=== PATIENT | female | born 1980 | race Caucasian/White ===

== ENCOUNTER 2019-11-13 05:27 | Emergency (ER) | payer MEDICAID, SELFPAY | END 2019-11-13 07:55 | disposition admitted as inpatient to this hospital (09) | LOC: ER 11-17 20:32 | PROVIDERS: Emergency Provider Emergency Medicine; PCP Family Medicine | DX: R45.851 Suicidal ideations (principal); F17.210 Nicotine dependence, cigarettes, uncomplicated | CPT/HCPCS: 12345; 80053; 80307; 84703; 85025; 99284; 99285 ==

== ENCOUNTER 2019-11-13 05:27 | Inpatient (IN) | payer MEDICAID, SELFPAY ==
[2019-11-13 05:28] VITALS: BP 158/103; PULSE 109; RESP 18; TEMP 36.6; O2SAT 99; BMI 22.8
--- NOTE | 2019-11-13 05:49 | PC.NURSE ---
patient states that she started feeling like she wanted to go in the shower and cut herself all the way down her arm to kill herself. patient states that she has been hearing voices talking bad about her and saying that she has been doing bad things. patient states she feels very anxious.
[2019-11-13 06:22] LABS: Basophils % 0.2 %; Hemoglobin 13.2 g/dL (11.5-15.3); Lymphocytes # 1.8 10^3/uL (0.8-4.8); Lymphocytes % 15.3 %; Mean Corpuscular HGB Conc 32.2 g/dL (30.0-36.0); Mean Corpuscular Hemoglobin 29.1 pg (28.0-34.0); Mean Corpuscular Volume 90.5 fL (81-99); Mean Platelet Volume 9.1 fL (7.4-10.4); Monocytes # 0.9 10^3/uL (0.2-0.9); Monocytes % 7.4 %; Neutrophils # 9.1 10^3/uL (1.8-7.7); Neutrophils % 76.7 %; Nucleated Red Blood Cells % 0 %; Platelet Count 484 10^3/cmm (130-400); Red Blood Count 4.53 10^6/uL (4.1-5.3); Red Cell Distribution Width 14.2 % (12.1-15.1); White Blood Count 11.8 10^3/uL (4.0-10.0)
--- NOTE | 2019-11-13 06:33 | W.ED.PSYCH ---
HPI - Psych General: Chief Complaint: Psychiatric Symptoms Stated Complaint: SI History of Present Illness: HPI Narrative: Gold is a nice 39-year-old female who comes in complaining of feeling suicidal. She states that she has a plan to cut her wrists. She has a previous history of admission for suicidal ideation. She denies any ingestions up to this point. She wants to come in to get help. Review of Systems Const: Denies: fever(s), chills, body aches, fatigue, malaise, night sweats or diaphoresis Eyes: Denies: change in vision, blurry vision or blind spots ENMT: Denies: throat pain, odynophagia, hoarseness, ear or mastoid pain, ear discharge, change in hearing or nasal discharge Card: Denies: chest pain, palpitations, irregular heart rhythm, lightheadedness, syncope, pre-syncope, dyspnea on exertion or orthopnea Resp: Denies: dyspnea, productive cough, non-productive cough, wheezing, hemoptysis or chest congestion GI: Denies: abdominal pain, nausea, vomiting, hematemesis, coffee ground emesis, heartburn, diarrhea, constipation, GI cramping, hematochezia or melena : Denies: flank pain, dysuria, urinary frequency, urinary urgency, oliguria, urinary incontinence or hematuria Musc: Denies: neck pain, back pain, extremity pain, extremity swelling, joint pain, joint swelling, joint redness, joint warmth or joint stiffness Skin/Breast: Denies: rash, pruritus, erythema, skin tenderness or jaundice Neuro: Denies: headache(s), numbness in extremities, weakness in extremities, sensory changes, lack of coordination, difficulty walking, dizziness, vertigo, confusion or Slurred speech present Endo: Denies: polyuria, polydipsia, tired all the time, cold intolerance, excessive sweating, flushing, hot flashes or heat intolerance Bossman/Lymph: Denies: easy bruising, easy bleeding, petechiae, purpura or enlarged lymph nodes All/Imm: Denies: urticaria, throat swelling, tongue swelling, facial swelling or acute wheezing PFSH ED PFSH: Family History Other Cancer Diabetes Heart disease Hyperlipidemia Hypertension Social History (Reviewed 11/13/19 @ 06:44 by Janet Alonzo Smoking and tobacco status: current every day smoker cigarettes Packs smoked per day: 1.5 Alcohol intake: never Adopted: No Caregiver/support person: No Lives independently: Yes Household members: significant other Current occupational status: disabled Sexually active: Yes Current gender identity: Female Physical Exam Const: COMMON NORMALS: no acute distress, patient oriented x3, no limitations, healthy appearing and well nourished EXAM LIMITATIONS: no altered mental status GENERAL APPEARANCE: cooperative, well kempt and well developed HENMT: COMMON NORMALS: normocephalic, atraumatic, hearing grossly normal bilaterally, external ears normal, EAC's normal, Normal external nose present and moist oral mucous membranes HEAD & SCALP: normal to inspection, normocephalic and atraumatic FACE & SINUS: normal facial exam and face symmetric NOSE: Normal external nose present and Normal nares present EXTERNAL EAR: Yes external ears normal EXTERNAL AUDITORY CANAL: EAC's normal MOUTH: Normal oral and palatal mucosa present, lip normal and tongue normal Eye: COMMON NORMALS: Equal, round and reactive pupils present, EOMs intact bilaterally, conjunctivae normal and no scleral icterus GENERAL EYE: appearance normal, both eyes and all related structures ALIGNMENT: Yes alignment normal PERIORBITAL: periorbital findings normal EYELID: eyelids normal CONJUNCTIVA: Yes conjunctivae normal SCLERA: sclerae normal PUPIL: Yes Equal, round and reactive pupils present Neck/C-Spine: COMMON NORMALS: full ROM, no lymphadenopathy, supple, no meningeal signs and no JVD GENERAL: Yes normal visual inspection and Yes trachea midline CERVICAL SPINE: Yes cervical ROM normal Chest: COMMONS NORMALS: normal inspection of the chest and normal palpation of entire chest wall Resp: COMMON NORMALS: normal respiratory effort, No retractions, No use of accessory muscles and clear to auscultation bilaterally EFFORT & INSPECTION: Yes able to speak in complete sentences AUSCULTATION: clear to auscultation bilaterally, no crackles, no rales, no rhonchi and no wheezes Cardio: COMMON NORMALS: no JVD, regular rate, regular rhythm, S1 normal heart sound present, S2 normal heart sound present, No gallops present (Cardio), No clicks present (Cardio), No murmurs present (Cardio) and No rub (Cardio) RATE: regular rate RHYTHM: regular rhythm HEART SOUNDS: S1 normal heart sound present, S2 normal heart sound present, no click, no gallops, no murmurs and no rubs GI: COMMON NORMALS: Soft to palpation, non-tender, No hepatosplenomegaly present and no masses PALPATION: Yes Soft to palpation, No Tenderness to palpation present (GI), No Guarding due to palpation present (GI), No Rigid due to palpation, Yes No hepatosplenomegaly present, No Hernia present, No Palpable mass present and No Pulsatile mass present : COMMON NORMALS: Yes no CVA tenderness BLADDER/KIDNEY EXAM: Yes no CVA tenderness EXTERNAL FEMALE EXAM: No Hernia present Back/Pelvis: COMMON NORMALS: no CVA tenderness, thoracic and lumbar spine normal to inspection, no thoracic nor lumbar tenderness and thoraco-lumbar ROM normal Extremity: COMMON NORMALS: normal to inspection, full ROM, capillary refill normal, no joint enlargement, no clubbing, cyanosis or edema and no calf tenderness Neuro: COMMON NORMALS: patient oriented x3, CN's II-XII intact bilaterally, moves all extremities, no focal motor deficits and no sensory deficits noted MENINGEAL SIGNS: Yes no meningeal signs SPEECH: speech normal Psych: COMMON NORMALS: mental status grossly normal, Normal thought process present, cooperative, normal affect, speech normal and activity/motor behavior normal APPEARANCE: Yes well kempt SPEECH: Yes normal speech THOUGHT PROCESS: Normal thought process present Skin: COMMON NORMALS: no rashes or lesions noted, turgor normal, no jaundice, no petechiae and no mottling GENERAL SKIN EXAM: no rashes or lesions noted and turgor normal MDM - Psych MDM Narrative: Medical decision making narrative: Case reviewed with Dr. Walter, he agrees to admission. Lab Data: Labs: Lab Results 11/13/19 11/13/19 11/13/19 Range/Units 06:15 06:15 06:15 WBC 11.8 H (4.0-10.0) 10^3/ uL RBC 4.53 (4.1-5.3) 10^6/u L Hgb 13.2 (11.5-15.3) g/dL Hct 41.0 (37.0-47.0) % MCV 90.5 (81-99) fL MCH 29.1 (28.0-34.0) pg MCHC 32.2 (30.0-36.0) g/dL RDW 14.2 (12.1-15.1) % Plt Count 484 H (130-400) 10^3/c mm MPV 9.1 (7.4-10.4) fL Neut % (Auto) 76.7 % Lymph % (Auto) 15.3 % Pettis % (Auto) 7.4 % Eos % (Auto) 0.0 % Baso % (Auto) 0.2 % Neut # (Auto) 9.1 H (1.8-7.7) 10^3/u L Lymph # (Auto) 1.8 (0.8-4.8) 10^3/u L Pettis # (Auto) 0.9 (0.2-0.9) 10^3/u L Eos # (Auto) 0.0 (0.0-0.8) 10^3/u L Baso # (Auto) 0.0 (0.0-0.1) 10^3/u L Nucleated RBC % (a uto) 0 % Nucleated RBCs # 0.0 /100WBC Sodium 138 (136-145) mmol/L Potassium 3.7 (3.5-5.1) mmol/L Chloride 102 (98-107) mmol/L Carbon Dioxide 24 (22-29) mmol/L Anion Gap 15.7 (5-19) BUN 6 (6-20) mg/dL Creatinine 0.6 (0.5-0.9) mg/dL GFR Calculation 111.3 (90-130) mL/min Glucose 120 H (65-115) mg/dL Calculated Osmolal ity 283 L (285-295) mOsm/k g Calcium 9.1 (8.5-10.5) mg/dL Total Bilirubin 0.3 (0.15-1.2) mg/dL AST 13 (0-32) U/L ALT 33 (0-33) U/L Alkaline Phosphata se 104 (35-105) IU/L Total Protein 6.9 (6.6-8.7) g/dL Albumin 4.5 (3.5-5.2) g/dL Globulin 2.4 (1.3-4.6) g/dL HCG, Qual Negative (Negative) Salicylates < 0.3 L (3-10) mg/dL Acetaminophen < 5.0 L (10-30) ug/mL Ethyl Alcohol < 10 (0-10) mg/dL Discharge Plan Discharge Patient Disposition: Admitted As Inpatient Admit Provider: Hong Walter Clinical Impression: Suicidal ideation Condition: Stable Referrals: Tripp Cardoso [Primary Care Provider] - Discharge Date/Time: 11/13/19 07:55 Coding Level of Care Code ED Roll Cutting Operator for Chg Fwd Exam Comprehensive
[2019-11-13 06:38] LABS: Alanine Aminotransferase 33 U/L (0-33); Albumin Level 4.5 g/dL (3.5-5.2); Alkaline Phosphatase 104 IU/L (35-105); Anion Gap 15.7 (5-19); Aspartate Amino Transferase 13 U/L (0-32); Blood Urea Nitrogen 6 mg/dL (6-20); Calcium 9.1 mg/dL (8.5-10.5); Carbon Dioxide 24 mmol/L (22-29); Chloride 102 mmol/L (98-107); Globulin 2.4 g/dL (1.3-4.6); Glomerular Filtration Rate 111.3 mL/min (90-130); Glucose 120 mg/dL (65-115); Osmolality Calculated 283 mOsm/kg (285-295); Potassium 3.7 mmol/L (3.5-5.1); Sodium 138 mmol/L (136-145); Total Bilirubin 0.3 mg/dL (0.15-1.2); Total Protein 6.9 g/dL (6.6-8.7)
[2019-11-13 06:48] LABS: Acetaminophen < 5.0 ug/mL (10-30); Alcohol Level < 10 mg/dL (0-10); Salicylate < 0.3 mg/dL (3-10)
[2019-11-13 07:18] LABS: HCG, Serum Qual Negative (Negative)
[2019-11-13 07:27] LABS: Add Urine Microscopic? NO
[2019-11-13 07:38] LABS: Amphetamines Screen Urine Positive (Negative); Barbiturates Screen Urine Negative (Negative); Benzodiazepines Screen Urine Negative (Negative); Cocaine Screen Urine Negative (Negative); Opiate Screen Urine Negative (Negative); PCP Screen Urine Negative (Negative); THC Screen Urine Positive (Negative)
[2019-11-13 07:48] LABS: Bilirubin Urine Neg (NEGATIVE); Blood Urine Neg (Negative); Glucose Urine UA Norm (Normal); Ketones Urine Negative (Negative); Leukocyte Esterase Urine Negative (Negative); Nitrate Urine Negative (Negative); Protein Urine Neg (Negative); Specific Gravity, Urine 1.005 (1.005-1.030); Urine Appearance Clear (CLEAR); Urine Color Yellow (Yellow); Urobilinogen Urine Norm (Negative); pH Urine 7 (5-7)
[2019-11-13 07:51] VITALS: BP 144/90; PULSE 94; RESP 18; O2SAT 98
[2019-11-13 08:02] VITALS: BP 137/87; PULSE 103; RESP 20; TEMP 36.6; O2SAT 98
[2019-11-13 08:04] VITALS: BP 137/87; PULSE 103; RESP 20; TEMP 36.6; O2SAT 98
[2019-11-13] MEDS: OLANZapine 5 mg ODT PO (09:28)
[2019-11-13] MEDS: acetaminophen 325 mg Tablet 650 MG PO (12:44)
[2019-11-13 14:00] VITALS: BP 128/82; PULSE 79; RESP 18; TEMP 36.8
[2019-11-13] MEDS: hyDROXYzine 25 mg Capsule 50 MG PO ×2 (16:06→21:05)
[2019-11-13] MEDS: trazodone 50 mg Tablet PO (21:05)
[2019-11-13 21:13] VITALS: BP 135/89; PULSE 91; RESP 20; TEMP 37.8; O2SAT 100
[2019-11-14 06:00] VITALS: BP 110/67; PULSE 119; RESP 18; TEMP 37.1; O2SAT 96
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
[2019-11-14 13:30] VITALS: BP 123/90; PULSE 96; RESP 20; TEMP 37.4; O2SAT 97
[2019-11-14] MEDS: acetaminophen 325 mg Tablet 650 MG PO (13:48)
[2019-11-14] MEDS: sertraline 50 mg Tablet PO (17:38)
[2019-11-14 20:48] VITALS: BP 119/78; PULSE 78; RESP 16; TEMP 37.1; O2SAT 96
[2019-11-14] MEDS: trazodone 50 mg Tablet PO ×2 (20:53→23:29)
--- NOTE | 2019-11-14 20:53 | PC.NURSE ---
TRAZODONE PT REQUESTING SLEEP AID. ADMINISTERED TRAZODONE 50 MG PO FOR SLEEP. WILL MONITOR FOR MEDICATION EFFECTIVENESS.
[2019-11-15 06:00] VITALS: BP 125/75; PULSE 109; RESP 17; TEMP 37.1; O2SAT 99
[2019-11-15] MEDS: sertraline 50 mg Tablet PO (09:00)
--- NOTE | 2019-11-15 11:55 | PM.NPN ---
Subjective NPU Subjective: Interval history: Brianna presented today still seeming in a bit of a fog and guarded but taking the medication and denying major issue. She denies any side effects or problems. There were concerns after she had an episode where she was being self-injurious in a fairly nonthreatening but possibly attention seeking manner. She could not really explain why she was behaving in the way she was and ultimately was put on one-to-one to avoid further SIB or self harm which was removed after she was able to contract for safety. Mental Status Exam MSE Comments: This is a well-nourished well-developed white female with adequate dress limited grooming and eye contact. No abnormal movements except for psychomotor retardation. Marginally cooperative with exam in no acute distress. Speech was decreased rate and volume mood described as depressed affect congruent and. Thought process linear. Thought content: Patient denied homicidal ideation but reported that she was having some thoughts to hurt herself. She denied any delusions and none were noted, she denied any auditory or visual hallucinations. Attention and concentration were still limited and memory was unreliable but none were formally tested. She is alert and oriented times person and place. Insight and judgment appear impaired. Vitals/I&O/Wt Last Vital Signs Temp 97.6 F 11/15/19 22:00 Pulse 86 11/15/19 22:00 Resp 17 11/15/19 22:00 BP 125/86 11/15/19 22:00 Pulse Ox 98 11/15/19 22:00 Data NPU : 11/13/19 06:15 11/13/19 06:15 A&P Assessment and plan (1) Suicidal ideation: Status: Acute (2) Methamphetamine use: Status: Acute (3) Major depress dis, severe: Status: Acute (4) Cluster B personality disorder: Status: Acute Additional A&P Information This is a 39-year-old white female with a long history of addiction and mental health issues who presents restarting her medication and struggling with suicidal thoughts. 1. Continue current medication. 2. encourage individual, group and milieu therapy. 3. continue every 15 minute checks for safety. 4. Encourage follow-up with sober living services at the highest level of care to which she is willing to commit. Involuntary Hold Information 96 Hour Hold: 96 Hour Involuntary Admission: No Attestations NPU Medical Necessity Statement*: Inpatient hospitalization is medically necessary and the clinically appropriate intervention at this time. We will monitor medications and adjust as indicated. Likely length of stay 2 to 4 days. 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
[2019-11-15 14:00] VITALS: BP 102/69; PULSE 113; RESP 18; TEMP 37.2; O2SAT 98
[2019-11-15] MEDS: trazodone 50 mg Tablet PO ×2 (21:08→22:53)
[2019-11-15] MEDS: hyDROXYzine 25 mg Capsule 50 MG PO (21:08)
[2019-11-15 22:00] VITALS: BP 125/86; PULSE 86; RESP 17; TEMP 36.4; O2SAT 98
--- NOTE | 2019-11-15 22:40 | PC.NURSE ---
Staff went into patients room to get vitals. Staff asked patient if everything is alright due to the fact patient has been trying to self harm. Patient stated I have something embarrassing to say and you might laugh at me. staff informed the patient that no one was going to laugh. Patient then stated, I'm having these sexual urges towards animals. Charged nurse was notified.
[2019-11-16 06:00] VITALS: BP 106/70; PULSE 95; RESP 17; TEMP 36.8; O2SAT 97
[2019-11-16] MEDS: sertraline 50 mg Tablet PO (08:05)
[2019-11-16] MEDS: acetaminophen 325 mg Tablet 650 MG PO ×3 (08:05→22:40)
--- NOTE | 2019-11-16 10:40 | P.PN_ITS ---
Subjective NPU Subjective: Interval history: Brianna presents today reporting that she is feeling a little better she feels like the medication is helpful. She is been working with the social work team and apparently there is a band that will be available for her at [facility] that is not able to tell us right now exactly when that will be. We discussed making sure she is ready to go and make appropriate use of that resource. She endorses being very clear that going to rehab is the best and necessary next move for in her wellness. She was tearful during the interview. Mental Status Exam MSE Comments: This is a well-nourished well-developed white female with adequate dress, grooming and eye contact. No abnormal movements except for psychomotor retardation. Cooperative with exam in no acute distress. Speech was decreased rate and volume mood described as depressed affect congruent and tearful. Thought process more organized. Thought content: Patient denied homicidal or suicidal ideation She denied any delusions and none were noted, she denied any auditory or visual hallucinations. Attention and concentration were still limited but improving and memory was unreliable but none were formally tested. She is alert and oriented times person and place. Insight and judgment appear impaired but improving. Vitals/I&O/Wt Last Vital Signs Temp 98.8 F 11/16/19 21:36 Pulse 92 11/16/19 21:36 Resp 21 H 11/16/19 21:36 BP 101/70 11/16/19 21:36 Pulse Ox 97 11/16/19 21:36 Data NPU : 11/13/19 06:15 11/13/19 06:15 A&P Additional A&P Information (1) Suicidal ideation: (2) Methamphetamine use: (3) Major depress dis, severe: (4) Cluster B personality disorder: This is a 39-year-old white female with a long history of addiction and mental health issues who presents restarting her medication and struggling with talia cidal thoughts which are improving and addiction. 1. Continue current medication. 2. encourage individual, group and milieu therapy. 3. continue every 15 minute checks for safety. 4. Encourage follow-up with sober living services at the highest level of care to which she is willing to commit. Involuntary Hold Information 96 Hour Hold: 96 Hour Involuntary Admission: No Attestations NPU Medical Necessity Statement*: Inpatient hospitalization is medically necessary and the clinically appropriate intervention at this time. We will monitor medications and adjust as indicated. Likely length of stay 2 to 4 days. Coding Level of Care Code Acute Intervention Nurse for [facility]
[2019-11-16 13:49] VITALS: BP 107/69; PULSE 997; RESP 18; TEMP 37.1; O2SAT 98
[2019-11-16] MEDS: nicotine 2 mg Gum BUCCAL (20:31)
[2019-11-16] MEDS: trazodone 50 mg Tablet PO ×2 (20:31→22:41)
[2019-11-16] MEDS: hyDROXYzine 25 mg Capsule 50 MG PO (20:31)
[2019-11-16 21:36] VITALS: BP 101/70; PULSE 92; RESP 21; TEMP 37.1; O2SAT 97
[2019-11-16] MEDS: calcium carbonate 500 mg Chew Tablet PO (22:41)
[2019-11-17 06:00] VITALS: BP 100/62; PULSE 97; RESP 21; TEMP 36.8; O2SAT 99
[2019-11-17] MEDS: dicyclomine 20 mg Tablet PO ×4 (08:17→20:40)
[2019-11-17] MEDS: sertraline 50 mg Tablet PO (08:17)
[2019-11-17] MEDS: acetaminophen 325 mg Tablet 650 MG PO ×3 (08:46→21:33)
--- NOTE | 2019-11-17 12:34 | PM.NPN ---
Subjective NPU Subjective: Interval history: Brianna presents today reporting that she is feeling a little better day by day. She is aware that [facility] has a band that they will have available on Thursday. We discussed the risk benefits and alternatives of her staying versus going in for maintaining her sobriety if she leaves. Additionally we discussed some of her medications which had not been identified in getting those restarted. She endorsed a commitment to go to the rehab and get her life turned around. She reported that she has a history of a possible TBI showing me is a spot of the injury on the back of her head. Mental Status Exam MSE Comments: This is a well-nourished well-developed white female with adequate dress, grooming and eye contact. No abnormal movements except for psychomotor retardation. Cooperative with exam in no acute distress. Speech was decreased rate and volume mood described as a little better, affect subdued. Thought process more organized. Thought content: Patient denied homicidal or suicidal ideation She denied any delusions and none were noted, she denied any auditory or visual hallucinations. Attention and concentration were still limited but improving and memory was more reliable but none were formally tested. She is alert and oriented times person and place. Insight and judgment appear limited but improving. Vitals/I&O/Wt Last Vital Signs Temp 98.1 F 11/17/19 21:30 Pulse 98 11/17/19 21:30 Resp 17 11/17/19 21:30 BP 108/77 11/17/19 21:30 Pulse Ox 98 11/17/19 21:30 Data NPU : 11/13/19 06:15 11/13/19 06:15 A&P Additional A&P Information (1) Suicidal ideation: (2) Methamphetamine use: (3) Major depress dis, severe: (4) Cluster B personality disorder: This is a 39-year-old white female with a long history of addiction and mental health issues who presents restarting her medication and struggling with suicidal thoughts which are improving and addiction. 1. Continue current medication. 2. encourage individual, group and milieu therapy. 3. continue every 15 minute checks for safety. 4. Encourage follow-up with sober living services at the highest level of care to which she is willing to commit. Involuntary Hold Information 96 Hour Hold: 96 Hour Involuntary Admission: No Attestations NPU Medical Necessity Statement*: Inpatient hospitalization is medically necessary and the clinically appropriate intervention at this time. We will monitor medications and adjust as indicated. Likely length of stay 2 to 4 days. Coding Level of Care Code Acute Marketing Project Manager for [facility]
[2019-11-17] MEDS: nicotine 2 mg Gum BUCCAL (12:36)
[2019-11-17] MEDS: tizanidine 4 mg Tablet PO (12:38)
--- NOTE | 2019-11-17 12:38 | PC.NURSE ---
PRN ZANAFLEX 4 MG GIVEN PO PER PT C/O SPASMS IN NECK. WILL CONT TO MONITOR.
[2019-11-17 13:24] VITALS: BP 113/81; PULSE 91; RESP 18; TEMP 36.9; O2SAT 100
[2019-11-17] MEDS: gabapentin 300 mg Capsule PO ×2 (15:27→20:40)
[2019-11-17 19:40] VITALS: BP 108/77; PULSE 98; RESP 17; TEMP 36.7; O2SAT 98
[2019-11-17] MEDS: trazodone 50 mg Tablet PO (20:40)
[2019-11-17 21:30] VITALS: BP 108/77; PULSE 98; RESP 17; TEMP 36.7; O2SAT 98
[2019-11-17] MEDS: calcium carbonate 500 mg Chew Tablet PO (21:34)
[2019-11-18 06:00] VITALS: BP 106/68; PULSE 86; RESP 20; TEMP 37; O2SAT 99
[2019-11-18] MEDS: acetaminophen 325 mg Tablet 650 MG PO ×3 (08:28→18:42)
[2019-11-18] MEDS: sertraline 50 mg Tablet PO (08:28)
[2019-11-18] MEDS: dicyclomine 20 mg Tablet PO ×4 (08:28→20:11)
[2019-11-18] MEDS: tizanidine 4 mg Tablet PO (08:28)
[2019-11-18] MEDS: gabapentin 300 mg Capsule PO ×3 (08:28→20:12)
[2019-11-18] MEDS: loratadine 10 mg Tablet PO (08:28)
[2019-11-18] MEDS: duloxetine 60 mg Capsule PO (08:28)
--- NOTE | 2019-11-18 08:30 | PC.NURSE ---
PRN ZANAFLEX 4 MG GIVEN PO PER PT C/O MUSCLE SPASMS. WILL CONT TO MONITOR
[2019-11-18] MEDS: nicotine 2 mg Gum BUCCAL ×2 (08:57→20:12)
[2019-11-18] MEDS: calcium carbonate 500 mg Chew Tablet PO (08:57)
--- NOTE | 2019-11-18 08:57 | PC.NURSE ---
prn tums 500 mg given po per pt c/o indigestion
[2019-11-18] MEDS: neomycin-poly-bacitracin oint 28 gm 1 APPLIC TOPICAL (10:29)
[2019-11-18 13:58] VITALS: BP 122/80; PULSE 105; RESP 18; TEMP 36.9; O2SAT 94
--- NOTE | 2019-11-18 14:37 | P.PN_ITS ---
Subjective NPU Subjective: Interval history: Brianna presents today reporting that she is feeling better and looking forward to rehab on Thursday. She had hoped she could go sooner, but she understands the circumstance. She reports that the medication seems fine. She is happy because she is not really having cravings right now, and she feels like help is on the way. She has had an opportunity to continue conversations with her mom and her boyfriend/fianc? and she is optimistic about her future. Mental Status Exam MSE Comments: This is a well-nourished, well-developed, white female, with adequate dress, grooming, and eye contact. No abnormal movements except for mild psychomotor retardation which is improving. Cooperative with exam in no acute distress. Speech was decreased rate and volume but improving. Mood described as better; affect congruent. Thought process, organized. Thought content: patient denied any suicidal or homicidal ideation, there were no delusions reported or noted, patient denied any auditory or visual hallucinations. Attention, concentration, and memory appeared intact but were not formally tested. Alert and oriented times three. Insight and judgment are fair. Impulse control improving. Vitals/I&O/Wt Last Vital Signs Temp 98.6 F 11/18/99 06:00 Pulse 86 11/18/99 06:00 Resp 20 H 11/18/99 06:00 BP 106/68 11/18/99 06:00 Pulse Ox 99 11/18/99 06:00 Data NPU : 11/13/19 06:15 11/13/19 06:15 A&P Additional A&P Information (1) Suicidal ideation: (2) Methamphetamine use: (3) Major depress dis, severe: (4) Cluster B personality disorder: This is a 39-year-old white female with a long history of addiction and mental health issues who presents restarting her medication and struggling with suicidal thoughts which are improving and addiction. 1. Continue current medication. 2. encourage individual, group and milieu therapy. 3. continue every 15 minute checks for safety. 4. [facility]. Involuntary Hold Information 96 Hour Hold: 96 Hour Involuntary Admission: No Attestations NPU Medical Necessity Statement*: Inpatient hospitalization is medically necessary and the clinically appropriate intervention at this time. We will monitor medications and adjust as indicated. Likely length of stay 3 days. Coding Level of Care Code Acute Switchboard Manager for Ioana Alcaraz
[2019-11-18] MEDS: TRAMadol 50 mg Tablet PO (20:09)
[2019-11-18 21:18] VITALS: BP 114/83; PULSE 65; RESP 20; TEMP 37.4; O2SAT 99
[2019-11-18] MEDS: hyDROXYzine 25 mg Capsule 50 MG PO (21:58)
[2019-11-18] MEDS: trazodone 50 mg Tablet PO (22:01)
[2019-11-19 06:00] VITALS: BP 98/60; PULSE 86; RESP 18; TEMP 37; O2SAT 100
[2019-11-19] MEDS: sertraline 50 mg Tablet PO (08:20)
[2019-11-19] MEDS: gabapentin 300 mg Capsule PO ×3 (08:20→22:06)
[2019-11-19] MEDS: loratadine 10 mg Tablet PO (08:20)
[2019-11-19] MEDS: dicyclomine 20 mg Tablet PO ×4 (08:20→22:06)
[2019-11-19] MEDS: duloxetine 60 mg Capsule PO (08:20)
[2019-11-19] MEDS: TRAMadol 50 mg Tablet PO ×2 (09:16→17:24)
[2019-11-19] MEDS: hyDROXYzine 25 mg Capsule 50 MG PO ×2 (09:36→17:25)
[2019-11-19] MEDS: nicotine 2 mg Gum BUCCAL ×3 (09:36→22:23)
[2019-11-19 14:00] VITALS: BP 121/82; PULSE 133; RESP 18; TEMP 37.4
[2019-11-19] MEDS: BuSPIRONE 10 mg Tablet PO ×2 (14:24→22:05)
--- NOTE | 2019-11-19 15:37 | PM.NPN ---
Subjective NPU Subjective: Interval history: The patient presents today reporting that she is happy that she is about forty eight hours away from discharge. She reports that she is feeling more and more like herself, and less out of her head like she was feeling when she first came in. She feels that things are going to go really well now, and she denies any significant problems. Mental Status Exam MSE Comments: This is a well-nourished, well-developed, white female, with adequate dress, grooming, and eye contact. No abnormal movements, except for improving psychomotor retardation. Cooperative with exam in no acute distress. Speech was more normal rate and volume. Mood described as much better; affect congruent and less subdued. Thought process, organized. Thought content: patient denied any suicidal or homicidal ideation, there were no delusions reported or noted, patient denied any auditory or visual hallucinations. Attention, concentration, and memory appeared intact but none were formally tested. She is alert and oriented times three. Insight and judgment are fair. Impulse control is improving. Vitals/I&O/Wt Last Vital Signs Temp 98.4 F 11/19/19 22:00 Pulse 98 11/19/19 22:00 Resp 19 H 11/19/19 22:00 BP 127/72 11/19/19 22:00 Pulse Ox 97 11/19/19 22:00 Weight last 48 hrs Weight 67.642 kg Data NPU : 11/13/19 06:15 11/13/19 06:15 A&P Additional A&P Information (1) Suicidal ideation: (2) Methamphetamine use: (3) Major depress dis, severe: (4) Cluster B personality disorder: This is a 39-year-old white female with a long history of addiction and mental health issues who presents restarting her medication and struggling with suicidal thoughts which are improving and addiction. 1. Continue current medication. 2. encourage individual, group and milieu therapy. 3. continue every 15 minute checks for safety. 4. discharged to [facility] on Thursday. Involuntary Hold Information 96 Hour Hold: 96 Hour Involuntary Admission: No Attestations NPU Medical Necessity Statement*: Inpatient hospitalization is medically necessary and the clinically appropriate intervention at this time. We will monitor medications and adjust as indicated. Likely length of stay 2 days. Coding Level of Care Code Acute Livestock Haulier for Ioana Alcaraz
[2019-11-19] MEDS: calcium carbonate 500 mg Chew Tablet PO (19:07)
[2019-11-19 22:00] VITALS: BP 127/72; PULSE 98; RESP 19; TEMP 36.9; O2SAT 97
[2019-11-19] MEDS: trazodone 100 mg Tablet PO (22:05)
[2019-11-20 06:00] VITALS: BP 90/56; PULSE 89; RESP 18; TEMP 36.6; O2SAT 99
[2019-11-20] MEDS: calcium carbonate 500 mg Chew Tablet PO ×3 (09:01→21:18)
[2019-11-20] MEDS: sertraline 50 mg Tablet PO (09:01)
[2019-11-20] MEDS: loratadine 10 mg Tablet PO (09:02)
[2019-11-20] MEDS: BuSPIRONE 10 mg Tablet PO ×3 (09:02→20:25)
[2019-11-20] MEDS: duloxetine 60 mg Capsule PO (09:02)
[2019-11-20] MEDS: dicyclomine 20 mg Tablet PO ×4 (09:03→20:25)
[2019-11-20] MEDS: gabapentin 300 mg Capsule PO ×3 (09:03→20:25)
[2019-11-20] MEDS: tizanidine 4 mg Tablet PO (09:03)
[2019-11-20] MEDS: nicotine 2 mg Gum BUCCAL ×5 (09:04→21:39)
--- NOTE | 2019-11-20 09:04 | PC.NURSE ---
PRN TUMS & ZANAFLEX TUMS 500 MG CHEWABLE GIVEN PO PER PT C/O INDIGESTION ZANAFLEX 4 MG GIVEN PO PER PT C/O SPASMS. WILL CONT TO MONITOR
[2019-11-20] MEDS: TRAMadol 50 mg Tablet PO ×2 (09:22→17:37)
[2019-11-20] MEDS: acetaminophen 325 mg Tablet 650 MG PO (12:25)
[2019-11-20 14:00] VITALS: BP 132/82; PULSE 78; RESP 19; TEMP 36.9
--- NOTE | 2019-11-20 14:55 | PC.NURSE ---
PRN TUMS 500 MG CHEWABLE TAB GIVEN PO PER PT C/O INDIGESTION. WILL CONT TO MONITOR
--- NOTE | 2019-11-20 17:07 | P.PN_ITS ---
Subjective NPU Subjective: Interval history: Brianna presents today reporting that her father supposedly is going to have to have hip surgery, and that her mother is fairly incapacitated, and her sister is not helpful, and that she is the only person that is going to be able to take care of him, that will take care of him. She reports that her mother and fianc? will vouch for the fact that she is doing so much better. She denies having active cravings, at this point, and is now desiring to discharge tomorrow as planned, but not go to the rehab. We discussed the risks, benefits, and alternatives of this decision and this investment underwriter?s desire to have the treatment team connect with her significant others to make sure this is an accurate representation of this situation, and that this is truly what it in her best interest. Mental Status Exam MSE Comments: This is a well-nourished, well-developed, white female, with adequate dress, grooming, and eye contact. No abnormal movements. Cooperative w ith exam in no acute distress. Speech was normal rate and volume. Mood described as pretty good; affect less subdued. Thought process, organized. Thought content: patient denied any suicidal or homicidal ideation, there were no delusions reported or noted, patient denied any auditory or visual hallu cinations. Attention, concentration, and memory appeared intact but none were formally tested. She is alert and oriented times three. Insight and judgment appear fair. Impulse control is improving. Vitals/I&O/Wt Last Vital Signs Temp 98.2 F 11/20/19 20:01 Pulse 96 11/20/19 20:01 Resp 16 11/20/19 20:01 BP 124/73 11/20/19 20:01 Pulse Ox 98 11/20/19 20:01 11/20/19 11/20/19 11/21/19 14:59 22:59 06:59 Intake Total 360 / 360 Balance 360 / 360 Weight last 48 hrs Weight 67.642 kg Data NPU : 11/13/19 06:15 11/13/19 06:15 A&P Additional A&P Information (1) Suicidal ideation: (2) Methamphetamine use: (3) Major depress dis, severe: (4) Cluster B personality disorder: This is a 39-year-old white female with a long history of addiction and mental health issues who presents restarting her medication and struggling with suicidal thoughts which are improving and addiction. 1. Continue current medication. 2. encourage individual, group and milieu therapy. 3. continue every 15 minute checks for safety. 4. discharged to [facility] on Thursday. Involuntary Hold Information 96 Hour Hold: 96 Hour Involuntary Admission: No Attestations NPU Medical Necessity Statement*: Inpatient hospitalization is medically necessary and the clinically appropriate intervention at this time. We will monitor medications and adjust as indicated. Likely discharge tomorrow. Coding Level of Care Code Acute Rail Equipment Operator for Ioana Alcaraz
[2019-11-20] MEDS: hyDROXYzine 25 mg Capsule 50 MG PO (17:37)
--- NOTE | 2019-11-20 17:38 | PC.NURSE ---
PRN VISTARIL 50 MG GIVEN PO PER PT C/O STATED ANXIETY. PT DOES NOT APPEAR ANXIOUS, LAUGHING AT THE NURSES STATION. REQUESTING ANY AND ALL PRN MEDICATIONS SHE CAN HAVE OFTEN.
[2019-11-20 20:01] VITALS: BP 124/73; PULSE 96; RESP 16; TEMP 36.8; O2SAT 98
[2019-11-20] MEDS: trazodone 100 mg Tablet PO (20:25)
[2019-11-21 06:00] VITALS: BP 106/72; PULSE 88; RESP 17; TEMP 36.8; O2SAT 100
[2019-11-21] MEDS: gabapentin 300 mg Capsule PO ×2 (08:28→14:06)
[2019-11-21] MEDS: nicotine 2 mg Gum BUCCAL ×3 (08:28→15:06)
[2019-11-21] MEDS: BuSPIRONE 10 mg Tablet PO ×2 (08:28→14:06)
[2019-11-21] MEDS: duloxetine 60 mg Capsule PO (08:28)
[2019-11-21] MEDS: dicyclomine 20 mg Tablet PO ×2 (08:30→11:57)
[2019-11-21] MEDS: loratadine 10 mg Tablet PO (08:30)
[2019-11-21] MEDS: TRAMadol 50 mg Tablet PO (08:30)
[2019-11-21] MEDS: sertraline 50 mg Tablet PO (08:30)
[2019-11-21] MEDS: tizanidine 4 mg Tablet PO (08:30)
--- NOTE | 2019-11-21 08:31 | PC.NURSE ---
PRN ZANAFLEX 4 MG GIVEN PO PER PT C/O MUSCLE SPASMS. WILL CONT TO MONITOR
[2019-11-21] MEDS: calcium carbonate 500 mg Chew Tablet PO (09:15)
--- NOTE | 2019-11-21 09:16 | PC.NURSE ---
PRN TUMS 500 MG CHEWABLE TAB GIVEN PO PER PT C/O INDIGESTION.
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
[2019-11-21 11:40] VITALS: BP 106/72; PULSE 88; RESP 17; TEMP 36.8; O2SAT 100
[2019-11-21] MEDS: acetaminophen 325 mg Tablet 650 MG PO (11:57)
== END 2019-11-21 15:15 | disposition home or self-care (01) | DRG 885 ==
LOC: ER 07:29 → NP 07:52
PROVIDERS: Emergency Medicine; Admitting Provider Psychiatry & Neurology Psychiatry; PCP Family Medicine; Visit Provider Psychiatry & Neurology Psychiatry
DX: F32.2 Major depressive disorder, single episode, severe without psychotic features (principal); R45.851 Suicidal ideations; F15.90 Other stimulant use, unspecified, uncomplicated; F17.210 Nicotine dependence, cigarettes, uncomplicated; F12.90 Cannabis use, unspecified, uncomplicated; F60.89 Other specific personality disorders
CPT/HCPCS: 12345; 80053; 80306; 80307; 81003; 84703; 85025; 99284

== ENCOUNTER → 2019-12-01 09:54 | Outpatient (BNVA) | payer MEDICAID, SELFPAY | PROVIDERS: PCP Family Medicine; Referring Provider Family Medicine; Visit Provider Specialist | DX: R56.9 Unspecified convulsions (principal); F17.210 Nicotine dependence, cigarettes, uncomplicated | CPT/HCPCS: 95816 ==

== ENCOUNTER → 2020-03-09 09:44 | Outpatient (BNVA) | payer MEDICAID, SELFPAY | PROVIDERS: PCP Family Medicine; Visit Provider Psychiatry & Neurology Psychiatry | DX: F31.30 Bipolar disorder, current episode depressed, mild or moderate severity, unspecified (principal); F41.9 Anxiety disorder, unspecified; F15.10 Other stimulant abuse, uncomplicated ==

== ENCOUNTER 2020-03-16 01:16 | Inpatient (IN) | payer MEDICAID, SELFPAY ==
[2020-03-16 01:45] VITALS: BP 124/89; PULSE 113; RESP 16; TEMP 36.4; O2SAT 96; BMI 24.7
[2020-03-16 02:15] LABS: Basophils # 0.1 10^3/uL (0.0-0.1); Basophils % 0.5 %; Eosinophils % 0.3 %; Hemoglobin 14.7 g/dL (11.5-15.3); Lymphocytes # 3.3 10^3/uL (0.8-4.8); Lymphocytes % 25.4 %; Mean Corpuscular Hemoglobin 29.5 pg (28.0-34.0); Mean Corpuscular Volume 92.2 fL (81-99); Mean Platelet Volume 9.4 fL (7.4-10.4); Monocytes # 1.2 10^3/uL (0.2-0.9); Monocytes % 9.1 %; Neutrophils # 8.31 10^3/uL (1.8-7.7); Neutrophils % 64.4 %; Nucleated Red Blood Cells % 0 %; Platelet Count 451 10^3/cmm (130-400); Red Blood Count 4.99 10^6/uL (4.1-5.3); Red Cell Distribution Width 14.5 % (12.1-15.1); White Blood Count 12.9 10^3/uL (4.0-10.0)
[2020-03-16 02:37] LABS: Alanine Aminotransferase 26 U/L (0-33); Alkaline Phosphatase 108 IU/L (35-105); Anion Gap 14.5 (5-19); Aspartate Amino Transferase 16 U/L (0-32); Blood Urea Nitrogen 9 mg/dL (6-20); Calcium 9.7 mg/dL (8.5-10.5); Carbon Dioxide 24 mmol/L (22-29); Chloride 102 mmol/L (98-107); Globulin 3.3 g/dL (1.3-4.6); Glomerular Filtration Rate 79.9 mL/min (90-130); Glucose 105 mg/dL (65-115); Lithium 0.4 mmol/L (0.6-1.2); Osmolality Calculated 283 mOsm/kg (285-295); Potassium 3.5 mmol/L (3.5-5.1); Sodium 137 mmol/L (136-145); Total Bilirubin 0.4 mg/dL (0.15-1.2); Total Protein 8.3 g/dL (6.6-8.7)
--- NOTE | 2020-03-16 02:41 | XR_ITS ---
WS: [id number] Portable AP upright chest, 03/16/2020 Clinical Data: cough Comparison: Portable chest, 06/03/2017. Findings: No nodules, masses or effusions are seen. The heart is normal. The pulmonary vascularity is not increased. No pneumonia or pneumothorax is seen. XR/XR chest 1V [id number] Impression: Negative chest.
--- NOTE | 2020-03-16 02:47 | W.ED.PSYCH ---
HPI - Psych General: Chief Complaint: Psychiatric Symptoms Stated Complaint: SI Time Seen by Provider: 03/16/20 01:56 History of Present Illness: HPI Narrative: 39-year-old female with a history of psychiatric illness. She presents with depression, hearing voices, and suicidal ideation. She states the voices have been worse the past couple of days. She believes she took some methamphetamine, which may have worsened her symptoms. She was in the shower, and planned on slitting her wrists. She has some abrasions to her left wrist. She has been hospitalized before for suicidal ideation, and hearing voices. She does state that she has been coughing, and had a fever a few days ago. She feels like she is improving from this. MD complaint: suicidal ideation and feels depressed Onset (ago): day(s) Duration: constant History of same: Yes Relieving factors: none Exacerbating factors: drug use Context: recent drug abuse Associated psychiatric symptoms: depression, suicidal ideation and auditory hallucinations Associated symptoms: Deny homicidal ideation Treatments prior to arrival: none Review of Systems Const: Denies: fever(s) or chills Eyes: Denies: change in vision or blurry vision ENMT: Denies: odynophagia, swelling of lips/tongue, bleeding gums, dental pain, change in hearing, epistaxis, post nasal drip or sinus pain Card: Denies: chest pain, palpitations, irregular heart rhythm, edema, swelling of feet/ankles, dyspnea on exertion or orthopnea Resp: Reports: dyspnea and productive cough; Denies: non-productive cough or wheezing GI: Denies: abdominal pain, nausea, vomiting or rectal pain : Denies: dysuria, urinary frequency or hematuria Musc: Denies: neck pain Skin/Breast: Denies: rash or erythema Neuro: Denies: headache(s) or dizziness Psych: Denies: homicidal ideation PFS ED PFSH: Medical History (Updated 03/16/20 @ 04:08 by Jamil Romero DO) Anxiety Bipolar affective, depress, unspec Family History (Updated 02/22/20 @ 10:06 by La Pitts LPN) Grandfather No problems noted. Grandmother Stroke Maternal great Heart disease paternal Hypertension maternal Father Heart disease Hypertension Family/Other Breast cancer maternal aunt Denies family history of Colon cancer Ovarian cancer Uterine cancer Thyroid disease Social History (Updated 02/22/20 @ 09:41 by Luz Marina Parmar) Smoking and tobacco status: current every day smoker cigarettes Packs smoked per day: 1.5 Alcohol intake: never Physical Exam Const: GENERAL APPEARANCE: well developed ORIENTATION/CONSCIOUSNESS: Yes oriented to person, Yes oriented to place and Yes oriented to time HENMT: COMMON NORMALS: normocephalic, external ears normal and Normal external nose present HEAD & SCALP: normocephalic FACE & SINUS: normal facial exam NOSE: Normal external nose present and No nasal discharge present EXTERNAL EAR: Yes external ears normal Eye: COMMON NORMALS: Equal, round and reactive pupils present, EOMs intact bilaterally and conjunctivae normal EYELID: eyelids normal CONJUNCTIVA: Yes conjunctivae normal PUPIL: Yes Equal, round and reactive pupils present Neck/C-Spine: COMMON NORMALS: full ROM GENERAL: No tracheal deviation Chest: COMMONS NORMALS: normal inspection of the chest CHEST: No tenderness Resp: COMMON NORMALS: clear to auscultation bilaterally EFFORT & INSPECTION: No tachypneic, No respiratory distress, No retractions, No uses accessory muscles and No tracheal deviation AUSCULTATION: clear to auscultation bilaterally, no rhonchi, no wheezes and lung sounds not diminished Cardio: COMMON NORMALS: regular rate and regular rhythm RATE: regular rate RHYTHM: regular rhythm HEART SOUNDS: no murmurs PERIPHERAL PULSES: radial pulses present GI: INSPECTION: No abdominal distension AUSCULTATION: No Hyperactive bowel sounds present and No Hypoactive bowel sounds present PALPATION: No Guarding due to palpation present (GI) and No Rigid due to palpation PERCUSSION: no dullness to percussion and no tympanic to percussion : COMMON NORMALS: Yes no CVA tenderness BLADDER/KIDNEY EXAM: Yes no CVA tenderness Back/Pelvis: COMMON NORMALS: no CVA tenderness Neuro: SENSORIUM/ORIENTATION: Yes oriented to person, Yes oriented to place and Yes oriented to time Psych: COMMON NORMALS: mental status grossly normal Skin: COMMON NORMALS: no rashes or lesions noted GENERAL SKIN EXAM: no rashes or lesions noted MDM - Psych MDM Narrative: Medical decision making narrative: 39-year-old patient admits to suicidal ideation, and some psychotic symptoms, mainly auditory hallucinations. She has a mild elevation in her white blood cell count and platelet count, other labs are normal. She was screened for COVID, she states that she had run a fever a few days ago and had been coughing. Her COVID test is negative. Her chest x-ray is negative. She is medically stable. Spoke with psychiatry, they are willing to admit. She is voluntary. Lab Data: Labs: Lab Results 03/16/20 03/16/20 03/16/20 Range/Units 02:10 02:10 02:10 WBC 12.9 H (4.0-10.0) 10^3/ uL RBC 4.99 (4.1-5.3) 10^6/u L Hgb 14.7 (11.5-15.3) g/dL Hct 46.0 (37.0-47.0) % MCV 92.2 (81-99) fL MCH 29.5 (28.0-34.0) pg MCHC 32.0 (30.0-36.0) g/dL RDW 14.5 (12.1-15.1) % Plt Count 451 H (130-400) 10^3/c mm MPV 9.4 (7.4-10.4) fL Neut % (Auto) 64.4 % Lymph % (Auto) 25.4 % [place] % (Auto) 9.1 % Eos % (Auto) 0.3 % Baso % (Auto) 0.5 % Neut # (Auto) 8.31 H (1.8-7.7) 10^3/u L Lymph # (Auto) 3.3 (0.8-4.8) 10^3/u L [place] # (Auto) 1.2 H (0.2-0.9) 10^3/u L Eos # (Auto) 0.0 (0.0-0.8) 10^3/u L Baso # (Auto) 0.1 (0.0-0.1) 10^3/u L Nucleated RBC % (a uto) 0 % Nucleated RBCs # 0.0 /100WBC Sodium 137 (136-145) mmol/L Potassium 3.5 (3.5-5.1) mmol/L Chloride 102 (98-107) mmol/L Carbon Dioxide 24 (22-29) mmol/L Anion Gap 14.5 (5-19) BUN 9 (6-20) mg/dL Creatinine 0.8 (0.5-0.9) mg/dL GFR Calculation 79.9 L (90-130) mL/min Glucose 105 (65-115) mg/dL Calculated Osmolal ity 283 L (285-295) mOsm/k g Calcium 9.7 (8.5-10.5) mg/dL Total Bilirubin 0.4 (0.15-1.2) mg/dL AST 16 (0-32) U/L ALT 26 (0-33) U/L Alkaline Phosphata se 108 H (35-105) IU/L Total Protein 8.3 (6.6-8.7) g/dL Albumin 5.0 (3.5-5.2) g/dL Globulin 3.3 (1.3-4.6) g/dL HCG, Qual (Negative) Urine Color (Yellow) Urine Appearance (CLEAR) Urine pH (5-7) Ur Specific Gravit y (1.005-1.030) Urine Protein (Negative) Urine Glucose (UA) (Normal) Urine Ketones (Negative) Urine Blood (Negative) Urine Nitrate (Negative) Urine Bilirubin (Negative) Urine Urobilinogen (Negative) mg/dL Ur Leukocyte Rosaura ase (Negative) Salicylates < 0.3 L (3-10) mg/dL Urine Opiates Scre en (Negative) ng/mL Acetaminophen < 5.0 L (10-30) ug/mL Ur Barbiturates Sc reen (Negative) ng/mL Ur Phencyclidine S crn (Negative) ng/mL Ur Amphetamines Sc reen (Negative) ng/mL U Benzodiazepines Scrn (Negative) ng/mL [place] 0.4 L (0.6-1.2) mmol/L Urine Cocaine Scre en (Negative) ng/mL U Marijuana (THC) Screen (Negative) ng/mL Ethyl Alcohol < 10 (0-10) mg/dL SARS-CoV-2 Ag (Rap id) (Negative) 03/16/20 03/16/20 03/16/20 Range/Units 02:48 03:41 03:41 WBC (4.0-10.0) 10^3/ uL RBC (4.1-5.3) 10^6/u L Hgb (11.5-15.3) g/dL Hct (37.0-47.0) % MCV (81-99) fL MCH (28.0-34.0) pg MCHC (30.0-36.0) g/dL RDW (12.1-15.1) % Plt Count (130-400) 10^3/c mm MPV (7.4-10.4) fL Neut % (Auto) % Lymph % (Auto) % [place] % (Auto) % Eos % (Auto) % Baso % (Auto) % Neut # (Auto) (1.8-7.7) 10^3/u L Lymph # (Auto) (0.8-4.8) 10^3/u L [place] # (Auto) (0.2-0.9) 10^3/u L Eos # (Auto) (0.0-0.8) 10^3/u L Baso # (Auto) (0.0-0.1) 10^3/u L Nucleated RBC % (a uto) % Nucleated RBCs # /100WBC Sodium (136-145) mmol/L Potassium (3.5-5.1) mmol/L Chloride (98-107) mmol/L Carbon Dioxide (22-29) mmol/L Anion Gap (5-19) BUN (6-20) mg/dL Creatinine (0.5-0.9) mg/dL GFR Calculation (90-130) mL/min Glucose (65-115) mg/dL Calculated Osmolal ity (285-295) mOsm/k g Calcium (8.5-10.5) mg/dL Total Bilirubin (0.15-1.2) mg/dL AST (0-32) U/L ALT (0-33) U/L Alkaline Phosphata se (35-105) IU/L Total Protein (6.6-8.7) g/dL Albumin (3.5-5.2) g/dL Globulin (1.3-4.6) g/dL HCG, Qual Negative (Negative) Urine Color Yellow (Yellow) Urine Appearance Clear (CLEAR) Urine pH 5 (5-7) Ur Specific Gravit y 1.025 (1.005-1.030) Urine Protein Neg (Negative) Urine Glucose (UA) Norm (Normal) Urine Ketones Negative (Negative) Urine Blood Neg (Negative) Urine Nitrate Negative (Negative) Urine Bilirubin Neg (Negative) Urine Urobilinogen Norm (Negative) mg/dL Ur Leukocyte Rosaura ase Negative (Negative) Salicylates (3-10) mg/dL Urine Opiates Scre en (Negative) ng/mL Acetaminophen (10-30) ug/mL Ur Barbiturates Sc reen (Negative) ng/mL Ur Phencyclidine S crn (Negative) ng/mL Ur Amphetamines Sc reen (Negative) ng/mL U Benzodiazepines Scrn (Negative) ng/mL [place] (0.6-1.2) mmol/L Urine Cocaine Scre en (Negative) ng/mL U Marijuana (THC) Screen (Negative) ng/mL Ethyl Alcohol (0-10) mg/dL SARS-CoV-2 Ag (Rap id) Negative (Negative) 03/16/20 Range/Units 03:41 WBC (4.0-10.0) 10^3/ uL RBC (4.1-5.3) 10^6/u L Hgb (11.5-15.3) g/dL Hct (37.0-47.0) % MCV (81-99) fL MCH (28.0-34.0) pg MCHC (30.0-36.0) g/dL RDW (12.1-15.1) % Plt Count (130-400) 10^3/c mm MPV (7.4-10.4) fL Neut % (Auto) % Lymph % (Auto) % [place] % (Auto) % Eos % (Auto) % Baso % (Auto) % Neut # (Auto) (1.8-7.7) 10^3/u L Lymph # (Auto) (0.8-4.8) 10^3/u L [place] # (Auto) (0.2-0.9) 10^3/u L Eos # (Auto) (0.0-0.8) 10^3/u L Baso # (Auto) (0.0-0.1) 10^3/u L Nucleated RBC % (a uto) % Nucleated RBCs # /100WBC Sodium (136-145) mmol/L Potassium (3.5-5.1) mmol/L Chloride (98-107) mmol/L Carbon Dioxide (22-29) mmol/L Anion Gap (5-19) BUN (6-20) mg/dL Creatinine (0.5-0.9) mg/dL GFR Calculation (90-130) mL/min Glucose (65-115) mg/dL Calculated Osmolal ity (285-295) mOsm/k g Calcium (8.5-10.5) mg/dL Total Bilirubin (0.15-1.2) mg/dL AST (0-32) U/L ALT (0-33) U/L Alkaline Phosphata se (35-105) IU/L Total Protein (6.6-8.7) g/dL Albumin (3.5-5.2) g/dL Globulin (1.3-4.6) g/dL HCG, Qual (Negative) Urine Color (Yellow) Urine Appearance (CLEAR) Urine pH (5-7) Ur Specific Gravit y (1.005-1.030) Urine Protein (Negative) Urine Glucose (UA) (Normal) Urine Ketones (Negative) Urine Blood (Negative) Urine Nitrate (Negative) Urine Bilirubin (Negative) Urine Urobilinogen (Negative) mg/dL Ur Leukocyte Rosaura ase (Negative) Salicylates (3-10) mg/dL Urine Opiates Scre en Negative (Negative) ng/mL Acetaminophen (10-30) ug/mL Ur Barbiturates Sc reen Negative (Negative) ng/mL Ur Phencyclidine S crn Negative (Negative) ng/mL Ur Amphetamines Sc reen Positive H (Negative) ng/mL U Benzodiazepines Scrn Negative (Negative) ng/mL [place] (0.6-1.2) mmol/L Urine Cocaine Scre en Negative (Negative) ng/mL U Marijuana (THC) Screen Negative (Negative) ng/mL Ethyl Alcohol (0-10) mg/dL SARS-CoV-2 Ag (Rap id) (Negative) Discharge Plan Discharge Patient Disposition: Admitted As Inpatient Admit Provider: Hong Walter Clinical Impression: Suicidal ideation Depression Qualifiers: Depression Type: major depressive disorder Major depression recurrence: recurrent Active/Remission status: currently active Major depression episode severity: severe Psychotic features: with psychotic features Qualified Code(s): F33.3 - Major depressive disorder, recurrent, severe with psychotic symptoms Condition: Stable Referrals: Uma Mott DO [Primary Care Provider] - Discharge Date/Time: 03/16/20 04:52 Coding Level of Care Code ED Skin Drier for g Fwd Exam Comprehensive
[2020-03-16 02:49] LABS: Acetaminophen < 5.0 ug/mL (10-30); Alcohol Level < 10 mg/dL (0-10); Salicylate < 0.3 mg/dL (3-10)
[2020-03-16 03:33] LABS: SARS Covid-2 Antigen Negative (Negative)
[2020-03-16 04:50] VITALS: BP 121/78; PULSE 76; RESP 16; O2SAT 99
[2020-03-16 04:55] LABS: Add Urine Microscopic? NO
[2020-03-16 04:57] LABS: Bilirubin Urine Neg (Negative); Blood Urine Neg (Negative); Glucose Urine UA Norm (Normal); Ketones Urine Negative (Negative); Leukocyte Esterase Urine Negative (Negative); Nitrate Urine Negative (Negative); Protein Urine Neg (Negative); Specific Gravity, Urine 1.025 (1.005-1.030); Urine Appearance Clear (CLEAR); Urine Color Yellow (Yellow); Urobilinogen Urine Norm (Negative); pH Urine 5 (5-7)
[2020-03-16 04:58] LABS: HCG Qualitative Urine. Negative (Negative)
[2020-03-16 05:05] VITALS: BP 115/80; PULSE 100; RESP 15; TEMP 35.8; O2SAT 100
[2020-03-16 05:33] LABS: Amphetamines Screen Urine Positive (Negative); Barbiturates Screen Urine Negative (Negative); Benzodiazepines Screen Urine Negative (Negative); Cocaine Screen Urine Negative (Negative); Opiate Screen Urine Negative (Negative); PCP Screen Urine Negative (Negative); THC Screen Urine Negative (Negative)
[2020-03-16 06:00] VITALS: BP 155/80; PULSE 100; RESP 15; TEMP 35.8; O2SAT 100
[2020-03-16] MEDS: hyDROXYzine 25 mg Capsule 50 MG PO ×2 (06:05→21:43)
[2020-03-16] MEDS: loratadine 10 mg Tablet PO (08:07)
[2020-03-16] MEDS: lithium carbonate ER 300 mg Tablet PO (08:07)
[2020-03-16] MEDS: sertraline 50 mg Tablet PO (08:07)
[2020-03-16] MEDS: BuSPIRONE 10 mg Tablet PO ×3 (08:07→21:43)
[2020-03-16] MEDS: duloxetine 60 mg Capsule 120 MG PO (08:07)
[2020-03-16] MEDS: gabapentin 300 mg Capsule PO ×3 (08:07→21:43)
--- NOTE | 2020-03-16 08:08 | PC.NURSE ---
refused scheduled Flonase nasal spray this morning
--- NOTE | 2020-03-16 09:06 | PC.RESP ---
Smoking Cessation information sent to patient.
[2020-03-16] MEDS: acetaminophen 325 mg Tablet 650 MG PO (12:14)
[2020-03-16 14:00] VITALS: BP 120/85; PULSE 86; RESP 20; TEMP 37.3; O2SAT 94
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
--- NOTE | 2020-03-16 16:55 | PC.NURSE ---
refused scheduled Nasal spray
[2020-03-16] MEDS: ondansetron 4 MG Tablet PO (21:43)
[2020-03-16] MEDS: trazodone 100 mg Tablet PO (21:43)
--- NOTE | 2020-03-16 21:43 | PC.NURSE ---
Addendum entered by Alyssa Hernandez LPN 03/16/20 23:19: LATE ENTRY PRN FOLLOW-UP @ 7607 PRN MEDICATION EFFECTIVE. PT RESTING IN BED WITH EYES CLOSED AND RR EVEN. WILL CONTINUE TO MONITOR. Original Note: PRN VISTARIL & ZOFRAN ADMINISTERED VISTARIL 50 MG FOR INCREASING ANXIETY AND ZOFRAN 4 MG FOR PT C/O OF NAUSEA. WILL MONITOR FOR MEDICATION EFFECTIVENESS.
[2020-03-16 22:00] VITALS: BP 110/78; PULSE 98; RESP 18; TEMP 36.6; O2SAT 99
[2020-03-16] MEDS: OLANZapine 5 mg ODT PO (23:46)
[2020-03-17 06:00] VITALS: BP 96/66; PULSE 88; RESP 17; TEMP 36.8; O2SAT 99
[2020-03-17] MEDS: lithium carbonate ER 300 mg Tablet PO (08:30)
[2020-03-17] MEDS: gabapentin 300 mg Capsule PO ×3 (08:31→21:20)
[2020-03-17] MEDS: sertraline 100 mg Tablet PO (08:31)
[2020-03-17] MEDS: duloxetine 60 mg Capsule 120 MG PO (08:31)
[2020-03-17] MEDS: BuSPIRONE 10 mg Tablet PO ×3 (08:31→21:20)
[2020-03-17] MEDS: loratadine 10 mg Tablet PO (08:31)
--- NOTE | 2020-03-17 11:10 | P.PN_ITS ---
Subjective NPU Subjective: Interval history: Christy presents today reporting that she feels better with her medications back on track. She reports that the increase in the Zoloft has been tolerated well. We discussed the risk medicine options of increasing her lithium and understood and agreed to proceed as is documented in this note. She endorses a split above that she has been somewhat sleep deprived recently with her active addiction. Mental Status Exam MSE Comments: This is a well-nourished, well-developed white female with adequate dress, grooming and eye contact. No abnormal movements except for mild psychomotor agitation. Cooperative with exam in mild distress. Speech was normal rate and volume. Mood described as depressed, affect congruent , but less tearful. Thought process organized. Thought content: Patient denied any suicidal or homicidal ideation, there are no delusions reported or noted, she denied any auditory visual hallucinations. Attention concentration were intact and memory appeared reliable but none were formally tested. She is alert and oriented x3. Insight and judgment were fair. Impulse control was limited. Vitals/I&O/Wt Last Vital Signs Temp 97.8 F 03/16/20 22:00 Pulse 98 03/16/20 22:00 Resp 18 03/16/20 22:00 BP 110/78 03/16/20 22:00 Pulse Ox 99 03/16/20 22:00 03/16/20 03/16/20 03/17/20 14:59 22:59 06:59 Intake Total 240 / 240 Balance 240 / 240 Weight last 48 hrs Weight 67.585 kg Data NPU : 03/16/20 02:10 03/16/20 02:10 A&P Additional A&P Information (1) Suicidal ideation: (2) Depression: (3) Anxiety: (4) Bipolar affective, depress, unspec: (5) Seizure: (6) Cluster B personality disorder: (7) Methamphetamine use: This is a 39-year-old white female with a long history of mood dysregulation, addiction, anxiety and depression who presents with recent relapse and recent initiation of lithium with significant depression and anxiety endorsed. 1. Continue current medication. Except: We will consider increasing the lithium to 450 mg daily tomorrow. 2. Continue every 15 minute checks for safety. 3. Encourage individual, group and milieu therapy. 4. Encourage sober living treatment after discharge at the highest level to which she is willing to commit. Involuntary Hold Information 96 Hour Hold: 96 Hour Involuntary Admission: No Attestations NPU Medical Necessity Statement*: Inpatient hospitalization is medically necessary and the clinically appropriate intervention at this time. We will monitor ideations and make changes as indicated. Likely length of stay 3-5 days. Coding Level of Care Code Acute Junior Business Analyst for Ioana Alcaraz
[2020-03-17] MEDS: acetaminophen 325 mg Tablet 650 MG PO ×2 (12:23→21:28)
[2020-03-17 14:00] VITALS: BP 106/76; PULSE 98; RESP 18; TEMP 36.9
[2020-03-17] MEDS: ondansetron 4 MG Tablet PO ×2 (14:48→21:21)
[2020-03-17 20:52] VITALS: BP 115/83; PULSE 103; RESP 16; TEMP 37.1; O2SAT 98
[2020-03-17] MEDS: trazodone 100 mg Tablet PO (21:20)
[2020-03-17] MEDS: hyDROXYzine 25 mg Capsule 50 MG PO (21:20)
--- NOTE | 2020-03-17 21:20 | PC.NURSE ---
Addendum entered by Alyssa Hernandez LPN 03/17/20 23:55: LATE ENTRY PRN FOLLOW-UP @ 2220 PRN MEDICATION EFFECTIVE. PT RESTING IN BED W/EYES CLOSED RR EVEN AND UNLABORED. WILL CONTINUE TO MONITOR. Original Note: PRN VISTARIL & ZOFRAN ADMINISTERED VISTARIL 50 MG PO FOR PT C/O OF INCREASING ANXIETY AND ZOFRAN 4MG FOR PT C/O OF NAUSEA. WILL MONITOR FOR MEDICATION EFFECTIVENESS.
[2020-03-18 06:00] VITALS: BP 100/68; PULSE 90; RESP 17; TEMP 37.1; O2SAT 99
[2020-03-18] MEDS: sertraline 100 mg Tablet PO (09:13)
[2020-03-18] MEDS: BuSPIRONE 10 mg Tablet PO ×2 (09:13→14:23)
[2020-03-18] MEDS: duloxetine 60 mg Capsule 120 MG PO (09:13)
[2020-03-18] MEDS: gabapentin 300 mg Capsule PO ×2 (09:13→14:23)
[2020-03-18] MEDS: loratadine 10 mg Tablet PO (09:13)
[2020-03-18] MEDS: lithium carbonate ER 300 mg Tablet PO (09:13)
[2020-03-18 13:12] VITALS: BP 104/68; PULSE 107; RESP 18; TEMP 36.8; O2SAT 99
[2020-03-18] MEDS: acetaminophen 325 mg Tablet 650 MG PO (14:23)
[2020-03-18] MEDS: ondansetron 4 MG Tablet PO (15:08)
--- NOTE | 2020-03-18 15:09 | PC.NURSE ---
PRN ZOFRAN 4 MG GIVEN PO PER PT REQUEST. PT ASKING FOR BENTYL FOR IBS. PT TOLD SHE DIDN'T HAVE BENTYL ORDERED, PT SAID WELL THEY HAVE BEEN GIVING ME ZOFRAN
[2020-03-18 18:41] VITALS: BP 104/68; PULSE 107; RESP 18; TEMP 36.8; O2SAT 99
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
--- NOTE | 2020-03-18 19:46 | PC.NURSE ---
Pt signed discharge paperwork, escorted to waiting private vehicle at 1944. Pt is ambulatory, no complaints voiced at this time.
== END 2020-03-18 19:47 | disposition left against medical advice (07) | DRG 885 ==
LOC: ER 04:08 → NP 04:22
PROVIDERS: Emergency Medicine; Admitting Provider Psychiatry & Neurology Psychiatry; PCP Family Medicine; Visit Provider Psychiatry & Neurology Psychiatry
DX: F33.3 Major depressive disorder, recurrent, severe with psychotic symptoms (principal); R45.851 Suicidal ideations; G40.909 Epilepsy, unspecified, not intractable, without status epilepticus; F15.90 Other stimulant use, unspecified, uncomplicated; F60.89 Other specific personality disorders; F41.9 Anxiety disorder, unspecified; F17.210 Nicotine dependence, cigarettes, uncomplicated; Z81.8 Family history of other mental and behavioral disorders
CPT/HCPCS: 12345; 71045; 80053; 80178; 80306; 80307; 81003; 81025; 85025; 87426; 99284; Q0162

== ENCOUNTER → 2020-05-01 14:52 | Outpatient (BNVA) | payer MEDICAID, SELFPAY | PROVIDERS: PCP Family Medicine; Visit Provider Psychiatry & Neurology Psychiatry | DX: F31.30 Bipolar disorder, current episode depressed, mild or moderate severity, unspecified (principal); F41.9 Anxiety disorder, unspecified; F15.10 Other stimulant abuse, uncomplicated | CPT/HCPCS: 99214 ==

== ENCOUNTER 2020-05-17 14:11 | Inpatient (IN) | payer MEDICAID, SELFPAY ==
[2020-05-17 14:13] VITALS: BP 134/94; PULSE 102; RESP 16; TEMP 36.9; O2SAT 100; BMI 22.3
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
[2020-05-17 14:51] LABS: Basophils % 0.4 %; Eosinophils # 0.1 10^3/uL (0.0-0.8); Eosinophils % 0.6 %; Hematocrit 46.3 % (37.0-47.0); Hemoglobin 15.2 g/dL (11.5-15.3); Lymphocytes # 2.8 10^3/uL (0.8-4.8); Lymphocytes % 27.5 %; Mean Corpuscular HGB Conc 32.8 g/dL (30.0-36.0); Mean Corpuscular Hemoglobin 29.2 pg (28.0-34.0); Mean Platelet Volume 9.8 fL (7.4-10.4); Monocytes # 1.3 10^3/uL (0.2-0.9); Monocytes % 12.3 %; Neutrophils % 58.9 %; Nucleated Red Blood Cells % 0 %; Platelet Count 640 10^3/cmm (130-400); Red Cell Distribution Width 13.7 % (12.1-15.1); White Blood Count 10.2 10^3/uL (4.0-10.0)
[2020-05-17 15:01] LABS: Alanine Aminotransferase 25 U/L (0-33); Albumin Level 4.7 g/dL (3.5-5.2); Alcohol Level 15 mg/dL (0-10); Alkaline Phosphatase 112 IU/L (35-105); Anion Gap 14.3 (5-19); Aspartate Amino Transferase 17 U/L (0-32); Blood Urea Nitrogen 4 mg/dL (6-20); Calcium 9.5 mg/dL (8.5-10.5); Carbon Dioxide 23 mmol/L (22-29); Chloride 103 mmol/L (98-107); Globulin 2.9 g/dL (1.3-4.6); Glomerular Filtration Rate 93.2 mL/min (90-130); Glucose 110 mg/dL (65-115); Osmolality Calculated 282 mOsm/kg (285-295); Potassium 3.3 mmol/L (3.5-5.1); Salicylate 0.6 mg/dL (3-10); Sodium 137 mmol/L (136-145); Total Bilirubin 0.2 mg/dL (0.15-1.2); Total Protein 7.6 g/dL (6.6-8.7)
[2020-05-17 15:05] LABS: Acetaminophen < 5.0 ug/mL (10-30)
[2020-05-17] MEDS: LORazepam 2 mg Tablet PO (15:05)
[2020-05-17 15:13] LABS: Add Urine Microscopic? NO
[2020-05-17 15:20] LABS: Bilirubin Urine Neg (Negative); Blood Urine Neg (Negative); Glucose Urine UA Norm (Normal); Ketones Urine Negative (Negative); Leukocyte Esterase Urine Negative (Negative); Nitrate Urine Negative (Negative); Protein Urine Neg (Negative); Specific Gravity, Urine 1.005 (1.005-1.030); Urine Appearance Clear (CLEAR); Urine Color Yellow (Yellow); Urobilinogen Urine Norm (Negative); pH Urine 7 (5-7)
[2020-05-17 15:21] LABS: HCG Qualitative Urine. Negative (Negative)
[2020-05-17 15:29] LABS: Amphetamines Screen Urine Positive (Negative); Barbiturates Screen Urine Negative (Negative); Benzodiazepines Screen Urine Negative (Negative); Cocaine Screen Urine Negative (Negative); Opiate Screen Urine Negative (Negative); PCP Screen Urine Negative (Negative); THC Screen Urine Positive (Negative)
[2020-05-17 16:20] VITALS: BP 120/86; PULSE 99; TEMP 36.9; O2SAT 98
[2020-05-17 17:31] VITALS: BP 130/80; PULSE 110; RESP 20; TEMP 36.7; O2SAT 96
[2020-05-17 22:00] VITALS: BP 114/81; PULSE 117; RESP 16; TEMP 36.7; O2SAT 94
[2020-05-18 06:00] VITALS: BP 117/74; PULSE 112; RESP 16; TEMP 36.4; O2SAT 95
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
[2020-05-18] MEDS: sertraline 100 mg Tablet PO (12:43)
[2020-05-18] MEDS: loratadine 10 mg Tablet PO (12:43)
[2020-05-18] MEDS: dicyclomine 20 mg Tablet PO ×3 (12:43→20:59)
[2020-05-18 13:18] VITALS: BP 120/77; PULSE 112; RESP 16; TEMP 36.9; O2SAT 96
[2020-05-18] MEDS: gabapentin 300 mg Capsule PO ×2 (14:03→20:59)
--- NOTE | 2020-05-18 20:32 | PC.NURSE ---
PM Assessment Pt is withdrawn, reports auditory and visual hallucinations that are active at this time. She sees shadows and is hearing chatter when she closes her eyes. Pt opened up about her cutting habits when anxious. She reports being anxious and needing medication to help. Med nurse notified. Pt is upset by the loss of her boyfriend and reports she is going to be homeless. She admits to being on drugs and needs help. She stated that wearing a band on her wrist helps to keep her from cutting. She was given a hair band. She requested a shower. When she came out she was ready to talk again. She stated I feel worthless, and I want to be loved. I made mistakes and I know I need help. She was tearful and just seems sad.
[2020-05-18] MEDS: famotidine 20 mg Tablet PO (20:59)
[2020-05-18] MEDS: trazodone 100 mg Tablet PO (20:59)
[2020-05-18 22:00] VITALS: BP 107/75; PULSE 112; RESP 18; TEMP 37.1; O2SAT 97
[2020-05-19 06:00] VITALS: BP 98/66; PULSE 87; RESP 16; TEMP 36.9; O2SAT 95
[2020-05-19] MEDS: gabapentin 300 mg Capsule PO ×3 (09:32→20:14)
[2020-05-19] MEDS: sertraline 100 mg Tablet PO (09:32)
[2020-05-19] MEDS: loratadine 10 mg Tablet PO (09:32)
[2020-05-19] MEDS: dicyclomine 20 mg Tablet PO ×4 (09:32→20:16)
[2020-05-19] MEDS: hyDROXYzine 25 mg Capsule 50 MG PO ×2 (10:20→20:15)
--- NOTE | 2020-05-19 10:20 | PM.NPN ---
Subjective NPU Subjective: Interval history: Patient states that she needs pills for anxiety and tramadol for pain. She wants to go to drug rehab program. Mental Status Exam MSE Comments: Mental Status Exam: The patient is interpersonally engaged female. Eye contact is good. She appears unmotivated with with regard to this interview and really provides almost no meaningful information. In answers are of an approximate type. This was first interpreted as apathy but may be more consistent with limited intellectual ability and concrete thinking. Appearance: hygiene is fair; no gross neurological deficits., gait is unremarkable; AIMS=0 Speech: Speech is of normal rate and rhythm and easily understood. She speaks in full sentences. Her vocabulary is poor. Thought processes: Thought processes are concrete. Judgment is adequate for safety. Psychotic processes: There is no indication of guarding or paranoia. There is no attention to the internal stimuli. Auditory and visual hallucinations are denied. Judgment: Insight is fair. Problem solving skills are adequate for safety. Orientation: The patient is oriented to person, place time and situation. Memory: no deficits noted in immediate, intermediate, or remote spheres. Attention: The patient is alert and interpersonally engaged. Language: Verbalizations are coherent. Fund of knowledge: Fund of knowledge is adequate. Affect/Mood: Affect is consistent with a depressed mood. pt denies suicidal ideation Affective range is appropriate. Psychosis: perception unimpaired except through cognitive distortion; reality testing intact. Cognition: Patient Appearance: Appropriate Level of Consciousness: Awake, Alert, Appropriate and Follows Commands Patient Cognition Impaired: No Ability to Follow Directions: Good Patient Orientation (long list): Person, Place and Time Comprehension Ability: No Impairment Hallucination Type: None Delusion Description: Not Present Thought Process: Circumstantial Affect: Affect Description: Calm Depressive Symptoms: Unhappiness Behavior: Patient Behavior: Appropriate Speech Pattern: Appropriate Vitals/I&O/Wt Last Vital Signs Temp 98.5 F 05/19/20 06:00 Pulse 87 05/19/20 06:00 Resp 16 05/19/20 06:00 BP 98/66 05/19/20 06:00 Pulse Ox 95 05/19/20 06:00 05/18/20 05/19/20 05/19/20 22:59 06:59 14:59 Intake Total 120 / 120 Balance 120 / 120 Weight last 48 hrs Weight 60.781 kg Data NPU : 05/17/20 14:33 05/17/20 14:33 A&P Assessment and plan (1) Cluster B personality disorder: Status: Acute (2) Methamphetamine use: Status: Acute (3) Marijuana use: Status: Acute (4) Alcohol intoxication: Status: Acute Qualifiers: Complication of substance-induced condition: uncomplicated Qualified Code(s): F10.920 - Alcohol use, unspecified with intoxication, uncomplicated Additional A&P Information Brianna Real is a 39-year-old woman who is increasingly demonstrating a pattern of behavior consistent with cluster B personality traits amplified by polysubstance use. At this time, she does not appear to be an imminent risk to self or others. She appears as someone who would just like to go back to sleep until she recovers from her substance abuse binge. We will restart her medications that she was taking as reported. She will participate in all individual and group therapies as part of the adult psychiatric unit protocol. Due to the psychiatric conditions and treatment listed in the Assessment and Plan - the patient requires continued hospitalization. Will provide a safe and therapeutic environment for patient.. Will continue inpatient treatment to allow for medication adjustment and monitoring. Will continue q15 min safety checks. Hospital day #3: Zoloft will be replaced with mirtazapine 15 mg at bedtime. Tramadol 50 mg every 8 hours is initiated as needed pain. Monitor patient's mood, sleep, appetite, and behavior closely. Encourage patient to participate in individual and group therapeutic sessions on the welch. Estimated length of stay 5 days The expected benefits and potential side effects of patient's psychiatric medications were discussed with the patient. The patient understands and consents to treatment. CRITERIA FOR DISCHARGE: stable on medications and no longer an imminent threat to self or others Involuntary Hold Information 96 Hour Hold: 96 Hour Involuntary Admission: No Attestations NPU Medical Necessity Statement*: Patient will remain in the hospital another 2-3 nights until her placement can be acquired. Coding Level of Care Code Acute Telephone Worker for Ioana Alcaraz Diagnoses Cluster B personality disorder F60.89 Methamphetamine use F15.10 Marijuana use F12.90 Alcohol intoxication F10.920 Complication of substance-induced condition: uncomplicated
--- NOTE | 2020-05-19 10:21 | PC.NURSE ---
PRN VISTARIL Patient stated she was anxious and requested medication, given 50 mg vistaril po.
[2020-05-19] MEDS: TRAMadol 50 mg Tablet PO (10:27)
[2020-05-19 14:00] VITALS: BP 111/74; PULSE 101; RESP 21; TEMP 36.9; O2SAT 97
[2020-05-19] MEDS: nicotine 2 mg Gum BUCCAL ×2 (14:42→20:47)
--- NOTE | 2020-05-19 15:43 | PC.NURSE ---
PRN BUSPAR ADMINISTERED BUSPAR 30 MG PO FOR PT C/O INCREASING ANXIETY. WILL MONITOR FOR MEDICATION EFFECTIVENESS.
--- NOTE | 2020-05-19 19:57 | PC.NURSE ---
The patient reported anxiety at 9 on a 10 high scale. She requested prn Vistaril for her symptoms. I asked if she could identify the source of the anxiety and she was unable.
[2020-05-19] MEDS: tizanidine 4 mg Tablet PO (20:14)
[2020-05-19] MEDS: trazodone 100 mg Tablet PO (20:14)
[2020-05-19] MEDS: mirtazapine 15 mg Tablet PO (20:16)
[2020-05-19] MEDS: famotidine 20 mg Tablet PO (20:16)
[2020-05-19 22:00] VITALS: BP 110/73; PULSE 95; RESP 20; TEMP 37.1; O2SAT 95
[2020-05-20 06:00] VITALS: BP 103/64; PULSE 77; RESP 18; TEMP 36.8; O2SAT 98
[2020-05-20] MEDS: loratadine 10 mg Tablet PO (08:24)
[2020-05-20] MEDS: gabapentin 300 mg Capsule PO ×3 (08:24→19:56)
[2020-05-20] MEDS: dicyclomine 20 mg Tablet PO ×4 (08:24→19:56)
[2020-05-20] MEDS: TRAMadol 50 mg Tablet PO ×2 (08:43→17:57)
[2020-05-20] MEDS: tizanidine 4 mg Tablet PO ×2 (08:46→17:57)
[2020-05-20] MEDS: hyDROXYzine 25 mg Capsule 50 MG PO ×2 (08:46→16:27)
--- NOTE | 2020-05-20 08:48 | PC.NURSE ---
PATIENT C/O ANXIETY. VISTARIL 50MG ADMINISTERED. WILL MONITOR FOR DRUG EFFECTIVENESS
[2020-05-20 13:29] VITALS: BP 118/79; PULSE 96; RESP 18; TEMP 37.1
--- NOTE | 2020-05-20 14:35 | PC.NURSE ---
PATIENT IS MED-SEEKING. UP AT THE DESK FREQUENTLY ASKING FOR MEDICATION FOR ANXIETY OR PAIN. PATIENT APPEARS CALM, NO DISTRESS NOTED. MEDICATED EARLIER WITH VISTARIL PO. PATIENT REPORTS THAT IT HELPED A LITTLE. DUE FOR ANOTHER DOSE AT 3 IF NEEDED. WILL CONT TO MONITOR, SUPPORT AND REDIRECT NEEDED
--- NOTE | 2020-05-20 16:29 | PC.NURSE ---
PATIENT C/O ANXIETY. REQUESTING A PRN. VISTARIL 50MG PO ADMINISTERED. WILL MONITOR FOR DRUG EFFECTIVENESS
--- NOTE | 2020-05-20 17:34 | PC.NURSE ---
PATIENT REPORTS SHE FEELS LESS ANXIOUS. PLAYING CHECKERS IN DAYROOM WITH PEER. WILL CONT TO MONITOR, SUPPORT AND REDIRECT NEEDED
--- NOTE | 2020-05-20 18:01 | P.PN_ITS ---
Subjective NPU Subjective: Interval history: Brianna presents today reporting that things not rough again. She endorses that she relapsed and that she was having some auditory hallucinations which were very troubling. She reports that her family is very upset with her and that he is burning bridges. We discussed the risk benefits and alternatives of considering Abilify and she understood and agreed consider a dose in the morning. She got identify the circumstances that she was started on Rexulti but denied it and was working. She reports that she is eating okay and sleep has been difficult. We discussed the possibility of a sober living treatment facility. Mental Status Exam MSE Comments: This is a well-nourished, well-developed white female with adequate dress, grooming and eye contact. No abnormal movements except for mild psychomotor agitation. Cooperative with exam in mild to moderate distress. Speech was normal rate and volume. Mood described as depressed, affect congruent and tearful. Thought process organized. Thought content: Patient denied any suicidal or homicidal ideation, there are no delusions reported or noted, she denied any visual hallucinations, but reports she was hearing voices. Attention concentration were intact and memory appeared reliable but none were formally tested. She is alert and oriented x3. Insight and judgment were limited. Impulse control was limited. Vitals/I&O/Wt Last Vital Signs Temp 98.5 F 05/20/20 19:51 Pulse 78 05/20/20 19:51 Resp 17 05/20/20 19:51 BP 107/67 05/20/20 19:51 Pulse Ox 99 05/20/20 19:51 Weight last 48 hrs Weight 66.678 kg Data NPU : 05/17/20 14:33 05/17/20 14:33 A&P Assessment and plan (1) Alcohol intoxication: Status: Acute Qualifiers: Complication of substance-induced condition: uncomplicated Qualified Code(s): F10.920 - Alcohol use, unspecified with intoxication, uncomplicated (2) Marijuana use: Status: Acute (3) Suicidal ideation: Status: Acute (4) Anxiety: Status: Acute (5) Bipolar affective, depress, unspec: Status: Acute (6) Cluster B personality disorder: Status: Acute (7) Major depress dis, severe: Status: Acute Additional A&P Information Brianna presented reporting recent relapse, active addiction and auditory hallucinations and we discussed the possibility of an antipsychotic and getting her connected with treatment. 1. Continue current medication. We will consider Abilify or similar antipsych otic morning. 2. Continue every 15 minute checks for safety. 3. Encourage individual, group and milieu therapy. 4. Encourage sober living treatment at the highest level of care to which she is willing to commit. Involuntary Hold Information 96 Hour Hold: 96 Hour Involuntary Admission: No Attestations NPU Medical Necessity Statement*: Inpatient hospitalization is medically necessary and the clinically appropriate intervention at this time. We will monitor medications and make changes as indicated. Length of stay 3 to 5 days. Coding Level of Care Code Acute Lamination Assembler for g Fwd Diagnoses Alcohol intoxication F10.920 Complication of substance-induced condition: uncomplicated Marijuana use F12.90 Suicidal ideation R45.851 Anxiety F41.9 Bipolar affective, depress, unspec F31.30 Cluster B personality disorder F60.89 Major depress dis, severe F32.2
[2020-05-20 19:51] VITALS: BP 107/67; PULSE 78; RESP 17; TEMP 36.9; O2SAT 99
[2020-05-20] MEDS: trazodone 100 mg Tablet PO (19:56)
[2020-05-20] MEDS: mirtazapine 15 mg Tablet PO (19:56)
[2020-05-20] MEDS: famotidine 20 mg Tablet PO (19:57)
[2020-05-21 06:00] VITALS: BP 95/69; PULSE 75; RESP 14; TEMP 36.8; O2SAT 98
[2020-05-21] MEDS: loratadine 10 mg Tablet PO (07:52)
[2020-05-21] MEDS: gabapentin 300 mg Capsule PO ×2 (07:52→15:01)
[2020-05-21] MEDS: dicyclomine 20 mg Tablet PO ×2 (07:52→12:06)
--- NOTE | 2020-05-21 09:08 | PC.NURSE ---
Addendum entered by Rebeca Cuadra LPN 05/21/20 10:50: prn med effective no further c/o anxiety Original Note: PRN BUSPAR 30 MG GIVEN PO PER PT C/O ANXIETY
[2020-05-21 12:40] VITALS: BP 119/74; PULSE 98; RESP 18; TEMP 36.8; O2SAT 100
[2020-05-21] MEDS: tizanidine 4 mg Tablet PO (13:36)
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
[2020-05-21 15:08] VITALS: BP 119/74; PULSE 98; RESP 18; TEMP 36.8; O2SAT 100
--- NOTE | 2020-05-21 17:02 | PC.RESP ---
Smoking Cessation information sent to patient.
== END 2020-05-21 15:15 | disposition home or self-care (01) | DRG 897 ==
LOC: ER 14:38 → NP 16:04
PROVIDERS: Admitting Provider Psychiatry & Neurology Psychiatry; Emergency Provider Family Medicine; PCP Family Medicine; Visit Provider Psychiatry & Neurology Psychiatry
DX: F10.920 Alcohol use, unspecified with intoxication, uncomplicated (principal); F33.2 Major depressive disorder, recurrent severe without psychotic features; R45.851 Suicidal ideations; F60.89 Other specific personality disorders; F41.9 Anxiety disorder, unspecified; F17.210 Nicotine dependence, cigarettes, uncomplicated; F15.90 Other stimulant use, unspecified, uncomplicated; F12.90 Cannabis use, unspecified, uncomplicated
CPT/HCPCS: 12345; 36415; 80053; 80306; 80307; 81003; 81025; 85025; 99284

== ENCOUNTER → 2020-05-30 08:05 | Outpatient (BNVA) | payer MEDICAID, SELFPAY | PROVIDERS: PCP Family Medicine; Visit Provider Psychiatry & Neurology Psychiatry | DX: F31.30 Bipolar disorder, current episode depressed, mild or moderate severity, unspecified (principal); F15.10 Other stimulant abuse, uncomplicated; F41.9 Anxiety disorder, unspecified; F10.10 Alcohol abuse, uncomplicated | CPT/HCPCS: 99214 ==

== ENCOUNTER 2020-06-06 11:56 | Inpatient (IN) | payer MEDICAID, SELFPAY ==
[2020-06-06 12:02] VITALS: BP 130/87; PULSE 104; RESP 18; TEMP 36.4; O2SAT 96; BMI 26.6
--- NOTE | 2020-06-06 12:12 | W.ED.PSYCH ---
HPI - Psych General: Chief Complaint: Psychiatric Symptoms Stated Complaint: mhe Time Seen by Provider: 06/06/20 12:09 Source: patient Mode of arrival: ambulatory Limitations: no limitations History of Present Illness: HPI Narrative: 39-year-old female who states she long history of psychiatric issues anxiety depression. She states that she feels like her neighbors have been talking about her slanting her and she has been having hallucinations. She has been having thoughts of killing herself including cutting her wrists. She states that she wants to get help and voluntarily wants to be admitted to the psych unit. He denies any worsening improving factors. Associated symptoms: Reports depression and suicidal ideation Review of Systems Const: Denies: fever(s), chills, body aches or change in appetite Eyes: Denies: blurry vision or eye discomfort ENMT: Denies: throat pain or dental pain Card: Denies: chest pain Resp: Denies: dyspnea GI: Denies: abdominal pain, nausea, vomiting or diarrhea : Denies: dysuria Musc: Denies: neck pain or back pain Skin/Breast: Denies: rash Neuro: Denies: headache(s) Psych: Reports: anxiety, depression and suicidal ideation Bossman/Lymph: Denies: easy bruising All/Imm: Denies: urticaria PFSH ED PFSH: Medical History Alcohol abuse Anxiety Bipolar affective, depress, unspec Family History Grandfather No problems noted. Grandmother Stroke Maternal great Heart disease paternal Hypertension maternal Father Heart disease Hypertension Family/Other Breast cancer maternal aunt Denies family history of Colon cancer Ovarian cancer Uterine cancer Thyroid disease Social History Smoking and tobacco status: current every day smoker cigarettes Packs smoked per day: 1.5 Alcohol intake: never Physical Exam Const: COMMON NORMALS: no acute distress, patient oriented x3 and healthy appearing HENMT: COMMON NORMALS: normocephalic and atraumatic HEAD & SCALP: normocephalic and atraumatic Eye: COMMON NORMALS: Equal, round and reactive pupils present and EOMs intact bilaterally PUPIL: Yes Equal, round and reactive pupils present Neck/C-Spine: COMMON NORMALS: full ROM and supple Chest: COMMONS NORMALS: normal inspection of the chest and normal palpation of entire chest wall Resp: COMMON NORMALS: normal respiratory effort, No retractions, No use of accessory muscles and clear to auscultation bilaterally AUSCULTATION: clear to auscultation bilaterally Cardio: COMMON NORMALS: regular rate, regular rhythm and No murmurs present (Cardio) RATE: regular rate RHYTHM: regular rhythm GI: COMMON NORMALS: Normal to inspection, nondistended, normoactive bowel sounds present, Soft to palpation, non-tender and no masses PALPATION: Yes Soft to palpation Extremity: COMMON NORMALS: normal to inspection and full ROM Neuro: COMMON NORMALS: patient oriented x3, moves all extremities and no focal motor deficits Psych: COMMON NORMALS: mental status grossly normal, Normal thought process present and cooperative MOOD & AFFECT: Yes depressed mood and Yes tearful THOUGHT PROCESS: Normal thought process present THOUGHT CONTENT: Yes Suicidality present and Yes Hallucination(s) present Skin: COMMON NORMALS: no rashes or lesions noted and no wounds GENERAL SKIN EXAM: no rashes or lesions noted MDM - Psych MDM Narrative: Medical decision making narrative: Christy presents here with suicidal ideation along with hallucinations. I spoke to psychiatrist Dr. Walter patient's medically cleared and will admit to psychiatric unit. Lab Data: Labs: Lab Results 06/06/20 06/06/20 06/06/20 Range/Units 12:21 12:21 12:30 WBC 8.1 (4.0-10.0) 10^3/ uL RBC 4.62 (4.1-5.3) 10^6/u L Hgb 13.6 (11.5-15.3) g/dL Hct 43.5 (37.0-47.0) % MCV 94.2 (81-99) fL MCH 29.4 (28.0-34.0) pg MCHC 31.3 (30.0-36.0) g/dL RDW 14.2 (12.1-15.1) % Plt Count 469 H (130-400) 10^3/c mm MPV 9.2 (7.4-10.4) fL Neut % (Auto) 72.6 % Lymph % (Auto) 19.5 % [place] % (Auto) 6.8 % Eos % (Auto) 0.2 % Baso % (Auto) 0.5 % Neut # (Auto) 5.85 (1.8-7.7) 10^3/u L Lymph # (Auto) 1.6 (0.8-4.8) 10^3/u L [place] # (Auto) 0.6 (0.2-0.9) 10^3/u L Eos # (Auto) 0.0 (0.0-0.8) 10^3/u L Baso # (Auto) 0.0 (0.0-0.1) 10^3/u L Nucleated RBC % (a uto) 0 % Nucleated RBCs # 0.0 /100WBC Sodium 137 (136-145) mmol/L Potassium 3.9 (3.5-5.1) mmol/L Chloride 104 (98-107) mmol/L Carbon Dioxide 27 (22-29) mmol/L Anion Gap 9.9 (5-19) BUN 5 L (6-20) mg/dL Creatinine 0.7 (0.5-0.9) mg/dL GFR Calculation 93.2 (90-130) mL/min Glucose 111 (65-115) mg/dL Calculated Osmolal ity 282 L (285-295) mOsm/k g Calcium 9.0 (8.5-10.5) mg/dL Total Bilirubin 0.2 (0.15-1.2) mg/dL AST 13 (0-32) U/L ALT 17 (0-33) U/L Alkaline Phosphata se 105 (35-105) IU/L Total Protein 6.8 (6.6-8.7) g/dL Albumin 4.1 (3.5-5.2) g/dL Globulin 2.7 (1.3-4.6) g/dL HCG, Qual Negative (Negative) Salicylates < 0.3 L (3-10) mg/dL Acetaminophen < 5.0 L (10-30) ug/mL Ethyl Alcohol < 10 (0-10) mg/dL Discharge Plan Discharge Patient Disposition: Admitted As Inpatient Clinical Impression: Suicidal ideation Condition: Stable Prescriptions: No Action trazodone 100 mg tablet 100 mg PO BEDTIME 30 Days Qty: 30 RF: 3 tramadol 50 mg tablet 50 mg PO TID PRNRF: 0 mirtazapine 15 mg Tablet 15 mg PO BEDTIME 30 Days Qty: 30 RF: 1 buspirone 30 mg tablet 30 mg PO BID PRN (Reason: anxiety) 30 Days Qty: 60 RF: 1 gabapentin 300 mg capsule 300 mg PO TID 30 Days Qty: 90 RF: 1 fluticasone propionate 50 mcg/actuation spray,suspension See Rx Instructions .ROUTE .COMPLEX 30 Days Qty: 16 RF: 1 tizanidine 4 mg capsule 4 mg PO TID PRN (Reason: Spasms) 30 Days Qty: 90 RF: 1 loratadine 10 mg capsule 10 mg PO DAILY 30 Days Qty: 30 RF: 1 Rexulti 1 mg Tablet 1 mg PO DAILY 30 Days Qty: 30 RF: 1 dicyclomine 20 mg Tablet 20 mg PO QID 30 Days Qty: 120 RF: 1 Referrals: Uma Mott DO [Primary Care Provider] - Coding Level of Care Code ED Plastic Panel Installer for Chg Fwd Exam Comprehensive
[2020-06-06 12:32] LABS: Basophils % 0.5 %; Eosinophils % 0.2 %; Hematocrit 43.5 % (37.0-47.0); Hemoglobin 13.6 g/dL (11.5-15.3); Lymphocytes # 1.6 10^3/uL (0.8-4.8); Lymphocytes % 19.5 %; Mean Corpuscular HGB Conc 31.3 g/dL (30.0-36.0); Mean Corpuscular Hemoglobin 29.4 pg (28.0-34.0); Mean Corpuscular Volume 94.2 fL (81-99); Mean Platelet Volume 9.2 fL (7.4-10.4); Monocytes # 0.6 10^3/uL (0.2-0.9); Monocytes % 6.8 %; Neutrophils # 5.85 10^3/uL (1.8-7.7); Neutrophils % 72.6 %; Nucleated Red Blood Cells % 0 %; Platelet Count 469 10^3/cmm (130-400); Red Blood Count 4.62 10^6/uL (4.1-5.3); Red Cell Distribution Width 14.2 % (12.1-15.1); White Blood Count 8.1 10^3/uL (4.0-10.0)
[2020-06-06 12:49] LABS: Alanine Aminotransferase 17 U/L (0-33); Albumin Level 4.1 g/dL (3.5-5.2); Alkaline Phosphatase 105 IU/L (35-105); Anion Gap 9.9 (5-19); Aspartate Amino Transferase 13 U/L (0-32); Blood Urea Nitrogen 5 mg/dL (6-20); Carbon Dioxide 27 mmol/L (22-29); Chloride 104 mmol/L (98-107); Globulin 2.7 g/dL (1.3-4.6); Glomerular Filtration Rate 93.2 mL/min (90-130); Glucose 111 mg/dL (65-115); Osmolality Calculated 282 mOsm/kg (285-295); Potassium 3.9 mmol/L (3.5-5.1); Sodium 137 mmol/L (136-145); Total Bilirubin 0.2 mg/dL (0.15-1.2); Total Protein 6.8 g/dL (6.6-8.7)
[2020-06-06 12:53] LABS: Acetaminophen < 5.0 ug/mL (10-30); Alcohol Level < 10 mg/dL (0-10); Salicylate < 0.3 mg/dL (3-10)
[2020-06-06 12:58] LABS: HCG Qualitative Urine. Negative (Negative)
[2020-06-06] MEDS: LORazepam 2 mg Tablet PO (13:00)
[2020-06-06] MEDS: haloperidol 5 mg Tablet PO (13:00)
[2020-06-06 13:10] LABS: Opiate Screen Urine Positive (Negative)
[2020-06-06 13:27] LABS: Amphetamines Screen Urine Negative (Negative); Barbiturates Screen Urine Negative (Negative); Benzodiazepines Screen Urine Negative (Negative); Cocaine Screen Urine Negative (Negative); PCP Screen Urine Negative (Negative); THC Screen Urine Negative (Negative)
[2020-06-06 13:38] VITALS: BP 123/81; PULSE 84; RESP 18; O2SAT 100
[2020-06-06 13:59] VITALS: BP 118/85; PULSE 87; RESP 20; TEMP 36.9; O2SAT 98
[2020-06-06 14:00] VITALS: BP 118/85; PULSE 87; RESP 20; TEMP 36.9; O2SAT 98
[2020-06-06] MEDS: hyDROXYzine 25 mg Capsule 50 MG PO (20:10)
[2020-06-06] MEDS: trazodone 50 mg Tablet PO (20:10)
[2020-06-06 20:42] VITALS: BP 99/64; PULSE 64; RESP 17; TEMP 36.3; O2SAT 97
[2020-06-06 22:00] VITALS: BP 98/63; PULSE 113; RESP 15; TEMP 37.3; O2SAT 96
[2020-06-07 06:00] VITALS: BP 96/59; PULSE 93; RESP 17; TEMP 37.3; O2SAT 97
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
[2020-06-07] MEDS: gabapentin 300 mg Capsule PO (13:48)
[2020-06-07 14:00] VITALS: BP 119/73; PULSE 104; RESP 18; TEMP 36.2; O2SAT 96
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
[2020-06-07 17:04] VITALS: BP 119/73; PULSE 104; RESP 18; TEMP 36.2; O2SAT 96
--- NOTE | 2020-06-08 14:53 | PC.RESP ---
Smoking Cessation information sent to patient.
== END 2020-06-07 17:23 | disposition home or self-care (01) | DRG 885 ==
LOC: ER 13:01 → NP 13:33
PROVIDERS: Admitting Provider Psychiatry & Neurology Psychiatry; Emergency Provider Emergency Medicine; PCP Family Medicine; Visit Provider Psychiatry & Neurology Psychiatry
DX: F33.2 Major depressive disorder, recurrent severe without psychotic features (principal); R45.851 Suicidal ideations; F15.90 Other stimulant use, unspecified, uncomplicated; Z91.14 Patient's other noncompliance with medication regimen; F41.0 Panic disorder [episodic paroxysmal anxiety]; Z81.8 Family history of other mental and behavioral disorders; F10.129 Alcohol abuse with intoxication, unspecified; F17.210 Nicotine dependence, cigarettes, uncomplicated; F12.90 Cannabis use, unspecified, uncomplicated; F60.89 Other specific personality disorders; F60.3 Borderline personality disorder
CPT/HCPCS: 12345; 80053; 80306; 80307; 81025; 85025; 99284

== ENCOUNTER 2020-08-23 12:17 | Inpatient (IN) | payer MEDICAID, SELFPAY ==
--- NOTE | 2020-08-23 12:22 | ECG_ITS ---
[facility] Test Date: 2020-08-23 Pat Name: Brianna Real Department: Room: Gender: Female Department Supervisor: : 1980 Requested By: Ko Taylor Order Number: [id number] Dilma MD: Maria E Weeks M.D. Measurements Intervals [place] Rate: 129 P: 38 MT: 125 QRS: 93 QRSD: 81 T: 0 QT: 334 QTc: 489 Interpretive Statements SINUS TACHYCARDIA BORDERLINE RIGHT AXIS DEVIATION [QRS AXIS > 90] NONSPECIFIC ST & T-WAVE ABNORMALITY No previous ECG available for comparison Electronically Signed On 08-23-2020 21:51:03 EDUCATIONAL AUDIOLOGIST by Maria E Weeks M.D. [email or web address] pike medical centerBTC [email or web address]/[id number]
[2020-08-23 12:25] VITALS: BP 150/102; PULSE 136; RESP 18; TEMP 37.3; O2SAT 100; BMI 28.3
[2020-08-23] MEDS: LORazepam 2 mg/mL INJ 1 mL IM (12:36)
[2020-08-23] MEDS: haloperidol inj 5 mg/mL INJ 1 mL IM (12:36)
[2020-08-23 13:22] LABS: Basophils % 0.2 %; Hematocrit 44.6 % (37.0-47.0); Hemoglobin 14.6 g/dL (11.5-15.3); Lymphocytes # 1.2 10^3/uL (0.8-4.8); Lymphocytes % 9.1 %; Mean Corpuscular HGB Conc 32.7 g/dL (30.0-36.0); Mean Corpuscular Hemoglobin 28.7 pg (28.0-34.0); Mean Corpuscular Volume 87.8 fL (81-99); Mean Platelet Volume 9.7 fL (7.4-10.4); Monocytes # 0.8 10^3/uL (0.2-0.9); Neutrophils # 10.75 10^3/uL (1.8-7.7); Neutrophils % 84.4 %; Nucleated Red Blood Cells % 0 %; Platelet Count 454 10^3/cmm (130-400); Red Blood Count 5.08 10^6/uL (4.1-5.3); Red Cell Distribution Width 13.9 % (12.1-15.1); White Blood Count 12.7 10^3/uL (4.0-10.0)
--- NOTE | 2020-08-23 13:43 | PC.NURSE ---
Continue to monitor while in restraint bed. Continues to cry out in anger Sitter at doorway
[2020-08-23 13:49] LABS: Add Urine Microscopic? NO
[2020-08-23 13:55] LABS: Alanine Aminotransferase 35 U/L (0-33); Albumin Level 4.7 g/dL (3.5-5.2); Alkaline Phosphatase 131 IU/L (35-105); Anion Gap 17.6 (5-19); Aspartate Amino Transferase 19 U/L (0-32); Blood Urea Nitrogen 6 mg/dL (6-20); Calcium 10.4 mg/dL (8.5-10.5); Carbon Dioxide 21 mmol/L (22-29); Chloride 97 mmol/L (98-107); Globulin 3.3 g/dL (1.3-4.6); Glomerular Filtration Rate 79.9 mL/min (90-130); Glucose 116 mg/dL (65-115); Osmolality Calculated 273 mOsm/kg (285-295); Potassium 3.6 mmol/L (3.5-5.1); Sodium 132 mmol/L (136-145); Thyroid Stimulating Hormone 0.65 uIU/mL (0.27-4.20); Total Bilirubin 0.5 mg/dL (0.15-1.2)
[2020-08-23 13:58] LABS: Acetaminophen < 5.0 ug/mL (10-30); Alcohol Level < 10 mg/dL (0-10)
[2020-08-23 14:00] LABS: Bilirubin Urine Neg (Negative); Blood Urine Neg (Negative); Glucose Urine UA Norm (Normal); Ketones Urine 2+ (Negative); Leukocyte Esterase Urine Negative (Negative); Nitrate Urine Negative (Negative); Protein Urine Neg (Negative); Specific Gravity, Urine 1.015 (1.005-1.030); Sulfosalicylic Acid Urine Negative (Negative); Urine Appearance Clear (CLEAR); Urine Color Yellow (Yellow); Urobilinogen Urine Norm (Negative); pH Urine 9 (5-7)
[2020-08-23 14:02] LABS: Amphetamines Screen Urine Positive (Negative); Barbiturates Screen Urine Negative (Negative); Benzodiazepines Screen Urine Negative (Negative); Cocaine Screen Urine Negative (Negative); Opiate Screen Urine Negative (Negative); PCP Screen Urine Negative (Negative); THC Screen Urine Negative (Negative)
[2020-08-23 14:44] LABS: Lithium 0.2 mmol/L (0.6-1.2)
[2020-08-23 15:58] LABS: HCG Qualitative Urine. Negative (Negative)
[2020-08-23 16:25] VITALS: BP 125/87; PULSE 138; RESP 18; TEMP 36.7; O2SAT 100
[2020-08-23 16:37] VITALS: BP 132/95; PULSE 139; RESP 20; TEMP 36.4; O2SAT 96
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
[2020-08-23 20:10] VITALS: PULSE 150; RESP 22; TEMP 36.6; O2SAT 92
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
[2020-08-23 21:00] VITALS: BP 112/79; PULSE 92; RESP 18; TEMP 36.6; O2SAT 98
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
[2020-08-24 06:00] VITALS: RESP 17
[2020-08-24] MEDS: duloxetine 60 mg Capsule PO (10:33)
[2020-08-24] MEDS: gabapentin 300 mg Capsule PO ×3 (10:33→21:31)
[2020-08-24] MEDS: sertraline 50 mg Tablet PO (10:33)
[2020-08-24] MEDS: BuSPIRONE 10 mg Tablet PO ×3 (10:33→21:31)
[2020-08-24] MEDS: lithium carbonate 300 mg Capsule PO (10:33)
--- NOTE | 2020-08-24 11:18 | P.PN_ITS ---
[facility] Therapy Progress Note Therapy Progress Note Date: 08/23/20 Time In: 19:45 Time Out: 19:50 Symptoms Reported: none but CRYSTAL LAPPER observed her to be speaking to stimuli not present in the room Mood: irritable Progress Note: CRYSTAL LAPPER approached Brianna while resting in bed. She is having a conversation with no one present about things to do with the bathroom door. CRYSTAL LAPPER asked who she was speaking with and she quickly responds nobody! . CRYSTAL LAPPER introduced herself and asked if Brianna had any issues she wanted to discuss. Brianna responds that she doesn't but when CRYSTAL LAPPER offered to speak with her tomorrow, she states ok see you tomorrow, thank you . Intervention: CRYSTAL LAPPER attempted to engage Brianna in conversation; however, she is responding to internal stimuli and is unwilling to speak today. Reported Goals Before Discharge: None reported
--- NOTE | 2020-08-24 11:18 | PM.NPTHER ---
[facility] Therapy Progress Note Therapy Progress Note Date: 08/23/20 Time In: 19:45 Time Out: 19:50 Symptoms Reported: none but SKOOG MACHINE OPERATOR observed her to be speaking to stimuli not present in the room Mood: irritable Progress Note: SKOOG MACHINE OPERATOR approached Brianna while resting in bed. She is having a conversation with no one present about things to do with the bathroom door. SKOOG MACHINE OPERATOR asked who she was speaking with and she quickly responds nobody! . SKOOG MACHINE OPERATOR introduced herself and asked if Brianna had any issues she wanted to discuss. Brianna responds that she doesn't but when SKOOG MACHINE OPERATOR offered to speak with her tomorrow, she states ok see you tomorrow, thank you . Intervention: SKOOG MACHINE OPERATOR attempted to engage Brianna in conversation; however, she is responding to internal stimuli and is unwilling to speak today. Reported Goals Before Discharge: None reported
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
[2020-08-24 13:38] VITALS: BP 126/91; PULSE 121; RESP 16; TEMP 36.2; O2SAT 90
[2020-08-24 20:20] VITALS: BP 151/99; PULSE 120; RESP 21; TEMP 36.6; O2SAT 95
[2020-08-24] MEDS: trazodone 100 mg Tablet PO (21:31)
[2020-08-25] MEDS: trazodone 50 mg Tablet PO (02:24)
[2020-08-25] MEDS: TRAMadol 50 mg Tablet PO (02:24)
--- NOTE | 2020-08-25 02:32 | PC.NURSE ---
Patient C/O generalized pain rating pain at a 9 on a 1-10 scale. PRN 50mg PO Tramidol given
[2020-08-25] MEDS: LORazepam 1 mg Tablet PO (03:16)
[2020-08-25] MEDS: OLANZapine 5 mg ODT PO ×2 (03:16→21:15)
--- NOTE | 2020-08-25 03:16 | PC.NURSE ---
Patient pacing [address] Intruding on other patients, displaying increased agitation, talking out loud to self in a conversation that makes no sense. 1mg PO Atavan and 5mg Zyprexa PO given.
[2020-08-25 06:00] VITALS: BP 115/83; PULSE 130; RESP 19; TEMP 36.8; O2SAT 97
[2020-08-25] MEDS: lithium carbonate 300 mg Capsule PO (08:04)
[2020-08-25] MEDS: sertraline 50 mg Tablet PO (08:04)
[2020-08-25] MEDS: BuSPIRONE 10 mg Tablet PO ×3 (08:04→21:15)
[2020-08-25] MEDS: gabapentin 300 mg Capsule PO ×3 (08:05→21:14)
[2020-08-25] MEDS: duloxetine 60 mg Capsule PO (08:05)
--- NOTE | 2020-08-25 09:23 | P.PN_ITS ---
Subjective NPU Subjective: Interval history: Gold presents today continuing to struggle with confusion. She is wandering from room to room and needing redirection. She is unable to give any clear indication for why she is doing this. She continues to grieve the take her medication when is given to her. She can give me no real information as to why she is not on Abilify or Invega as we have tried in the past. Mental Status Exam MSE Comments: This is an overweight versus obese white female in hospital scrubs unkempt with adequate eye contact. No abnormal movements except for moments of psychomotor retardation intermixed with psychomotor agitation. Mostly cooperative with exam in mild to moderate distress at times speech was decreased rate and volume. Mood described as okay, affect confused. Thought process disorganized at times, organized and others. Thought content: Patient denied suicidal or homicidal ideation, there were no delusions reported but clear hyper anglican and persecutory and paranoid delusions noted, she denied auditory visual hallucinations but appeared to be attending to internal stimuli at times. Attention and concentration are mostly intact and memory was unreliable but none were formally tested. She is alert and oriented x3. Insight and judgment are impaired, impulse control is impaired. Vitals/I&O/Wt Last Vital Signs Temp 98.2 F 08/25/20 06:00 Pulse 130 H 08/25/20 06:00 Resp 19 H 08/25/20 06:00 BP 115/83 08/25/20 06:00 Pulse Ox 97 08/25/20 06:00 Weight last 48 hrs Weight 77.111 kg Data NPU : 08/23/20 13:12 08/23/20 13:12 A&P Additional A&P Information (1) Acute psychosis: (2) Alcohol abuse: (3) Marijuana use: (4) Anxiety: (5) Methamphetamine use: (6) Bipolar affective, depress, unspec: (7) Cluster B personality disorder: Additional A&P Information This is a 39-year-old white female with a long history of addiction and psychosis as well as personality disorder who presents with active addiction and psychosis and reportedly not taking medication. 1. Continue current medication. 2. Continue every 15 minute checks for safety. 3. Encourage individual, group and milieu therapies. 4. Encourage sober living treatment after discharge at the highest level of care to which he is willing to commit. Involuntary Hold Information 96 Hour Hold: 96 Hour Involuntary Admission: Yes 96 Hour Hold Ending Date: 08/23/20 96 Hour Hold Ending Time: 16:00 Attestations NPU Medical Necessity Statement*: Inpatient hospitalization is medically necessary and the clinically appropriate intervention at this time. We will monitor medications and make changes as indicated. Likely length of stay 3 to 5 days. Coding Level of Care Code Acute Date Night Caregiver for [facility]
[2020-08-25 14:00] VITALS: BP 117/79; PULSE 138; RESP 20; TEMP 36; O2SAT 95
[2020-08-25] MEDS: trazodone 100 mg Tablet PO (21:14)
--- NOTE | 2020-08-25 21:15 | PC.NURSE ---
ZYPREXA 5MG PO GIVEN FOR AGITATION /PSYCHOSIS.
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
[2020-08-25 22:00] VITALS: RESP 18
--- NOTE | 2020-08-25 22:02 | PC.NURSE ---
Patient refused vitals. Respirations were taken.
[2020-08-26 06:00] VITALS: RESP 15
--- NOTE | 2020-08-26 11:20 | PC.NURSE ---
MEDICATIONS AFTER SEVERAL ATTEMPTS TO GET PATIENT TO TAKE MEDS SHE REFUSED. PT STATES SHE DOES NOT NEED MEDICATIONS AND WILL NOT TAKE THEM. WILL CONTINUE TO ENCOURAGE PATIENT TO BE TREATMENT COMPLIANT.
[2020-08-26 13:53] VITALS: BP 119/84; PULSE 101; RESP 17; TEMP 36.4
[2020-08-26] MEDS: BuSPIRONE 10 mg Tablet PO ×2 (16:04→23:42)
[2020-08-26] MEDS: gabapentin 300 mg Capsule PO ×2 (16:04→23:42)
--- NOTE | 2020-08-26 16:20 | PM.NPN ---
Subjective NPU Subjective: Interval history: Brianna presents today reporting that she is feeling okay. Involved her expressing concerns about not knowing if she was actually herself. With a very disjointed and confusing conversation. She then talked about how in the previous time she was here someone got her car keys. She went on to say that she keeps coming back almost like her coming back is somehow being orchestrated by the hospital. Mental Status Exam MSE Comments: This is an overweight versus obese white female in hospital scrubs unkempt with adequate eye contact. No abnormal movements except for psychomotor retardation. Cooperative with exam in mild distress. Speech was decreased rate and volume. Mood described as okay, affect confused. Thought process disorganized. Thought content: Patient denied suicidal or homicidal ideation, there were no delusions reported but clear hyper spiritism and persecutory and paranoid delusions noted, she denied auditory visual hallucinations but appeared to be attending to internal stimuli at times. Attention and concentration are mostly intact and memory was unreliable but none were formally tested. She is alert and oriented x3. Insight and judgment are impaired, impulse control is impaired. Vitals/I&O/Wt Last Vital Signs Temp 97.6 F 08/26/20 13:53 Pulse 101 H 08/26/20 13:53 Resp 17 08/26/20 13:53 BP 119/84 08/26/20 13:53 Pulse Ox 95 08/25/20 14:00 Weight last 48 hrs Weight 77.111 kg Data NPU : 08/23/20 13:12 08/23/20 13:12 A&P Additional A&P Information (1) Acute psychosis: (2) Alcohol abuse: (3) Marijuana use: (4) Anxiety: (5) Methamphetamine use: (6) Bipolar affective, depress, unspec: (7) Cluster B personality disorder: Additional A&P Information This is a 39-year-old white female with a long history of addiction and psychosis as well as personality disorder who presents with active addiction and psychosis and reportedly not taking medication. 1. Continue current medication. We will try to review records to see why we were away from antipsychotic given her level of disorganization. Otherwise we will talk to [facility] tomorrow to get some additional information. 2. Continue every 15 minute checks for safety. 3. Encourage individual, group and milieu therapies. 4. Encourage sober living treatment after discharge at the highest level of care to which he is willing to commit. Involuntary Hold Information 96 Hour Hold: 96 Hour Involuntary Admission: Yes 96 Hour Hold Ending Date: 08/23/20 96 Hour Hold Ending Time: 16:00 Attestations NPU Medical Necessity Statement*: Inpatient hospitalization is medically necessary and the clinically appropriate intervention at this time. We will monitor medications and make changes as indicated. Likely length of stay 3 to 5 days. Coding Level of Care Code Acute Rail Signal Mechanic for Ioana Alcaraz
[2020-08-26 20:43] VITALS: RESP 18
[2020-08-26] MEDS: trazodone 100 mg Tablet PO (23:45)
[2020-08-27 06:00] VITALS: BP 118/74; PULSE 70; RESP 17; TEMP 36.8; O2SAT 95
[2020-08-27] MEDS: BuSPIRONE 10 mg Tablet PO ×3 (08:20→21:22)
[2020-08-27] MEDS: gabapentin 300 mg Capsule PO ×3 (08:20→21:22)
[2020-08-27] MEDS: sertraline 50 mg Tablet PO (08:20)
[2020-08-27] MEDS: lithium carbonate 300 mg Capsule PO (08:20)
[2020-08-27] MEDS: duloxetine 60 mg Capsule PO (08:20)
[2020-08-27 14:00] VITALS: BP 109/72; PULSE 99; RESP 16; TEMP 37.4; O2SAT 97
--- NOTE | 2020-08-27 14:19 | P.PN_ITS ---
Subjective NPU Subjective: Interval history: Is unclear whether Brianna is confused or being deceitful though it seems that it is the former. She continues to report that she was taking her medication and that she had not used drugs and her lithium level was low and her drug training was positive for amphetamines. We discussed the fact that the methamphetamine use alone could explain her presentation and likely was not taking her medication, but she continues to endorse being unsure about why things were going well. Mental Status Exam MSE Comments: This is an overweight versus obese white female in hospital scrubs unkempt with adequate eye contact. No abnormal movements except for psychomotor retardation. Cooperative with exam in mild distress. Speech was decreased rate and volume. Mood described as okay, affect confused. Thought process disorganized. Thought content: Patient denied suicidal or homicidal ideation, there were no delusions reported but clear hyper restoration and perse cutory and paranoid delusions noted, but improving, she denied auditory visual hallucinations but appeared to be attending to internal stimuli at times, but less so than admission. Attention and concentration are mostly intact and memory was unreliable but none were formally tested. She is alert and oriented x3. Insight and judgment are impaired, impulse control is impaired. Vitals/I&O/Wt Last Vital Signs Temp 98.8 F 08/27/20 22:00 Pulse 95 08/27/20 22:00 Resp 18 08/27/20 22:00 BP 115/73 08/27/20 22:00 Pulse Ox 97 08/27/20 22:00 Weight last 48 hrs Weight 77.111 kg Data NPU : 08/23/20 13:12 08/23/20 13:12 A&P Additional A&P Information (1) Acute psychosis: (2) Alcohol abuse: (3) Marijuana use: (4) Anxiety: (5) Methamphetamine use: (6) Bipolar affective, depress, unspec: (7) Cluster B personality disorder: Additional A&P Information This is a 39-year-old white female with a long history of addiction and psychosis as well as personality disorder who presents with active addiction and psychosis and reportedly not taking medication. 1. Continue current medication. We will try to review records to see why we were away from antipsychotic given her level of disorganization. Otherwise we will talk to [facility] tomorrow to get some additional information. 2. Continue every 15 minute checks for safety. 3. Encourage individual, group and milieu therapies. 4. Encourage sober living treatment after discharge at the highest level of car e to which he is willing to commit. Involuntary Hold Information 96 Hour Hold: 96 Hour Involuntary Admission: Yes 96 Hour Hold Ending Date: 08/23/20 96 Hour Hold Ending Time: 16:00 Attestations NPU 2 Medical Necessity Statement*: Inpatient hospitalization is medically necessary and the clinically appropriate intervention at this time. We will monitor medic ations and make changes as indicated. Likely length of stay 2-4 days. Coding Level of Care Code Acute Roofing Technician for Ioana Alcaraz
[2020-08-27] MEDS: trazodone 100 mg Tablet PO (21:22)
[2020-08-27] MEDS: hyDROXYzine 25 mg Capsule 50 MG PO (21:22)
[2020-08-27 22:00] VITALS: BP 115/73; PULSE 95; RESP 18; TEMP 37.1; O2SAT 97
[2020-08-28 06:37] VITALS: BP 99/68; PULSE 85; RESP 18; TEMP 37; O2SAT 98
[2020-08-28] MEDS: sertraline 50 mg Tablet PO (08:29)
[2020-08-28] MEDS: duloxetine 60 mg Capsule PO (08:29)
[2020-08-28] MEDS: lithium carbonate 300 mg Capsule PO (08:30)
[2020-08-28] MEDS: gabapentin 300 mg Capsule PO ×3 (08:30→20:14)
[2020-08-28] MEDS: BuSPIRONE 10 mg Tablet PO ×3 (08:30→20:14)
[2020-08-28 14:00] VITALS: BP 122/87; PULSE 99; RESP 16; TEMP 36.4; O2SAT 99
--- NOTE | 2020-08-28 16:58 | PM.NPN ---
Subjective NPU Subjective: Interval history: There presents today starting to move her thinking towards discharge. He is showing some improved clarity and starting to get some of her personality back. She reports that she is worried about her after who does not have anyone to feed it and beginning to acknowledge that she has had addictive behavior that is led to this admission. She reports starting to have recollection of her behaviors prior to admission. She said she is now more open to the idea of rehab but at this point reports she needs to have a be in outpatient rehab. She reports she is eating and sleeping a little better. Mental Status Exam MSE Comments: This is an overweight versus obese white female in hospital scrubs with improved grooming and adequate eye contact. No abnormal movements except for improving psychomotor retardation. Cooperative with exam in no acute distress. Speech was decreased rate and volume. Mood described as feeling a little better, affect congruent. Thought process more organized. Thought content: Patient denied suicidal or homicidal ideation, there were no delusions reported but clear resolving hyper hindu and persecutory and paranoid delusions noted, she denied auditory visual hallucinations. Attention and concentration are mostly intact and memory was more reliable but none were formally tested. She is alert and oriented x3. Insight and judgment are improving, impulse control is improving. Vitals/I&O/Wt Last Vital Signs Temp 98.1 F 08/28/20 19:54 Pulse 87 08/28/20 19:54 Resp 18 08/28/20 19:54 BP 133/82 08/28/20 19:54 Pulse Ox 98 08/28/20 19:54 Data NPU : 08/23/20 13:12 08/23/20 13:12 A&P Additional A&P Information (1) Acute psychosis: (2) Alcohol abuse: (3) Marijuana use: (4) Anxiety: (5) Methamphetamine use: (6) Bipolar affective, depress, unspec: (7) Cluster B personality disorder: Additional A&P Information This is a 39-year-old white female with a long history of addiction and psychosis as well as personality disorder who presents with active addiction and psychosis and reportedly not taking medication. 1. Continue current medication. 2. Continue every 15 minute checks for safety. 3. Encourage individual, group and milieu therapies. 4. Encourage sober living treatment after discharge at the highest level of care to which he is willing to commit. Involuntary Hold Information 96 Hour Hold: 96 Hour Involuntary Admission: Yes 96 Hour Hold Ending Date: 08/23/20 96 Hour Hold Ending Time: 16:00 Attestations NPU Medical Necessity Statement*: Inpatient hospitalization is medically necessary and the clinically appropriate intervention at this time. We will monitor medications and make changes as indicated. Likely length of stay 1-3 days. Coding Level of Care Code Acute Prosthetic Aides Teacher for Ioana Alcaraz
[2020-08-28 19:54] VITALS: BP 133/82; PULSE 87; RESP 18; TEMP 36.7; O2SAT 98
[2020-08-28] MEDS: trazodone 100 mg Tablet PO (20:14)
[2020-08-28] MEDS: hyDROXYzine 25 mg Capsule 50 MG PO (20:14)
--- NOTE | 2020-08-28 20:15 | PC.NURSE ---
visteril 50mg given at request for anxiety
[2020-08-29 06:00] VITALS: BP 101/66; PULSE 72; RESP 15; TEMP 36.8; O2SAT 97
[2020-08-29] MEDS: duloxetine 60 mg Capsule PO (08:08)
[2020-08-29] MEDS: sertraline 50 mg Tablet PO (08:09)
[2020-08-29] MEDS: BuSPIRONE 10 mg Tablet PO (08:09)
[2020-08-29] MEDS: lithium carbonate 300 mg Capsule PO (08:09)
[2020-08-29] MEDS: gabapentin 300 mg Capsule PO (08:09)
[2020-08-29] MEDS: acetaminophen 325 mg Tablet 650 MG PO (09:57)
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
[2020-08-29 11:51] VITALS: BP 101/66; PULSE 72; RESP 15; TEMP 36.8; O2SAT 97
== END 2020-08-29 12:15 | disposition home or self-care (01) | DRG 885 ==
LOC: ER 12:36 → NP 16:06
PROVIDERS: Admitting Provider Psychiatry & Neurology Psychiatry; Emergency Provider Family Medicine; PCP Family Medicine; Visit Provider Psychiatry & Neurology Psychiatry
DX: F23 Brief psychotic disorder (principal); R45.851 Suicidal ideations; R45.850 Homicidal ideations; F15.10 Other stimulant abuse, uncomplicated; F12.90 Cannabis use, unspecified, uncomplicated; F60.3 Borderline personality disorder; F10.10 Alcohol abuse, uncomplicated; F41.9 Anxiety disorder, unspecified; F17.210 Nicotine dependence, cigarettes, uncomplicated; F31.30 Bipolar disorder, current episode depressed, mild or moderate severity, unspecified; F60.89 Other specific personality disorders
CPT/HCPCS: 80053; 80178; 80306; 80307; 81003; 81025; 84443; 85025; 93005; 96372; 99285; J1630; J2060

== ENCOUNTER 2020-09-30 19:25 | Inpatient (IN) | payer MEDICAID, SELFPAY ==
[2020-09-30 19:43] VITALS: BP 138/114; PULSE 90; RESP 15; TEMP 37; O2SAT 98; BMI 28.3
--- NOTE | 2020-09-30 20:52 | PC.NURSE ---
superficial to left forearm and right lower leg noted, no active bleeding noted. no acute distress noted.
[2020-09-30 20:55] LABS: HCG Qualitative Urine. Negative (Negative)
[2020-09-30 20:56] LABS: Basophils # 0.1 10^3/uL (0.0-0.1); Basophils % 0.5 %; Eosinophils # 0.1 10^3/uL (0.0-0.8); Eosinophils % 0.7 %; Hematocrit 42.8 % (37.0-47.0); Hemoglobin 13.8 g/dL (11.5-15.3); Lymphocytes # 2.6 10^3/uL (0.8-4.8); Lymphocytes % 20.3 %; Mean Corpuscular HGB Conc 32.2 g/dL (30.0-36.0); Mean Corpuscular Hemoglobin 28.9 pg (28.0-34.0); Mean Corpuscular Volume 89.5 fL (81-99); Mean Platelet Volume 9.7 fL (7.4-10.4); Monocytes # 1.1 10^3/uL (0.2-0.9); Monocytes % 8.7 %; Neutrophils # 9.04 10^3/uL (1.8-7.7); Neutrophils % 69.6 %; Nucleated Red Blood Cells % 0 %; Platelet Count 471 10^3/cmm (130-400); Red Blood Count 4.78 10^6/uL (4.1-5.3); Red Cell Distribution Width 14.2 % (12.1-15.1)
[2020-09-30 21:02] LABS: Add Urine Microscopic? NO; Charge for UA Resulting for Rev
[2020-09-30 21:08] LABS: Alanine Aminotransferase 19 U/L (0-33); Albumin Level 4.6 g/dL (3.5-5.2); Alkaline Phosphatase 138 IU/L (35-105); Anion Gap 15.6 (5-19); Aspartate Amino Transferase 11 U/L (0-32); Blood Urea Nitrogen 4 mg/dL (6-20); Calcium 8.9 mg/dL (8.5-10.5); Carbon Dioxide 22 mmol/L (22-29); Chloride 103 mmol/L (98-107); Globulin 2.4 g/dL (1.3-4.6); Glomerular Filtration Rate 111.3 mL/min (90-130); Glucose 85 mg/dL (65-115); Osmolality Calculated 280 mOsm/kg (285-295); Potassium 3.6 mmol/L (3.5-5.1); Sodium 137 mmol/L (136-145); Total Bilirubin 0.2 mg/dL (0.15-1.2)
[2020-09-30 21:09] LABS: Bilirubin Urine Neg (Negative); Blood Urine Neg (Negative); Glucose Urine UA Norm (Normal); Ketones Urine Negative (Negative); Leukocyte Esterase Urine Negative (Negative); Nitrate Urine Negative (Negative); Protein Urine Neg (Negative); Specific Gravity, Urine 1.005 (1.005-1.030); Urine Appearance Clear (CLEAR); Urine Color Yellow (Yellow); Urobilinogen Urine Norm (Negative); pH Urine 6.5 (5-7)
[2020-09-30 21:09] LABS: Acetaminophen < 5.0 ug/mL (10-30); Alcohol Level < 10 mg/dL (0-10); Salicylate < 0.3 mg/dL (3-10)
[2020-09-30 21:13] LABS: Amphetamines Screen Urine Negative (Negative); Barbiturates Screen Urine Negative (Negative); Benzodiazepines Screen Urine Negative (Negative); Cocaine Screen Urine Negative (Negative); Opiate Screen Urine Positive (Negative); PCP Screen Urine Negative (Negative); THC Screen Urine Negative (Negative)
[2020-09-30] MEDS: LORazepam 2 mg Tablet PO (21:53)
[2020-09-30 22:18] VITALS: BP 129/90; PULSE 87; RESP 17; TEMP 36.7; O2SAT 100
--- NOTE | 2020-09-30 22:35 | ED_ITS ---
HPI - Psych General: Chief Complaint: Psychiatric Symptoms Stated Complaint: MHE, brought in by law Time Seen by Provider: 09/30/20 19:58 Source: patient and police Mode of arrival: other (law enforcement) Limitations: no limitations History of Present Illness: HPI Narrative: 39-year-old female patient who has an extensive psychiatric history and prior methamphetamine abuse who presents to the emergency department with suicidal ideation. She also admits to auditory hallucinations, hallucinations are telling her that her is cheating on her and she needs to kill him. She also caught her wrist in a suicide attempt. She had a plan to use a gun to shoot herself also. She says she is under a lot of stress as a child does not want to have anything to do with her anymore and this is precipitating some of her symptoms. She would like some help and so she is here to be evaluated. complaint: suicidal ideation and feels depressed Duration: constant History of same: Yes Relieving factors: none Exacerbating factors: none Associated psychiatric symptoms: depression, suicidal ideation, homicidal ideation and auditory hallucinations Associated symptoms: Reports auditory hallucinations, depression, homicidal ideation, suicidal ideation and racing thoughts Treatments prior to arrival: placed on mental health hold If self harm: admits thoughts of self harm and has plan Review of Systems General: Reports: 10 or more systems reviewed and unremarkable except in HPI and below Psych: Reports: depression, auditory hallucinations, suicidal ideation and homicidal ideation [facility] ED PFSH: Medical History (Reviewed 09/30/20 @ 23:13 by Kassandra Wilson MD, [facility] [place]) Alcohol abuse Anxiety Bipolar affective, depress, unspec Family History (Reviewed 09/30/20 @ 23:13 by Kassandra Wilson MD, [facility] [place]) Grandfather No problems noted. Grandmother Stroke Maternal great Heart disease paternal Hypertension maternal Father Heart disease Hypertension Family/Other Breast cancer maternal aunt Denies family history of Colon cancer Ovarian cancer Uterine cancer Thyroid disease Social History (Reviewed 09/30/20 @ 23:13 by Kassandra Wilson MD, [facility] [place]) Smoking and tobacco status: current every day smoker cigarettes Packs smoked per day: 1.5 Alcohol intake: never Physical Exam Const: COMMON NORMALS: no acute distress, average body habitus, patient oriented x3, no limitations, healthy appearing, alert and well nourished HENMT: COMMON NORMALS: normocephalic, atraumatic and moist oral mucous membranes HEAD & SCALP: normocephalic and atraumatic Neck/C-Spine: COMMON NORMALS: no meningeal signs and no JVD Resp: COMMON NORMALS: normal respiratory effort, No retractions, No use of accessory muscles, clear to auscultation bilaterally and percussion normal AUSCULTATION: clear to auscultation bilaterally PERCUSSION: percussion normal Cardio: COMMON NORMALS: no JVD, regular rate, regular rhythm, S1 normal heart sound present, S2 normal heart sound present, No gallops present (Cardio), No clicks present (Cardio), No murmurs present (Cardio), No rub (Cardio) and Peripheral pulses 2+ throughout RATE: regular rate RHYTHM: regular rhythm HEART SOUNDS: S1 normal heart sound present and S2 normal heart sound present PERIPHERAL PULSES: Peripheral pulses 2+ throughout GI: COMMON NORMALS: Normal to inspection, nondistended, normoactive bowel sounds present, Soft to palpation, non-tender, No hepatosplenomegaly present, no masses and no bruits PALPATION: Yes Soft to palpation and Yes No h epatosplenomegaly present Extremity: COMMON NORMALS: normal to inspection, full ROM, capillary refill normal, no calf tenderness and no pedal edema Neuro: COMMON NORMALS: patient oriented x3 SENSORIUM/ORIENTATION: Yes alert MENINGEAL SIGNS: Yes no meningeal signs Skin: COMMON NORMALS: no rashes or lesions noted, no wounds, turgor normal, no jaundice, no petechiae and no mottling GENERAL SKIN EXAM: no rashes or lesions noted and turgor normal MDM - Psych MDM Narrative: Medical decision making narrative: 39-year-old female patient who presented to the emergency department with suicidal ideation. She also has auditory hallucinations and she has a plan to kill herself either by cutting herself or shooting herself. She has access to a gun. She is medically cleared and admitted to the neuropsychiatric unit for further evaluation and management. Lab Data: Labs: Lab Results 09/30/20 09/30/20 09/30/20 Range/Units 20:13 20:13 20:13 WBC (4.0-10.0) 10^3/ uL RBC (4.1-5.3) 10^6/u L Hgb (11.5-15.3) g/dL Hct (37.0-47.0) % MCV (81-99) fL MCH (28.0-34.0) pg MCHC (30.0-36.0) g/dL RDW (12.1-15.1) % Plt Count (130-400) 10^3/c mm MPV (7.4-10.4) fL Neut % (Auto) % Lymph % (Auto) % [place] % (Auto) % Eos % (Auto) % Baso % (Auto) % Neut # (Auto) (1.8-7.7) 10^3/u L Lymph # (Auto) (0.8-4.8) 10^3/u L [place] # (Auto) (0.2-0.9) 10^3/u L Eos # (Auto) (0.0-0.8) 10^3/u L Baso # (Auto) (0.0-0.1) 10^3/u L Nucleated RBC % (a uto) % Nucleated RBCs # /100WBC Sodium (136-145) mmol/L Potassium (3.5-5.1) mmol/L Chloride (98-107) mmol/L Carbon Dioxide (22-29) mmol/L Anion Gap (5-19) BUN (6-20) mg/dL Creatinine (0.5-0.9) mg/dL GFR Calculation (90-130) mL/min Glucose (65-115) mg/dL Calculated Osmolal ity (285-295) mOsm/k g Calcium (8.5-10.5) mg/dL Total Bilirubin (0.15-1.2) mg/dL AST (0-32) U/L ALT (0-33) U/L Alkaline Phosphata se (35-105) IU/L Total Protein (6.6-8.7) g/dL Albumin (3.5-5.2) g/dL Globulin (1.3-4.6) g/dL HCG, Qual Negative (Negative) Urine Color Yellow (Yellow) Urine Appearance Clear (CLEAR) Urine pH 6.5 (5-7) Ur Specific Gravit y 1.005 (1.005-1.030) Urine Protein Neg (Negative) Urine Glucose (UA) Norm (Normal) Urine Ketones Negative (Negative) Urine Blood Neg (Negative) Urine Nitrate Negative (Negative) Urine Bilirubin Neg (Negative) Urine Urobilinogen Norm (Negative) mg/dL Ur Leukocyte Rosaura ase Negative (Negative) Salicylates (3-10) mg/dL Urine Opiates Scre en Positive H (Negative) ng/mL Acetaminophen (10-30) ug/mL Ur Barbiturates Sc reen Negative (Negative) ng/mL Ur Phencyclidine S crn Negative (Negative) ng/mL Ur Amphetamines Sc reen Negative (Negative) ng/mL U Benzodiazepines Scrn Negative (Negative) ng/mL Urine Cocaine Scre en Negative (Negative) ng/mL U Marijuana (THC) Screen Negative (Negative) ng/mL Ethyl Alcohol (0-10) mg/dL 09/30/20 09/30/20 Range/Units 20:43 20:43 WBC 13.0 H (4.0-10.0) 10^3/ uL RBC 4.78 (4.1-5.3) 10^6/u L Hgb 13.8 (11.5-15.3) g/dL Hct 42.8 (37.0-47.0) % MCV 89.5 (81-99) fL MCH 28.9 (28.0-34.0) pg MCHC 32.2 (30.0-36.0) g/dL RDW 14.2 (12.1-15.1) % Plt Count 471 H (130-400) 10^3/c mm MPV 9.7 (7.4-10.4) fL Neut % (Auto) 69.6 % Lymph % (Auto) 20.3 % [place] % (Auto) 8.7 % Eos % (Auto) 0.7 % Baso % (Auto) 0.5 % Neut # (Auto) 9.04 H (1.8-7.7) 10^3/u L Lymph # (Auto) 2.6 (0.8-4.8) 10^3/u L [place] # (Auto) 1.1 H (0.2-0.9) 10^3/u L Eos # (Auto) 0.1 (0.0-0.8) 10^3/u L Baso # (Auto) 0.1 (0.0-0.1) 10^3/u L Nucleated RBC % (a uto) 0 % Nucleated RBCs # 0.0 /100WBC Sodium 137 (136-145) mmol/L Potassium 3.6 (3.5-5.1) mmol/L Chloride 103 (98-107) mmol/L Carbon Dioxide 22 (22-29) mmol/L Anion Gap 15.6 (5-19) BUN 4 L (6-20) mg/dL Creatinine 0.6 (0.5-0.9) mg/dL GFR Calculation 111.3 (90-130) mL/min Glucose 85 (65-115) mg/dL Calculated Osmolal ity 280 L (285-295) mOsm/k g Calcium 8.9 (8.5-10.5) mg/dL Total Bilirubin 0.2 (0.15-1.2) mg/dL AST 11 (0-32) U/L ALT 19 (0-33) U/L Alkaline Phosphata se 138 H (35-105) IU/L Total Protein 7.0 (6.6-8.7) g/dL Albumin 4.6 (3.5-5.2) g/dL Globulin 2.4 (1.3-4.6) g/dL HCG, Qual (Negative) Urine Color (Yellow) Urine Appearance (CLEAR) Urine pH (5-7) Ur Specific Gravit y (1.005-1.030) Urine Protein (Negative) Urine Glucose (UA) (Normal) Urine Ketones (Negative) Urine Blood (Negative) Urine Nitrate (Negative) Urine Bilirubin (Negative) Urine Urobilinogen (Negative) mg/dL Ur Leukocyte Rosaura ase (Negative) Salicylates < 0.3 L (3-10) mg/dL Urine Opiates Scre en (Negative) ng/mL Acetaminophen < 5.0 L (10-30) ug/mL Ur Barbiturates Sc reen (Negative) ng/mL Ur Phencyclidine S crn (Negative) ng/mL Ur Amphetamines Sc reen (Negative) ng/mL U Benzodiazepines Scrn (Negative) ng/mL Urine Cocaine Scre en (Negative) ng/mL U Marijuana (THC) Screen (Negative) ng/mL Ethyl Alcohol < 10 (0-10) mg/dL Discharge Plan Discharge Patient Disposition: Admitted As Inpatient Admit Provider: Shelby Mora Clinical Impression: Suicidal ideation Condition: Stable Coding Level of Care Code ED Classics Professor for Chg Fwd Exam Comprehensive
[2020-09-30] MEDS: trazodone 100 mg Tablet PO (23:46)
[2020-09-30] MEDS: BuSPIRONE 10 mg Tablet PO (23:46)
[2020-09-30] MEDS: gabapentin 300 mg Capsule PO (23:46)
--- NOTE | 2020-10-01 03:53 | PC.NURSE ---
Skin assessment revealed no wounds or injuries.
[2020-10-01 06:00] VITALS: BP 93/54; PULSE 93; RESP 16; TEMP 37.2; O2SAT 95
[2020-10-01] MEDS: lithium carbonate 300 mg Capsule PO (08:16)
[2020-10-01] MEDS: gabapentin 300 mg Capsule PO ×3 (08:16→20:14)
[2020-10-01] MEDS: BuSPIRONE 10 mg Tablet PO ×3 (08:17→20:14)
[2020-10-01] MEDS: sertraline 50 mg Tablet PO (08:17)
[2020-10-01] MEDS: duloxetine 60 mg Capsule PO (08:17)
[2020-10-01 08:31] LABS: Lithium 0.2 mmol/L (0.6-1.2)
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
[2020-10-01] MEDS: acetaminophen 325 mg Tablet 650 MG PO ×2 (12:22→17:20)
[2020-10-01 13:54] VITALS: BP 110/73; PULSE 118; RESP 18; TEMP 36.3; O2SAT 97
[2020-10-01] MEDS: lurasidone 20 mg Tablet PO (16:10)
[2020-10-01 19:57] VITALS: BP 100/66; PULSE 96; RESP 18; TEMP 38; O2SAT 98
[2020-10-01] MEDS: trazodone 100 mg Tablet PO (20:14)
[2020-10-01] MEDS: hyDROXYzine 25 mg Capsule 50 MG PO (20:14)
--- NOTE | 2020-10-01 22:10 | PC.NURSE ---
pt quietly resting in room with both eyes closed
[2020-10-02 06:00] VITALS: BP 99/61; PULSE 71; RESP 18; TEMP 37.6; O2SAT 97
[2020-10-02] MEDS: gabapentin 300 mg Capsule PO (08:17)
[2020-10-02] MEDS: BuSPIRONE 10 mg Tablet PO (08:17)
[2020-10-02] MEDS: sertraline 50 mg Tablet PO (09:10)
[2020-10-02] MEDS: duloxetine 60 mg Capsule PO (09:10)
[2020-10-02] MEDS: lithium carbonate 300 mg Capsule PO (09:10)
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
[2020-10-02 10:08] VITALS: BP 99/61; PULSE 71; RESP 18; TEMP 36.9; O2SAT 97
[2020-10-02] MEDS: acetaminophen 325 mg Tablet 650 MG PO (12:10)
== END 2020-10-02 12:26 | disposition home or self-care (01) | DRG 882 ==
LOC: ER 19:58 → NP 21:39
PROVIDERS: Admitting Provider Psychiatry & Neurology Psychiatry; Emergency Provider Family Medicine; PCP Family Medicine; Visit Provider Psychiatry & Neurology Psychiatry
DX: F43.25 Adjustment disorder with mixed disturbance of emotions and conduct (principal); F19.10 Other psychoactive substance abuse, uncomplicated; F60.3 Borderline personality disorder
CPT/HCPCS: 36415; 80053; 80178; 80306; 80307; 81003; 81025; 85025; 99285

== ENCOUNTER → 2020-10-09 10:56 | Outpatient (BNVA) | payer MEDICAID, SELFPAY | PROVIDERS: PCP Family Medicine; Visit Provider Nurse Practitioner | DX: F31.30 Bipolar disorder, current episode depressed, mild or moderate severity, unspecified (principal); F41.1 Generalized anxiety disorder; F15.21 Other stimulant dependence, in remission; F10.21 Alcohol dependence, in remission | CPT/HCPCS: 99214 ==

== ENCOUNTER 2020-10-24 23:59 | Inpatient (IN) | payer MEDICAID, SELFPAY ==
[2020-10-25 00:03] VITALS: BMI 26.1
--- NOTE | 2020-10-25 00:13 | ED_ITS ---
HPI - Psych General: Chief Complaint: Psychiatric Symptoms Stated Complaint: 96 HOUR Time Seen by Provider: 10/25/20 00:02 Source: patient and police Mode of arrival: other (Police) Limitations: no limitations History of Present Illness: HPI Narrative: Patient presents here with homicidal thoughts. States she been also having depression. She is here with police and was wanting to get psychiatric help. Patient has been admitted here a few times in the past. She denies any worsening improving factors. Denies any medical complaints. Associated symptoms: Reports depression and homicidal ideation Review of Systems Const: Denies: fever(s), chills, body aches or change in appetite Eyes: Denies: blurry vision or eye discomfort ENMT: Denies: throat pain or dental pain Card: Denies: chest pain Resp: Denies: dyspnea GI: Denies: abdominal pain, nausea, vomiting or diarrhea : Denies: dysuria Musc: Denies: neck pain or back pain Skin/Breast: Denies: rash Neuro: Denies: headache(s) Psych: Reports: depression and homicidal ideation Bossman/Lymph: Denies: easy bruising All/Imm: Denies: urticaria PFS ED PFSH: Medical History (Updated 10/09/20 @ 11:25 by Luz Queen [facility]) Alcohol abuse Alcohol dependence, in remission Anxiety Bipolar affective, depress, unspec Generalized anxiety disorder Other stimulant dependence, in remission Family History Grandfather No problems noted. Grandmother Stroke Maternal great Heart disease paternal Hypertension maternal Father Heart disease Hypertension Family/Other Breast cancer maternal aunt Denies family history of Colon cancer Ovarian cancer Uterine cancer Thyroid disease Social History Smoking and tobacco status: current every day smoker cigarettes Packs smoked per day: 1.5 Alcohol intake: never Physical Exam Const: COMMON NORMALS: no acute distress, patient oriented x3 and healthy appearing HENMT: COMMON NORMALS: normocephalic and atraumatic HEAD & SCALP: normocephalic and atraumatic Eye: COMMON NORMALS: Equal, round and reactive pupils present and EOMs intact bilaterally PUPIL: Yes Equal, round and reactive pupils present Neck/C-Spine: COMMON NORMALS: full ROM and supple Chest: COMMONS NORMALS: normal inspection of the chest and normal palpation of entire chest wall Resp: COMMON NORMALS: normal respiratory effort, No retractions, No use of accessory muscles and clear to auscultation bilaterally AUSCULTATION: clear to auscultation bilaterally Cardio: COMMON NORMALS: regular rate, regular rhythm and No murmurs present (Cardio) RATE: regular rate RHYTHM: regular rhythm GI: COMMON NORMALS: Normal to inspection, nondistended, normoactive bowel sounds present, Soft to palpation, non-tender and no masses PALPATION: Yes Soft to palpation Extremity: COMMON NORMALS: normal to inspection and full ROM Neuro: COMMON NORMALS: patient oriented x3, moves all extremities and no focal motor deficits Psych: COMMON NORMALS: mental status grossly normal and cooperative THOUGHT CONTENT: Yes Homicidality present Skin: COMMON NORMALS: no rashes or lesions noted and no wounds GENERAL SKIN EXAM: no rashes or lesions noted Course Vital Signs: Vital signs: Vital Signs Temperature 98.4 F 10/25/20 00:28 Pulse Rate 80 10/25/20 00:28 Respiratory Rate 18 10/25/20 00:28 Blood Pressure 151/91 10/25/20 00:28 Pulse Oximetry 98 10/25/20 00:28 MDM - Psych MDM Narrative: Medical decision making narrative: Patient presents here with homicidal ideation is requesting a psychiatric unit. She is medically cleared I spoke to Dr. Walter and will admit. Lab Data: Labs: Lab Results 10/25/20 10/25/20 10/25/20 Range/Units 00:17 00:22 00:22 WBC (4.0-10.0) 10^3/ uL RBC (4.1-5.3) 10^6/u L Hgb (11.5-15.3) g/dL Hct (37.0-47.0) % MCV (81-99) fL MCH (28.0-34.0) pg MCHC (30.0-36.0) g/dL RDW (12.1-15.1) % Plt Count (130-400) 10^3/c mm MPV (7.4-10.4) fL Neut % (Auto) % Lymph % (Auto) % Chambers % (Auto) % Eos % (Auto) % Baso % (Auto) % Neut # (Auto) (1.8-7.7) 10^3/u L Lymph # (Auto) (0.8-4.8) 10^3/u L Chambers # (Auto) (0.2-0.9) 10^3/u L Eos # (Auto) (0.0-0.8) 10^3/u L Baso # (Auto) (0.0-0.1) 10^3/u L Nucleated RBC % (a uto) % Nucleated RBCs # /100WBC Sodium 138 (136-145) mmol/L Potassium 3.8 (3.5-5.1) mmol/L Chloride 104 (98-107) mmol/L Carbon Dioxide 25 (22-29) mmol/L Anion Gap 12.8 (5-19) BUN 6 (6-20) mg/dL Creatinine 0.7 (0.5-0.9) mg/dL GFR Calculation 92.7 (90-130) mL/min Glucose 91 (65-115) mg/dL Calculated Osmolal ity 283 L (285-295) mOsm/k g Calcium 9.2 (8.5-10.5) mg/dL Total Bilirubin 0.2 (0.15-1.2) mg/dL AST 10 (0-32) U/L ALT 13 (0-33) U/L Alkaline Phosphata se 114 H (35-105) IU/L Total Protein 7.2 (6.6-8.7) g/dL Albumin 4.5 (3.5-5.2) g/dL Globulin 2.7 (1.3-4.6) g/dL HCG, Qual Negative (Negative) Salicylates < 0.3 L (3-10) mg/dL Urine Opiates Scre en Negative (Negative) ng/mL Acetaminophen < 5.0 L (10-30) ug/mL Ur Barbiturates Sc reen Negative (Negative) ng/mL Ur Phencyclidine S crn Negative (Negative) ng/mL Ur Amphetamines Sc reen Negative (Negative) ng/mL U Benzodiazepines Scrn Negative (Negative) ng/mL Urine Cocaine Scre en Negative (Negative) ng/mL U Marijuana (THC) Screen Negative (Negative) ng/mL Ethyl Alcohol < 10 (0-10) mg/dL 05/06/21 Range/Units 00:22 WBC 11.6 H (4.0-10.0) 10^3/ uL RBC 4.96 (4.1-5.3) 10^6/u L Hgb 14.2 (11.5-15.3) g/dL Hct 43.8 (37.0-47.0) % MCV 88.3 (81-99) fL MCH 28.6 (28.0-34.0) pg MCHC 32.4 (30.0-36.0) g/dL RDW 13.9 (12.1-15.1) % Plt Count 458 H (130-400) 10^3/c mm MPV 10.0 (7.4-10.4) fL Neut % (Auto) 58.8 % Lymph % (Auto) 31.8 % Chambers % (Auto) 8.1 % Eos % (Auto) 0.7 % Baso % (Auto) 0.4 % Neut # (Auto) 6.84 (1.8-7.7) 10^3/u L Lymph # (Auto) 3.7 (0.8-4.8) 10^3/u L Chambers # (Auto) 0.9 (0.2-0.9) 10^3/u L Eos # (Auto) 0.1 (0.0-0.8) 10^3/u L Baso # (Auto) 0.1 (0.0-0.1) 10^3/u L Nucleated RBC % (a uto) 0 % Nucleated RBCs # 0.0 /100WBC Sodium (136-145) mmol/L Potassium (3.5-5.1) mmol/L Chloride (98-107) mmol/L Carbon Dioxide (22-29) mmol/L Anion Gap (5-19) BUN (6-20) mg/dL Creatinine (0.5-0.9) mg/dL GFR Calculation (90-130) mL/min Glucose (65-115) mg/dL Calculated Osmolal ity (285-295) mOsm/k g Calcium (8.5-10.5) mg/dL Total Bilirubin (0.15-1.2) mg/dL AST (0-32) U/L ALT (0-33) U/L Alkaline Phosphata se (35-105) IU/L Total Protein (6.6-8.7) g/dL Albumin (3.5-5.2) g/dL Globulin (1.3-4.6) g/dL HCG, Qual (Negative) Salicylates (3-10) mg/dL Urine Opiates Scre en (Negative) ng/mL Acetaminophen (10-30) ug/mL Ur Barbiturates Sc reen (Negative) ng/mL Ur Phencyclidine S crn (Negative) ng/mL Ur Amphetamines Sc reen (Negative) ng/mL U Benzodiazepines Scrn (Negative) ng/mL Urine Cocaine Scre en (Negative) ng/mL U Marijuana (THC) Screen (Negative) ng/mL Ethyl Alcohol (0-10) mg/dL Discharge Plan Discharge Prescriptions: No Action Rexulti 1 mg tablet 1 mg PO DAILY@10 30 Days Qty: 30 RF: 1 buspirone 10 mg tablet 10 mg PO TID 30 Days Qty: 90 RF: 1 duloxetine 60 mg capsule,delayed release(DR/EC) 60 mg PO DAILY@10 30 Days Qty: 60 RF: 1 lithium carbonate 300 mg tablet 300 mg PO DAILY@10 30 Days Qty: 30 RF: 1 sertraline 50 mg tablet 50 mg PO DAILY@10 30 Days Qty: 30 RF: 0 trazodone 100 mg tablet 100 mg PO BEDTIME@20 30 Days Qty: 30 RF: 1 dicyclomine 20 mg tablet 20 mg PO QID PRN (Reason: IBS Symptoms) 30 Days Qty: 120 RF: 1 gabapentin 300 mg capsule 300 mg PO TID 30 Days Qty: 90 RF: 1 tizanidine 4 mg capsule 4 mg PO TID PRN (Reason: Spasms) 30 Days Qty: 90 RF: 1 Coding Level of Care Code ED Tripe Finisher for Chg Fwd Exam Comprehensive
[2020-10-25] MEDS: LORazepam 2 mg Tablet PO (00:26)
[2020-10-25 00:28] VITALS: BP 151/91; PULSE 80; RESP 18; TEMP 36.9; O2SAT 98
[2020-10-25 00:29] LABS: HCG Qualitative Urine. Negative (Negative)
[2020-10-25 00:43] LABS: Amphetamines Screen Urine Negative (Negative); Barbiturates Screen Urine Negative (Negative); Benzodiazepines Screen Urine Negative (Negative); Cocaine Screen Urine Negative (Negative); Opiate Screen Urine Negative (Negative); PCP Screen Urine Negative (Negative); THC Screen Urine Negative (Negative)
[2020-10-25 00:45] LABS: Basophils # 0.1 10^3/uL (0.0-0.1); Basophils % 0.4 %; Eosinophils # 0.1 10^3/uL (0.0-0.8); Eosinophils % 0.7 %; Hematocrit 43.8 % (37.0-47.0); Hemoglobin 14.2 g/dL (11.5-15.3); Lymphocytes # 3.7 10^3/uL (0.8-4.8); Lymphocytes % 31.8 %; Mean Corpuscular HGB Conc 32.4 g/dL (30.0-36.0); Mean Corpuscular Hemoglobin 28.6 pg (28.0-34.0); Mean Corpuscular Volume 88.3 fL (81-99); Monocytes # 0.9 10^3/uL (0.2-0.9); Monocytes % 8.1 %; Neutrophils # 6.84 10^3/uL (1.8-7.7); Neutrophils % 58.8 %; Nucleated Red Blood Cells % 0 %; Platelet Count 458 10^3/cmm (130-400); Red Blood Count 4.96 10^6/uL (4.1-5.3); Red Cell Distribution Width 13.9 % (12.1-15.1); White Blood Count 11.6 10^3/uL (4.0-10.0)
[2020-10-25 00:51] LABS: Acetaminophen < 5.0 ug/mL (10-30); Alanine Aminotransferase 13 U/L (0-33); Albumin Level 4.5 g/dL (3.5-5.2); Alcohol Level < 10 mg/dL (0-10); Alkaline Phosphatase 114 IU/L (35-105); Anion Gap 12.8 (5-19); Aspartate Amino Transferase 10 U/L (0-32); Blood Urea Nitrogen 6 mg/dL (6-20); Calcium 9.2 mg/dL (8.5-10.5); Carbon Dioxide 25 mmol/L (22-29); Chloride 104 mmol/L (98-107); Globulin 2.7 g/dL (1.3-4.6); Glomerular Filtration Rate 92.7 mL/min (90-130); Glucose 91 mg/dL (65-115); Osmolality Calculated 283 mOsm/kg (285-295); Potassium 3.8 mmol/L (3.5-5.1); Salicylate < 0.3 mg/dL (3-10); Sodium 138 mmol/L (136-145); Total Bilirubin 0.2 mg/dL (0.15-1.2); Total Protein 7.2 g/dL (6.6-8.7)
[2020-10-25 02:22] VITALS: BP 134/97; PULSE 80; RESP 16; TEMP 36.7; O2SAT 95
[2020-10-25] MEDS: hyDROXYzine 25 mg Capsule 50 MG PO ×2 (03:33→20:12)
[2020-10-25] MEDS: OLANZapine 5 mg ODT PO (03:33)
[2020-10-25] MEDS: nicotine 2 mg Gum BUCCAL ×3 (03:33→20:14)
[2020-10-25 06:00] VITALS: BP 134/97; PULSE 80; RESP 16; TEMP 36.7; O2SAT 95
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
[2020-10-25] MEDS: lithium carbonate ER 300 mg Tablet PO (09:35)
[2020-10-25] MEDS: gabapentin 300 mg Capsule PO ×3 (09:35→20:12)
[2020-10-25] MEDS: BuSPIRONE 10 mg Tablet PO ×3 (09:35→20:12)
[2020-10-25] MEDS: sertraline 50 mg Tablet PO (09:35)
[2020-10-25] MEDS: duloxetine 60 mg Capsule PO (09:35)
[2020-10-25] MEDS: dicyclomine 20 mg Tablet PO ×2 (13:55→20:12)
--- NOTE | 2020-10-25 13:55 | PC.NURSE ---
PRN BENTYL 20 MG GIVEN PO PER PT C/O STOMACH UPSET
[2020-10-25 14:00] VITALS: BP 106/74; PULSE 90; RESP 18; TEMP 37.1; O2SAT 96
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
[2020-10-25] MEDS: trazodone 100 mg Tablet PO (20:12)
[2020-10-25 20:37] VITALS: BP 91/58; PULSE 81; RESP 17; TEMP 37.1; O2SAT 95
--- NOTE | 2020-10-25 22:51 | PC.NURSE ---
PM assessment Pt affect is guarded, flat, and labile, she is gazing past nursing staff,smiling as if she sees something nurse cannot, when asked if she is seeing someone, pt said, I'll never tell you, and follows that statement while walking away with Stop taking my knowledge, . Nurse interacted with patient in the dayroom, and she said to something unseen, sit down', I know , she does not have to , only that bitch. Smiling. Pt is cooperative with staff, delayed in verbal responses to questions, but has not shown any sign of violence this shift, other than her verbal display above. pt is currently resting in her room, will continue to observe
[2020-10-26 05:42] VITALS: BP 81/50; PULSE 91; RESP 17; TEMP 36.8; O2SAT 96
[2020-10-26] MEDS: sertraline 50 mg Tablet PO (08:19)
[2020-10-26] MEDS: duloxetine 60 mg Capsule PO (08:19)
[2020-10-26] MEDS: gabapentin 300 mg Capsule PO (08:19)
[2020-10-26] MEDS: BuSPIRONE 10 mg Tablet PO (08:19)
[2020-10-26] MEDS: dicyclomine 20 mg Tablet PO (08:19)
[2020-10-26] MEDS: lithium carbonate ER 300 mg Tablet PO (08:19)
--- NOTE | 2020-10-26 08:20 | PC.NURSE ---
Addendum entered by Rebeca Cuadra LPN 10/26/20 10:40: prn med effective no further c/o stomach upset Original Note: prn Bentyl 20 mg given po per pt c/o upset stomach
[2020-10-26] MEDS: nicotine 2 mg Gum BUCCAL (09:11)
[2020-10-26 09:22] VITALS: BP 81/50; PULSE 91; RESP 17; TEMP 36.8; O2SAT 96
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
--- NOTE | 2020-10-26 11:30 | PC.RESP ---
SMOKING CESSATION INFORMATION SENT TO PATIENT.
== END 2020-10-26 12:20 | disposition home or self-care (01) | DRG 882 ==
LOC: ER 10-25 00:20 → NP 10-25 01:01
PROVIDERS: Admitting Provider Psychiatry & Neurology Psychiatry; Emergency Provider Emergency Medicine; PCP Family Medicine; Visit Provider Psychiatry & Neurology Psychiatry
DX: F43.25 Adjustment disorder with mixed disturbance of emotions and conduct (principal); F60.3 Borderline personality disorder; F10.21 Alcohol dependence, in remission; F41.9 Anxiety disorder, unspecified; F32.9 Major depressive disorder, single episode, unspecified; F41.1 Generalized anxiety disorder; F17.210 Nicotine dependence, cigarettes, uncomplicated
CPT/HCPCS: 80053; 80306; 80307; 81025; 85025; 99285

== ENCOUNTER 2020-10-30 23:23 | Emergency (ER) | payer MEDICAID, SELFPAY ==
[2020-10-30 23:38] VITALS: BP 138/100; PULSE 87; RESP 18; TEMP 36.6; O2SAT 98; BMI 27.1
--- NOTE | 2020-10-30 23:54 | ECG_ITS ---
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 Measurements Intervals [place] Rate: 75 P: 19 CA: 120 QRS: 86 QRSD: 89 T: 51 QT: 379 QTc: 425 Interpretive Statements SINUS RHYTHM Compared to ECG 08/23/2020 13:19:18 Sinus tachycardia no longer present T-wave abnormality no longer present Electronically Signed On 10-31-2020 18:23:19 CDT by Maria E Weeks M.D. [email or web address]
--- NOTE | 2020-10-31 00:13 | ED_ITS ---
HPI - Psych General: Chief Complaint: Psychiatric Symptoms Stated Complaint: ran out of meds Time Seen by Provider: 10/30/20 23:32 Source: patient Mode of arrival: ambulatory Limitations: no limitations History of Present Illness: HPI Narrative: 40-year-old female who has a extensive psychiatric history states tonight she is very anxious. She had thoughts of harming people but denies any suicidal or homicidal thoughts. Patient was recently admitted here to the psych welch. She states that she mainly feels very anxious and needs something for anxiety. Denies any worsening improving factors. Associated symptoms: Reports depression Review of Systems Const: Denies: fever(s), chills, body aches or change in appetite Eyes: Denies: blurry vision or eye discomfort ENMT: Denies: throat pain or dental pain Card: Denies: chest pain Resp: Denies: dyspnea GI: Denies: abdominal pain, nausea, vomiting or diarrhea : Denies: dysuria Musc: Denies: neck pain or back pain Skin/Breast: Denies: rash Neuro: Denies: headache(s) Psych: Reports: anxiety and depression Bossman/Lymph: Denies: easy bruising All/Imm: Denies: urticaria PFSH ED PFSH: Medical History Alcohol abuse Alcohol dependence, in remission Anxiety Bipolar affective, depress, unspec Generalized anxiety disorder Other stimulant dependence, in remission Family History Grandfather No problems noted. Grandmother Stroke Maternal great Heart disease paternal Hypertension maternal Father Heart disease Hypertension Family/Other Breast cancer maternal aunt Denies family history of Colon cancer Ovarian cancer Uterine cancer Thyroid disease Social History Smoking and tobacco status: current every day smoker cigarettes Packs smoked per day: 1.5 Alcohol intake: never Physical Exam Const: COMMON NORMALS: no acute distress, patient oriented x3 and healthy appearing HENMT: COMMON NORMALS: normocephalic and atraumatic HEAD & SCALP: normocephalic and atraumatic Eye: COMMON NORMALS: Equal, round and reactive pupils present and EOMs intact bilaterally PUPIL: Yes Equal, round and reactive pupils present Neck/C-Spine: COMMON NORMALS: full ROM and supple Chest: COMMONS NORMALS: normal inspection of the chest and normal palpation of entire chest wall Resp: COMMON NORMALS: normal respiratory effort, No retractions, No use of accessory muscles and clear to auscultation bilaterally AUSCULTATION: clear to auscultation bilaterally Cardio: COMMON NORMALS: regular rate, regular rhythm and No murmurs present (Cardio) RATE: regular rate RHYTHM: regular rhythm GI: COMMON NORMALS: Normal to inspection, nondistended, normoactive bowel sounds present, Soft to palpation, non-tender and no masses PALPATION: Yes Soft to palpation Extremity: COMMON NORMALS: normal to inspection and full ROM Neuro: COMMON NORMALS: patient oriented x3, moves all extremities and no focal motor deficits Psych: COMMON NORMALS: mental status grossly normal, Normal thought process present and cooperative MOOD & AFFECT: Yes anxious THOUGHT PROCESS: Normal thought process present Skin: COMMON NORMALS: no rashes or lesions noted and no wounds GENERAL SKIN EXAM: no rashes or lesions noted Course Vital Signs: Vital signs: Vital Signs Temperature 97.9 F 10/30/20 23:38 Pulse Rate 87 10/30/20 23:38 Respiratory Rate 18 10/30/20 23:38 Blood Pressure 138/100 10/30/20 23:38 Pulse Oximetry 98 10/30/20 23:38 MDM - Psych MDM Narrative: Medical decision making narrative: Patient presents here with anxiety. I did have Dr. Walter of psychiatry evaluate patient he does not believe that she is homicidal or suicidal. She is stable for discharge at this time. Patient given Ativan here. She is to take her meds as prescribed at home. EKG Data^: EKG 1: Attestation: I personally reviewed and interpreted this EKG as follows: EKG interpretation date: 10/31/20 EKG interpretation time: 23:57 Interpretation: nsr hr 75 with no s tor t wave abnormalities qrs 89 qtc 408 Discharge Plan Discharge Patient Disposition: Home Clinical Impression: Anxiety Condition: Stable Prescriptions: No Action Rexulti 1 mg tablet 1 mg PO DAILY@10 30 Days Qty: 30 RF: 1 buspirone 10 mg tablet 10 mg PO TID 30 Days Qty: 90 RF: 1 duloxetine 60 mg capsule,delayed release(DR/EC) 60 mg PO DAILY@10 30 Days Qty: 60 RF: 1 lithium carbonate 300 mg tablet 300 mg PO DAILY@10 30 Days Qty: 30 RF: 1 sertraline 50 mg tablet 50 mg PO DAILY@10 30 Days Qty: 30 RF: 0 trazodone 100 mg tablet 100 mg PO BEDTIME@20 30 Days Qty: 30 RF: 1 dicyclomine 20 mg tablet 20 mg PO QID PRN (Reason: IBS Symptoms) 30 Days Qty: 120 RF: 1 gabapentin 300 mg capsule 300 mg PO TID 30 Days Qty: 90 RF: 1 tizanidine 4 mg capsule 4 mg PO TID PRN (Reason: Spasms) 30 Days Qty: 90 RF: 1 Discharge Orders: Discharge ED (Routine); Ordered 10/31/20 Ordered By: Osmin Cardoso Referrals: Uma Mott DO [Primary Care Provider] - 1-3 days Discharge Diet: Advance as tolerated Discharge Activity: Resume usual activity Patient Instructions: Anxiety (ED) Coding Level of Care Code ED Tanning Solution Maker for Chg Fwd Exam Comprehensive
[2020-10-31] MEDS: LORazepam 2 mg Tablet PO (00:58)
[2020-10-31 01:00] VITALS: BP 145/91; PULSE 78; RESP 17; O2SAT 98
== END 2020-10-31 01:17 | disposition home or self-care (01) ==
PROVIDERS: Emergency Provider Emergency Medicine; PCP Family Medicine
DX: F41.9 Anxiety disorder, unspecified (principal); F17.210 Nicotine dependence, cigarettes, uncomplicated
CPT/HCPCS: 93005; 99283

== ENCOUNTER 2020-11-03 20:37 | Inpatient (IN) | payer MEDICAID, SELFPAY ==
[2020-11-03 20:37] VITALS: BP 141/101; PULSE 86; RESP 16; TEMP 36.7; O2SAT 98; BMI 25.4
[2020-11-03 20:52] LABS: Add Urine Microscopic? NO; Charge for UA Resulting for Rev
[2020-11-03 20:56] LABS: Bilirubin Urine Neg (Negative); Blood Urine Neg (Negative); Glucose Urine UA Norm (Normal); Ketones Urine Negative (Negative); Leukocyte Esterase Urine Negative (Negative); Nitrate Urine Negative (Negative); Protein Urine Neg (Negative); Specific Gravity, Urine 1.015 (1.005-1.030); Urine Appearance Clear (CLEAR); Urine Color Yellow (Yellow); Urobilinogen Urine Norm (Negative); pH Urine 6.5 (5-7)
[2020-11-03 20:57] LABS: HCG Qualitative Urine. Negative (Negative)
[2020-11-03 21:11] LABS: Basophils # 0.1 10^3/uL (0.0-0.1); Basophils % 0.7 %; Eosinophils # 0.1 10^3/uL (0.0-0.8); Eosinophils % 1.2 %; Hematocrit 44.2 % (37.0-47.0); Hemoglobin 14.2 g/dL (11.5-15.3); Lymphocytes # 3.1 10^3/uL (0.8-4.8); Lymphocytes % 29.4 %; Mean Corpuscular HGB Conc 32.1 g/dL (30.0-36.0); Mean Corpuscular Hemoglobin 28.8 pg (28.0-34.0); Mean Corpuscular Volume 89.7 fL (81-99); Mean Platelet Volume 9.5 fL (7.4-10.4); Monocytes # 0.8 10^3/uL (0.2-0.9); Monocytes % 7.8 %; Neutrophils # 6.39 10^3/uL (1.8-7.7); Neutrophils % 60.7 %; Nucleated Red Blood Cells % 0 %; Platelet Count 502 10^3/cmm (130-400); Red Blood Count 4.93 10^6/uL (4.1-5.3); Red Cell Distribution Width 14.3 % (12.1-15.1); White Blood Count 10.5 10^3/uL (4.0-10.0)
[2020-11-03] MEDS: LORazepam 1 mg Tablet PO ×2 (21:25→22:09)
[2020-11-03 21:37] LABS: Alanine Aminotransferase 26 U/L (0-33); Albumin Level 4.5 g/dL (3.5-5.2); Alkaline Phosphatase 121 IU/L (35-105); Anion Gap 15.3 (5-19); Aspartate Amino Transferase 15 U/L (0-32); Blood Urea Nitrogen 6 mg/dL (6-20); Calcium 8.9 mg/dL (8.5-10.5); Carbon Dioxide 22 mmol/L (22-29); Chloride 103 mmol/L (98-107); Globulin 2.5 g/dL (1.3-4.6); Glomerular Filtration Rate 110.7 mL/min (90-130); Glucose 98 mg/dL (65-115); Osmolality Calculated 280 mOsm/kg (285-295); Potassium 4.3 mmol/L (3.5-5.1); Sodium 136 mmol/L (136-145); Total Bilirubin 0.2 mg/dL (0.15-1.2)
[2020-11-03 21:38] LABS: Acetaminophen < 5.0 ug/mL (10-30); Alcohol Level < 10 mg/dL (0-10); Salicylate < 0.3 mg/dL (3-10)
[2020-11-03 21:41] LABS: Amphetamines Screen Urine Negative (Negative); Barbiturates Screen Urine Negative (Negative); Benzodiazepines Screen Urine Negative (Negative); Cocaine Screen Urine Negative (Negative); Opiate Screen Urine Negative (Negative); PCP Screen Urine Negative (Negative); THC Screen Urine Negative (Negative)
[2020-11-03 22:14] VITALS: BP 143/96; PULSE 89; RESP 18; TEMP 36.6; O2SAT 99
[2020-11-03 23:11] VITALS: BP 120/62; PULSE 70; RESP 16; O2SAT 99
--- NOTE | 2020-11-04 00:24 | W.ED.PSYCH ---
HPI - Psych General: Chief Complaint: Psychiatric Symptoms Stated Complaint: HI Time Seen by Provider: 11/03/20 20:41 Source: patient Mode of arrival: EMS Limitations: no limitations History of Present Illness: HPI Narrative: This is a 40-year-old female patient with an extensive psychiatric history including bipolar, and disorder. She has a prior history of substance abuse. Patient states that she has been clean for some time . She states that she only takes her prescribed medications. She presents to the emergency department today with homicidal ideations. She states that there is a lady who is bothering her, called Maame Warren that the patient wants to kill. She is therefore here because she wants to help. She did not tell me what her plan was. Onset (ago): day(s) Duration: constant History of same: No Relieving factors: none Exacerbating factors: none Associated psychiatric symptoms: homicidal ideation and racing thoughts Associated symptoms: Reports homicidal ideation and racing thoughts; Deny auditory hallucinations, visual hallucinations, depression or suicidal ideation Treatments prior to arrival: none Review of Systems General: Reports: 10 or more systems reviewed and unremarkable except in HPI and below Psych: Reports: homicidal ideation; Denies: depression, visual hallucinations, auditory hallucinations or suicidal ideation [facility] ED PFSH: Medical History (Reviewed 11/04/20 @ 00:29 by Kassandra Wilson MD, [facility] [place]) Alcohol abuse Alcohol dependence, in remission Anxiety Bipolar affective, depress, unspec Generalized anxiety disorder Other stimulant dependence, in remission Family History (Reviewed 11/04/20 @ 00:29 by Kassandra Wilson MD, [facility] [place]) Grandfather No problems noted. Grandmother Stroke Maternal great Heart disease paternal Hypertension maternal Father Heart disease Hypertension Family/Other Breast cancer maternal aunt Denies family history of Colon cancer Ovarian cancer Uterine cancer Thyroid disease Social History (Reviewed 11/04/20 @ 00:29 by Kassandra Wilson MD, [facility] [place]) Smoking and tobacco status: current every day smoker cigarettes Packs smoked per day: 1.5 Alcohol intake: never Physical Exam Const: COMMON NORMALS: no acute distress, average body habitus, patient oriented x3, no limitations, healthy appearing, alert and well nourished HENMT: COMMON NORMALS: normocephalic, atraumatic and moist oral mucous membranes HEAD & SCALP: normocephalic and atraumatic Neck/C-Spine: COMMON NORMALS: no meningeal signs and no JVD Resp: COMMON NORMALS: normal respiratory effort, No retractions, No use of accessory muscles, clear to auscultation bilaterally and percussion normal AUSCULTATION: clear to auscultation bilaterally PERCUSSION: percussion normal Cardio: COMMON NORMALS: no JVD, regular rate, regular rhythm, S1 normal heart sound present, S2 normal heart sound present, No gallops present (Cardio), No clicks present (Cardio), No murmurs present (Cardio), No rub (Cardio) and Peripheral pulses 2+ throughout RATE: regular rate RHYTHM: regular rhythm HEART SOUNDS: S1 normal heart sound present and S2 normal heart sound present PERIPHERAL PULSES: Peripheral pulses 2+ throughout GI: COMMON NORMALS: Normal to inspection, nondistended, normoactive bowel sounds present, Soft to palpation, non-tender, No hepatosplenomegaly present, no masses and no bruits PALPATION: Yes Soft to palpation and Yes No hepatosplenomegaly present Extremity: COMMON NORMALS: normal to inspection, full ROM, capillary refill normal, no calf tenderness and no pedal edema Neuro: COMMON NORMALS: patient oriented x3 SENSORIUM/ORIENTATION: Yes alert MENINGEAL SIGNS: Yes no meningeal signs Psych: APPEARANCE: Yes grossly normal ATTITUDE: Yes engaged ACTIVITY/MOTOR BEHAVIOR: Yes appropriate eye contact Skin: COMMON NORMALS: no rashes or lesions noted, no wounds, turgor normal, no jaundice, no petechiae and no mottling GENERAL SKIN EXAM: no rashes or lesions noted and turgor normal Course Consultations: Consultation #1: Discussed the patient with Dr. Martinez, psychiatrist and he kindly accepted the patient to his service. Time: 21:51 Vital Signs: Vital signs: Vital Signs Temperature 98.0 F 11/03/20 20:37 Pulse Rate 70 11/03/20 23:11 Respiratory Rate 16 11/03/20 23:11 Blood Pressure 120/62 11/03/20 23:11 Pulse Oximetry 99 11/03/20 23:11 MDM - Psych MDM Narrative: Medical decision making narrative: 40-year-old female patient who presents with homicidal ideation. She has homicidal thoughts towards a particular person, [place] nurse. Since the patient lives in [place], the [place] [employer] was contacted and given the name of the potential victim. The promised to follow-up and investigate. She is medically cleared and is admitted to the neuropsychiatric unit for further evaluation and management. She was placed on a 96-hour hold. Medical Records: Attestation: I reviewed the patient's medical records. Lab Data: Attestation: I reviewed the patient's lab results. Labs: Lab Results 11/03/20 11/03/20 11/03/20 Range/Units 20:47 20:47 20:47 WBC (4.0-10.0) 10^3/ uL RBC (4.1-5.3) 10^6/u L Hgb (11.5-15.3) g/dL Hct (37.0-47.0) % MCV (81-99) fL MCH (28.0-34.0) pg MCHC (30.0-36.0) g/dL RDW (12.1-15.1) % Plt Count (130-400) 10^3/c mm MPV (7.4-10.4) fL Neut % (Auto) % Lymph % (Auto) % [place] % (Auto) % Eos % (Auto) % Baso % (Auto) % Neut # (Auto) (1.8-7.7) 10^3/u L Lymph # (Auto) (0.8-4.8) 10^3/u L [place] # (Auto) (0.2-0.9) 10^3/u L Eos # (Auto) (0.0-0.8) 10^3/u L Baso # (Auto) (0.0-0.1) 10^3/u L Nucleated RBC % (a uto) % Nucleated RBCs # /100WBC Sodium (136-145) mmol/L Potassium (3.5-5.1) mmol/L Chloride (98-107) mmol/L Carbon Dioxide (22-29) mmol/L Anion Gap (5-19) BUN (6-20) mg/dL Creatinine (0.5-0.9) mg/dL GFR Calculation (90-130) mL/min Glucose (65-115) mg/dL Calculated Osmolal ity (285-295) mOsm/k g Calcium (8.5-10.5) mg/dL Total Bilirubin (0.15-1.2) mg/dL AST (0-32) U/L ALT (0-33) U/L Alkaline Phosphata se (35-105) IU/L Total Protein (6.6-8.7) g/dL Albumin (3.5-5.2) g/dL Globulin (1.3-4.6) g/dL HCG, Qual Negative (Negative) Urine Color Yellow (Yellow) Urine Appearance Clear (CLEAR) Urine pH 6.5 (5-7) Ur Specific Gravit y 1.015 (1.005-1.030) Urine Protein Neg (Negative) Urine Glucose (UA) Norm (Normal) Urine Ketones Negative (Negative) Urine Blood Neg (Negative) Urine Nitrate Negative (Negative) Urine Bilirubin Neg (Negative) Urine Urobilinogen Norm (Negative) mg/dL Ur Leukocyte Rosaura ase Negative (Negative) Salicylates (3-10) mg/dL Urine Opiates Scre en Negative (Negative) ng/mL Acetaminophen (10-30) ug/mL Ur Barbiturates Sc reen Negative (Negative) ng/mL Ur Phencyclidine S crn Negative (Negative) ng/mL Ur Amphetamines Sc reen Negative (Negative) ng/mL U Benzodiazepines Scrn Negative (Negative) ng/mL Urine Cocaine Scre en Negative (Negative) ng/mL U Marijuana (THC) Screen Negative (Negative) ng/mL Ethyl Alcohol (0-10) mg/dL 11/03/20 11/03/20 Range/Units 21:05 21:05 WBC 10.5 H (4.0-10.0) 10^3/ uL RBC 4.93 (4.1-5.3) 10^6/u L Hgb 14.2 (11.5-15.3) g/dL Hct 44.2 (37.0-47.0) % MCV 89.7 (81-99) fL MCH 28.8 (28.0-34.0) pg MCHC 32.1 (30.0-36.0) g/dL RDW 14.3 (12.1-15.1) % Plt Count 502 H (130-400) 10^3/c mm MPV 9.5 (7.4-10.4) fL Neut % (Auto) 60.7 % Lymph % (Auto) 29.4 % [place] % (Auto) 7.8 % Eos % (Auto) 1.2 % Baso % (Auto) 0.7 % Neut # (Auto) 6.39 (1.8-7.7) 10^3/u L Lymph # (Auto) 3.1 (0.8-4.8) 10^3/u L [place] # (Auto) 0.8 (0.2-0.9) 10^3/u L Eos # (Auto) 0.1 (0.0-0.8) 10^3/u L Baso # (Auto) 0.1 (0.0-0.1) 10^3/u L Nucleated RBC % (a uto) 0 % Nucleated RBCs # 0.0 /100WBC Sodium 136 (136-145) mmol/L Potassium 4.3 (3.5-5.1) mmol/L Chloride 103 (98-107) mmol/L Carbon Dioxide 22 (22-29) mmol/L Anion Gap 15.3 (5-19) BUN 6 (6-20) mg/dL Creatinine 0.6 (0.5-0.9) mg/dL GFR Calculation 110.7 (90-130) mL/min Glucose 98 (65-115) mg/dL Calculated Osmolal ity 280 L (285-295) mOsm/k g Calcium 8.9 (8.5-10.5) mg/dL Total Bilirubin 0.2 (0.15-1.2) mg/dL AST 15 (0-32) U/L ALT 26 (0-33) U/L Alkaline Phosphata se 121 H (35-105) IU/L Total Protein 7.0 (6.6-8.7) g/dL Albumin 4.5 (3.5-5.2) g/dL Globulin 2.5 (1.3-4.6) g/dL HCG, Qual (Negative) Urine Color (Yellow) Urine Appearance (CLEAR) Urine pH (5-7) Ur Specific Gravit y (1.005-1.030) Urine Protein (Negative) Urine Glucose (UA) (Normal) Urine Ketones (Negative) Urine Blood (Negative) Urine Nitrate (Negative) Urine Bilirubin (Negative) Urine Urobilinogen (Negative) mg/dL Ur Leukocyte Rosaura ase (Negative) Salicylates < 0.3 L (3-10) mg/dL Urine Opiates Scre en (Negative) ng/mL Acetaminophen < 5.0 L (10-30) ug/mL Ur Barbiturates Sc reen (Negative) ng/mL Ur Phencyclidine S crn (Negative) ng/mL Ur Amphetamines Sc reen (Negative) ng/mL U Benzodiazepines Scrn (Negative) ng/mL Urine Cocaine Scre en (Negative) ng/mL U Marijuana (THC) Screen (Negative) ng/mL Ethyl Alcohol < 10 (0-10) mg/dL Discharge Plan Discharge Patient Disposition: Admitted As Inpatient Admit Provider: Shelby Mora Clinical Impression: Homicidal ideation Condition: Stable Coding Level of Care Code ED Melter Supervisor O[employer] Furnace for Ioana Alcaraz
[2020-11-04] MEDS: OLANZapine 10 mg TABLET PO ×2 (00:48→19:42)
[2020-11-04 06:00] VITALS: RESP 16
[2020-11-04 07:30] LABS: Lithium 0.2 mmol/L (0.6-1.2)
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
[2020-11-04] MEDS: fluoxetine 10 mg Capsule PO (10:34)
[2020-11-04 13:18] VITALS: BP 87/61; PULSE 88; RESP 17; TEMP 37.1; O2SAT 97
[2020-11-04 19:44] VITALS: BP 97/70; PULSE 126; RESP 20; TEMP 36.8; O2SAT 92
[2020-11-05 06:00] VITALS: RESP 16
[2020-11-05] MEDS: fluoxetine 10 mg Capsule PO (09:06)
--- NOTE | 2020-11-05 11:33 | PC.RESP ---
Smoking Cessation information sent to patient.
--- NOTE | 2020-11-05 12:29 | P.PN_ITS ---
Subjective NPU Subjective: Interval history: Reports feeling better today, transient mood symptoms, denies any interval suicidal ideation Denies any interval homicidal ideation although patient continues to have delusion that someone is trying to steal things from her Denies any auditory or visual hallucinations Reports being compliant with medication, denies any medication side effects Patient reports having some musculoskeletal aches Reports that her appetite has been improving Mental Status Exam MSE Comments: Sitting in the day room, much better groomed and appropriately dressed today, calm, cooperative, interactive, good eye contact Psychomotor activity is neither increased or decreased, no agitation Speech is childlike, normal rate, normal volume, spontaneous, not pressured I feel better, full range of affect, not labile Alert and oriented to person, place and time as well as situation Memory and concentration appear to be intact per interview Thought process, linear, no flight of ideas, no looseness of associations Thought content, no delusions, no hallucinations, no suicidal or homicidal ideation Insight and judgment appear to be fair Vitals/I&O/Wt Last Vital Signs Temp 98.2 F 11/04/20 19:44 Pulse 126 H 11/04/20 19:44 Resp 16 11/05/20 06:00 BP 97/70 11/04/20 19:44 Pulse Ox 92 11/04/20 19:44 Weight last 48 hrs Weight 71.668 kg Weight 71.668 kg Data NPU : 11/03/20 21:05 11/03/20 21:05 A&P Assessment and plan (1) Homicidal ideation: Status: Acute (2) Adjustment disorder with mixed disturbance of emotions and conduct: Status: Acute (3) Borderline personality disorder: Status: Acute Additional A&P Information She denies any recent methamphetamine use but has paranoid delusions about an individual taking things from her which is the same individual that the patient has been making homicidal statements about, denies any other mood symptoms, denies any suicidal ideation, denies any auditory or visual hallucinations. CONTINUE current medication, continue to monitor START gabapentin 100 mg 3 times daily for chronic pain Continuing measured approach to reintroduction of any medications given that the patient presented in a very soporific manner requiring prompting verbally and occasionally physically for responses and is likely experiencing some side effects from polypharmacy Involuntary Hold Information 96 Hour Hold: 96 Hour Involuntary Admission: Yes 96 Hour Hold Ending Date: 11/08/20 96 Hour Hold Ending Time: 22:05 Attestations NPU Medical Necessity Statement*: Continues to require psychiatric hospitalization for medication stabilization, coordination for safe discharge Coding Level of Care Code Acute Quality Assurance Calibrator for [facility] Fwd Diagnoses Homicidal ideation R45.850 Adjustment disorder with mixed disturbance of emotions and conduct F43.25 Borderline personality disorder F60.3
[2020-11-05] MEDS: gabapentin 100 mg Capsule PO ×3 (13:07→19:38)
[2020-11-05 14:00] VITALS: BP 96/16; PULSE 69; RESP 19; TEMP 37.3; O2SAT 97
[2020-11-05] MEDS: hyDROXYzine 25 mg Capsule 50 MG PO (14:58)
[2020-11-05] MEDS: OLANZapine 10 mg TABLET PO (19:37)
[2020-11-05 20:03] VITALS: BP 95/62; PULSE 109; RESP 17; TEMP 37.5; O2SAT 96
[2020-11-05] MEDS: ondansetron 4 MG Tablet PO (20:05)
--- NOTE | 2020-11-05 20:11 | PC.NURSE ---
pt came to nurses desk requesting med for nausea. zofran 4mg po given.
[2020-11-06 06:00] VITALS: BP 97/64; PULSE 96; RESP 15; TEMP 36.8; O2SAT 96
[2020-11-06] MEDS: fluoxetine 10 mg Capsule PO (08:26)
[2020-11-06] MEDS: gabapentin 100 mg Capsule PO ×3 (08:26→19:14)
--- NOTE | 2020-11-06 12:28 | PM.NPN ---
Subjective NPU Subjective: Interval history: Reports improved mood, denies any interval depressed symptoms Denies any interval suicidal ideation Denies any homicidal ideation Reports being compliant with her medication, denies any medication side effects Per nurse report, no interval tearful disturbances Mental Status Exam MSE Comments: Lying in bed, calm, cooperative, interactive, good eye contact Psychomotor activity is neither increased or decreased, no agitation Speech, normal rate, normal volume, spontaneous, not pressured Good, full range of affect, not labile Alert and oriented to person, place and time as well as situation Memory and concentration appear to be intact per interview Thought process, linear, no flight of ideas, no looseness of associations Thought content, no delusions, no hallucinations, no suicidal or homicidal ideation Insight and judgment appear to be fair Vitals/I&O/Wt Last Vital Signs Temp 98.3 F 11/06/20 06:00 Pulse 96 11/06/20 06:00 Resp 15 11/06/20 06:00 BP 97/64 11/06/20 06:00 Pulse Ox 96 11/06/20 06:00 Data NPU : 11/03/20 21:05 11/03/20 21:05 A&P Assessment and plan (1) Homicidal ideation: Status: Acute (2) Adjustment disorder with mixed disturbance of emotions and conduct: Status: Acute (3) Borderline personality disorder: Status: Acute Additional A&P Information Improving, denies any interval mood symptoms CONTINUE current medication, continue to monitor Involuntary Hold Information 96 Hour Hold: 96 Hour Involuntary Admission: Yes 96 Hour Hold Ending Date: 11/08/20 96 Hour Hold Ending Time: 22:05 Attestations NPU Medical Necessity Statement*: Continues to require psychiatric hospitalization for medication stabilization, coordination for safe discharge Coding Level of Care Code Acute Clerical Receptionist for g Fwd Diagnoses Homicidal ideation R45.850 Adjustment disorder with mixed disturbance of emotions and conduct F43.25 Borderline personality disorder F60.3
[2020-11-06] MEDS: hyDROXYzine 25 mg Capsule 50 MG PO ×2 (12:51→19:14)
[2020-11-06 13:27] VITALS: BP 103/66; PULSE 104; RESP 17; TEMP 37.4; O2SAT 95
[2020-11-06] MEDS: OLANZapine 10 mg TABLET PO (19:14)
[2020-11-06] MEDS: ondansetron 4 MG Tablet PO (19:14)
--- NOTE | 2020-11-06 19:15 | PC.NURSE ---
pt came to desk stating the off going nurse told her she could have her vistaril after 1900 and she would like it so she could go on to bed. vistaril 50mg po given.
[2020-11-06] MEDS: nicotine 2 mg Gum BUCCAL (19:16)
[2020-11-06 19:49] VITALS: BP 110/71; PULSE 106; RESP 16; TEMP 36.9; O2SAT 94
[2020-11-07 06:00] VITALS: BP 97/64; PULSE 93; RESP 16; TEMP 36.8; O2SAT 96
[2020-11-07] MEDS: gabapentin 100 mg Capsule PO (08:35)
[2020-11-07] MEDS: fluoxetine 10 mg Capsule PO (08:36)
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
[2020-11-07 09:22] VITALS: BP 97/64; PULSE 93; RESP 16; TEMP 36.8; O2SAT 96
[2020-11-07] MEDS: acetaminophen 325 mg Tablet 650 MG PO (10:41)
[2020-11-07] MEDS: nicotine 2 mg Gum BUCCAL (10:42)
== END 2020-11-07 13:54 | disposition home or self-care (01) | DRG 882 ==
LOC: ER 20:46 → NP 22:51
PROVIDERS: Admitting Provider Psychiatry & Neurology Psychiatry; Emergency Provider Family Medicine; PCP Family Medicine; Visit Provider Psychiatry & Neurology Psychiatry
DX: F43.25 Adjustment disorder with mixed disturbance of emotions and conduct (principal); R45.850 Homicidal ideations; F60.3 Borderline personality disorder; F17.210 Nicotine dependence, cigarettes, uncomplicated; F10.21 Alcohol dependence, in remission; F15.21 Other stimulant dependence, in remission; F41.1 Generalized anxiety disorder; F32.9 Major depressive disorder, single episode, unspecified; K30 Functional dyspepsia
CPT/HCPCS: 36415; 80053; 80178; 80306; 80307; 81003; 81025; 85025; 99285; Q0162

== ENCOUNTER 2020-11-13 13:42 | Inpatient (IN) | payer MEDICAID, SELFPAY ==
[2020-11-13 13:51] VITALS: BP 141/97; PULSE 106; RESP 18; TEMP 36.9; O2SAT 96; BMI 25.0
--- NOTE | 2020-11-13 14:00 | ECG_ITS ---
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 Measurements Intervals [place] Rate: 91 P: 8 MA: 135 QRS: 74 QRSD: 82 T: 18 QT: 360 QTc: 445 Interpretive Statements SINUS RHYTHM NONSPECIFIC T-WAVE ABNORMALITY Compared to ECG 10/30/2020 23:57:36 T-wave abnormality now present Electronically Signed On 11-13-2020 18:36:08 CDT by Maria E Weeks M.D. [id number]
--- NOTE | 2020-11-13 14:04 | ED_ITS ---
HPI - Psych General: Chief Complaint: Psychiatric Symptoms Stated Complaint: ANXIETY/ STRESS/ SI Time Seen by Provider: 11/13/20 13:57 History of Present Illness: HPI Narrative: 40-year-old female presents with stress and suicidal ideations. Patient was seen here last week for similar symptoms. Patient was post have an appointment with her psychiatrist today. Patient just came to [facility] and does not provide a lot of information. Patient states that her neighbor took her white eyes her [place]. We are unsure if white eyes is a cat. Patient also states that she has felt like she need to blow her head off but she is not a horse or a goat patient admits to drinking alcohol use and meth marijuana yesterday. Review of Systems Const: Denies: fever(s) or chills Card: Denies: chest pain or palpitations Resp: Denies: dyspnea or productive cough GI: Denies: abdominal pain, nausea or vomiting : Denies: difficulty voiding Skin/Breast: Denies: rash or pruritus Neuro: Denies: headache(s) Psych: Reports: other (Please see HPI) PFSH ED PFSH: Medical History Alcohol abuse Alcohol dependence, in remission Anxiety Bipolar affective, depress, unspec Generalized anxiety disorder Other stimulant dependence, in remission Family History Grandfather No problems noted. Grandmother Stroke Maternal great Heart disease paternal Hypertension maternal Father Heart disease Hypertension Family/Other Breast cancer maternal aunt Denies family history of Colon cancer Ovarian cancer Uterine cancer Thyroid disease Social History Smoking and tobacco status: current every day smoker cigarettes Packs smoked per day: 1.5 Alcohol intake: never Physical Exam Const: COMMON NORMALS: no acute distress Chest: COMMONS NORMALS: normal inspection of the chest Resp: COMMON NORMALS: normal respiratory effort and clear to auscultation bilaterally AUSCULTATION: clear to auscultation bilaterally Cardio: COMMON NORMALS: regular rate and regular rhythm RATE: regular rate RHYTHM: regular rhythm GI: COMMON NORMALS: Normal to inspection, nondistended, normoactive bowel sounds present, Soft to palpation and non-tender PALPATION: Yes Soft to palpation Extremity: COMMON NORMALS: full ROM and capillary refill normal Neuro: COMMON NORMALS: moves all extremities, no focal motor deficits and no sensory deficits noted Psych: ATTITUDE: Yes bizarre ACTIVITY/MOTOR BEHAVIOR: Yes hyperactivity and Yes disorganized behavior SPEECH: Yes rapid THOUGHT PROCESS: Confabulating thought process present THOUGHT CONTENT: Yes Suicidality present INSIGHT: Poor insight present (Psych) Course Vital Signs: Vital signs: Vital Signs Temperature 98.4 F 11/13/20 13:51 Pulse Rate 96 11/13/20 14:15 Respiratory Rate 18 11/13/20 14:15 Blood Pressure 141/97 11/13/20 14:15 Pulse Oximetry 97 11/13/20 14:15 MDM - Psych MDM Narrative: Medical decision making narrative: Patient with acute ps ychosis. Patient to be admitted to [facility] for further inpatient evaluation. Patient was stable upon transfer Lab Data: Attestation: I reviewed the patient's lab results. Labs: Lab Results 11/13/20 11/13/20 11/13/20 Range/Units 13:55 13:55 14:15 WBC 13.1 H (4.0-10.0) 10^3/ uL RBC 4.68 (4.1-5.3) 10^6/u L Hgb 13.7 (11.5-15.3) g/dL Hct 41.7 (37.0-47.0) % MCV 89.1 (81-99) fL MCH 29.3 (28.0-34.0) pg MCHC 32.9 (30.0-36.0) g/dL RDW 14.7 (12.1-15.1) % Plt Count 528 H (130-400) 10^3/c mm MPV 9.4 (7.4-10.4) fL Neut % (Auto) 74.9 % Lymph % (Auto) 16.3 % Greer % (Auto) 7.9 % Eos % (Auto) 0.1 % Baso % (Auto) 0.3 % Neut # (Auto) 9.84 H (1.8-7.7) 10^3/u L Lymph # (Auto) 2.1 (0.8-4.8) 10^3/u L Greer # (Auto) 1.0 H (0.2-0.9) 10^3/u L Eos # (Auto) 0.0 (0.0-0.8) 10^3/u L Baso # (Auto) 0.0 (0.0-0.1) 10^3/u L Nucleated RBC % (a uto) 0 % Nucleated RBCs # 0.0 /100WBC Sodium (136-145) mmol/L Potassium (3.5-5.1) mmol/L Chloride (98-107) mmol/L Carbon Dioxide (22-29) mmol/L Anion Gap (5-19) BUN (6-20) mg/dL Creatinine (0.5-0.9) mg/dL GFR Calculation (90-130) mL/min Glucose (65-115) mg/dL Calculated Osmolal ity (285-295) mOsm/k g Calcium (8.5-10.5) mg/dL Total Bilirubin (0.15-1.2) mg/dL AST (0-32) U/L ALT (0-33) U/L Alkaline Phosphata se (35-105) IU/L Total Protein (6.6-8.7) g/dL Albumin (3.5-5.2) g/dL Globulin (1.3-4.6) g/dL Urine Color Yellow (Yellow) Urine Appearance Hazy A (CLEAR) Urine pH 5 (5-7) Ur Specific Gravit y 1.015 (1.005-1.030) Urine Protein Neg (Negative) Urine Glucose (UA) Norm (Normal) Urine Ketones Negative (Negative) Urine Blood 2+ H (Negative) Urine Nitrate Negative (Negative) Urine Bilirubin Neg (Negative) Urine Urobilinogen Norm (Negative) mg/dL Ur Leukocyte Rosaura ase Negative (Negative) Urine RBC 0-4 H (0-2) /hpf Urine WBC None (0-5) /hpf Ur Squamous Epith Cells 0-4 H (0-5) /hpf Amorphous Sediment Not Reportable Urine Bacteria 1+ H (NONE) /hpf Urine Mucus 2+ /hpf Salicylates (3-10) mg/dL Urine Opiates Scre en Negative (Negative) ng/mL Acetaminophen (10-30) ug/mL Ur Barbiturates Sc reen Negative (Negative) ng/mL Ur Phencyclidine S crn Negative (Negative) ng/mL Ur Amphetamines Sc reen Negative (Negative) ng/mL U Benzodiazepines Scrn Negative (Negative) ng/mL Urine Cocaine Scre en Negative (Negative) ng/mL U Marijuana (THC) Screen Negative (Negative) ng/mL 11/13/20 Range/Units 14:15 WBC (4.0-10.0) 10^3/ uL RBC (4.1-5.3) 10^6/u L Hgb (11.5-15.3) g/dL Hct (37.0-47.0) % MCV (81-99) fL MCH (28.0-34.0) pg MCHC (30.0-36.0) g/dL RDW (12.1-15.1) % Plt Count (130-400) 10^3/c mm MPV (7.4-10.4) fL Neut % (Auto) % Lymph % (Auto) % Greer % (Auto) % Eos % (Auto) % Baso % (Auto) % Neut # (Auto) (1.8-7.7) 10^3/u L Lymph # (Auto) (0.8-4.8) 10^3/u L Greer # (Auto) (0.2-0.9) 10^3/u L Eos # (Auto) (0.0-0.8) 10^3/u L Baso # (Auto) (0.0-0.1) 10^3/u L Nucleated RBC % (a uto) % Nucleated RBCs # /100WBC Sodium 136 (136-145) mmol/L Potassium 3.8 (3.5-5.1) mmol/L Chloride 104 (98-107) mmol/L Carbon Dioxide 21 L (22-29) mmol/L Anion Gap 14.8 (5-19) BUN 6 (6-20) mg/dL Creatinine 0.5 (0.5-0.9) mg/dL GFR Calculation 136.6 H (90-130) mL/min Glucose 105 (65-115) mg/dL Calculated Osmolal ity 280 L (285-295) mOsm/k g Calcium 8.6 (8.5-10.5) mg/dL Total Bilirubin 0.3 (0.15-1.2) mg/dL AST 13 (0-32) U/L ALT 39 H (0-33) U/L Alkaline Phosphata se 133 H (35-105) IU/L Total Protein 7.5 (6.6-8.7) g/dL Albumin 4.4 (3.5-5.2) g/dL Globulin 3.1 (1.3-4.6) g/dL Urine Color (Yellow) Urine Appearance (CLEAR) Urine pH (5-7) Ur Specific Gravit y (1.005-1.030) Urine Protein (Negative) Urine Glucose (UA) (Normal) Urine Ketones (Negative) Urine Blood (Negative) Urine Nitrate (Negative) Urine Bilirubin (Negative) Urine Urobilinogen (Negative) mg/dL Ur Leukocyte Rosaura ase (Negative) Urine RBC (0-2) /hpf Urine WBC (0-5) /hpf Ur Squamous Epith Cells (0-5) /hpf Amorphous Sediment Urine Bacteria (NONE) /hpf Urine Mucus /hpf Salicylates < 0.3 L (3-10) mg/dL Urine Opiates Scre en (Negative) ng/mL Acetaminophen < 5.0 L (10-30) ug/mL Ur Barbiturates Sc reen (Negative) ng/mL Ur Phencyclidine S crn (Negative) ng/mL Ur Amphetamines Sc reen (Negative) ng/mL U Benzodiazepines Scrn (Negative) ng/mL Urine Cocaine Scre en (Negative) ng/mL U Marijuana (THC) Screen (Negative) ng/mL EKG Data^: EKG 1: Attestation: I personally reviewed and interpreted this EKG as follows: EKG interpretation date: 11/13/20 EKG interpretation time: 14:32 Interpretation: Heart rate 91, normal sinus, TN interval 135, nonspecific ST changes. No acute finding Discharge Plan Discharge Patient Disposition: Admitted As Inpatient Admit Provider: Hong Walter Clinical Impression: Acute psychosis Condition: Stable Coding Level of Care Code ED Ancient Art Curator for Chg Fwd Exam Comprehensive
[2020-11-13 14:15] VITALS: BP 141/97; PULSE 96; RESP 18; O2SAT 97
[2020-11-13 14:29] LABS: Basophils % 0.3 %; Eosinophils % 0.1 %; Hematocrit 41.7 % (37.0-47.0); Hemoglobin 13.7 g/dL (11.5-15.3); Lymphocytes # 2.1 10^3/uL (0.8-4.8); Lymphocytes % 16.3 %; Mean Corpuscular HGB Conc 32.9 g/dL (30.0-36.0); Mean Corpuscular Hemoglobin 29.3 pg (28.0-34.0); Mean Corpuscular Volume 89.1 fL (81-99); Mean Platelet Volume 9.4 fL (7.4-10.4); Monocytes % 7.9 %; Neutrophils # 9.84 10^3/uL (1.8-7.7); Neutrophils % 74.9 %; Nucleated Red Blood Cells % 0 %; Platelet Count 528 10^3/cmm (130-400); Red Blood Count 4.68 10^6/uL (4.1-5.3); Red Cell Distribution Width 14.7 % (12.1-15.1); White Blood Count 13.1 10^3/uL (4.0-10.0)
[2020-11-13 14:33] LABS: Bilirubin Urine Neg (Negative); Blood Urine 2+ (Negative); Glucose Urine UA Norm (Normal); Ketones Urine Negative (Negative); Nitrate Urine Negative (Negative); Protein Urine Neg (Negative); Specific Gravity, Urine 1.015 (1.005-1.030); Urine Appearance Hazy (CLEAR); Urine Color Yellow (Yellow); pH Urine 5 (5-7)
[2020-11-13 14:34] LABS: Add Urine Microscopic? YES; Leukocyte Esterase Urine Negative (Negative); Urobilinogen Urine Norm (Negative)
[2020-11-13 14:39] LABS: Amphetamines Screen Urine Negative (Negative); Barbiturates Screen Urine Negative (Negative); Benzodiazepines Screen Urine Negative (Negative); Cocaine Screen Urine Negative (Negative); Opiate Screen Urine Negative (Negative); PCP Screen Urine Negative (Negative); THC Screen Urine Negative (Negative)
[2020-11-13 14:43] LABS: Add Urine Culture? No; Bacteria Urine 1+ /hpf; Mucus Urine 2+ /hpf; RBC Urine 0-4 /hpf (0-2); Squamous Epithelial Cell Urine 0-4 /hpf (0-5)
[2020-11-13 15:11] LABS: Alanine Aminotransferase 39 U/L (0-33); Albumin Level 4.4 g/dL (3.5-5.2); Alkaline Phosphatase 133 IU/L (35-105); Anion Gap 14.8 (5-19); Aspartate Amino Transferase 13 U/L (0-32); Blood Urea Nitrogen 6 mg/dL (6-20); Calcium 8.6 mg/dL (8.5-10.5); Carbon Dioxide 21 mmol/L (22-29); Chloride 104 mmol/L (98-107); Creatinine Clr Calc Pharmacy 145.0091; Globulin 3.1 g/dL (1.3-4.6); Glomerular Filtration Rate 136.6 mL/min (90-130); Glucose 105 mg/dL (65-115); Osmolality Calculated 280 mOsm/kg (285-295); Potassium 3.8 mmol/L (3.5-5.1); Sodium 136 mmol/L (136-145); Total Bilirubin 0.3 mg/dL (0.15-1.2); Total Protein 7.5 g/dL (6.6-8.7)
[2020-11-13 15:12] LABS: Acetaminophen < 5.0 ug/mL (10-30); Salicylate < 0.3 mg/dL (3-10)
[2020-11-13 16:26] VITALS: BP 141/97; PULSE 96; RESP 18; TEMP 36.9; O2SAT 97
[2020-11-13] MEDS: hyDROXYzine 25 mg Capsule 50 MG PO (17:26)
[2020-11-13] MEDS: acetaminophen 325 mg Tablet 650 MG PO (17:46)
[2020-11-13 19:41] VITALS: BP 110/73; PULSE 98; RESP 17; TEMP 36.7; O2SAT 96
[2020-11-13] MEDS: gabapentin 100 mg Capsule PO (20:02)
[2020-11-13] MEDS: trazodone 100 mg Tablet PO (20:02)
[2020-11-13] MEDS: OLANZapine 10 mg TABLET PO (20:02)
[2020-11-14 06:00] VITALS: RESP 18
[2020-11-14] MEDS: gabapentin 100 mg Capsule PO ×3 (09:47→20:16)
[2020-11-14] MEDS: fluoxetine 10 mg Capsule PO (09:47)
[2020-11-14] MEDS: loratadine 10 mg Tablet PO (09:47)
[2020-11-14] MEDS: lithium carbonate ER 300 mg Tablet PO (09:47)
[2020-11-14] MEDS: duloxetine 60 mg Capsule PO (09:47)
[2020-11-14] MEDS: sertraline 50 mg Tablet PO (09:47)
[2020-11-14 14:00] VITALS: BP 100/64; PULSE 100; RESP 18; TEMP 36.2; O2SAT 98
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
[2020-11-14] MEDS: BuSPIRONE 10 mg Tablet PO ×2 (14:05→20:16)
--- NOTE | 2020-11-14 14:06 | PC.NURSE ---
Addendum entered by Rebeca Cuadra LPN 11/14/20 15:00: prn med effective no further c/o anxiety currently Original Note: PRN BUSPAR 10 MG GIVEN PO PER PT REQUEST OF ANXIETY MED
[2020-11-14] MEDS: OLANZapine 10 mg TABLET PO (20:16)
[2020-11-14] MEDS: trazodone 100 mg Tablet PO (20:16)
[2020-11-14 21:11] VITALS: BP 96/54; PULSE 98; RESP 18; TEMP 36.4; O2SAT 94
--- NOTE | 2020-11-14 21:54 | PC.NURSE ---
Addendum entered by Candie Messina LPN 11/14/20 22:54: 2055 pt is asleep and calm at this time Original Note: pRN 2016 administered Buspar 10mg for anxiety, will continue to monitor pt until end of my shift.
[2020-11-15 05:36] VITALS: BP 95/63; PULSE 88; RESP 18; TEMP 36.6; O2SAT 94
[2020-11-15] MEDS: gabapentin 100 mg Capsule PO ×3 (08:09→20:54)
[2020-11-15] MEDS: duloxetine 60 mg Capsule PO (08:09)
[2020-11-15] MEDS: fluoxetine 10 mg Capsule PO (08:09)
[2020-11-15] MEDS: loratadine 10 mg Tablet PO (08:09)
[2020-11-15] MEDS: lithium carbonate ER 300 mg Tablet PO (08:09)
[2020-11-15] MEDS: sertraline 50 mg Tablet PO (08:09)
--- NOTE | 2020-11-15 12:08 | PM.NPN ---
Subjective NPU Subjective: Interval history: Gold presents today reporting that she saw her family and that they are working on plans for the next several days to ensure she has support. Discussed however what she can do differently over the next months to ensure that this pattern of returning to the hospital and not having a clear outpatient/inpatient treatment plan for addiction continues. She expressed significant desire for this to be the case but has no real plan for how will be different. We discussed the possibility of discharge in the morning. Mental Status Exam MSE Comments: This is an overweight versus obese white female in hospital scrubs with adequate grooming and eye contact. No abnormal movements except for mild psychomotor retardation. Cooperative with exam in no acute distress. Speech was decreased rate and volume. Mood described as better, affect less subdued. Thought process organized. Thought content: Patient denied suicidal or homicidal ideation, there were no delusions reported or noted, she denied auditory or visual hallucinations. Attention and concentration are mostly intact and memory was more reliable but none were formally tested. She is alert and oriented x3. Insight and judgment are limited, impulse control is limited. Vitals/I&O/Wt Last Vital Signs Temp 100.0 F H 11/15/20 22:00 Pulse 92 11/15/20 22:00 Resp 17 11/15/20 22:00 BP 99/65 11/15/20 22:00 Pulse Ox 98 11/15/20 22:00 Data NPU : 11/13/20 14:15 11/13/20 14:15 A&P Additional A&P Information (1) Acute psychosis: (2) Alcohol abuse: (3) Marijuana use: (4) Anxiety: (5) Methamphetamine use: (6) Bipolar affective, depress, unspec: (7) Cluster B personality disorder: Additional A&P Information This is a 39-year-old white female with a long history of addiction and psychosis as well as personality disorder who presents with active addiction and psychosis and reportedly not taking medication. 1. Continue current medication. 2. Continue every 15 minute checks for safety. 3. Encourage individual, group and milieu therapies. 4. Encourage sober living treatment after discharge at the highest level of care to which she is willing to commit. Involuntary Hold Information 96 Hour Hold: 96 Hour Involuntary Admission: Yes 96 Hour Hold Ending Date: 11/08/20 96 Hour Hold Ending Time: 22:05 Attestations NPU Medical Necessity Statement*: Inpatient hospitalization is medically necessary and the clinically appropriate intervention at this time. We will monitor medications and make changes as indicated. Likely length of stay 1-3 days. Coding Level of Care Code Acute Water Control Supervisor for Ioana Alcaraz
[2020-11-15] MEDS: BuSPIRONE 10 mg Tablet PO (12:23)
--- NOTE | 2020-11-15 12:23 | PC.NURSE ---
Addendum entered by Rebeca Cuadra LPN 11/15/20 13:49: prn med effective no further c/o anxiety. pt up taking a shower currently, mood very pleasant Original Note: PRN BUSPAR 10 MG GIVEN PO PER PT C/O STATED ANXIETY. NO OUTWARD S/S OF ANXIETY NOTED, PT SMILING AN LAUGHING WHEN ASKING FOR ANXIETY MED WILL CONT TO MONITOR.
[2020-11-15] MEDS: nicotine 2 mg Gum BUCCAL (13:05)
[2020-11-15 14:00] VITALS: BP 105/65; PULSE 109; RESP 18; TEMP 37; O2SAT 96
[2020-11-15] MEDS: acetaminophen 325 mg Tablet 650 MG PO (18:50)
--- NOTE | 2020-11-15 19:38 | PC.NURSE ---
Addendum entered by Candie Messina LPN 11/15/20 19:44: 1920 pt stated that headache is a little bit better, will continue to monitor until the end of my shift. Original Note: PRN 1850 administered tylenol 650mg for a headache, will continue to monitor till end of shift. Suggested that she lye down and rest.
[2020-11-15] MEDS: trazodone 100 mg Tablet PO (20:54)
[2020-11-15] MEDS: OLANZapine 10 mg TABLET PO (20:54)
[2020-11-15 22:00] VITALS: BP 99/65; PULSE 92; RESP 17; TEMP 37.8; O2SAT 98
--- NOTE | 2020-11-16 02:10 | PC.NURSE ---
Addendum entered by Candie Messina LPN 11/16/20 02:12: 1921 pt is resting in bed and stated that the headache was feeling better, pt rated pain 2 out of 10 at this time. Original Note: prn 1850 administered tylenol 650 mg for a headache, will continue to monitor pt until end of shift.
--- NOTE | 2020-11-16 02:47 | PC.NURSE ---
PM Assessment Pt Calm/Cooperative.Smiles while interacting with staff. Pt denies SI/HI, Denies AH/VH at this time, no interaction with internal stimuli noted. Pt interacts with other patients appropriately. Will continue to observe throughout the shift.
[2020-11-16 06:00] VITALS: RESP 16
[2020-11-16] MEDS: gabapentin 100 mg Capsule PO ×2 (08:08→14:51)
[2020-11-16] MEDS: sertraline 50 mg Tablet PO (08:08)
[2020-11-16] MEDS: loratadine 10 mg Tablet PO (08:08)
[2020-11-16] MEDS: lithium carbonate ER 300 mg Tablet PO (08:08)
[2020-11-16] MEDS: duloxetine 60 mg Capsule PO (08:08)
[2020-11-16] MEDS: fluoxetine 10 mg Capsule PO (08:08)
[2020-11-16 09:02] VITALS: RESP 16
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
[2020-11-16] MEDS: acetaminophen 325 mg Tablet 650 MG PO (13:24)
--- NOTE | 2020-11-16 14:53 | PC.RESP ---
Smoking Cessation information sent to patient.
== END 2020-11-16 15:09 | disposition home or self-care (01) | DRG 885 ==
LOC: ER 15:22 → NP 11-14 06:37
PROVIDERS: Admitting Provider Psychiatry & Neurology Psychiatry; Emergency Provider Student in an Organized Health Care Education/Training Program; PCP Family Medicine; Visit Provider Psychiatry & Neurology Psychiatry
DX: F23 Brief psychotic disorder (principal); F10.10 Alcohol abuse, uncomplicated; F15.90 Other stimulant use, unspecified, uncomplicated; F12.90 Cannabis use, unspecified, uncomplicated; Z91.14 Patient's other noncompliance with medication regimen; F41.1 Generalized anxiety disorder; F31.9 Bipolar disorder, unspecified; F17.210 Nicotine dependence, cigarettes, uncomplicated; F60.89 Other specific personality disorders
CPT/HCPCS: 80053; 80306; 80307; 81001; 85025; 93005; 99285

== ENCOUNTER 2020-11-25 06:30 | Emergency (ER) | payer MEDICAID, SELFPAY ==
[2020-11-25 06:20] VITALS: BP 134/96; PULSE 97; RESP 17; TEMP 37.2; O2SAT 96; BMI 24.1
--- NOTE | 2020-11-25 06:50 | ED_ITS ---
HPI - Psych General: Chief Complaint: Psychiatric Symptoms Stated Complaint: STRESSED Time Seen by Provider: 11/25/20 06:30 History of Present Illness: HPI Narrative: This patient is a 40-year-old female is well-known to facility presents to the emergency department via EMS related to stress and anxiety. Patient denies suicidal homicidal ideation. Patient initially stated that she like to be admitted to the stress unit because her stress and anxiety level. Patient does not appear to be in acute distress or anxious. Patient is calm and speaking in normal sentences. And acting appropriate. Patient is clean and dressed appropriately. Patient requesting be given Ativan advised the patient that I would not be giving her Ativan today. Patient states that she is out of trazodone of her trazodone and does not have a refill I did discuss options with her and has evaluated and stated that if she needed her trazodone and it is prescribed that I would review the chart however give her a refill if needed however that I would offer a full medical screening exam if needed also. Patient does states that she requested full medical screening exam and would like psychiatry to see her to see if she could be admitted back into the stress unit . Patient again is not suicidal or homicidal. Will do medical screening exam and evaluate treat further as needed. Associated symptoms: Deny depression Review of Systems General: Reports: 10 or more systems reviewed and unremarkable except in HPI a nd below Const: Denies: fever(s), chills, body aches or fatigue Eyes: Denies: change in vision or blurry vision ENMT: Denies: throat pain, hoarseness or mouth pain Card: Denies: chest pain, palpitations, irregular heart rhythm, edema, swelling of feet/ankles or lightheadedness Resp: Denies: dyspnea, productive cough, non-productive cough, wheezing or pain on inspiration GI: Denies: abdominal pain, nausea or vomiting : Denies: flank pain, difficulty voiding, dysuria, urinary frequency, urinary urgency or urinary hesitancy Musc: Denies: neck pain, back pain, extremity pain, extremity swelling, joint pain, joint swelling, joint redness, joint warmth or limited range of motion Skin/Breast: Denies: rash, pruritus, erythema or skin tenderness Neuro: Denies: headache(s), numbness in extremities or weakness in extremities Psych: Reports: anxiety; Denies: depression PFS ED PFSH: Medical History Alcohol abuse Alcohol dependence, in remission Anxiety Bipolar affective, depress, unspec Generalized anxiety disorder Other stimulant dependence, in remission Psychiatric care Family History Grandfather No problems noted. Grandmother Stroke Maternal great Heart disease paternal Hypertension maternal Father Heart disease Hypertension Family/Other Breast cancer maternal aunt Denies family history of Colon cancer Ovarian cancer Uterine cancer Thyroid disease Social History Smoking and tobacco status: current every day smoker cigarettes Packs smoked per day: 1.5 Alcohol intake: never Physical Exam Const: COMMON NORMALS: no acute distress, average body habitus, patient oriented x3, no limitations, healthy appearing, alert and well nourished HENMT: COMMON NORMALS: normocephalic, atraumatic, hearing grossly normal bilaterally, external ears normal, EAC's normal, TM's normal bilaterally, Normal external nose present, Normal nasal mucous membranes and turbinates present, moist oral mucous membranes, oropharynx normal, dentition normal and gingiva normal HEAD & SCALP: normocephalic and atraumatic NOSE: Normal external nose present and Normal nasal mucous membranes and turbinates present EXTERNAL EAR: Yes external ears normal EXTERNAL AUDITORY CANAL: EAC's normal TYMPANIC MEMBRANE: TM's normal bilaterally Neck/C-Spine: COMMON NORMALS: full ROM, no lymphadenopathy, supple, no meningeal signs, no JVD, Thyroid normal and No carotid bruits THYROID: Thyroid normal Chest: COMMONS NORMALS: normal inspection of the chest, normal palpation of entire chest wall, normal inspection of the breasts and normal palpation of the breasts Breast/axilla inspection: Yes normal inspection of the breasts BREAST/AXILLA PALPATION: Yes normal palpation of the breasts Resp: COMMON NORMALS: normal respiratory effort, No retractions, No use of accessory muscles, clear to auscultation bilaterally and percussion normal AUSCULTATION: clear to auscultation bilaterally PERCUSSION: percussion normal Cardio: COMMON NORMALS: no JVD, regular rate, regular rhythm, S1 normal heart sound present, S2 normal heart sound present, No gallops present (Cardio), No clicks present (Cardio), No murmurs present (Cardio), No rub (Cardio) and Peripheral pulses 2+ throughout RATE: regular rate RHYTHM: regular rhythm HEART SOUNDS: S1 normal heart sound present and S2 normal heart sound present PERIPHERAL PULSES: Peripheral pulses 2+ throughout GI: COMMON NORMALS: Normal to inspection, nondistended, normoactive bowel sounds present, Soft to palpation, non-tender, No hepatosplenomegaly present, no masses and no bruits PALPATION: Yes Soft to palpation and Yes No hepatosplenomegaly present : COMMON NORMALS: Yes no CVA tenderness, Yes normal external appearance, Yes normal appearance of the vagina, Yes normal appearance of the cervix, Yes normal bimanual exam, Yes No adnexal tenderness and Yes no masses BLADDER/KIDNEY EXAM: Yes no CVA tenderness BIMANUAL EXAM - VAGINA & UTERUS: Yes normal bimanual exam Back/Pelvis: COMMON NORMALS: no CVA tenderness, thoracic and lumbar spine normal to inspection, no thoracic nor lumbar tenderness, thoraco-lumbar ROM normal and straight leg raise negative bilaterally Extremity: COMMON NORMALS: normal to inspection, full ROM, capillary refill normal, no joint enlargement, no clubbing, cyanosis or edema, no calf tenderness and no pedal edema Neuro: COMMON NORMALS: patient oriented x3 SENSORIUM/ORIENTATION: Yes alert MENINGEAL SIGNS: Yes no meningeal signs Course Reevaluation(s): Reevaluation #1: I did discuss at length with patient about evaluation. Also discussed at length with patient about her follow-up. And Dr. Morgan morse's recommendations. Patient admits that she is positive for opioids because she took one of her father's long-acting morphine tablets. States that she needed it. I did discuss at length with patient about her long history of polysubstance abuse and drug abuse. Patient will follow up as an outpatient for any needed prescriptions. Patient is discharged home Consultations: Consultation #1: I did discuss at length with Dr. Morgan morse. We reviewed the patient's chart. He recommends the patient be discharged home to follow-up with outpatient therapy and PCP to discuss other medications as needed. Patient be discharged per his recommendation Time: 07:43 Vital Signs: Vital signs: Vital Signs Temperature 98.9 F 11/25/20 06:20 Pulse Rate 97 06/06/21 06:20 Respiratory Rate 17 11/25/20 06:20 Blood Pressure 134/96 11/25/20 06:20 Pulse Oximetry 96 11/25/20 06:20 MDM - Psych MDM Narrative: Medical decision making narrative: I did discuss at length with patient about evaluation. Also discussed at length with patient about her follow-up. And Dr. Mora psychiatry's recommendations. Patient admits that she is positive for opioids because she took one of her father's long-acting morphine tablets. States that she needed it. I did discuss at length with patient about her long history of polysubstance abuse and drug abuse. Patient will follow up as an outpatient for any needed prescriptions. Patient is dis charged home Medical Records: Attestation: I reviewed the patient's medical records. Lab Data: Attestation: I reviewed the patient's lab results. Labs: Lab Results 11/25/20 11/25/20 11/25/20 Range/Units 06:29 06:29 06:29 WBC 13.1 H (4.0-10.0) 10^3/ uL RBC 4.79 (4.1-5.3) 10^6/u L Hgb 14.0 (11.5-15.3) g/dL Hct 41.4 (37.0-47.0) % MCV 86.4 (81-99) fL MCH 29.2 (28.0-34.0) pg MCHC 33.8 (30.0-36.0) g/dL RDW 14.6 (12.1-15.1) % Plt Count 446 H (130-400) 10^3/c mm MPV 10.0 (7.4-10.4) fL Neut % (Auto) 74.3 % Lymph % (Auto) 15.8 % [place] % (Auto) 8.4 % Eos % (Auto) 0.8 % Baso % (Auto) 0.4 % Neut # (Auto) 9.71 H (1.8-7.7) 10^3/u L Lymph # (Auto) 2.1 (0.8-4.8) 10^3/u L [place] # (Auto) 1.1 H (0.2-0.9) 10^3/u L Eos # (Auto) 0.1 (0.0-0.8) 10^3/u L Baso # (Auto) 0.1 (0.0-0.1) 10^3/u L Nucleated RBC % (a uto) 0 % Nucleated RBCs # 0.0 /100WBC Sodium 134 L (136-145) mmol/L Potassium 3.8 (3.5-5.1) mmol/L Chloride 102 (98-107) mmol/L Carbon Dioxide 20 L (22-29) mmol/L Anion Gap 15.8 (5-19) BUN 5 L (6-20) mg/dL Creatinine 0.5 (0.5-0.9) mg/dL GFR Calculation 136.6 H (90-130) mL/min Glucose 118 H (65-115) mg/dL Calculated Osmolal ity 276 L (285-295) mOsm/k g Calcium 8.5 (8.5-10.5) mg/dL Total Bilirubin 0.2 (0.15-1.2) mg/dL AST 15 (0-32) U/L ALT 64 H (0-33) U/L Alkaline Phosphata se 143 H (35-105) IU/L Total Protein 6.9 (6.6-8.7) g/dL Albumin 4.4 (3.5-5.2) g/dL Globulin 2.5 (1.3-4.6) g/dL HCG, Qual (Negative) Urine Color (Yellow) Urine Appearance (CLEAR) Urine pH (5-7) Ur Specific Gravit y (1.005-1.030) Urine Protein (Negative) Urine Glucose (UA) (Normal) Urine Ketones (Negative) Urine Blood (Negative) Urine Nitrate (Negative) Urine Bilirubin (Negative) Urine Urobilinogen (Negative) mg/dL Ur Leukocyte Rosaura ase (Negative) Salicylates < 0.3 L (3-10) mg/dL Urine Opiates Scre en (Negative) ng/mL Acetaminophen < 5.0 L (10-30) ug/mL Ur Barbiturates Sc reen (Negative) ng/mL Ur Phencyclidine S crn (Negative) ng/mL Ur Amphetamines Sc reen (Negative) ng/mL U Benzodiazepines Scrn (Negative) ng/mL Divide 0.2 L (0.6-1.2) mmol/L Urine Cocaine Scre en (Negative) ng/mL U Marijuana (THC) Screen (Negative) ng/mL Ethyl Alcohol < 10 (0-10) mg/dL 11/25/20 11/25/20 11/25/20 Range/Units 06:37 06:37 06:37 WBC (4.0-10.0) 10^3/ uL RBC (4.1-5.3) 10^6/u L Hgb (11.5-15.3) g/dL Hct (37.0-47.0) % MCV (81-99) fL MCH (28.0-34.0) pg MCHC (30.0-36.0) g/dL RDW (12.1-15.1) % Plt Count (130-400) 10^3/c mm MPV (7.4-10.4) fL Neut % (Auto) % Lymph % (Auto) % [place] % (Auto) % Eos % (Auto) % Baso % (Auto) % Neut # (Auto) (1.8-7.7) 10^3/u L Lymph # (Auto) (0.8-4.8) 10^3/u L [place] # (Auto) (0.2-0.9) 10^3/u L Eos # (Auto) (0.0-0.8) 10^3/u L Baso # (Auto) (0.0-0.1) 10^3/u L Nucleated RBC % (a uto) % Nucleated RBCs # /100WBC Sodium (136-145) mmol/L Potassium (3.5-5.1) mmol/L Chloride (98-107) mmol/L Carbon Dioxide (22-29) mmol/L Anion Gap (5-19) BUN (6-20) mg/dL Creatinine (0.5-0.9) mg/dL GFR Calculation (90-130) mL/min Glucose (65-115) mg/dL Calculated Osmolal ity (285-295) mOsm/k g Calcium (8.5-10.5) mg/dL Total Bilirubin (0.15-1.2) mg/dL AST (0-32) U/L ALT (0-33) U/L Alkaline Phosphata se (35-105) IU/L Total Protein (6.6-8.7) g/dL Albumin (3.5-5.2) g/dL Globulin (1.3-4.6) g/dL HCG, Qual Negative (Negative) Urine Color Straw (Yellow) Urine Appearance Clear (CLEAR) Urine pH 5 (5-7) Ur Specific Gravit y 1.010 (1.005-1.030) Urine Protein Neg (Negative) Urine Glucose (UA) Norm (Normal) Urine Ketones Negative (Negative) Urine Blood Neg (Negative) Urine Nitrate Negative (Negative) Urine Bilirubin Neg (Negative) Urine Urobilinogen Norm (Negative) mg/dL Ur Leukocyte Rosaura ase Negative (Negative) Salicylates (3-10) mg/dL Urine Opiates Scre en Positive H (Negative) ng/mL Acetaminophen (10-30) ug/mL Ur Barbiturates Sc reen Negative (Negative) ng/mL Ur Phencyclidine S crn Negative (Negative) ng/mL Ur Amphetamines Sc reen Negative (Negative) ng/mL U Benzodiazepines Scrn Negative (Negative) ng/mL Divide (0.6-1.2) mmol/L Urine Cocaine Scre en Negative (Negative) ng/mL U Marijuana (THC) Screen Negative (Negative) ng/mL Ethyl Alcohol (0-10) mg/dL Discharge Plan Discharge Patient Disposition: Home Clinical Impression: Anxiety, Polysubstance abuse Condition: Stable Prescriptions: No Action Narcan 4 mg/actuation spray,non-aerosol 4 mg INTRANASAL DIRECTED PRN (Reason: (Drug) Ingestion) RF: 0 olanzapine 10 mg Tablet 10 mg PO BEDTIME 30 Days Qty: 30 RF: 1 lithium carbonate 300 mg tablet extended release 300 mg PO DAILY 30 Days Qty: 30 RF: 1 trazodone 100 mg tablet 100 mg PO BEDTIME@20 30 Days Qty: 30 RF: 1 buspirone 10 mg tablet 10 mg PO TID PRN (Reason: Anxiety) 30 Days Qty: 90 RF: 1 fluoxetine 10 mg Capsule 10 mg PO DAILY 30 Days Qty: 30 RF: 1 gabapentin 100 mg Capsule 100 mg PO TID 30 Days Qty: 90 RF: 1 sertraline 50 mg tablet 50 mg PO DAILY 30 Days Qty: 30 RF: 1 loratadine 10 mg tablet 10 mg PO DAILY 30 Days Qty: 30 RF: 1 duloxetine 60 mg capsule,delayed release(DR/EC) 60 mg PO DAILY 30 Days Qty: 30 RF: 1 Rexulti 1 mg tablet 1 mg PO DAILY 30 Days Qty: 30 RF: 1 Discharge Orders: Discharge ED (Routine); Ordered 11/25/20 Ordered By: Calderon Medeiros Referrals: Uma Mott DO [Primary Care Provider] - Discharge Diet: Advance as tolerated Discharge Activity: Resume usual activity Patient Instructions: Opioid Safety Activity Restrictions/Additional Instructions: Stop taking other peoples medications. Continue with your home medications as prescribed and follow-up with your outpatient primary care physician or therapist. For any needed refills or adjustments of medications. Coding Level of Care Code ED Educational Administrator for Chg Fwd Exam Comprehensive
[2020-11-25 06:51] LABS: Add Urine Microscopic? NO; Charge for UA Resulting for Rev
[2020-11-25 06:58] LABS: Basophils # 0.1 10^3/uL (0.0-0.1); Basophils % 0.4 %; Eosinophils # 0.1 10^3/uL (0.0-0.8); Eosinophils % 0.8 %; Hematocrit 41.4 % (37.0-47.0); Lymphocytes # 2.1 10^3/uL (0.8-4.8); Lymphocytes % 15.8 %; Mean Corpuscular HGB Conc 33.8 g/dL (30.0-36.0); Mean Corpuscular Hemoglobin 29.2 pg (28.0-34.0); Mean Corpuscular Volume 86.4 fL (81-99); Monocytes # 1.1 10^3/uL (0.2-0.9); Monocytes % 8.4 %; Neutrophils # 9.71 10^3/uL (1.8-7.7); Neutrophils % 74.3 %; Nucleated Red Blood Cells % 0 %; Platelet Count 446 10^3/cmm (130-400); Red Blood Count 4.79 10^6/uL (4.1-5.3); Red Cell Distribution Width 14.6 % (12.1-15.1); White Blood Count 13.1 10^3/uL (4.0-10.0)
[2020-11-25 07:01] LABS: Bilirubin Urine Neg (Negative); Blood Urine Neg (Negative); Glucose Urine UA Norm (Normal); HCG Qualitative Urine. Negative (Negative); Ketones Urine Negative (Negative); Leukocyte Esterase Urine Negative (Negative); Nitrate Urine Negative (Negative); Protein Urine Neg (Negative); Urine Appearance Clear (CLEAR); Urine Color Straw (Yellow); Urobilinogen Urine Norm (Negative); pH Urine 5 (5-7)
[2020-11-25 07:02] LABS: Alanine Aminotransferase 64 U/L (0-33); Albumin Level 4.4 g/dL (3.5-5.2); Alkaline Phosphatase 143 IU/L (35-105); Anion Gap 15.8 (5-19); Aspartate Amino Transferase 15 U/L (0-32); Blood Urea Nitrogen 5 mg/dL (6-20); Calcium 8.5 mg/dL (8.5-10.5); Carbon Dioxide 20 mmol/L (22-29); Chloride 102 mmol/L (98-107); Globulin 2.5 g/dL (1.3-4.6); Glomerular Filtration Rate 136.6 mL/min (90-130); Glucose 118 mg/dL (65-115); Osmolality Calculated 276 mOsm/kg (285-295); Potassium 3.8 mmol/L (3.5-5.1); Sodium 134 mmol/L (136-145); Total Bilirubin 0.2 mg/dL (0.15-1.2); Total Protein 6.9 g/dL (6.6-8.7)
[2020-11-25 07:04] LABS: Amphetamines Screen Urine Negative (Negative); Barbiturates Screen Urine Negative (Negative); Benzodiazepines Screen Urine Negative (Negative); Cocaine Screen Urine Negative (Negative); Opiate Screen Urine Positive (Negative); PCP Screen Urine Negative (Negative); THC Screen Urine Negative (Negative)
[2020-11-25 07:07] LABS: Acetaminophen < 5.0 ug/mL (10-30); Alcohol Level < 10 mg/dL (0-10); Salicylate < 0.3 mg/dL (3-10)
[2020-11-25 07:11] LABS: Lithium 0.2 mmol/L (0.6-1.2)
== END 2020-11-25 07:59 | disposition home or self-care (01) ==
PROVIDERS: Emergency Medicine; Emergency Provider Emergency Medicine; PCP Family Medicine
DX: F41.9 Anxiety disorder, unspecified (principal); F19.10 Other psychoactive substance abuse, uncomplicated; F17.210 Nicotine dependence, cigarettes, uncomplicated
CPT/HCPCS: 80053; 80178; 80306; 80307; 81003; 81025; 85025; 99283

== ENCOUNTER 2020-11-26 01:21 | Emergency (ER) | payer MEDICAID, SELFPAY ==
[2020-11-26 01:26] VITALS: BP 140/93; PULSE 108; RESP 17; TEMP 36.6; O2SAT 99; BMI 27.4
[2020-11-26] MEDS: LORazepam 2 mg/mL INJ 1 mL 1 MG IVP (02:15)
[2020-11-26 02:18] LABS: Add Urine Microscopic? NO; Charge for UA Resulting for Rev
[2020-11-26 02:19] LABS: Basophils % 0.3 %; Eosinophils % 0.3 %; Hematocrit 40.8 % (37.0-47.0); Hemoglobin 13.3 g/dL (11.5-15.3); Lymphocytes # 3.5 10^3/uL (0.8-4.8); Mean Corpuscular HGB Conc 32.6 g/dL (30.0-36.0); Mean Corpuscular Hemoglobin 28.8 pg (28.0-34.0); Mean Corpuscular Volume 88.3 fL (81-99); Mean Platelet Volume 10.4 fL (7.4-10.4); Monocytes # 1.3 10^3/uL (0.2-0.9); Monocytes % 10.7 %; Neutrophils # 6.87 10^3/uL (1.8-7.7); Neutrophils % 58.4 %; Nucleated Red Blood Cells % 0 %; Platelet Count 452 10^3/cmm (130-400); Red Blood Count 4.62 10^6/uL (4.1-5.3); Red Cell Distribution Width 14.9 % (12.1-15.1); White Blood Count 11.8 10^3/uL (4.0-10.0)
[2020-11-26 02:20] LABS: Bilirubin Urine Neg (Negative); Blood Urine Neg (Negative); Glucose Urine UA Norm (Normal); Ketones Urine Negative (Negative); Leukocyte Esterase Urine Negative (Negative); Nitrate Urine Negative (Negative); Protein Urine Neg (Negative); Urine Appearance Clear (CLEAR); Urine Color Yellow (Yellow); Urobilinogen Urine Norm (Negative); pH Urine 6 (5-7)
[2020-11-26] MEDS: haloperidol inj 5 mg/mL INJ 1 mL 3 MG IVP (02:20)
[2020-11-26 02:22] LABS: HCG Qualitative Urine. Negative (Negative)
[2020-11-26 02:30] LABS: Amphetamines Screen Urine Negative (Negative); Barbiturates Screen Urine Negative (Negative); Benzodiazepines Screen Urine Negative (Negative); Cocaine Screen Urine Negative (Negative); Opiate Screen Urine Positive (Negative); PCP Screen Urine Negative (Negative); THC Screen Urine Negative (Negative)
[2020-11-26 02:42] LABS: Alanine Aminotransferase 44 U/L (0-33); Albumin Level 4.1 g/dL (3.5-5.2); Alkaline Phosphatase 127 IU/L (35-105); Anion Gap 16.4 (5-19); Aspartate Amino Transferase 15 U/L (0-32); Blood Urea Nitrogen 8 mg/dL (6-20); Calcium 8.7 mg/dL (8.5-10.5); Carbon Dioxide 22 mmol/L (22-29); Chloride 100 mmol/L (98-107); Globulin 2.8 g/dL (1.3-4.6); Glomerular Filtration Rate 92.7 mL/min (90-130); Glucose 105 mg/dL (65-115); Osmolality Calculated 279 mOsm/kg (285-295); Potassium 3.4 mmol/L (3.5-5.1); Salicylate 0.5 mg/dL (3-10); Sodium 135 mmol/L (136-145); Total Bilirubin 0.2 mg/dL (0.15-1.2); Total Protein 6.9 g/dL (6.6-8.7)
[2020-11-26 02:47] LABS: Acetaminophen < 5.0 ug/mL (10-30); Alcohol Level < 10 mg/dL (0-10)
--- NOTE | 2020-11-26 03:19 | ED_ITS ---
HPI - Psych General: Chief Complaint: Psychiatric Symptoms Stated Complaint: si/cp Time Seen by Provider: 11/26/20 01:33 History of Present Illness: HPI Narrative: 40-year-old female well-known to the ER. She was seen less than 48 hours prior with anxiety. She represents this morning complaining of more anxiety, with suicidal ideation. She states that she had a knife at her father's house and was going to cut her wrist. She called 911 instead. complaint: suicidal ideation and feels depressed Onset (ago): hour(s) Duration: constant History of same: Yes Relieving factors: none Exacerbating factors: none Context: significant life stressor Associated psychiatric symptoms: depression and suicidal ideation Associated symptoms: Reports depression and suicidal ideation; Deny visual hallucinations, delusions or homicidal ideation If self harm: admits thoughts of self harm Review of Systems Const: Denies: fever(s) ENMT: Denies: odynophagia or sinus pain Card: Reports: chest pain and palpitations; Denies: irregular heart rhythm Resp: Reports: non-productive cough; Denies: dyspnea, productive cough or wheezing GI: Denies: abdominal pain, nausea, vomiting, rectal pain, hematochezia or melena : Denies: dysuria or hematuria Musc: Denies: neck pain Skin/Breast: Denies: rash or erythema Neuro: Denies: headache(s), dizziness or vertigo Psych: Reports: depression and suicidal ideation; Denies: visual hallucinations or homicidal ideation PFS ED PFSH: Medical History Alcohol abuse Alcohol dependence, in remission Anxiety Bipolar affective, depress, unspec Generalized anxiety disorder Other stimulant dependence, in remission Psychiatric care Family History Grandfather No problems noted. Grandmother Stroke Maternal great Heart disease paternal Hypertension maternal Father Heart disease Hypertension Family/Other Breast cancer maternal aunt Denies family history of Colon cancer Ovarian cancer Uterine cancer Thyroid disease Social History Smoking and tobacco status: current every day smoker cigarettes Packs smoked per day: 1.5 Alcohol intake: never Physical Exam Const: GENERAL APPEARANCE: cooperative and anxious ORIENTATION/CONSCIOUSNESS: Yes oriented to person, Yes oriented to place and Yes oriented to time HENMT: FACE & SINUS: normal facial exam NOSE: No nasal discharge present MOUTH: tongue normal TEETH & GINGIVA: no abnormal tooth and associated gingiva THROAT: posterior oropharynx normal; no peritonsillar mass Eye: COMMON NORMALS: Equal, round and reactive pupils present, EOMs intact bilaterally and conjunctivae normal EYELID: eyelids normal CONJUNCTIVA: Yes conjunctivae normal PUPIL: Yes Equal, round and reactive pupils present Neck/C-Spine: COMMON NORMALS: full ROM GENERAL: No tracheal deviation Chest: COMMONS NORMALS: normal inspection of the chest CHEST: No tenderness Resp: COMMON NORMALS: clear to auscultation bilaterally EFFORT & INSPECTION: No tachypneic, No respiratory distress, No retractions, No uses accessory muscles and No tracheal deviation AUSCULTATION: clear to auscultation bilaterally, no rhonchi, no wheezes and lung sounds not diminished Cardio: COMMON NORMALS: regular rate and regular rhythm RATE: regular rate RHYTHM: regular rhythm HEART SOUNDS: no murmurs PERIPHERAL PULSES: radial pulses present GI: INSPECTION: No abdominal distension AUSCULTATION: No Hyperactive bowel sounds present and No Hypoactive bowel sounds present PALPATION: No Guarding due to palpation present (GI) and No Rigid due to palpation PERCUSSION: no dullness to percussion and no tympanic to percussion Neuro: SENSORIUM/ORIENTATION: Yes oriented to person, Yes oriented to place and Yes oriented to time Psych: COMMON NORMALS: cooperative and speech normal ATTITUDE: Yes engaged ACTIVITY/MOTOR BEHAVIOR: Yes psychomotor agitation and Yes fidgeting SPEECH: Yes normal speech THOUGHT PROCESS: disorganized THOUGHT CONTENT: Yes Suicidality present and No delusions Course Consultations: Consultation #1: Morgan Time: 03:19 Consultation #2: thee Time: 03:28 Vital Signs: Vital signs: Vital Signs Temperature 97.8 F 11/26/20 01:26 Pulse Rate 108 H 11/26/20 01:26 Respiratory Rate 17 11/26/20 01:26 Blood Pressure 140/93 11/26/20 01:26 Pulse Oximetry 99 11/26/20 01:26 MDM - Psych MDM Narrative: Medical decision making narrative: 40-year-old female well- known to the emergency department. She presents stating she was suicidal earlier. She is medically stable. I spoke with Dr. Mora from psychiatry who is on-call for the MPU. He notes that this patient does not participate in treatment while she is an inpatient, and never follows up as an outpatient. She is exceptionally noncompliant. He feels that she is not an immediate threat, and does not need to be in the NPU. Dr. Walter has seen the patient via video interview. He agrees with Dr. Mora's recommendations, for her to follow-up at [facility]. She will be discharged. Lab Data: Labs: Lab Results 11/26/20 11/26/20 11/26/20 Range/Units 01:50 01:50 01:50 WBC 11.8 H (4.0-10.0) 10^3/ uL RBC 4.62 (4.1-5.3) 10^6/u L Hgb 13.3 (11.5-15.3) g/dL Hct 40.8 (37.0-47.0) % MCV 88.3 (81-99) fL MCH 28.8 (28.0-34.0) pg MCHC 32.6 (30.0-36.0) g/dL RDW 14.9 (12.1-15.1) % Plt Count 452 H (130-400) 10^3/c mm MPV 10.4 (7.4-10.4) fL Neut % (Auto) 58.4 % Lymph % (Auto) 30.0 % [place] % (Auto) 10.7 % Eos % (Auto) 0.3 % Baso % (Auto) 0.3 % Neut # (Auto) 6.87 (1.8-7.7) 10^3/u L Lymph # (Auto) 3.5 (0.8-4.8) 10^3/u L [place] # (Auto) 1.3 H (0.2-0.9) 10^3/u L Eos # (Auto) 0.0 (0.0-0.8) 10^3/u L Baso # (Auto) 0.0 (0.0-0.1) 10^3/u L Nucleated RBC % (a uto) 0 % Nucleated RBCs # 0.0 /100WBC Sodium 135 L (136-145) mmol/L Potassium 3.4 L (3.5-5.1) mmol/L Chloride 100 (98-107) mmol/L Carbon Dioxide 22 (22-29) mmol/L Anion Gap 16.4 (5-19) BUN 8 (6-20) mg/dL Creatinine 0.7 (0.5-0.9) mg/dL GFR Calculation 92.7 (90-130) mL/min Glucose 105 (65-115) mg/dL Calculated Osmolal ity 279 L (285-295) mOsm/k g Calcium 8.7 (8.5-10.5) mg/dL Total Bilirubin 0.2 (0.15-1.2) mg/dL AST 15 (0-32) U/L ALT 44 H (0-33) U/L Alkaline Phosphata se 127 H (35-105) IU/L Total Protein 6.9 (6.6-8.7) g/dL Albumin 4.1 (3.5-5.2) g/dL Globulin 2.8 (1.3-4.6) g/dL HCG, Qual Negative (Negative) Urine Color (Yellow) Urine Appearance (CLEAR) Urine pH (5-7) Ur Specific Gravit y (1.005-1.030) Urine Protein (Negative) Urine Glucose (UA) (Normal) Urine Ketones (Negative) Urine Blood (Negative) Urine Nitrate (Negative) Urine Bilirubin (Negative) Urine Urobilinogen (Negative) mg/dL Ur Leukocyte Rosaura ase (Negative) Salicylates 0.5 L (3-10) mg/dL Urine Opiates Scre en (Negative) ng/mL Acetaminophen < 5.0 L (10-30) ug/mL Ur Barbiturates Sc reen (Negative) ng/mL Ur Phencyclidine S crn (Negative) ng/mL Ur Amphetamines Sc reen (Negative) ng/mL U Benzodiazepines Scrn (Negative) ng/mL Urine Cocaine Scre en (Negative) ng/mL U Marijuana (THC) Screen (Negative) ng/mL Ethyl Alcohol < 10 (0-10) mg/dL 11/26/20 11/26/20 Range/Units 01:50 01:50 WBC (4.0-10.0) 10^3/ uL RBC (4.1-5.3) 10^6/u L Hgb (11.5-15.3) g/dL Hct (37.0-47.0) % MCV (81-99) fL MCH (28.0-34.0) pg MCHC (30.0-36.0) g/dL RDW (12.1-15.1) % Plt Count (130-400) 10^3/c mm MPV (7.4-10.4) fL Neut % (Auto) % Lymph % (Auto) % [place] % (Auto) % Eos % (Auto) % Baso % (Auto) % Neut # (Auto) (1.8-7.7) 10^3/u L Lymph # (Auto) (0.8-4.8) 10^3/u L [place] # (Auto) (0.2-0.9) 10^3/u L Eos # (Auto) (0.0-0.8) 10^3/u L Baso # (Auto) (0.0-0.1) 10^3/u L Nucleated RBC % (a uto) % Nucleated RBCs # /100WBC Sodium (136-145) mmol/L Potassium (3.5-5.1) mmol/L Chloride (98-107) mmol/L Carbon Dioxide (22-29) mmol/L Anion Gap (5-19) BUN (6-20) mg/dL Creatinine (0.5-0.9) mg/dL GFR Calculation (90-130) mL/min Glucose (65-115) mg/dL Calculated Osmolal ity (285-295) mOsm/k g Calcium (8.5-10.5) mg/dL Total Bilirubin (0.15-1.2) mg/dL AST (0-32) U/L ALT (0-33) U/L Alkaline Phosphata se (35-105) IU/L Total Protein (6.6-8.7) g/dL Albumin (3.5-5.2) g/dL Globulin (1.3-4.6) g/dL HCG, Qual (Negative) Urine Color Yellow (Yellow) Urine Appearance Clear (CLEAR) Urine pH 6 (5-7) Ur Specific Gravit y 1.010 (1.005-1.030) Urine Protein Neg (Negative) Urine Glucose (UA) Norm (Normal) Urine Ketones Negative (Negative) Urine Blood Neg (Negative) Urine Nitrate Negative (Negative) Urine Bilirubin Neg (Negative) Urine Urobilinogen Norm (Negative) mg/dL Ur Leukocyte Rosaura ase Negative (Negative) Salicylates (3-10) mg/dL Urine Opiates Scre en Positive H (Negative) ng/mL Acetaminophen (10-30) ug/mL Ur Barbiturates Sc reen Negative (Negative) ng/mL Ur Phencyclidine S crn Negative (Negative) ng/mL Ur Amphetamines Sc reen Negative (Negative) ng/mL U Benzodiazepines Scrn Negative (Negative) ng/mL Urine Cocaine Scre en Negative (Negative) ng/mL U Marijuana (THC) Screen Negative (Negative) ng/mL Ethyl Alcohol (0-10) mg/dL Discharge Plan Discharge Patient Disposition: Home Clinical Impression: Suicidal ideation Depression Qualifiers: Depression Type: major depressive disorder Active/Remission status: currently active Major depression episode severity: unspecified Condition: Stable Prescriptions: No Action Narcan 4 mg/actuation spray,non-aerosol 4 mg INTRANASAL DIRECTED PRN (Reason: (Drug) Ingestion) RF: 0 olanzapine 10 mg Tablet 10 mg PO BEDTIME 30 Days Qty: 30 RF: 1 lithium carbonate 300 mg tablet extended release 300 mg PO DAILY 30 Days Qty: 30 RF: 1 trazodone 100 mg tablet 100 mg PO BEDTIME@20 30 Days Qty: 30 RF: 1 buspirone 10 mg tablet 10 mg PO TID PRN (Reason: Anxiety) 30 Days Qty: 90 RF: 1 fluoxetine 10 mg Capsule 10 mg PO DAILY 30 Days Qty: 30 RF: 1 gabapentin 100 mg Capsule 100 mg PO TID 30 Days Qty: 90 RF: 1 sertraline 50 mg tablet 50 mg PO DAILY 30 Days Qty: 30 RF: 1 loratadine 10 mg tablet 10 mg PO DAILY 30 Days Qty: 30 RF: 1 duloxetine 60 mg capsule,delayed release(DR/EC) 60 mg PO DAILY 30 Days Qty: 30 RF: 1 Rexulti 1 mg tablet 1 mg PO DAILY 30 Days Qty: 30 RF: 1 Discharge Orders: Discharge ED (Routine); Ordered 11/26/20 Ordered By: Jamil Romero Referrals: [facility], [Staff Physician] - 1-3 days Uma Mott DO [Primary Care Provider] - Patient Instructions: Depression (ED), Suicide Prevention for Adults (ED) Coding Level of Care Code ED Reinforced Concrete Inspector for Chg Fwd Exam Comprehensive
[2020-11-26 04:58] VITALS: BP 134/89; PULSE 90; RESP 20; TEMP 36.6; O2SAT 94
== END 2020-11-26 05:09 | disposition home or self-care (01) ==
PROVIDERS: Emergency Provider Emergency Medicine; PCP Family Medicine
DX: F32.9 Major depressive disorder, single episode, unspecified (principal); R45.851 Suicidal ideations; F17.210 Nicotine dependence, cigarettes, uncomplicated
CPT/HCPCS: 80053; 80306; 80307; 81003; 81025; 85025; 96374; 96375; 99283; J1630; J2060

== ENCOUNTER 2020-11-26 10:41 | Emergency (ER) | payer MEDICAID, SELFPAY ==
[2020-11-26 11:06] VITALS: BP 153/105; PULSE 97; RESP 16; TEMP 36.6; O2SAT 94; BMI 25.0
--- NOTE | 2020-11-26 11:21 | ECG_ITS ---
[facility] Test Date: 2020-11-26 Pat Name: Brianna Real Department: Room: Gender: Female Rn Document Improvement Specialist: : 1980 Requested By: Calderon Medeiros Order Number: [id number] Dilma MD: Sarabjit Chi M.D. Measurements Intervals [place] Rate: 92 P: 28 [place]: 114 QRS: 69 QRSD: 98 T: 29 QT: 358 QTc: 444 Interpretive Statements SINUS RHYTHM WITH SHORT [place] INTERVAL Compared to ECG 11/13/2020 14:32:52 Short [place] interval now present T-wave abnormality no longer present Electronically Signed On 11-26-2020 12:30:55 CDT by Sarabjit Chi M.D. [id number]
--- NOTE | 2020-11-26 11:23 | W.ED.GENADLT ---
HPI - General Adult General: Chief complaint: General Medical Stated complaint: General Unwellness/Seen Earlier Time Seen by Provider: 11/26/20 11:18 History of Present Illness: HPI narrative: This patient is a 40-year-old female with a long history of depression and anxiety presents to the emergency department again today for severe anxiety. Patient was recently evaluated on inpatient status for her severe anxiety issues. Around 13 November. Patient has been seen multiple times in the ER since this visit. All for anxiety. Patient admits to taking some of her father's oxycodone. Patient does have a long history of alcohol and polysubstance abuse. Patient states she has taken her home medications but did not help. Patient states that she has not followed up with her outpatient providers for her anxiety. Patient denies suicidal ideation at this time. Onset (ago): month(s) Relieving factors: none Exacerbating factors: none Associated symptoms: Deny chest pain, dyspnea, headache(s), nausea, rash, palpitations or vomiting Review of Systems General: Reports: 10 or more systems reviewed and unremarkable except in HPI and below Const: Denies: fever(s), chills, body aches or fatigue Eyes: Denies: change in vision or blurry vision ENMT: Denies: throat pain, hoarseness or mouth pain Card: Denies: chest pain, palpitations, irregular heart rhythm, edema, swelling of feet/ankles or lightheadedness Resp: Denies: dyspnea, productive cough, non-productive cough, wheezing or pain on inspiration GI: Denies: abdominal pain, nausea or vomiting : Denies: flank pain, difficulty voiding, dysuria, urinary frequency, urinary urgency or urinary hesitancy Musc: Denies: neck pain, back pain, extremity pain, extremity swelling, joint pain, joint swelling, joint redness, joint warmth or limited range of motion Skin/Breast: Denies: rash, pruritus, erythema or skin tenderness Neuro: Denies: headache(s), numbness in extremities or weakness in extremities Psych: Reports: anxiety and depression PFSH ED PFSH: Medical History Alcohol abuse Alcohol dependence, in remission Anxiety Bipolar affective, depress, unspec Generalized anxiety disorder Other stimulant dependence, in remission Psychiatric care Family History Grandfather No problems noted. Grandmother Stroke Maternal great Heart disease paternal Hypertension maternal Father Heart disease Hypertension Family/Other Breast cancer maternal aunt Denies family history of Colon cancer Ovarian cancer Uterine cancer Thyroid disease Social History Smoking and tobacco status: current every day smoker cigarettes Packs smoked per day: 1.5 Alcohol intake: never Physical Exam Const: COMMON NORMALS: no acute distress, average body habitus, patient oriented x3, no limitations, healthy appearing, alert and well nourished HENMT: COMMON NORMALS: normocephalic, atraumatic, hearing grossly normal bilaterally, external ears normal, EAC's normal, TM's normal bilaterally, Normal external nose present, Normal nasal mucous membranes and turbinates present, moist oral mucous membranes, oropharynx normal, dentition normal and gingiva normal HEAD & SCALP: normocephalic and atraumatic NOSE: Normal external nose present and Normal nasal mucous membranes and turbinates present EXTERNAL EAR: Yes external ears normal EXTERNAL AUDITORY CANAL: EAC's normal TYMPANIC MEMBRANE: TM's normal bilaterally Neck/C-Spine: COMMON NORMALS: full ROM, no lymphadenopathy, supple, no meningeal signs, no JVD, Thyroid normal and No carotid bruits THYROID: Thyroid normal Chest: COMMONS NORMALS: normal inspection of the chest, normal palpation of entire chest wall, normal inspection of the breasts and normal palpation of the breasts Breast/axilla inspection: Yes normal inspection of the breasts BREAST/AXILLA PALPATION: Yes normal palpation of the breasts Resp: COMMON NORMALS: normal respiratory effort, No retractions, No use of accessory muscles, clear to auscultation bilaterally and percussion normal AUSCULTATION: clear to auscultation bilaterally PERCUSSION: percussion normal Cardio: COMMON NORMALS: no JVD, regular rate, regular rhythm, S1 normal heart sound present, S2 normal heart sound present, No gallops present (Cardio), No clicks present (Cardio), No murmurs present (Cardio), No rub (Cardio) and Peripheral pulses 2+ throughout RATE: regular rate RHYTHM: regular rhythm HEART SOUNDS: S1 normal heart sound present and S2 normal heart sound present PERIPHERAL PULSES: Peripheral pulses 2+ throughout GI: COMMON NORMALS: Normal to inspection, nondistended, normoactive bowel sounds present, Soft to palpation, non-tender, No hepatosplenomegaly present, no masses and no bruits PALPATION: Yes Soft to palpation and Yes No hepatosplenomegaly present : COMMON NORMALS: Yes no CVA tenderness, Yes normal external appearance, Yes normal appearance of the vagina, Yes normal appearance of the cervix, Yes normal bimanual exam, Yes No adnexal tenderness and Yes no masses BLADDER/KIDNEY EXAM: Yes no CVA tenderness BIMANUAL EXAM - VAGINA & UTERUS: Yes normal bimanual exam Back/Pelvis: COMMON NORMALS: no CVA tenderness, thoracic and lumbar spine normal to inspection, no thoracic nor lumbar tenderness, thoraco-lumbar ROM normal and straight leg raise negative bilaterally Extremity: COMMON NORMALS: normal to inspection, full ROM, capillary refill normal, no joint enlargement, no clubbing, cyanosis or edema, no calf tenderness and no pedal edema Neuro: COMMON NORMALS: patient oriented x3 SENSORIUM/ORIENTATION: Yes alert MENINGEAL SIGNS: Yes no meningeal signs Course Reevaluation(s): Reevaluation #1: Patient is calm and requesting to be discharged home. I will discussed at length with patient about her medical screening exam and advised that I could have Dr. Mora psychiatry, see the patient if she would like. The patient declines states that she will try to follow-up with her therapist outpatient as scheduled. I did discuss at length with her about taking other peoples medications including her father's oxycodone. She states understanding. Patient does have a long history of substance abuse. Patient is awake and alert and not acutely disabled mentally or physically. Patient is requesting to be discharged states that she just got little upset and her anxiety just takes over at times. Patient will be discharged home per her request. Patient be continuing all of her home medications and follow-up with outpatient therapy and psychiatry as instructed. Time: 11:51 Vital Signs: Vital signs: Vital Signs Temperature 97.8 F 11/26/20 11:06 Pulse Rate 97 11/26/20 11:06 Respiratory Rate 16 11/26/20 11:06 Blood Pressure 153/105 11/26/20 11:06 Pulse Oximetry 94 11/26/20 11:06 MDM - General Adult MDM Narrative: Medical decision making narrative: Patient is calm and requesting to be discharged home. I will discussed at length with patient about her medical screening exam and advised that I could have Dr. Mora psychiatry, see the patient if she would like. The patient declines states that she will try to follow-up with her therapist outpatient as scheduled. I did discuss at length with her about taking other peoples medications including her father's oxycodone. She states understanding. Patient does have a long history of substance abuse. Patient is awake and alert and not acutely disabled mentally or physically. Patient is requesting to be discharged states that she just got little upset and her anxiety just takes over at times. Patient will be discharged home per her request. Patient be continuing all of her home medications and follow-up with outpatient therapy and psychiatry as instructed. Medical Records: Attestation: I reviewed the patient's medical records. Lab Data: Attestation: I reviewed the patient's lab results. EKG Data^: EKG 1: Attestation: I personally reviewed and interpreted this EKG as follows: EKG interpretation date: 11/26/20 EKG interpretation time: 11:29 Prior EKG tracings: available for review Interpretation: Normal sinus rhythm nonspecific EKG heart rate 92 Discharge Plan Discharge Patient Disposition: Home Clinical Impression: Anxiety, Depression Condition: Stable Prescriptions: No Action Narcan 4 mg/actuation spray,non-aerosol 4 mg INTRANASAL DIRECTED PRN (Reason: (Drug) Ingestion) RF: 0 olanzapine 10 mg Tablet 10 mg PO BEDTIME 30 Days Qty: 30 RF: 1 lithium carbonate 300 mg tablet extended release 300 mg PO DAILY 30 Days Qty: 30 RF: 1 trazodone 100 mg tablet 100 mg PO BEDTIME@20 30 Days Qty: 30 RF: 1 buspirone 10 mg tablet 10 mg PO TID PRN (Reason: Anxiety) 30 Days Qty: 90 RF: 1 fluoxetine 10 mg Capsule 10 mg PO DAILY 30 Days Qty: 30 RF: 1 gabapentin 100 mg Capsule 100 mg PO TID 30 Days Qty: 90 RF: 1 sertraline 50 mg tablet 50 mg PO DAILY 30 Days Qty: 30 RF: 1 loratadine 10 mg tablet 10 mg PO DAILY 30 Days Qty: 30 RF: 1 duloxetine 60 mg capsule,delayed release(DR/EC) 60 mg PO DAILY 30 Days Qty: 30 RF: 1 Rexulti 1 mg tablet 1 mg PO DAILY 30 Days Qty: 30 RF: 1 Discharge Orders: Discharge ED (Routine); Ordered 11/26/20 Ordered By: Calderon Medeiros Referrals: Uma Mott DO [Primary Care Provider] - Discharge Diet: Advance as tolerated Discharge Activity: Resume usual activity Patient Instructions: Opioid Safety Activity Restrictions/Additional Instructions: Patient is calm and requesting to be discharged home. Patient will be discharged home per her request. Patient be continuing all of her home medications and follow-up with outpatient therapy and psychiatry as instructed. Patient agrees to stop taking other peoples medications and occluding those of a narcotic nature. Return to the emergency department if symptoms fail to improve or worsen. Coding Level of Care Code ED Environmental Sampling Technician for Ioana Fwaime Exam Comprehensive
[2020-11-26 11:50] LABS: Basophils # 0.1 10^3/uL (0.0-0.1); Basophils % 0.5 %; Eosinophils % 0.1 %; Hematocrit 41.2 % (37.0-47.0); Hemoglobin 14.1 g/dL (11.5-15.3); Lymphocytes # 1.9 10^3/uL (0.8-4.8); Lymphocytes % 17.2 %; Mean Corpuscular HGB Conc 34.2 g/dL (30.0-36.0); Mean Corpuscular Hemoglobin 29.6 pg (28.0-34.0); Mean Corpuscular Volume 86.6 fL (81-99); Mean Platelet Volume 9.7 fL (7.4-10.4); Monocytes # 0.8 10^3/uL (0.2-0.9); Monocytes % 7.7 %; Neutrophils # 7.96 10^3/uL (1.8-7.7); Nucleated Red Blood Cells % 0 %; Platelet Count 470 10^3/cmm (130-400); Red Blood Count 4.76 10^6/uL (4.1-5.3); Red Cell Distribution Width 14.9 % (12.1-15.1); White Blood Count 10.8 10^3/uL (4.0-10.0)
[2020-11-26 12:00] LABS: Acetaminophen < 5.0 ug/mL (10-30); Alanine Aminotransferase 45 U/L (0-33); Albumin Level 4.5 g/dL (3.5-5.2); Alcohol Level < 10 mg/dL (0-10); Alkaline Phosphatase 133 IU/L (35-105); Anion Gap 15.9 (5-19); Aspartate Amino Transferase 12 U/L (0-32); Blood Urea Nitrogen 8 mg/dL (6-20); Calcium 8.6 mg/dL (8.5-10.5); Carbon Dioxide 22 mmol/L (22-29); Chloride 101 mmol/L (98-107); Globulin 2.7 g/dL (1.3-4.6); Glomerular Filtration Rate 110.7 mL/min (90-130); Glucose 112 mg/dL (65-115); Osmolality Calculated 279 mOsm/kg (285-295); Potassium 3.9 mmol/L (3.5-5.1); Salicylate < 0.3 mg/dL (3-10); Sodium 135 mmol/L (136-145); Total Bilirubin 0.2 mg/dL (0.15-1.2); Total Protein 7.2 g/dL (6.6-8.7)
[2020-11-26 12:01] LABS: Lithium 0.3 mmol/L (0.6-1.2)
--- NOTE | 2020-11-26 12:01 | PC.NURSE ---
Pt denies SI for physician, requesting to be discharged home.
--- NOTE | 2020-11-26 12:15 | PC.NURSE ---
Pt seen leaving her father's room in ED where his pain medication was at bedside. Pt denies taking her father's medications but after asking about how her father is doing, refuses to stay to speak to physician regarding what is wrong with pt. Physician notified.
== END 2020-11-26 12:05 | disposition home or self-care (01) ==
PROVIDERS: Emergency Provider Emergency Medicine; PCP Family Medicine
DX: F41.9 Anxiety disorder, unspecified (principal); F32.9 Major depressive disorder, single episode, unspecified; F17.210 Nicotine dependence, cigarettes, uncomplicated
CPT/HCPCS: 80053; 80178; 80307; 85025; 93005; 99283

== ENCOUNTER 2020-11-27 02:01 | Emergency (ER) | payer MEDICAID, SELFPAY ==
[2020-11-27 02:02] VITALS: BP 142/90; PULSE 103; RESP 17; TEMP 37.1; O2SAT 96; BMI 24.1
--- NOTE | 2020-11-27 02:05 | W.ED.PSYCH ---
HPI - Psych General: Chief Complaint: Psychiatric Symptoms Stated Complaint: si Time Seen by Provider: 11/27/20 02:03 Source: patient and EMS Mode of arrival: EMS Limitations: no limitations History of Present Illness: HPI Narrative: 40-year-old female who is very well-known to the ER states she has been having suicidal thoughts have been getting much worse. Patient has been admitted here recently but she states her father got admitted to the ICU today and is caused her severe depression has had suicidal thoughts with no specific plan. She denies any worsening improving factors. Associated symptoms: Reports depression and suicidal ideation Review of Systems Const: Denies: fever(s), chills, body aches or change in appetite Eyes: Denies: blurry vision or eye discomfort ENMT: Denies: throat pain or dental pain Card: Denies: chest pain Resp: Denies: dyspnea GI: Denies: abdominal pain, nausea, vomiting or diarrhea : Denies: dysuria Musc: Denies: neck pain or back pain Skin/Breast: Denies: rash Neuro: Denies: headache(s) Psych: Reports: depression and suicidal ideation Bossman/Lymph: Denies: easy bruising All/Imm: Denies: urticaria PFSH ED PFSH: Medical History Alcohol abuse Alcohol dependence, in remission Anxiety Bipolar affective, depress, unspec Generalized anxiety disorder Other stimulant dependence, in remission Psychiatric care Family History Grandfather No problems noted. Grandmother Stroke Maternal great Heart disease paternal Hypertension maternal Father Heart disease Hypertension Family/Other Breast cancer maternal aunt Denies family history of Colon cancer Ovarian cancer Uterine cancer Thyroid disease Social History Smoking and tobacco status: current every day smoker cigarettes Packs smoked per day: 1.5 Alcohol intake: never Physical Exam Const: COMMON NORMALS: no acute distress, patient oriented x3 and healthy appearing HENMT: COMMON NORMALS: normocephalic and atraumatic HEAD & SCALP: normocephalic and atraumatic Eye: COMMON NORMALS: Equal, round and reactive pupils present and EOMs intact bilaterally PUPIL: Yes Equal, round and reactive pupils present Neck/C-Spine: COMMON NORMALS: full ROM and supple Chest: COMMONS NORMALS: normal inspection of the chest and normal palpation of entire chest wall Resp: COMMON NORMALS: normal respiratory effort, No retractions, No use of accessory muscles and clear to auscultation bilaterally AUSCULTATION: clear to auscultation bilaterally Cardio: COMMON NORMALS: regular rate, regular rhythm and No murmurs present (Cardio) RATE: regular rate RHYTHM: regular rhythm GI: COMMON NORMALS: Normal to inspection, nondistended, normoactive bowel sounds present, Soft to palpation, non-tender and no masses PALPATION: Yes Soft to palpation Extremity: COMMON NORMALS: normal to inspection and full ROM Neuro: COMMON NORMALS: patient oriented x3, moves all extremities and no focal motor deficits Psych: COMMON NORMALS: mental status grossly normal, Normal thought process present and cooperative THOUGHT PROCESS: Normal thought process present THOUGHT CONTENT: Yes Suicidality present Skin: COMMON NORMALS: no rashes or lesions noted and no wounds GENERAL SKIN EXAM: no rashes or lesions noted Course Vital Signs: Vital signs: Vital Signs Temperature 98.8 F 11/27/20 02:02 Pulse Rate 103 H 11/27/20 02:02 Respiratory Rate 17 11/27/20 02:02 Blood Pressure 142/90 11/27/20 02:02 Pulse Oximetry 96 11/27/20 02:02 MDM - Psych MDM Narrative: Medical decision making narrative: Patient presents with depression. Patient was seen by Dr. Walter of psychiatry who felt patient does not require inpatient admission as she is not actively suicidal at this time and is just severely depressed. She has follow-up with [facility] and is to follow-up then. I feel patient is not a harm to herself or others and is stable for discharge. Lab Data: Labs: Lab Results 11/27/20 11/27/20 11/27/20 Range/Units 02:07 02:07 02:07 WBC 13.0 H (4.0-10.0) 10^3/ uL RBC 4.69 (4.1-5.3) 10^6/u L Hgb 13.5 (11.5-15.3) g/dL Hct 40.8 (37.0-47.0) % MCV 87.0 (81-99) fL MCH 28.8 (28.0-34.0) pg MCHC 33.1 (30.0-36.0) g/dL RDW 14.8 (12.1-15.1) % Plt Count 456 H (130-400) 10^3/c mm MPV 9.6 (7.4-10.4) fL Neut % (Auto) 72.4 % Lymph % (Auto) 18.1 % Carbon % (Auto) 8.6 % Eos % (Auto) 0.3 % Baso % (Auto) 0.4 % Neut # (Auto) 9.38 H (1.8-7.7) 10^3/u L Lymph # (Auto) 2.4 (0.8-4.8) 10^3/u L Carbon # (Auto) 1.1 H (0.2-0.9) 10^3/u L Eos # (Auto) 0.0 (0.0-0.8) 10^3/u L Baso # (Auto) 0.1 (0.0-0.1) 10^3/u L Nucleated RBC % (a uto) 0 % Nucleated RBCs # 0.0 /100WBC Sodium 136 (136-145) mmol/L Potassium 3.9 (3.5-5.1) mmol/L Chloride 103 (98-107) mmol/L Carbon Dioxide 23 (22-29) mmol/L Anion Gap 13.9 (5-19) BUN 5 L (6-20) mg/dL Creatinine 0.6 (0.5-0.9) mg/dL GFR Calculation 110.7 (90-130) mL/min Glucose 122 H (65-115) mg/dL Calculated Osmolal ity 281 L (285-295) mOsm/k g Calcium 8.7 (8.5-10.5) mg/dL Total Bilirubin 0.2 (0.15-1.2) mg/dL AST 10 (0-32) U/L ALT 34 H (0-33) U/L Alkaline Phosphata se 124 H (35-105) IU/L Total Protein 6.9 (6.6-8.7) g/dL Albumin 4.1 (3.5-5.2) g/dL Globulin 2.8 (1.3-4.6) g/dL Salicylates 0.4 L (3-10) mg/dL Acetaminophen < 5.0 L (10-30) ug/mL [place] 0.1 L (0.6-1.2) mmol/L Ethyl Alcohol < 10 (0-10) mg/dL Discharge Plan Discharge Patient Disposition: Home Clinical Impression: Depression Qualifiers: Depression Type: unspecified Qualified Code(s): F32.9 - Major depressive disorder, single episode, unspecified Condition: Stable Prescriptions: No Action Narcan 4 mg/actuation spray,non-aerosol 4 mg INTRANASAL DIRECTED PRN (Reason: (Drug) Ingestion) RF: 0 olanzapine 10 mg Tablet 10 mg PO BEDTIME 30 Days Qty: 30 RF: 1 lithium carbonate 300 mg tablet extended release 300 mg PO DAILY 30 Days Qty: 30 RF: 1 trazodone 100 mg tablet 100 mg PO BEDTIME@20 30 Days Qty: 30 RF: 1 buspirone 10 mg tablet 10 mg PO TID PRN (Reason: Anxiety) 30 Days Qty: 90 RF: 1 fluoxetine 10 mg Capsule 10 mg PO DAILY 30 Days Qty: 30 RF: 1 gabapentin 100 mg Capsule 100 mg PO TID 30 Days Qty: 90 RF: 1 sertraline 50 mg tablet 50 mg PO DAILY 30 Days Qty: 30 RF: 1 loratadine 10 mg tablet 10 mg PO DAILY 30 Days Qty: 30 RF: 1 duloxetine 60 mg capsule,delayed release(DR/EC) 60 mg PO DAILY 30 Days Qty: 30 RF: 1 Rexulti 1 mg tablet 1 mg PO DAILY 30 Days Qty: 30 RF: 1 Discharge Orders: Discharge ED (Routine); Ordered 11/27/20 Ordered By: Osimn Cardoso Referrals: Uma Mott DO [Primary Care Provider] - Discharge Diet: Advance as tolerated Discharge Activity: Resume usual activity Patient Instructions: Depression (ED) Coding Level of Care Code ED Embossing Toolsetter for Ioana Fwd Exam Comprehensive
[2020-11-27 02:12] LABS: Basophils # 0.1 10^3/uL (0.0-0.1); Basophils % 0.4 %; Eosinophils % 0.3 %; Hematocrit 40.8 % (37.0-47.0); Hemoglobin 13.5 g/dL (11.5-15.3); Lymphocytes # 2.4 10^3/uL (0.8-4.8); Lymphocytes % 18.1 %; Mean Corpuscular HGB Conc 33.1 g/dL (30.0-36.0); Mean Corpuscular Hemoglobin 28.8 pg (28.0-34.0); Mean Platelet Volume 9.6 fL (7.4-10.4); Monocytes # 1.1 10^3/uL (0.2-0.9); Monocytes % 8.6 %; Neutrophils # 9.38 10^3/uL (1.8-7.7); Neutrophils % 72.4 %; Nucleated Red Blood Cells % 0 %; Platelet Count 456 10^3/cmm (130-400); Red Blood Count 4.69 10^6/uL (4.1-5.3); Red Cell Distribution Width 14.8 % (12.1-15.1)
[2020-11-27 02:30] LABS: Alanine Aminotransferase 34 U/L (0-33); Albumin Level 4.1 g/dL (3.5-5.2); Alkaline Phosphatase 124 IU/L (35-105); Anion Gap 13.9 (5-19); Aspartate Amino Transferase 10 U/L (0-32); Blood Urea Nitrogen 5 mg/dL (6-20); Calcium 8.7 mg/dL (8.5-10.5); Carbon Dioxide 23 mmol/L (22-29); Chloride 103 mmol/L (98-107); Creatinine Clr Calc Pharmacy 119.0559; Globulin 2.8 g/dL (1.3-4.6); Glomerular Filtration Rate 110.7 mL/min (90-130); Glucose 122 mg/dL (65-115); Osmolality Calculated 281 mOsm/kg (285-295); Potassium 3.9 mmol/L (3.5-5.1); Salicylate 0.4 mg/dL (3-10); Sodium 136 mmol/L (136-145); Total Bilirubin 0.2 mg/dL (0.15-1.2); Total Protein 6.9 g/dL (6.6-8.7)
[2020-11-27 02:31] LABS: Acetaminophen < 5.0 ug/mL (10-30); Alcohol Level < 10 mg/dL (0-10)
[2020-11-27 02:42] LABS: Lithium 0.1 mmol/L (0.6-1.2)
== END 2020-11-27 03:14 | disposition home or self-care (01) ==
PROVIDERS: Emergency Provider Emergency Medicine; PCP Family Medicine
DX: F32.9 Major depressive disorder, single episode, unspecified (principal); F17.210 Nicotine dependence, cigarettes, uncomplicated
CPT/HCPCS: 80053; 80178; 80307; 85025; 99282

== ENCOUNTER 2020-11-27 04:01 | Emergency (ER) | payer MEDICAID, SELFPAY ==
[2020-11-27 04:09] VITALS: BP 144/96; PULSE 112; RESP 17; TEMP 37.3; O2SAT 95; BMI 24.1
--- NOTE | 2020-11-27 04:11 | ED_ITS ---
HPI - Psych General: Chief Complaint: General Medical Stated Complaint: WATER IN VEINS AFTER DRINKING WATER? Time Seen by Provider: 11/27/20 04:11 Source: patient Mode of arrival: ambulatory Limitations: no limitations History of Present Illness: HPI Narrative: 40-year-old female has been seen here multiple times over the last 3 days states she is feeling anxious and feels like there is something in her body she needs to get out. She denies any suicidality at this time. She denies any chest pain. She denies any shortness of breath. She denies any worsening improved factors. She just feels very anxious. Review of Systems Const: Denies: fever(s), chills, body aches or change in appetite Eyes: Denies: blurry vision or eye discomfort ENMT: Denies: throat pain or dental pain Card: Denies: chest pain Resp: Denies: dyspnea GI: Denies: abdominal pain, nausea, vomiting or diarrhea : Denies: dysuria Musc: Denies: neck pain or back pain Skin/Breast: Denies: rash Neuro: Denies: headache(s) Psych: Reports: anxiety Bossman/Lymph: Denies: easy bruising All/Imm: Denies: urticaria PFSH ED PFSH: Medical History Alcohol abuse Alcohol dependence, in remission Anxiety Bipolar affective, depress, unspec Generalized anxiety disorder Other stimulant dependence, in remission Psychiatric care Family History Grandfather No problems noted. Grandmother Stroke Maternal great Heart disease paternal Hypertension maternal Father Heart disease Hypertension Family/Other Breast cancer maternal aunt Denies family history of Colon cancer Ovarian cancer Uterine cancer Thyroid disease Social History Smoking and tobacco status: current every day smoker cigarettes Packs smoked per day: 1.5 Alcohol intake: never Physical Exam Const: COMMON NORMALS: no acute distress, patient oriented x3 and healthy appearing HENMT: COMMON NORMALS: normocephalic and atraumatic HEAD & SCALP: normocephalic and atraumatic Eye: COMMON NORMALS: Equal, round and reactive pupils present and EOMs intact bilaterally PUPIL: Yes Equal, round and reactive pupils present Neck/C-Spine: COMMON NORMALS: full ROM and supple Chest: COMMONS NORMALS: normal inspection of the chest and normal palpation of entire chest wall Resp: COMMON NORMALS: normal respiratory effort, No retractions, No use of accessory muscles and clear to auscultation bilaterally AUSCULTATION: clear to auscultation bilaterally Cardio: COMMON NORMALS: regular rate, regular rhythm and No murmurs present (Cardio) RATE: regular rate RHYTHM: regular rhythm GI: COMMON NORMALS: Normal to inspection, nondistended, normoactive bowel sounds present, Soft to palpation, non-tender and no masses PALPATION: Yes Soft to palpation Extremity: COMMON NORMALS: normal to inspection and full ROM Neuro: COMMON NORMALS: patient oriented x3, moves all extremities and no focal motor deficits Psych: COMMON NORMALS: mental status grossly normal, Normal thought process present and cooperative THOUGHT PROCESS: Normal thought process present Skin: COMMON NORMALS: no rashes or lesions noted and no wounds GENERAL SKIN EXAM: no rashes or lesions noted Course Vital Signs: Vital signs: Vital Signs Temperature 99.2 F 11/27/20 04:09 Pulse Rate 105 H 11/27/20 04:13 Respiratory Rate 16 11/27/20 04:13 Blood Pressure 144/96 11/27/20 04:09 Pulse Oximetry 97 11/27/20 04:13 MDM - Psych MDM Narrative: Medical decision making narrative: Patient presents with anxiety and is well-appearing here. She is stable for discharge and return if worsening. Discharge Plan Discharge Patient Disposition: Home Clinical Impression: Anxiety Condition: Stable Prescriptions: No Action Narcan 4 mg/actuation spray,non-aerosol 4 mg INTRANASAL DIRECTED PRN (Reason: (Drug) Ingestion) RF: 0 olanzapine 10 mg Tablet 10 mg PO BEDTIME 30 Days Qty: 30 RF: 1 lithium carbonate 300 mg tablet extended release 300 mg PO DAILY 30 Days Qty: 30 RF: 1 trazodone 100 mg tablet 100 mg PO BEDTIME@20 30 Days Qty: 30 RF: 1 buspirone 10 mg tablet 10 mg PO TID PRN (Reason: Anxiety) 30 Days Qty: 90 RF: 1 fluoxetine 10 mg Capsule 10 mg PO DAILY 30 Days Qty: 30 RF: 1 gabapentin 100 mg Capsule 100 mg PO TID 30 Days Qty: 90 RF: 1 sertraline 50 mg tablet 50 mg PO DAILY 30 Days Qty: 30 RF: 1 loratadine 10 mg tablet 10 mg PO DAILY 30 Days Qty: 30 RF: 1 duloxetine 60 mg capsule,delayed release(DR/EC) 60 mg PO DAILY 30 Days Qty: 30 RF: 1 Rexulti 1 mg tablet 1 mg PO DAILY 30 Days Qty: 30 RF: 1 Discharge Orders: Discharge ED (Routine); Ordered 11/27/20 Ordered By: Osmin Cardoso Referrals: Uma Mott, [Primary Care Provider] - Discharge Diet: Advance as tolerated Discharge Activity: Resume usual activity Patient Instructions: Anxiety (ED) Coding Level of Care Code ED Auto Club Travel Counselor for Suhailg Fwd Exam Comprehensive
[2020-11-27 04:13] VITALS: PULSE 105; RESP 16; O2SAT 97
== END 2020-11-27 04:19 | disposition home or self-care (01) ==
PROVIDERS: Emergency Provider Emergency Medicine; PCP Family Medicine
DX: F41.9 Anxiety disorder, unspecified (principal); F17.210 Nicotine dependence, cigarettes, uncomplicated
CPT/HCPCS: 99281

== ENCOUNTER 2020-12-22 18:58 | Inpatient (IN) | payer MEDICAID, SELFPAY ==
[2020-12-22 19:00] VITALS: BP 137/85; PULSE 94; RESP 18; O2SAT 98
[2020-12-22 19:07] VITALS: BMI 24.6
[2020-12-22 19:20] VITALS: BP 137/85; PULSE 90; RESP 16; TEMP 36.8; O2SAT 97
--- NOTE | 2020-12-22 19:23 | ED_ITS ---
Documented by User: MADALYN Agustin 12/22/20 22:31 HPI - Psych General: Chief Complaint: Psychiatric Symptoms Stated Complaint: SI Time Seen by Provider: 12/22/20 19:06 Source: patient and EMS Mode of arrival: EMS Limitations: no limitations History of Present Illness: HPI Narrative: Patient is a 40-year-old female who presents to ED today via EMS for complaints of suicidal ideations. Patient tells me she has a plan to blow her head off . She states she had a gun up to her chin earlier today. Upon arrival patient is very drowsy and often dozes off during examination. Full history is hard to obtain. She does feel like she has animals inside her that are trying to get out . She admits to methamphetamine use. complaint: suicidal ideation and feels depressed Onset (ago): day(s) Duration: constant History of same: Yes Relieving factors: none Exacerbating factors: drug use Context: recent drug abuse Associated psychiatric symptoms: depression and suicidal ideation Associated symptoms: Reports depression and suicidal ideation; Deny auditory hallucinations, visual hallucinations or homicidal ideation Treatments prior to arrival: none If self harm: admits thoughts of self harm, has plan and has acted on plan Review of Systems Const: Denies: fever(s), chills, body aches, fatigue or malaise Card: Denies: chest pain, palpitations, lightheadedness or syncope Resp: Denies: dyspnea GI: Denies: abdominal pain, nausea, vomiting or diarrhea Skin/Breast: Denies: rash Neuro: Denies: headache(s), numbness in extremities, weakness in extremities or sensory changes Psych: Reports: anxiety, depression and suicidal ideation; Denies: visual hallucinations, auditory hallucinations or homicidal ideation [facility] ED PFSH: Medical History Alcohol abuse Alcohol dependence, in remission Anxiety Bipolar affective, depress, unspec Generalized anxiety disorder Other stimulant dependence, in remission Psychiatric care Family History Grandfather No problems noted. Grandmother Stroke Maternal great Heart disease paternal Hypertension maternal Father Heart disease Hypertension Family/Other Breast cancer maternal aunt Denies family history of Colon cancer Ovarian cancer Uterine cancer Thyroid disease Social History Smoking and tobacco status: current every day smoker cigarettes Packs smoked per day: 1.5 Alcohol intake: never Female Reproductive History: Date of last menstrual period: 12/22/17 Physical Exam Const: COMMON NORMALS: patient oriented x3 EXAM LIMITATIONS: other limitations (drowsy-keeps dozing off during examination ) GENERAL APPEARANCE: cooperative ORIENTATION/CONSCIOUSNESS: Yes awake, Yes oriented to person and Yes oriented to place OTHER: patient seems lethargic; light sternal rub performed several times during exam and she kept dozing off; she did wake up easily and continued to answer questions appropriately; VSS HENMT: COMMON NORMALS: normocephalic and atraumatic HEAD & SCALP: norm ocephalic and atraumatic Resp: COMMON NORMALS: normal respiratory effort and clear to auscultation bilaterally AUSCULTATION: clear to auscultation bilaterally Cardio: COMMON NORMALS: regular rate and regular rhythm RATE: regular rate RHYTHM: regular rhythm Extremity: COMMON NORMALS: no pedal edema Neuro: MAGDA COMA SCALE: document GCS findings [place] coma scale eye opening: Spontaneous [place] coma scale verbal response: Orientated [place] coma scale motor response: Obey commands [place] coma scale total score: 15 COMMON NORMALS: patient oriented x3, CN's II-XII intact bilaterally, moves all extremities, no focal motor deficits and no sensory deficits noted SENSORIUM/ORIENTATION: Yes oriented to person and Yes oriented to place Skin: COMMON NORMALS: no rashes or lesions noted GENERAL SKIN EXAM: no rashes or lesions noted OTHER: she has old appearing superficial cuts to her L volar wrist; some scarring Course Consultations: Consultation #1: Dr. Mora-very familiar with patient; states she never participates in any form at NPU and never follows up as an outpatient so doesn't see any indication or any benefit from inpatient hospitalization at this time; recommend Dr. Walter perform telepsych visit Consultation #2: Dr. Walter-will telepsych patient after telepsych assessment Dr. Walter requested patient be admitted Vital Signs: Vital signs: Vital Signs Temperature 98.1 F 12/22/20 22:48 Pulse Rate 68 12/22/20 22:48 Respiratory Rate 17 12/22/20 22:48 Blood Pressure 157/94 12/22/20 22:48 Pulse Oximetry 98 12/22/20 22:48 MDM - Psych Lab Data: Labs: Lab Results 12/22/20 12/22/20 12/22/20 Range/Units 19:30 19:30 20:50 WBC 14.9 H (4.0-10.0) 10^3/ uL RBC 4.80 (4.1-5.3) 10^6/u L Hgb 13.7 (11.5-15.3) g/dL Hct 42.7 (37.0-47.0) % MCV 89.0 (81-99) fL MCH 28.5 (28.0-34.0) pg MCHC 32.1 (30.0-36.0) g/dL RDW 14.3 (12.1-15.1) % Plt Count 482 H (130-400) 10^3/c mm MPV 9.9 (7.4-10.4) fL Neut % (Auto) 76.5 % Lymph % (Auto) 14.8 % [place] % (Auto) 8.0 % Eos % (Auto) 0.1 % Baso % (Auto) 0.2 % Neut # (Auto) 11.36 H (1.8-7.7) 10^3/u L Lymph # (Auto) 2.2 (0.8-4.8) 10^3/u L [place] # (Auto) 1.2 H (0.2-0.9) 10^3/u L Eos # (Auto) 0.0 (0.0-0.8) 10^3/u L Baso # (Auto) 0.0 (0.0-0.1) 10^3/u L Nucleated RBC % (a uto) 0 % Nucleated RBCs # 0.0 /100WBC Sodium 138 (136-145) mmol/L Potassium 4.0 (3.5-5.1) mmol/L Chloride 106 (98-107) mmol/L Carbon Dioxide 21 L (22-29) mmol/L Anion Gap 15.0 (5-19) BUN 7 (6-20) mg/dL Creatinine 0.8 (0.5-0.9) mg/dL GFR Calculation 79.4 L (90-130) mL/min Glucose 94 (65-115) mg/dL Calculated Osmolal ity 284 L (285-295) mOsm/k g Calcium 9.0 (8.5-10.5) mg/dL Total Bilirubin 0.2 (0.15-1.2) mg/dL AST 13 (0-32) U/L ALT 19 (0-33) U/L Alkaline Phosphata se 115 H (35-105) IU/L Total Protein 6.9 (6.6-8.7) g/dL Albumin 4.1 (3.5-5.2) g/dL Globulin 2.8 (1.3-4.6) g/dL Salicylates 0.9 L (3-10) mg/dL Urine Opiates Scre en Negative (Negative) ng/mL Acetaminophen < 5.0 L (10-30) ug/mL Ur Barbiturates Sc reen Negative (Negative) ng/mL Ur Phencyclidine S crn Negative (Negative) ng/mL Ur Amphetamines Sc reen Positive H (Negative) ng/mL U Benzodiazepines Scrn Negative (Negative) ng/mL Urine Cocaine Scre en Negative (Negative) ng/mL U Marijuana (THC) Screen Negative (Negative) ng/mL Ethyl Alcohol < 10 (0-10) mg/dL Discharge Plan Discharge Patient Disposition: Admitted As Inpatient Admit Provider: Hong Walter Clinical Impression: Methamphetamine use, Suicidal ideation, Acute psychosis Condition: Stable Coding Level of Care Code ED Extractions Technician for Chg Fwd Exam Detailed Documented by User: Jamil Romero DO 12/23/20 04:55 HPI - Psych General: Chief Complaint: Psychiatric Symptoms Stated Complaint: SI Time Seen by Provider: 12/22/20 19:06 PFSH ED PFSH: Medical History Alcohol abuse Alcohol dependence, in remission Anxiety Bipolar affective, depress, unspec Generalized anxiety disorder Other stimulant dependence, in remission Psychiatric care Family History Grandfather No problems noted. Grandmother Stroke Maternal great Heart disease paternal Hypertension maternal Father Heart disease Hypertension Family/Other Breast cancer maternal aunt Denies family history of Colon cancer Ovarian cancer Uterine cancer Thyroid disease Social History Smoking and tobacco status: current every day smoker cigarettes Packs smoked per day: 1.5 Alcohol intake: never Course Vital Signs: Vital signs: Vital Signs Temperature 98.1 F 12/22/20 22:48 Pulse Rate 68 12/22/20 22:48 Respiratory Rate 17 12/22/20 22:48 Blood Pressure 157/94 12/22/20 22:48 Pulse Oximetry 98 12/22/20 22:48 MDM - Psych MDM Narrative: Medical decision making narrative: 40-year-old female seen by Mrs. Beltran?MAURY Bower. I agree with her history, evaluation, and treatment. She is medically stable for psychiatric admission. Orders have been written. Lab Data: Labs: Lab Results 12/22/20 12/22/20 12/22/20 Range/Units 19:30 19:30 20:50 WBC 14.9 H (4.0-10.0) 10^3/ uL RBC 4.80 (4.1-5.3) 10^6/u L Hgb 13.7 (11.5-15.3) g/dL Hct 42.7 (37.0-47.0) % MCV 89.0 (81-99) fL MCH 28.5 (28.0-34.0) pg MCHC 32.1 (30.0-36.0) g/dL RDW 14.3 (12.1-15.1) % Plt Count 482 H (130-400) 10^3/c mm MPV 9.9 (7.4-10.4) fL Neut % (Auto) 76.5 % Lymph % (Auto) 14.8 % [place] % (Auto) 8.0 % Eos % (Auto) 0.1 % Baso % (Auto) 0.2 % Neut # (Auto) 11.36 H (1.8-7.7) 10^3/u L Lymph # (Auto) 2.2 (0.8-4.8) 10^3/u L [place] # (Auto) 1.2 H (0.2-0.9) 10^3/u L Eos # (Auto) 0.0 (0.0-0.8) 10^3/u L Baso # (Auto) 0.0 (0.0-0.1) 10^3/u L Nucleated RBC % (a uto) 0 % Nucleated RBCs # 0.0 /100WBC Sodium 138 (136-145) mmol/L Potassium 4.0 (3.5-5.1) mmol/L Chloride 106 (98-107) mmol/L Carbon Dioxide 21 L (22-29) mmol/L Anion Gap 15.0 (5-19) BUN 7 (6-20) mg/dL Creatinine 0.8 (0.5-0.9) mg/dL GFR Calculation 79.4 L (90-130) mL/min Glucose 94 (65-115) mg/dL Calculated Osmolal ity 284 L (285-295) mOsm/k g Calcium 9.0 (8.5-10.5) mg/dL Total Bilirubin 0.2 (0.15-1.2) mg/dL AST 13 (0-32) U/L ALT 19 (0-33) U/L Alkaline Phosphata se 115 H (35-105) IU/L Total Protein 6.9 (6.6-8.7) g/dL Albumin 4.1 (3.5-5.2) g/dL Globulin 2.8 (1.3-4.6) g/dL Salicylates 0.9 L (3-10) mg/dL Urine Opiates Scre en Negative (Negative) ng/mL Acetaminophen < 5.0 L (10-30) ug/mL Ur Barbiturates Sc reen Negative (Negative) ng/mL Ur Phencyclidine S crn Negative (Negative) ng/mL Ur Amphetamines Sc reen Positive H (Negative) ng/mL U Benzodiazepines Scrn Negative (Negative) ng/mL Urine Cocaine Scre en Negative (Negative) ng/mL U Marijuana (THC) Screen Negative (Negative) ng/mL Ethyl Alcohol < 10 (0-10) mg/dL Discharge Plan Discharge Patient Disposition: Admitted As Inpatient Admit Provider: Hong Walter Clinical Impression: Methamphetamine use, Suicidal ideation, Acute psychosis Condition: Stable Coding Level of Care Code ED Extractions Technician for g Fwd Exam Detailed
[2020-12-22 19:35] VITALS: BP 140/100; PULSE 95; RESP 16; O2SAT 98
[2020-12-22 20:00] VITALS: BP 145/98; PULSE 90; RESP 100; O2SAT 100
[2020-12-22 20:12] LABS: Basophils % 0.2 %; Eosinophils % 0.1 %; Hematocrit 42.7 % (37.0-47.0); Hemoglobin 13.7 g/dL (11.5-15.3); Lymphocytes # 2.2 10^3/uL (0.8-4.8); Lymphocytes % 14.8 %; Mean Corpuscular HGB Conc 32.1 g/dL (30.0-36.0); Mean Corpuscular Hemoglobin 28.5 pg (28.0-34.0); Mean Platelet Volume 9.9 fL (7.4-10.4); Monocytes # 1.2 10^3/uL (0.2-0.9); Neutrophils # 11.36 10^3/uL (1.8-7.7); Neutrophils % 76.5 %; Nucleated Red Blood Cells % 0 %; Platelet Count 482 10^3/cmm (130-400); Red Cell Distribution Width 14.3 % (12.1-15.1); White Blood Count 14.9 10^3/uL (4.0-10.0)
[2020-12-22 20:26] LABS: Alanine Aminotransferase 19 U/L (0-33); Albumin Level 4.1 g/dL (3.5-5.2); Alkaline Phosphatase 115 IU/L (35-105); Aspartate Amino Transferase 13 U/L (0-32); Blood Urea Nitrogen 7 mg/dL (6-20); Carbon Dioxide 21 mmol/L (22-29); Chloride 106 mmol/L (98-107); Globulin 2.8 g/dL (1.3-4.6); Glomerular Filtration Rate 79.4 mL/min (90-130); Glucose 94 mg/dL (65-115); Osmolality Calculated 284 mOsm/kg (285-295); Salicylate 0.9 mg/dL (3-10); Sodium 138 mmol/L (136-145); Total Bilirubin 0.2 mg/dL (0.15-1.2); Total Protein 6.9 g/dL (6.6-8.7)
[2020-12-22 20:36] LABS: Acetaminophen < 5.0 ug/mL (10-30); Alcohol Level < 10 mg/dL (0-10)
[2020-12-22 21:05] LABS: Amphetamines Screen Urine Positive (Negative); Barbiturates Screen Urine Negative (Negative); Benzodiazepines Screen Urine Negative (Negative); Cocaine Screen Urine Negative (Negative); Opiate Screen Urine Negative (Negative); PCP Screen Urine Negative (Negative); THC Screen Urine Negative (Negative)
[2020-12-22 22:00] VITALS: BP 143/90; PULSE 73; RESP 18; O2SAT 99
[2020-12-22 22:48] VITALS: BP 157/94; PULSE 68; RESP 17; TEMP 36.7; O2SAT 98
--- NOTE | 2020-12-22 23:10 | PC.NURSE ---
SI/ Psychosis Meth Patient is a 40-year-old female who presents to ED today via EMS for complaints of suicidal ideations. Patient tells me she has a plan to blow her head off . She states she had a gun up to her chin earlier today. Pt has fresh cuts to the anterior side of the left wrists that are superficial, she admits to cutting herself with intent to kill herself with her kitchen culturist knife. She says she is hearing animals inside her that are trying to get out . She admits to methamphetamine use.
[2020-12-22] MEDS: trazodone 50 mg Tablet PO (23:50)
[2020-12-22] MEDS: hyDROXYzine 25 mg Capsule 50 MG PO (23:50)
--- NOTE | 2020-12-23 01:12 | PC.NURSE ---
At 2350 the patient was given Trazodone 50 mg po for sleep and Vistaril 50 mg po for anxiety. Currently appears to be asleep.
--- NOTE | 2020-12-23 04:31 | PC.NURSE ---
Self inflicted cuts to left anterior wrist, superficial, pt stated, I did this with a artificial fly tier knife because I was not sure if I wanted to kill myself or not. She said this with a smile on her face.
[2020-12-23 06:00] VITALS: BP 149/87; PULSE 62; RESP 18; TEMP 36.7; O2SAT 96; BMI 24.6
[2020-12-23] MEDS: fluoxetine 10 mg Capsule PO (07:59)
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
[2020-12-23 14:00] VITALS: BP 107/72; PULSE 102; RESP 16; TEMP 36.7; O2SAT 98
[2020-12-23] MEDS: hyDROXYzine 25 mg Capsule 50 MG PO (16:32)
--- NOTE | 2020-12-23 16:32 | PC.NURSE ---
PRN VISTARIL 50 MG GIVEN PO PER PT C/O STATED ANXIETY. NO OUTWARD ANXIETY PRESENT. PT YAWNED WHILE WAITING TO RECEIVE MEDICATION, STATED TO THIS MED NURSE I'M TIRED AND THEN SMILED. WILL CONT TO MONITOR
[2020-12-23 20:08] VITALS: BP 108/62; PULSE 108; RESP 24; TEMP 36.9; O2SAT 97
[2020-12-23] MEDS: trazodone 50 mg Tablet PO (20:43)
[2020-12-23] MEDS: OLANZapine 10 mg TABLET PO (20:43)
[2020-12-24 06:00] VITALS: BP 99/60; PULSE 60; RESP 15; TEMP 36.9; O2SAT 96
[2020-12-24] MEDS: fluoxetine 10 mg Capsule PO (08:01)
--- NOTE | 2020-12-24 10:01 | PM.NPN ---
Subjective NPU Subjective: Interval history: Patient sitting up on her bed, talking to the child protective services social worker Reports feeling better today but continues to have some hesitancy and worries about being able to manage life outside of the hospital Reports stress related anxiety Denies any depressive symptoms but when asked about suicidality patient states, I do not know. Denies any psychotic symptoms Reports being compliant with her medication, denies any medication side effects Per staff, no interval behavioral disturbances Mental Status Exam MSE Comments: Sitting up in her bed, appropriately groomed and dressed wearing hospital scrubs, calm, cooperative, interactive, good eye contact Psychomotor activity is neither increased or decreased, no agitation Speech is childlike, normal rate, normal volume, spontaneous, not pressured I am fine, full range of affect, not labile Alert and oriented to person, place and time as well as situation Memory and concentration appear to be intact per interview Thought process, organized, linear, no flight of ideas, no looseness of associations Thought content, no delusions, no hallucinations, does not report being suicidal, no homicidal ideation Insight and judgment appear to be poor Vitals/I&O/Wt Last Vital Signs Temp 98.4 F 12/24/20 06:00 Pulse 60 12/24/20 06:00 Resp 15 12/24/20 06:00 BP 99/60 12/24/20 06:00 Pulse Ox 96 12/24/20 06:00 Weight last 48 hrs Weight 67.132 kg Weight 67.132 kg Data NPU : 12/22/20 19:30 12/22/20 19:30 A&P Assessment and plan (1) Suicidal ideation: Status: Acute (2) Acute psychosis: Status: Acute (3) Polysubstance abuse: Status: Acute (4) Methamphetamine use: Status: Acute Additional A&P Information Reports some improvement, continues to have stress related anxieties, requesting post discharge substance rehabilitation CONTINUE current medication, continue to monitor Involuntary Hold Information 96 Hour Hold: 96 Hour Involuntary Admission: Yes 96 Hour Hold Ending Date: 12/28/20 96 Hour Hold Ending Time: 22:22 Attestations NPU Medical Necessity Statement*: Continues to require psychiatric hospitalization for medication stabilization Coding Level of Care Code Acute Campus Recruiting Coordinator for Ioana Fwaime Diagnoses Suicidal ideation R45.851 Acute psychosis F23 Polysubstance abuse F19.10 Methamphetamine use F15.10
--- NOTE | 2020-12-24 10:26 | PC.NUTR ---
Nutrition assessment: Pt triggered at risk due to possible wt loss per MST. Wt loss of 22 lbs noted since September 2019 per previous admission records, however this places pt at same weight from April of 2020 (gained and then later lost approximately same amount). Recommend to monitor weight during admission for further changes and encourage po intakes of meals/fluids. See RD assessment for further details.
[2020-12-24 14:00] VITALS: BP 132/67; PULSE 88; RESP 16; TEMP 36.7; O2SAT 97
[2020-12-24] MEDS: hyDROXYzine 25 mg Capsule 50 MG PO ×2 (15:27→20:50)
[2020-12-24] MEDS: OLANZapine 10 mg TABLET PO (20:51)
[2020-12-24 21:21] VITALS: BP 107/66; PULSE 100; RESP 16; TEMP 37; O2SAT 97
[2020-12-25 05:06] VITALS: RESP 18; TEMP 37.1
[2020-12-25] MEDS: fluoxetine 10 mg Capsule PO (08:44)
[2020-12-25] MEDS: hyDROXYzine 25 mg Capsule 50 MG PO ×2 (09:19→13:55)
--- NOTE | 2020-12-25 09:20 | PC.NURSE ---
PRN VISTARIL GIVEN AT PT REQUEST FOR C/O ANXIETY.
--- NOTE | 2020-12-25 10:15 | PM.NPN ---
Subjective NPU Subjective: Interval history: States that she continues to hear some voices but not very loud, denies any visual destinations, denies any delusions Denies any interval mood symptoms, denies any suicidal ideation Reports that her appetite has been improving States that she slept well Reports being compliant with her medication, denies any medication side effects Mental Status Exam MSE Comments: Appropriately groomed and dressed wearing hospital scrubs, calm, cooperative, interactive, good eye contact Psychomotor activity is neither increased or decreased, no agitation Speech is childlike, normal rate, normal volume, spontaneous, not pressured I feel okay, full range of affect, not labile Alert and oriented to person, place and time as well as situation Memory and concentration appear to be intact per interview Thought process, organized, linear, no flight of ideas, no looseness of associations Thought content, no delusions, no hallucinations, does not report being suicidal, no homicidal ideation Insight and judgment appear to be poor Vitals/I&O/Wt Last Vital Signs Temp 98.8 F 12/25/20 05:06 Pulse 100 12/24/20 21:21 Resp 18 12/25/20 05:06 BP 107/66 12/24/20 21:21 Pulse Ox 97 12/24/20 21:21 Data NPU : 12/22/20 19:30 12/22/20 19:30 A&P Assessment and plan (1) Suicidal ideation: Status: Acute (2) Acute psychosis: Status: Acute (3) Polysubstance abuse: Status: Acute (4) Methamphetamine use: Status: Acute Additional A&P Information Continues to report some psychotic symptoms, improving mood START gabapentin 100 mg 3 times daily CONTINUE other medication, continue to monitor Involuntary Hold Information 96 Hour Hold: 96 Hour Involuntary Admission: Yes 96 Hour Hold Ending Date: 12/28/20 96 Hour Hold Ending Time: 22:22 Attestations NPU Medical Necessity Statement*: Continues to require psychiatric hospitalization for medication stabilization Coding Level of Care Code Acute Gaming Cage Worker for Ioana Alcaraz Diagnoses Suicidal ideation R45.851 Acute psychosis F23 Polysubstance abuse F19.10 Methamphetamine use F15.10
[2020-12-25 13:02] VITALS: BP 106/68; PULSE 110; RESP 18; TEMP 37; O2SAT 96
[2020-12-25 15:10] VITALS: BP 106/68; PULSE 110; RESP 18; TEMP 37; O2SAT 96
--- NOTE | 2020-12-26 08:30 | PM.NDC ---
Diagnoses at Discharge Discharge Diagnosis (1) Suicidal ideation: Status: Acute (2) Acute psychosis: Status: Acute (3) Polysubstance abuse: Status: Acute (4) Methamphetamine use: Status: Acute Reason for Visit Reason for Visit: SI Hospital Course Hospital Course 40 year old female resents under similar circumstances as previous admissions although has relapsed over the last couple of admissions using methamphetamine and presenting with complaints of perceptual disturbances of hearing things and seeing things and believing that animals are inside of her. Patient also continues to state I am going to blow my brains out in addition to complaining of auditory hallucinations in order to gain admission. Patient is organized and linear in her communications this morning and does not appear to be attending to any internal stimuli although states that occasionally she does have some perceptual disturbances but appears to be completely reconstituted from previously reported behavior. Patient was denying any suicidal ideation at the time of initial evaluation but continued to report some depressive symptoms. Patient appears to go to the pharmacy and asked to have her old medication regimen refilled instead of continuing medication as prescribed at the time of previous discharges from this facility despite prior coordination with her treating physician outside the hospital. Patient was restarted on olanzapine 10 mg at bedtime and fluoxetine 10 mg daily with good effect and no reports of any medication side effects. Patient mostly states herself to participate in unit milieu with no reports of any behavioral disturbances. Patient reported improvement in her mood and affect and stated that she would attend substance counseling and treatment this time despite multiple episodes of noncompliance after previous discharges from this facility as well as noncompliance with outpatient follow-up. Patient at no time during this hospitalization endorse any suicidal ideation and was not endorsing any psychiatric symptoms at the time of discharge and did not appear to pose an imminent threat of harm to self or others. She continues to be a low to moderate risk of harm given no current suicidal ideation and no endorsement of any psychiatric symptoms although patient has a history of borderline personality with poor, maladaptive coping which could potentially elevate her risk leading to unexpected, impulsive behaviors. Risk mitigation included psychiatric hospitalization for observation for any ongoing suicidal or homicidal ideation or behaviors, restarting her home medications, recommendation to abstain from the use of any substances as well as recommendation to be compliant with her outpatient medication, medication management and and therapy follow-up targeting the development of more adaptive, appropriate coping strategies in the context of ongoing life stressors. Patient communicated her understanding of the need to abstain from use of any substances and alcohol as well as the need for compliance with her medication, medication management and the need to be compliant with follow-up on substance counseling/treatment in order to further mitigate her risk of harm to self and others. Involuntary Hold Information 96 Hour Hold: 96 Hour Involuntary Admission: Yes 96 Hour Hold Ending Date: 12/28/20 96 Hour Hold Ending Time: 22:22 Mental Status Exam MSE Comments: No change from previous mental status evaluation. Appropriately groomed and dressed wearing hospital scrubs, calm, cooperative, interactive, good eye contact Psychomotor activity is neither increased or decreased, no agitation Speech is childlike, normal rate, normal volume, spontaneous, not pressured I feel okay, full range of affect, not labile Alert and oriented to person, place and time as well as situation Memory and concentration appear to be intact per interview Thought process, organized, linear, no flight of ideas, no looseness of associations Thought content, no delusions, no hallucinations, does not report being suicidal, no homicidal ideation Insight and judgment appear to be poor Discharge Data Vitals: Last Vital Signs Temp 98.6 F 12/25/20 15:10 Pulse 110 H 12/25/20 15:10 Resp 18 12/25/20 15:10 BP 106/68 12/25/20 15:10 Pulse Ox 96 12/25/20 15:10 Discharge Plan Discharge Patient Disposition: Home Condition: Stable Prescriptions: No Action olanzapine 10 mg Tablet 10 mg PO BEDTIME 30 Days Qty: 30 RF: 1 fluoxetine 10 mg Capsule 10 mg PO DAILY 30 Days Qty: 30 RF: 1 Discharge Orders: Discharge Order (Routine); Ordered 12/25/20 Ordered By: Shelby Mora Referrals: [facility] [place] [Outside] - 01/03/21 11:45 am (Follow-up with Luz Queen ) Patient Instructions: Brief Psychotic Disorder (DC), Methamphetamine Abuse (DC), Opioid Safety Discharge Attestations NPU Time Spent in Discharge Care*: less than 30 min Status at Discharge: Cognitive status at discharge: cognitively intact, Behavioral status at discharge: cooperative, Functional status at discharge: independent ambulation Overall status at discharge: patient is back to baseline Coding Level of Care Code Acute Chg FW DC note Diagnoses Suicidal ideation R45.851 Acute psychosis F23 Polysubstance abuse F19.10 Methamphetamine use F15.10
--- NOTE | 2020-12-27 07:16 | PC.RESP ---
SMOKING CESSATION INFORMATION SENT TO PATIENT.
== END 2020-12-25 16:43 | disposition home or self-care (01) | DRG 885 ==
LOC: ER 19:06 → NP 22:30
PROVIDERS: Admitting Provider Psychiatry & Neurology Psychiatry; Emergency Provider Physician Assistant; PCP Family Medicine; Visit Provider Psychiatry & Neurology Psychiatry
DX: F23 Brief psychotic disorder (principal); R45.851 Suicidal ideations; F19.10 Other psychoactive substance abuse, uncomplicated; F15.90 Other stimulant use, unspecified, uncomplicated; F17.210 Nicotine dependence, cigarettes, uncomplicated; F41.1 Generalized anxiety disorder; F31.9 Bipolar disorder, unspecified
CPT/HCPCS: 80053; 80306; 80307; 85025; 99285

== ENCOUNTER 2021-01-07 17:19 | Inpatient (IN) | payer MEDICAID, SELFPAY ==
[2021-01-07 17:39] VITALS: BP 131/88; PULSE 105; RESP 20; TEMP 37.1; O2SAT 97; BMI 25.0
[2021-01-07 17:48] VITALS: RESP 20; TEMP 37.1; O2SAT 97
[2021-01-07 19:43] LABS: Basophils % 0.3 %; Eosinophils % 0.2 %; Hematocrit 44.1 % (37.0-47.0); Hemoglobin 14.4 g/dL (11.5-15.3); Lymphocytes # 2.2 10^3/uL (0.8-4.8); Lymphocytes % 16.8 %; Mean Corpuscular HGB Conc 32.7 g/dL (30.0-36.0); Mean Corpuscular Volume 88.7 fL (81-99); Mean Platelet Volume 9.4 fL (7.4-10.4); Monocytes # 1.1 10^3/uL (0.2-0.9); Monocytes % 8.1 %; Neutrophils # 9.67 10^3/uL (1.8-7.7); Neutrophils % 74.3 %; Nucleated Red Blood Cells % 0 %; Platelet Count 578 10^3/cmm (130-400); Red Blood Count 4.97 10^6/uL (4.1-5.3); Red Cell Distribution Width 14.4 % (12.1-15.1)
[2021-01-07 20:07] LABS: HCG Qualitative Urine. Negative (Negative)
[2021-01-07 20:07] LABS: Alanine Aminotransferase 28 U/L (0-33); Albumin Level 4.7 g/dL (3.5-5.2); Alkaline Phosphatase 141 IU/L (35-105); Anion Gap 17.7 (5-19); Aspartate Amino Transferase 14 U/L (0-32); Blood Urea Nitrogen 7 mg/dL (6-20); Calcium 9.5 mg/dL (8.5-10.5); Carbon Dioxide 20 mmol/L (22-29); Chloride 104 mmol/L (98-107); Glomerular Filtration Rate 110.7 mL/min (90-130); Glucose 104 mg/dL (65-115); Osmolality Calculated 284 mOsm/kg (285-295); Potassium 3.7 mmol/L (3.5-5.1); Salicylate 0.5 mg/dL (3-10); Sodium 138 mmol/L (136-145); Thyroid Stimulating Hormone 0.35 uIU/mL (0.27-4.20); Total Bilirubin 0.4 mg/dL (0.15-1.2); Total Protein 7.7 g/dL (6.6-8.7)
[2021-01-07 20:11] LABS: Acetaminophen < 5.0 ug/mL (10-30); Alcohol Level < 10 mg/dL (0-10)
[2021-01-07 20:14] LABS: Add Urine Culture? No; Add Urine Microscopic? YES; Amorphous Sediment Urine 1+ /hpf; Amphetamines Screen Urine Positive (Negative); Bacteria Urine TRACE /hpf; Barbiturates Screen Urine Negative (Negative); Benzodiazepines Screen Urine Negative (Negative); Bilirubin Urine 1+ (Negative); Blood Urine Neg (Negative); Cocaine Screen Urine Negative (Negative); Glucose Urine UA Norm (Normal); Ketones Urine 1+ (Negative); Leukocyte Esterase Urine Negative (Negative); Mucus Urine 3+ /hpf; Nitrate Urine Negative (Negative); Opiate Screen Urine Positive (Negative); PCP Screen Urine Negative (Negative); Protein Urine Neg (Negative); RBC Urine 0-4 /hpf (0-2); Squamous Epithelial Cell Urine 15-25 /hpf (0-5); THC Screen Urine Negative (Negative); Urine Appearance Hazy (CLEAR); Urine Color Yellow (Yellow); Urobilinogen Urine 1 mg/dL (Negative); WBC Urine 0-4 /hpf (0-5); pH Urine 5 (5-7)
[2021-01-07 20:27] LABS: SARS Covid-2 Antigen Negative (Negative)
--- NOTE | 2021-01-07 21:09 | ED_ITS ---
HPI - Psych General: Chief Complaint: Psychiatric Symptoms Stated Complaint: SI Time Seen by Provider: 01/07/21 19:01 History of Present Illness: HPI Narrative: The patient is a 40-year-old female who comes to the ER complaining of suicidal ideations and says she wants to shoot herself in the head with a gun. She also says that there is a romano machine inside of her making pains that are burning and going out of her body. She is a frequent meth abuser. History of getting psychotic with abuse. MD complaint: suicidal ideation History of same: Yes Context: recent drug abuse and significant life stressor Associated psychiatric symptoms: suicidal ideation and delusions Associated symptoms: Reports delusions and suicidal ideation If self harm: admits thoughts of self harm and has plan Review of Systems General: Reports: 10 or more systems reviewed and unremarkable except in HPI and below Const: Denies: fatigue Eyes: Denies: change in vision, blurry vision or eye redness ENMT: Denies: throat pain, swelling of lips/tongue, ear or mastoid pain or nasal congestion Card: Denies: chest pain, palpitations, irregular heart rhythm, edema, dyspnea on exertion or orthopnea Resp: Denies: dyspnea, productive cough or non-productive cough GI: Denies: abdominal pain, diarrhea or GI cramping : Denies: flank pain, difficulty voiding, urinary frequency or urinary urgency Musc: Denies: neck pain, back pain, extremity pain, joint pain, joint redness, limited range of motion or muscle weakness Skin/Breast: Denies: rash, pruritus, erythema, skin pain or skin tenderness Neuro: Denies: headache(s), numbness in extremities, weakness in extremities, sensory changes, difficulty walking, dizziness, confusion or Slurred speech present Psych: Reports: suicidal ideation Endo: Denies: polyuria All/Imm: Denies: urticaria, throat swelling or tongue swelling PFSH ED PFSH: Medical History Alcohol abuse Alcohol dependence, in remission Anxiety Bipolar affective, depress, unspec Generalized anxiety disorder Other stimulant dependence, in remission Psychiatric care Family History Grandfather No problems noted. Grandmother Stroke Maternal great Heart disease paternal Hypertension maternal Father Heart disease Hypertension Family/Other Breast cancer maternal aunt Denies family history of Colon cancer Ovarian cancer Uterine cancer Thyroid disease Social History Smoking and tobacco status: current every day smoker cigarettes Packs smoked per day: 1.5 Alcohol intake: never Female Reproductive History: Date of last menstrual period: 12/22/17 Physical Exam Const: COMMON NORMALS: no acute distress, average body habitus, patient oriented x3, no limitations, healthy appearing, alert and well nourished GENERAL APPEARANCE: cooperative, comfortable and well developed ORIENTATION/CONSCIOUSNESS: Yes awake, Yes oriented to person, Yes oriented to place and Yes oriented to time HENMT: COMMON NORMALS: normocephalic, external ears normal and Normal external nose present HEAD & SCALP: normal to inspection and normocephalic NOSE: Normal external nose present EXTERNAL EAR: Yes external ears normal MOUTH: Normal oral and palatal mucosa present THROAT: posterior oropharynx normal Eye: COMMON NORMALS: Equal, round and reactive pupils present and EOMs intact bilaterally GENERAL EYE: appearance normal, both eyes and all related structures PUPIL: Yes Equal, round and reactive pupils present Neck/C-Spine: COMMON NORMALS: full ROM, no lymphadenopathy, no meningeal signs and no JVD GENERAL: Yes normal visual inspection Lymph: LYMPHATIC: no lymphadenopathy noted Chest: COMMONS NORMALS: normal inspection of the chest and normal palpation of entire chest wall Resp: COMMON NORMALS: normal respiratory effort, No retractions, No use of accessory muscles, clear to auscultation bilaterally and percussion normal EFFORT & INSPECTION: Yes able to speak in complete sentences AUSCULTATION: clear to auscultation bilaterally PERCUSSION: percussion normal Cardio: COMMON NORMALS: no JVD, regular rhythm, S1 normal heart sound present, S2 normal heart sound present and Peripheral pulses 2+ throughout RATE: tachycardic RHYTHM: regular rhythm HEART SOUNDS: S1 normal heart sound present and S2 normal heart sound present PERIPHERAL PULSES: Peripheral pulses 2+ throughout GI: COMMON NORMALS: Normal to inspection, nondistended, normoactive bowel sounds present, Soft to palpation, non-tender and no masses INSPECTION: Yes normal to inspection PALPATION: Yes Soft to palpation : COMMON NORMALS: Yes no CVA tenderness BLADDER/KIDNEY EXAM: Yes no CVA tenderness Back/Pelvis: COMMON NORMALS: no CVA tenderness, thoracic and lumbar spine normal to inspection, no thoracic nor lumbar tenderness and thoraco-lumbar ROM normal Extremity: COMMON NORMALS: normal to inspection, full ROM, capillary refill normal, no joint enlargement and no pedal edema GENERAL: Yes normal exam except as noted Neuro: COMMON NORMALS: patient oriented x3, CN's II-XII intact bilaterally, moves all extremities, no focal motor deficits, no sensory deficits noted and gait normal SENSORIUM/ORIENTATION: Yes alert, Yes oriented to person, Yes oriented to place and Yes oriented to time MENINGEAL SIGNS: Yes no meningeal signs Psych: COMMON NORMALS: mental status grossly normal, cooperative, normal affect and speech normal APPEARANCE: Yes unkempt ATTITUDE: Yes bizarre SPEECH: Yes normal speech MOOD & AFFECT: Yes anxious THOUGHT PROCESS: disorganized and Flight of ideas present THOUGHT CONTENT: Yes Suicidality present, No Homicidality present, Yes delusions and Yes other (Has delusions that a machine is making pans inside of her) Skin: COMMON NORMALS: no rashes or lesions noted GENERAL SKIN EXAM: no rashes or lesions noted Course Vital Signs: Vital signs: Vital Signs Temperature 98.8 F 01/07/21 17:48 Pulse Rate 105 H 01/07/21 17:39 Respiratory Rate 20 H 01/07/21 17:48 Blood Pressure 131/88 01/07/21 17:39 Pulse Oximetry 97 01/07/21 17:48 MDM - Psych MDM Narrative: Medical decision making narrative: The patient believes she has a romano machine inside of her that is making hands which then go outside of her and are burning. She also admits suicidal ideation with plan to shoot herself in the head with a gun. Discussed with Dr. Walter who accepts for admission. She is positive for meth and opiates. Lab Data: Labs: Lab Results 01/07/21 01/07/21 01/07/21 Range/Units 19:35 19:35 19:35 WBC 13.0 H (4.0-10.0) 10^3/ uL RBC 4.97 (4.1-5.3) 10^6/u L Hgb 14.4 (11.5-15.3) g/dL Hct 44.1 (37.0-47.0) % MCV 88.7 (81-99) fL MCH 29.0 (28.0-34.0) pg MCHC 32.7 (30.0-36.0) g/dL RDW 14.4 (12.1-15.1) % Plt Count 578 H (130-400) 10^3/c mm MPV 9.4 (7.4-10.4) fL Neut % (Auto) 74.3 % Lymph % (Auto) 16.8 % Victoria % (Auto) 8.1 % Eos % (Auto) 0.2 % Baso % (Auto) 0.3 % Neut # (Auto) 9.67 H (1.8-7.7) 10^3/u L Lymph # (Auto) 2.2 (0.8-4.8) 10^3/u L Victoria # (Auto) 1.1 H (0.2-0.9) 10^3/u L Eos # (Auto) 0.0 (0.0-0.8) 10^3/u L Baso # (Auto) 0.0 (0.0-0.1) 10^3/u L Nucleated RBC % (a uto) 0 % Nucleated RBCs # 0.0 /100WBC Sodium 138 (136-145) mmol/L Potassium 3.7 (3.5-5.1) mmol/L Chloride 104 (98-107) mmol/L Carbon Dioxide 20 L (22-29) mmol/L Anion Gap 17.7 (5-19) BUN 7 (6-20) mg/dL Creatinine 0.6 (0.5-0.9) mg/dL GFR Calculation 110.7 (90-130) mL/min Glucose 104 (65-115) mg/dL Calculated Osmolal ity 284 L (285-295) mOsm/k g Calcium 9.5 (8.5-10.5) mg/dL Total Bilirubin 0.4 (0.15-1.2) mg/dL AST 14 (0-32) U/L ALT 28 (0-33) U/L Alkaline Phosphata se 141 H (35-105) IU/L Total Protein 7.7 (6.6-8.7) g/dL Albumin 4.7 (3.5-5.2) g/dL Globulin 3.0 (1.3-4.6) g/dL TSH 0.35 (0.27-4.20) uIU/ mL HCG, Qual (Negative) Urine Color (Yellow) Urine Appearance (CLEAR) Urine pH (5-7) Ur Specific Gravit y (1.005-1.030) Urine Protein (Negative) Urine Glucose (UA) (Normal) Urine Ketones (Negative) Urine Blood (Negative) Urine Nitrate (Negative) Urine Bilirubin (Negative) Urine Urobilinogen (Negative) mg/dL Ur Leukocyte Rosaura ase (Negative) Urine RBC (0-2) /hpf Urine WBC (0-5) /hpf Ur Squamous Epith Cells (0-5) /hpf Amorphous Sediment /hpf Urine Bacteria (NONE) /hpf Urine Mucus /hpf Salicylates 0.5 L (3-10) mg/dL Urine Opiates Scre en (Negative) ng/mL Acetaminophen < 5.0 L (10-30) ug/mL Ur Barbiturates Sc reen (Negative) ng/mL Ur Phencyclidine S crn (Negative) ng/mL Ur Amphetamines Sc reen (Negative) ng/mL U Benzodiazepines Scrn (Negative) ng/mL Urine Cocaine Scre en (Negative) ng/mL U Marijuana (THC) Screen (Negative) ng/mL Ethyl Alcohol < 10 (0-10) mg/dL SARS-CoV-2 Ag (Rap id) Negative (Negative) 01/07/21 01/07/21 01/07/21 Range/Units 19:45 19:45 19:45 WBC (4.0-10.0) 10^3/ uL RBC (4.1-5.3) 10^6/u L Hgb (11.5-15.3) g/dL Hct (37.0-47.0) % MCV (81-99) fL MCH (28.0-34.0) pg MCHC (30.0-36.0) g/dL RDW (12.1-15.1) % Plt Count (130-400) 10^3/c mm MPV (7.4-10.4) fL Neut % (Auto) % Lymph % (Auto) % Victoria % (Auto) % Eos % (Auto) % Baso % (Auto) % Neut # (Auto) (1.8-7.7) 10^3/u L Lymph # (Auto) (0.8-4.8) 10^3/u L Victoria # (Auto) (0.2-0.9) 10^3/u L Eos # (Auto) (0.0-0.8) 10^3/u L Baso # (Auto) (0.0-0.1) 10^3/u L Nucleated RBC % (a uto) % Nucleated RBCs # /100WBC Sodium (136-145) mmol/L Potassium (3.5-5.1) mmol/L Chloride (98-107) mmol/L Carbon Dioxide (22-29) mmol/L Anion Gap (5-19) BUN (6-20) mg/dL Creatinine (0.5-0.9) mg/dL GFR Calculation (90-130) mL/min Glucose (65-115) mg/dL Calculated Osmolal ity (285-295) mOsm/k g Calcium (8.5-10.5) mg/dL Total Bilirubin (0.15-1.2) mg/dL AST (0-32) U/L ALT (0-33) U/L Alkaline Phosphata se (35-105) IU/L Total Protein (6.6-8.7) g/dL Albumin (3.5-5.2) g/dL Globulin (1.3-4.6) g/dL TSH (0.27-4.20) uIU/ mL HCG, Qual Negative (Negative) Urine Color Yellow (Yellow) Urine Appearance Hazy A (CLEAR) Urine pH 5 (5-7) Ur Specific Gravit y 1.020 (1.005-1.030) Urine Protein Neg (Negative) Urine Glucose (UA) Norm (Normal) Urine Ketones 1+ H (Negative) Urine Blood Neg (Negative) Urine Nitrate Negative (Negative) Urine Bilirubin 1+ H (Negative) Urine Urobilinogen 1 H (Negative) mg/dL Ur Leukocyte Rosaura ase Negative (Negative) Urine RBC 0-4 H (0-2) /hpf Urine WBC 0-4 H (0-5) /hpf Ur Squamous Epith Cells 15-25 H (0-5) /hpf Amorphous Sediment 1+ /hpf Urine Bacteria Trace (NONE) /hpf Urine Mucus 3+ /hpf Salicylates (3-10) mg/dL Urine Opiates Scre en Positive H (Negative) ng/mL Acetaminophen (10-30) ug/mL Ur Barbiturates Sc reen Negative (Negative) ng/mL Ur Phencyclidine S crn Negative (Negative) ng/mL Ur Amphetamines Sc reen Positive H (Negative) ng/mL U Benzodiazepines Scrn Negative (Negative) ng/mL Urine Cocaine Scre en Negative (Negative) ng/mL U Marijuana (THC) Screen Negative (Negative) ng/mL Ethyl Alcohol (0-10) mg/dL SARS-CoV-2 Ag (Rap id) (Negative) Discharge Plan Discharge Patient Disposition: Admitted As Inpatient Clinical Impression: Polysubstance abuse, Acute psychosis, Suicidal ideation Condition: Stable Coding Level of Care Code ED [employer] Supervisor for Ioana Alcaraz
--- NOTE | 2021-01-07 22:30 | PC.NURSE ---
REPORT CALLED TO MARIA ESTHER IN NPU.
[2021-01-07 22:48] VITALS: BP 142/94; PULSE 101; RESP 26; TEMP 36.8; O2SAT 96
[2021-01-07] MEDS: trazodone 50 mg Tablet PO (23:41)
[2021-01-07] MEDS: OLANZapine 10 mg TABLET PO (23:41)
[2021-01-08 06:00] VITALS: BP 100/67; PULSE 77; RESP 16; TEMP 36.7; O2SAT 97
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
[2021-01-08] MEDS: fluoxetine 10 mg Capsule PO (09:21)
[2021-01-08 14:00] VITALS: BP 102/63; PULSE 122; RESP 20; TEMP 36.9; O2SAT 97
[2021-01-08] MEDS: OLANZapine 10 mg TABLET PO (20:15)
[2021-01-09 06:00] VITALS: BP 100/67; PULSE 90; RESP 18; TEMP 36.8; O2SAT 95
[2021-01-09] MEDS: fluoxetine 10 mg Capsule PO (08:20)
[2021-01-09 14:00] VITALS: BP 104/69; PULSE 92; RESP 18; TEMP 36.8; O2SAT 98
[2021-01-09] MEDS: hyDROXYzine 25 mg Capsule 50 MG PO ×2 (14:15→21:53)
--- NOTE | 2021-01-09 14:15 | PC.NURSE ---
Patient up at nurses station requesting something for anxiety. PRN Vistaril administered
--- NOTE | 2021-01-09 14:37 | P.PN_ITS ---
Subjective NPU Subjective: Interval history: Gold shultz today reporting that she is starting to feel little better. She is still isolating in staying in her bed mostly. We discussed the plan and her recovery was somewhat off of her radar but we had a lengthy discussion about the critical piece in place and her staying well. She endorsed a [facility] but would be open to some sober living treatment. Mental Status Exam MSE Comments: This is an overweight versus obese white female in hospital scrubs with adequate grooming and eye contact. No abnormal movements except for mild psychomotor retardation. Cooperative with exam in no acute distress. Speech was decreased rate and volume. Mood described as depressed, affect subdued. Thought process mostly organized. Thought content: Patient denied suicidal or homicidal ideation, there were no delusions reported or noted, she denied auditory or visual hallucinations. Attention and concentration are mostly intact and memory was unreliable but none were formally tested. She is alert and oriented x3. Insight and judgment are impaired, impulse control is impaired. Vitals/I&O/Wt Last Vital Signs Temp 98.2 F 01/09/21 06:00 Pulse 90 01/09/21 06:00 Resp 18 01/09/21 06:00 BP 100/67 01/09/21 06:00 Pulse Ox 95 01/09/21 06:00 Weight last 48 hrs Weight 68.039 kg Data NPU : 01/07/21 19:35 01/07/21 19:35 A&P Additional A&P Information (1) Suicidal ideation: (2) Acute psychosis: (3) Polysubstance abuse: (4) Methamphetamine use: (5) Adjustment disorder with mixed disturbance of emotions and conduct: (6) Borderline personality disorder: (7) Generalized anxiety disorder: (8) Alcohol dependence, in remission: (9) Other stimulant dependence, in remission: (10) Alcohol abuse: (11) Marijuana use: (12) Anxiety: (13) Bipolar affective, depress, unspec: (14) Cluster B personality disorder: Additional A&P Information This is a 40-year-old white female with a mental health and addiction issues as well as personality disorder who presents with active addiction and suicidality. 1. Continue current medication. 2. Continue every 15 minute checks for safety. 3. Encourage individual, group and milieu therapies. 4. Encourage sober living treatment after discharge at the highest level of care to which he is willing to commit. 5. Patient working with social work team for possible inpatient rehab services Involuntary Hold Information 96 Hour Hold: 96 Hour Involuntary Admission: Yes Attestations NPU Medical Necessity Statement*: Inpatient hospitalization is medically necessary and the clinically appropriate intervention at this time. We will monitor medications and make changes as indicated. Likely length of stay 2-4 days. Coding Level of Care Code Acute Infantry Operations Specialist for Ioana Alcaraz
[2021-01-09 21:08] VITALS: BP 98/66; PULSE 96; RESP 20; TEMP 36.6; O2SAT 99
[2021-01-09] MEDS: OLANZapine 10 mg TABLET PO (21:53)
--- NOTE | 2021-01-09 21:55 | PC.NURSE ---
Patient requesting Vistaril 50 mg PO for anxiousness.
[2021-01-10 06:00] VITALS: BP 102/66; PULSE 78; RESP 18; TEMP 36.7; O2SAT 98
[2021-01-10] MEDS: fluoxetine 10 mg Capsule PO (07:53)
[2021-01-10 14:00] VITALS: BP 114/74; PULSE 86; RESP 17; TEMP 36.7; O2SAT 97
[2021-01-10] MEDS: acetaminophen 325 mg Tablet 650 MG PO (14:15)
--- NOTE | 2021-01-10 18:09 | P.PN_ITS ---
Subjective NPU Subjective: Interval history: Brianna presents today reporting that she is doing a little better but was not getting at least one of her home meds she reported. We work with the nursing staff to make sure that was cleared up. He unfortunately found her self in a common conversation with her and that now that she is feeling better in the health or from the crisis she is looking ambivalent and noncommittal about an active sober living treatment to change her continued poor outcomes. Mental Status Exam MSE Comments: This is an overweight versus obese white female in hospital scrubs with adequate grooming and eye contact. No abnormal movements except for mild psychomotor retardation. Cooperative with exam in no acute distress. Speech was decreased rate and volume. Mood described as a little better, affect subdued. Thought process mostly organized. Thought content: Patient denied suicidal or homicidal ideation, there were no delusions reported or noted, she denied auditory or visual hallucinations. Attention and concentration are mostly intact and memory was unreliable but none were formally tested. She is alert and oriented x3. Insight and judgment are impaired, impulse control is limited. Vitals/I&O/Wt Last Vital Signs Temp 97.7 F 01/10/21 20:52 Pulse 84 01/10/21 20:52 Resp 17 01/10/21 20:52 BP 111/79 01/10/21 20:52 Pulse Ox 96 01/10/21 20:52 Data NPU : 01/07/21 19:35 01/07/21 19:35 A&P Additional A&P Information (1) Suicidal ideation: (2) Acute psychosis: (3) Polysubstance abuse: (4) Methamphetamine use: (5) Adjustment disorder with mixed disturbance of emotions and conduct: (6) Borderline personality disorder: (7) Generalized anxiety disorder: (8) Alcohol dependence, in remission: (9) Other stimulant dependence, in remission: (10) Alcohol abuse: (11) Marijuana use: (12) Anxiety: (13) Bipolar affective, depress, unspec: (14) Cluster B personality disorder: Additional A&P Information This is a 40-year-old white female with a mental health and addiction issues as well as personality disorder who presents with active addiction and suicidality. 1. Continue current medication. 2. Continue every 15 minute checks for safety. 3. Encourage individual, group and milieu therapies. 4. Encourage sober living treatment after discharge at the highest level of care to which he is willing to commit. 5. Patient working with social work team for possible inpatient rehab services, but starting to waver in her commitment to an active treatment. 6. Likely discharge in the next 48 hours. Involuntary Hold Information 96 Hour Hold: 96 Hour Involuntary Admission: Yes Attestations NPU Medical Necessity Statement*: Inpatient hospitalization is medically necessary and the clinically appropriate intervention at this time. We will monitor medications and make changes as indicated. Likely length of stay 1-3 days. Coding Level of Care Code Acute Executive Vice President [employer] Chief [employer] Officer for Ioana Alcaraz
[2021-01-10 20:52] VITALS: BP 111/79; PULSE 84; RESP 17; TEMP 36.5; O2SAT 96
[2021-01-10] MEDS: gabapentin 100 mg Capsule PO (20:52)
[2021-01-10] MEDS: trazodone 100 mg Tablet PO (20:52)
[2021-01-10] MEDS: OLANZapine 10 mg TABLET PO (20:52)
[2021-01-11 06:00] VITALS: BP 94/61; PULSE 66; RESP 16; TEMP 36.5; O2SAT 96
[2021-01-11] MEDS: gabapentin 100 mg Capsule PO ×2 (08:18→14:00)
[2021-01-11] MEDS: lithium carbonate ER 300 mg Tablet PO (08:18)
[2021-01-11] MEDS: fluoxetine 20 mg Capsule 60 MG PO (08:18)
[2021-01-11] MEDS: acetaminophen 325 mg Tablet 650 MG PO (13:58)
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
[2021-01-11 14:22] VITALS: BP 94/61; PULSE 66; RESP 16; TEMP 36.5; O2SAT 96
== END 2021-01-11 14:39 | disposition home or self-care (01) | DRG 885 ==
LOC: ER 21:26 → NP 21:53
PROVIDERS: Family Medicine; Admitting Provider Psychiatry & Neurology Psychiatry; Emergency Provider Family Medicine; PCP Family Medicine; Visit Provider Psychiatry & Neurology Psychiatry
DX: F23 Brief psychotic disorder (principal); R45.851 Suicidal ideations; F15.250 Other stimulant dependence with stimulant-induced psychotic disorder with delusions; F12.250 Cannabis dependence with psychotic disorder with delusions; F11.250 Opioid dependence with opioid-induced psychotic disorder with delusions; F15.24 Other stimulant dependence with stimulant-induced mood disorder; F31.5 Bipolar disorder, current episode depressed, severe, with psychotic features; F43.25 Adjustment disorder with mixed disturbance of emotions and conduct; F41.1 Generalized anxiety disorder; F60.89 Other specific personality disorders; F10.21 Alcohol dependence, in remission; F17.210 Nicotine dependence, cigarettes, uncomplicated; F15.21 Other stimulant dependence, in remission
CPT/HCPCS: 36415; 80053; 80306; 80307; 81001; 81025; 84443; 85025; 87426; 99285

== ENCOUNTER 2021-01-20 17:41 | Inpatient (IN) | payer MEDICAID, SELFPAY ==
[2021-01-20 17:50] VITALS: BP 135/97; PULSE 121; RESP 19; TEMP 37.3; O2SAT 95; BMI 25.0
--- NOTE | 2021-01-20 19:49 | W.ED.ANXIETY ---
HPI - Anxiety General: Chief Complaint: Anxiety Stated Complaint: anxiety Time Seen by Provider: 01/20/21 19:48 History of Present Illness: HPI narrative: 40-year-old female comes in today for concerns of hallucinations and suicidal and homicidal thought. Patient states that she wants to hurt her self due to taking large amounts of meth which has brought on these feelings. Patient also wants to kill the sugar who gave her the meth. Patient is very calm and cooperative. Patient responds appropriate to questioning. Patient is seeking admission to the neuropsychiatric unit. Patient admits to use of cigarette tobacco, marijuana, methamphetamines, and alcohol. Patient reports that she feels like there are spiders in her brain. Patient also admits that she is homeless. Review of Systems General: Reports: 10 or more systems reviewed and unremarkable except in HPI and below Psych: Reports: depression, visual hallucinations, tactile hallucinations, suicidal ideation and homicidal ideation FORMERLY [facility], [facility] ED PFSH: Medical History Alcohol abuse Alcohol dependence, in remission Anxiety Bipolar affective, depress, unspec Generalized anxiety disorder Other stimulant dependence, in remission Psychiatric care Family History Grandfather No problems noted. Grandmother Stroke Maternal great Heart disease paternal Hypertension maternal Father Heart disease Hypertension Family/Other Breast cancer maternal aunt Denies family history of Colon cancer Ovarian cancer Uterine cancer Thyroid disease Social History Smoking and tobacco status: current every day smoker cigarettes Packs smoked per day: 1.5 Alcohol intake: never Female Reproductive History: Date of last menstrual period: 12/22/17 Physical Exam Const: COMMON NORMALS: no acute distress and patient oriented x3 GENERAL APPEARANCE: cooperative HENMT: COMMON NORMALS: normocephalic, TM's normal bilaterally and Normal external nose present HEAD & SCALP: normal to inspection and normocephalic NOSE: Normal external nose present TYMPANIC MEMBRANE: TM's normal bilaterally MOUTH: Normal oral and palatal mucosa present THROAT: posterior oropharynx normal Eye: GENERAL EYE: appearance normal, both eyes and all related structures Neck/C-Spine: COMMON NORMALS: full ROM Lymph: LYMPHATIC: no lymphadenopathy noted Chest: COMMONS NORMALS: normal inspection of the chest Resp: COMMON NORMALS: normal respiratory effort EFFORT & INSPECTION: Yes able to speak in complete sentences Cardio: COMMON NORMALS: regular rate and regular rhythm RATE: regular rate RHYTHM: regular rhythm GI: COMMON NORMALS: non-tender : COMMON NORMALS: Yes no CVA tenderness BLADDER/KIDNEY EXAM: Yes no CVA tenderness Back/Pelvis: COMMON NORMALS: no CVA tenderness and thoracic and lumbar spine normal to inspection Extremity: COMMON NORMALS: normal to inspection Neuro: COMMON NORMALS: patient oriented x3 and moves all extremities Psych: COMMON NORMALS: cooperative APPEARANCE: Yes bizarre ATTITUDE: Yes calm ACTIVITY/MOTOR BEHAVIOR: Yes appropriate eye contact SPEECH: Yes soft MOOD & AFFECT: Yes euthymic mood THOUGHT PROCESS: Circumstantial thought process present THOUGHT CONTENT: Yes Suicidality present, Yes Homicidality present, Yes delusions (Believes someone gave her lots of meth to hurt her) Delusional thought content details: persecutory and Yes Hallucination(s) present (believe there is spiders in her head and crawling on her skin) visual and tactile INSIGHT: Fair insight present (Psych) JUDGEMENT: Fair judgement present (Psych) Skin: COMMON NORMALS: no rashes or lesions noted GENERAL SKIN EXAM: no rashes or lesions noted Course ED course: 2139, talked with Dr. Claudio Simpson, psychiatrist. He agreed for admission to the neuropsychiatric unit for further evaluation of patient's suicidal ideation and acute psychosis and polysubstance abuse. Vital Signs: Vital signs: Vital Signs Temperature 99.1 F 01/20/21 17:50 Pulse Rate 121 H 01/20/21 17:50 Respiratory Rate 19 H 01/20/21 17:50 Blood Pressure 135/97 01/20/21 17:50 Pulse Oximetry 95 01/20/21 17:50 MDM - Anxiety MDM Narrative: Medical decision making narrative: Patient comes in tonight for complaints of suicidal ideation and polysubstance abuse and acute psychosis. Patient is alert and oriented. Patient reports spiders crawling in her head and on her skin. Patient wants to end her life although has no set plan. Patient also wants to kill her meth dealer. Patient does admit to the use of alcohol, methamphetamines, cannabis, and tobacco. Laboratory values were unremarkable. Reviewed exam with Dr. Simpson who agreed for admission to neuropsychiatric unit. Patient needs admission for protection of self and further evaluation of her mental health condition for definitive treatment. Lab Data: Labs: Lab Results 01/20/21 01/20/21 01/20/21 Range/Units 19:50 19:50 19:50 WBC 13.6 H (4.0-10.0) 10^3/ uL RBC 5.05 (4.1-5.3) 10^6/u L Hgb 14.5 (11.5-15.3) g/dL Hct 45.1 (37.0-47.0) % MCV 89.3 (81-99) fL MCH 28.7 (28.0-34.0) pg MCHC 32.2 (30.0-36.0) g/dL RDW 14.2 (12.1-15.1) % Plt Count 577 H (130-400) 10^3/c mm MPV 9.9 (7.4-10.4) fL Neut % (Auto) 80.5 % Lymph % (Auto) 12.5 % [place] % (Auto) 6.5 % Eos % (Auto) 0.0 % Baso % (Auto) 0.2 % Neut # (Auto) 10.97 H (1.8-7.7) 10^3/u L Lymph # (Auto) 1.7 (0.8-4.8) 10^3/u L [place] # (Auto) 0.9 (0.2-0.9) 10^3/u L Eos # (Auto) 0.0 (0.0-0.8) 10^3/u L Baso # (Auto) 0.0 (0.0-0.1) 10^3/u L Nucleated RBC % (a uto) 0 % Nucleated RBCs # 0.0 /100WBC Sodium 135 L (136-145) mmol/L Potassium 3.4 L (3.5-5.1) mmol/L Chloride 99 (98-107) mmol/L Carbon Dioxide 20 L (22-29) mmol/L Anion Gap 19.4 H (5-19) BUN 10 (6-20) mg/dL Creatinine 0.7 (0.5-0.9) mg/dL GFR Calculation 92.7 (90-130) mL/min Glucose 97 (65-115) mg/dL Calculated Osmolal ity 279 L (285-295) mOsm/k g Calcium 9.2 (8.5-10.5) mg/dL Total Bilirubin 0.3 (0.15-1.2) mg/dL AST 12 (0-32) U/L ALT 12 (0-33) U/L Alkaline Phosphata se 129 H (35-105) IU/L Creatine Kinase 61 (26-192) U/L Total Protein 7.7 (6.6-8.7) g/dL Albumin 4.9 (3.5-5.2) g/dL Globulin 2.8 (1.3-4.6) g/dL TSH (0.27-4.20) uIU/ mL HCG, Qual Negative (Negative) Urine Color (Yellow) Urine Appearance (CLEAR) Urine pH (5-7) Ur Specific Gravit y (1.005-1.030) Urine Protein (Negative) Urine Glucose (UA) (Normal) Urine Ketones (Negative) Urine Blood (Negative) Urine Nitrate (Negative) Urine Bilirubin (Negative) Urine Urobilinogen (Negative) mg/dL Ur Leukocyte Rosaura ase (Negative) Urine RBC (0-2) /hpf Urine WBC (0-5) /hpf Ur Squamous Epith Cells (0-5) /hpf Amorphous Sediment /hpf Urine Bacteria (NONE) /hpf Urine Mucus /hpf Salicylates < 0.3 L (3-10) mg/dL Urine Opiates Scre en (Negative) ng/mL Acetaminophen < 5.0 L (10-30) ug/mL Ur Barbiturates Sc reen (Negative) ng/mL Ur Phencyclidine S crn (Negative) ng/mL Ur Amphetamines Sc reen (Negative) ng/mL U Benzodiazepines Scrn (Negative) ng/mL [place] (0.6-1.2) mmol/L Urine Cocaine Scre en (Negative) ng/mL U Marijuana (THC) Screen (Negative) ng/mL Ethyl Alcohol < 10 (0-10) mg/dL 01/20/21 01/20/21 01/20/21 Range/Units 19:50 19:50 19:50 WBC (4.0-10.0) 10^3/ uL RBC (4.1-5.3) 10^6/u L Hgb (11.5-15.3) g/dL Hct (37.0-47.0) % MCV (81-99) fL MCH (28.0-34.0) pg MCHC (30.0-36.0) g/dL RDW (12.1-15.1) % Plt Count (130-400) 10^3/c mm MPV (7.4-10.4) fL Neut % (Auto) % Lymph % (Auto) % [place] % (Auto) % Eos % (Auto) % Baso % (Auto) % Neut # (Auto) (1.8-7.7) 10^3/u L Lymph # (Auto) (0.8-4.8) 10^3/u L [place] # (Auto) (0.2-0.9) 10^3/u L Eos # (Auto) (0.0-0.8) 10^3/u L Baso # (Auto) (0.0-0.1) 10^3/u L Nucleated RBC % (a uto) % Nucleated RBCs # /100WBC Sodium (136-145) mmol/L Potassium (3.5-5.1) mmol/L Chloride (98-107) mmol/L Carbon Dioxide (22-29) mmol/L Anion Gap (5-19) BUN (6-20) mg/dL Creatinine (0.5-0.9) mg/dL GFR Calculation (90-130) mL/min Glucose (65-115) mg/dL Calculated Osmolal ity (285-295) mOsm/k g Calcium (8.5-10.5) mg/dL Total Bilirubin (0.15-1.2) mg/dL AST (0-32) U/L ALT (0-33) U/L Alkaline Phosphata se (35-105) IU/L Creatine Kinase (26-192) U/L Total Protein (6.6-8.7) g/dL Albumin (3.5-5.2) g/dL Globulin (1.3-4.6) g/dL TSH (0.27-4.20) uIU/ mL HCG, Qual (Negative) Urine Color Yellow (Yellow) Urine Appearance Cloudy (CLEAR) Urine pH 5 (5-7) Ur Specific Gravit y 1.025 (1.005-1.030) Urine Protein Trace (Negative) Urine Glucose (UA) Norm (Normal) Urine Ketones 1+ H (Negative) Urine Blood Neg (Negative) Urine Nitrate Negative (Negative) Urine Bilirubin 1+ H (Negative) Urine Urobilinogen 1 H (Negative) mg/dL Ur Leukocyte Rosaura ase Negative (Negative) Urine RBC 0-4 H (0-2) /hpf Urine WBC 0-4 H (0-5) /hpf Ur Squamous Epith Cells 10-15 H (0-5) /hpf Amorphous Sediment 3+ /hpf Urine Bacteria 1+ H (NONE) /hpf Urine Mucus 2+ /hpf Salicylates (3-10) mg/dL Urine Opiates Scre en Negative (Negative) ng/mL Acetaminophen (10-30) ug/mL Ur Barbiturates Sc reen Negative (Negative) ng/mL Ur Phencyclidine S crn Negative (Negative) ng/mL Ur Amphetamines Sc reen Positive H (Negative) ng/mL U Benzodiazepines Scrn Negative (Negative) ng/mL [place] 0.1 L (0.6-1.2) mmol/L Urine Cocaine Scre en Negative (Negative) ng/mL U Marijuana (THC) Screen Negative (Negative) ng/mL Ethyl Alcohol (0-10) mg/dL 01/20/21 Range/Units 19:50 WBC (4.0-10.0) 10^3/ uL RBC (4.1-5.3) 10^6/u L Hgb (11.5-15.3) g/dL Hct (37.0-47.0) % MCV (81-99) fL MCH (28.0-34.0) pg MCHC (30.0-36.0) g/dL RDW (12.1-15.1) % Plt Count (130-400) 10^3/c mm MPV (7.4-10.4) fL Neut % (Auto) % Lymph % (Auto) % [place] % (Auto) % Eos % (Auto) % Baso % (Auto) % Neut # (Auto) (1.8-7.7) 10^3/u L Lymph # (Auto) (0.8-4.8) 10^3/u L [place] # (Auto) (0.2-0.9) 10^3/u L Eos # (Auto) (0.0-0.8) 10^3/u L Baso # (Auto) (0.0-0.1) 10^3/u L Nucleated RBC % (a uto) % Nucleated RBCs # /100WBC Sodium (136-145) mmol/L Potassium (3.5-5.1) mmol/L Chloride (98-107) mmol/L Carbon Dioxide (22-29) mmol/L Anion Gap (5-19) BUN (6-20) mg/dL Creatinine (0.5-0.9) mg/dL GFR Calculation (90-130) mL/min Glucose (65-115) mg/dL Calculated Osmolal ity (285-295) mOsm/k g Calcium (8.5-10.5) mg/dL Total Bilirubin (0.15-1.2) mg/dL AST (0-32) U/L ALT (0-33) U/L Alkaline Phosphata se (35-105) IU/L Creatine Kinase (26-192) U/L Total Protein (6.6-8.7) g/dL Albumin (3.5-5.2) g/dL Globulin (1.3-4.6) g/dL TSH 0.74 (0.27-4.20) uIU/ mL HCG, Qual (Negative) Urine Color (Yellow) Urine Appearance (CLEAR) Urine pH (5-7) Ur Specific Gravit y (1.005-1.030) Urine Protein (Negative) Urine Glucose (UA) (Normal) Urine Ketones (Negative) Urine Blood (Negative) Urine Nitrate (Negative) Urine Bilirubin (Negative) Urine Urobilinogen (Negative) mg/dL Ur Leukocyte Rosaura ase (Negative) Urine RBC (0-2) /hpf Urine WBC (0-5) /hpf Ur Squamous Epith Cells (0-5) /hpf Amorphous Sediment /hpf Urine Bacteria (NONE) /hpf Urine Mucus /hpf Salicylates (3-10) mg/dL Urine Opiates Scre en (Negative) ng/mL Acetaminophen (10-30) ug/mL Ur Barbiturates Sc reen (Negative) ng/mL Ur Phencyclidine S crn (Negative) ng/mL Ur Amphetamines Sc reen (Negative) ng/mL U Benzodiazepines Scrn (Negative) ng/mL [place] (0.6-1.2) mmol/L Urine Cocaine Scre en (Negative) ng/mL U Marijuana (THC) Screen (Negative) ng/mL Ethyl Alcohol (0-10) mg/dL Discharge Plan Discharge Patient Disposition: Admitted As Inpatient Clinical Impression: Suicidal ideation, Polysubstance abuse, Acute psychosis Condition: Stable Coding Level of Care Code ED Design Eng for Ioana Alcaraz Exam Comprehensive
[2021-01-20 20:13] LABS: Basophils % 0.2 %; Hematocrit 45.1 % (37.0-47.0); Hemoglobin 14.5 g/dL (11.5-15.3); Lymphocytes # 1.7 10^3/uL (0.8-4.8); Lymphocytes % 12.5 %; Mean Corpuscular HGB Conc 32.2 g/dL (30.0-36.0); Mean Corpuscular Hemoglobin 28.7 pg (28.0-34.0); Mean Corpuscular Volume 89.3 fL (81-99); Mean Platelet Volume 9.9 fL (7.4-10.4); Monocytes # 0.9 10^3/uL (0.2-0.9); Monocytes % 6.5 %; Neutrophils # 10.97 10^3/uL (1.8-7.7); Neutrophils % 80.5 %; Nucleated Red Blood Cells % 0 %; Platelet Count 577 10^3/cmm (130-400); Red Blood Count 5.05 10^6/uL (4.1-5.3); Red Cell Distribution Width 14.2 % (12.1-15.1); White Blood Count 13.6 10^3/uL (4.0-10.0)
[2021-01-20 20:22] LABS: Alanine Aminotransferase 12 U/L (0-33); Albumin Level 4.9 g/dL (3.5-5.2); Alkaline Phosphatase 129 IU/L (35-105); Anion Gap 19.4 (5-19); Aspartate Amino Transferase 12 U/L (0-32); Blood Urea Nitrogen 10 mg/dL (6-20); Calcium 9.2 mg/dL (8.5-10.5); Carbon Dioxide 20 mmol/L (22-29); Chloride 99 mmol/L (98-107); Creatine Phosphokinase 61 U/L (26-192); Globulin 2.8 g/dL (1.3-4.6); Glomerular Filtration Rate 92.7 mL/min (90-130); Glucose 97 mg/dL (65-115); Osmolality Calculated 279 mOsm/kg (285-295); Potassium 3.4 mmol/L (3.5-5.1); Sodium 135 mmol/L (136-145); Total Bilirubin 0.3 mg/dL (0.15-1.2); Total Protein 7.7 g/dL (6.6-8.7)
[2021-01-20 20:28] LABS: HCG Qualitative Urine. Negative (Negative)
[2021-01-20 20:35] LABS: Amphetamines Screen Urine Positive (Negative); Barbiturates Screen Urine Negative (Negative); Benzodiazepines Screen Urine Negative (Negative); Cocaine Screen Urine Negative (Negative); Opiate Screen Urine Negative (Negative); PCP Screen Urine Negative (Negative); THC Screen Urine Negative (Negative)
[2021-01-20 20:36] LABS: Acetaminophen < 5.0 ug/mL (10-30); Alcohol Level < 10 mg/dL (0-10); Salicylate < 0.3 mg/dL (3-10)
[2021-01-20 20:38] LABS: Add Urine Microscopic? YES; Bilirubin Urine 1+ (Negative); Blood Urine Neg (Negative); Glucose Urine UA Norm (Normal); Ketones Urine 1+ (Negative); Leukocyte Esterase Urine Negative (Negative); Nitrate Urine Negative (Negative); Protein Urine Trace (Negative); Specific Gravity, Urine 1.025 (1.005-1.030); Urine Appearance Cloudy (CLEAR); Urine Color Yellow (Yellow); Urobilinogen Urine 1 mg/dL (Negative); pH Urine 5 (5-7)
[2021-01-20 20:42] LABS: Lithium 0.1 mmol/L (0.6-1.2); RBC Urine 0-4 /hpf (0-2); WBC Urine 0-4 /hpf (0-5)
[2021-01-20 20:43] LABS: Add Urine Culture? No; Amorphous Sediment Urine 3+ /hpf; Bacteria Urine 1+ /hpf; Mucus Urine 2+ /hpf
[2021-01-20] MEDS: ziprasidone 20 mg/mL SDV 10 MG IM (21:20)
[2021-01-20 21:43] LABS: Thyroid Stimulating Hormone 0.74 uIU/mL (0.27-4.20)
[2021-01-20 23:00] VITALS: BP 144/103; PULSE 110; RESP 16; TEMP 37.1; O2SAT 98
[2021-01-20 23:09] VITALS: BP 144/103; PULSE 110; RESP 16; TEMP 37.1; O2SAT 98
[2021-01-21 06:00] VITALS: BP 105/70; PULSE 108; RESP 20; TEMP 36.4; O2SAT 98
[2021-01-21] MEDS: lithium carbonate ER 300 mg Tablet PO (08:03)
[2021-01-21] MEDS: fluoxetine 20 mg Capsule 60 MG PO (08:03)
[2021-01-21] MEDS: gabapentin 100 mg Capsule PO ×3 (08:03→20:07)
[2021-01-21] MEDS: BuSPIRONE 10 mg Tablet PO (11:09)
--- NOTE | 2021-01-21 11:10 | PC.NURSE ---
Addendum entered by Rebeca Cuadra LPN 01/21/21 12:18: PRN MED EFFECTIVE NO FURTHER C/O ANXIETY Original Note: PRN BUSPAR 10 MG GIVEN PO PER PT C/O ANXIETY, PT TEARFUL UP AT THE DESK, SAYING SHE JUST CANT REST WILL CONT TO MONITOR
--- NOTE | 2021-01-21 13:31 | PM.NHP ---
Providers/Chief Complaint Admitting Physician: Claudio Simpson MD Primary Care Provider: Uma Mott DO Chief Complaint: anxiety HPI NPU History of Present Illness Brianna Real is a 40 year old female Meds NPU Home Medications Medication Instructions Recorded Confirmed Last Taken Type olanzapine 10 mg PO BEDTIME 30 Days #30 tab 11/16/20 01/20/21 Unknown Rx buspirone 10 mg PO TID PRN 01/10/21 01/20/21 Unknown History dicyclomine 20 mg PO QID PRN 01/10/21 01/20/21 Unknown History gabapentin 100 mg PO TID 01/10/21 01/20/21 Unknown History lithium carbonate [Lithobid] 300 mg PO DAILY 01/10/21 01/20/21 Unknown History trazodone 100 mg PO BEDTIME 01/10/21 01/20/21 Unknown History fluoxetine 60 mg PO DAILY 30 Days #90 cap 01/11/21 01/20/21 Unknown Rx Allergies Allergy/AdvReac Type Severity Reaction Status Date / Time Penicillins Allergy Intermediate rash Verified 01/20/21 17:50 Sulfa (Sulfonamide Allergy Unknown Verified 01/20/21 17:50 Antibiotics) PFSH NPU PFSH: Medical History Alcohol abuse Alcohol dependence, in remission Anxiety Bipolar affective, depress, unspec Generalized anxiety disorder Other stimulant dependence, in remission Psychiatric care Family History Grandfather No problems noted. Grandmother Stroke Maternal great Heart disease paternal Hypertension maternal Father Heart disease Hypertension Family/Other Breast cancer maternal aunt Denies family history of Colon cancer Ovarian cancer Uterine cancer Thyroid disease Social History Smoking and tobacco status: current every day smoker cigarettes Packs smoked per day: 1.5 Alcohol intake: never Vitals/I&O/Wt Last Vital Signs Temp 97.6 F 01/21/21 06:00 Pulse 108 H 01/21/21 06:00 Resp 20 H 01/21/21 06:00 BP 105/70 01/21/21 06:00 Pulse Ox 98 01/21/21 06:00 Weight last 48 hrs Weight 68.039 kg Data NPU : 01/20/21 19:50 01/20/21 19:50 Involuntary Hold Information 96 Hour Hold: 96 Hour Involuntary Admission: No Coding Level of Care Code Acute Data Support Specialist for Ioana Alcaraz
--- NOTE | 2021-01-21 13:31 | PM.NHP ---
Providers/Chief Complaint Admitting Physician: Claudoi Simpson MD Primary Care Provider: Uma Mott DO Chief Complaint: anxiety HPI NPU History of Present Illness Brianna Real is a 40 year old female who presented to the ED with hallucinations and suicidal and homicidal ideation. She has had 5 admissions for similar reasons in the past 3 months, along with multiple other ED visits for similar issues. The ED note states: 40-year-old female comes in today for concerns of hallucinations and suicidal and homicidal thought. Patient states that she wants to hurt her self due to taking large amounts of meth which has brought on these feelings. Patient also wants to kill the sugar who gave her the meth. Patient is very calm and cooperative. Patient responds appropriate to questioning. Patient is seeking admission to the neuropsychiatric unit. Patient admits to use of cigarette tobacco, marijuana, methamphetamines, and alcohol. Patient reports that she feels like there are spiders in her brain. Patient also admits that she is homeless. Patient was admitted to the neuropsychiatric unit for definitive treatment of these issues. She says she has been anxious and also has delusional complaints. For instance, she says I cannot get my body back, and I have the wrong brain. She feels that everyone is out to get her. She hears voices that make derogatory comments about her and make commands to harm herself and others. She has visual hallucinations, seeing faces on the wall. She also describes depression and suicidal ideation. The patient says she does not use alcohol, but has been smoking meth quite a bit. She also smokes marijuana and smokes 1 or more packs of cigarettes per day. The patient says she sees Dr. Des vogel for medication management and is supposed to be assigned a family preservation caseworker soon. She says she takes her medications daily. Psychiatric history: As above. Substance use history: As above. Family history: The patient said her mother committed suicide, shot herself in front of her when she was a child. She said she found her dad from an CO.. Psychosocial history: She says she lives with her [id number], but they do not always get along with each other. See past records for further psychosocial history. Legal history: No legal difficulties. Medical history: She says she has fibromyalgia. Meds NPU Home Medications Medication Instructions Recorded Confirmed Last Taken Type olanzapine 10 mg PO BEDTIME 30 Days #30 tab 11/16/20 01/20/21 Unknown Rx buspirone 10 mg PO TID PRN 01/10/21 01/20/21 Unknown History dicyclomine 20 mg PO QID PRN 01/10/21 01/20/21 Unknown History gabapentin 100 mg PO TID 01/10/21 01/20/21 Unknown History lithium carbonate [Lithobid] 300 mg PO DAILY 01/10/21 01/20/21 Unknown History trazodone 100 mg PO BEDTIME 01/10/21 01/20/21 Unknown History fluoxetine 60 mg PO DAILY 30 Days #90 cap 01/11/21 01/20/21 Unknown Rx Allergies Allergy/AdvReac Type Severity Reaction Status Date / Time Penicillins Allergy Intermediate rash Verified 01/20/21 17:50 Sulfa (Sulfonamide Allergy Unknown Verified 01/20/21 17:50 Antibiotics) PFSH NPU PFSH: Medical History Alcohol abuse Alcohol dependence, in remission Anxiety Bipolar affective, depress, unspec Generalized anxiety disorder Other stimulant dependence, in remission Psychiatric care Family History Grandfather No problems noted. Grandmother Stroke Maternal great Heart disease paternal Hypertension maternal Father Heart disease Hypertension Family/Other Breast cancer maternal aunt Denies family history of Colon cancer Ovarian cancer Uterine cancer Thyroid disease Social History Smoking and tobacco status: current every day smoker cigarettes Packs smoked per day: 1.5 Alcohol intake: never Mental Status Exam MSE Comments: I met with the patient in the day room and she is obviously psychotic. She has many delusions that she begins talking about immediately. She did her best to cooperate with the exam. Eye contact was limited. She had psychomotor agitation. Speech was at a regular rate and rhythm without pressure. She was alert and oriented to person place and month but not date and year. Attention and concentration were limited. However she was able to spell the word WORLD correctly forwards and backwards. Memory was impaired. She remembered 3/3 words immediately and 0/3 at 3 minutes. She knows 3 of the 4 past presidents. Mood is highly anxious as well as depressed.. She is tearful with emotional lability. Thought process is derailed by emotion. Thought content contains auditory and visual hallucinations, paranoid delusions, and suicidal but not homicidal ideation. Insight and judgment are impaired. Vitals/I&O/Wt Last Vital Signs Temp 97.6 F 01/21/21 06:00 Pulse 108 H 01/21/21 06:00 Resp 20 H 01/21/21 06:00 BP 105/70 01/21/21 06:00 Pulse Ox 98 01/21/21 06:00 Weight last 48 hrs Weight 68.039 kg Data NPU : 01/20/21 19:50 01/20/21 19:50 A&P Assessment and plan (1) Borderline personality disorder: Status: Acute (2) Bipolar affective, depress, unspec: Status: Acute (3) Acute psychosis: Status: Acute (4) Suicidal ideation: Status: Acute (5) Methamphetamine use: Status: Acute (6) Marijuana use: Status: Acute (7) Anxiety: Status: Acute Additional A&P Information This is a 40-year-old white female with a mental health and addiction issues as well as personality disorder who presents with psychosis, active addiction and suicidality. 1. Continue current medication. 2. Continue every 15 minute checks for safety. 3. Encourage individual, group and milieu therapies. 4. Encourage sober living treatment after discharge at the highest level of care to which she is willing to commit. Involuntary Hold Information 96 Hour Hold: 96 Hour Involuntary Admission: No Attestations NPU Medical Necessity Statement*: Psychiatric hospitalization is medically necessary to prevent access to lethal means, to reevaluate medication, and to coordinate a safe discharge. Patient will be in the hospital for over 2 midnights. Likely length of stay is 3 to 5 days. Coding Level of Care Code Acute Fish Hatchery Manager for Ioana Alcaraz Diagnoses Borderline personality disorder F60.3 Bipolar affective, depress, unspec F31.30 Acute psychosis F23 Suicidal ideation R45.851 Methamphetamine use F15.10 Marijuana use F12.90 Anxiety F41.9
[2021-01-21 14:00] VITALS: BP 110/68; PULSE 74; RESP 17; TEMP 36.6; O2SAT 96
[2021-01-21] MEDS: OLANZapine 5 mg ODT PO (16:14)
--- NOTE | 2021-01-21 16:15 | PC.NURSE ---
PRN ZYPREXA ZYDIS 5 MG GIVEN PO PER PT C/O PSYCHOSIS/YELLING OUT IN HER ROOM. TEARFUL, PARANOID, TALKING TO PEOPLE WHO AREN'T THERE IN HER ROOM. WILL CONT TO MONITOR
[2021-01-21] MEDS: trazodone 100 mg Tablet PO (20:07)
[2021-01-21] MEDS: OLANZapine 10 mg TABLET PO (20:07)
[2021-01-21 20:52] VITALS: BP 105/72; PULSE 108; RESP 18; TEMP 36.2; O2SAT 97
[2021-01-22 06:00] VITALS: BP 99/64; PULSE 101; RESP 16; TEMP 37.2; O2SAT 95
[2021-01-22] MEDS: fluoxetine 20 mg Capsule 60 MG PO (08:05)
[2021-01-22] MEDS: gabapentin 100 mg Capsule PO (08:05)
[2021-01-22] MEDS: lithium carbonate ER 300 mg Tablet PO (08:05)
[2021-01-22 12:05] VITALS: BP 99/64; PULSE 101; RESP 16; TEMP 37.2; O2SAT 95
--- NOTE | 2021-01-22 12:39 | PM.NDC ---
Diagnoses at Discharge Discharge Diagnosis (1) Borderline personality disorder: Status: Acute (2) Bipolar affective, depress, unspec: Status: Resolved (3) Acute psychosis: Status: Acute (4) Suicidal ideation: Status: Resolved (5) Methamphetamine use: Status: Acute (6) Marijuana use: Status: Acute (7) Anxiety: Status: Acute Reason for Visit Reason for Visit: anxiety Brief History: Brianna Real is a 40 year old female who presented to the ED with hallucinations and suicidal and homicidal ideation. She has had 5 admissions for similar reasons in the past 3 months, along with multiple other ED visits for similar issues. The ED note states: 40-year-old female comes in today for concerns of hallucinations and suicidal and homicidal thought. Patient states that she wants to hurt her self due to taking large amounts of meth which has brought on these feelings. Patient also wants to kill the sugar who gave her the meth. Patient is very calm and cooperative. Patient responds appropriate to questioning. Patient is seeking admission to the neuropsychiatric unit. Patient admits to use of cigarette tobacco, marijuana, methamphetamines, and alcohol. Patient reports that she feels like there are spiders in her brain. Patient also admits that she is homeless. Patient was admitted to the neuropsychiatric unit for definitive treatment of these issues. She says she has been anxious and also has delusional complaints. For instance, she says I cannot get my body back, and I have the wrong brain. She feels that everyone is out to get her. She hears voices that make derogatory comments about her and make commands to harm herself and others. She has visual hallucinations, seeing faces on the wall. She also describes depression and suicidal ideation. The patient says she does not use alcohol, but has been smoking meth quite a bit. She also smokes marijuana and smokes 1 or more packs of cigarettes per day. The patient says she sees Dr. Des vogel for medication management and is supposed to be assigned a nurse case management soon. She says she takes her medications daily. Hospital Course Hospital Course Brianna Real is a 40 year old female who presented to the ED with hallucinations and suicidal and homicidal ideation. She has had 5 admissions for similar reasons in the past 3 months, along with multiple other ED visits for similar issues. She was admitted to the neuropsychiatric unit for definitive treatment of these issues. On the unit she slowly acclimated to the individual, group and milieu therapies. There were some mild psychotic symptoms present initially which resolved with the medication being restarted along with stopping Meth use. She was receptive to treatment team recommendations and showed modest improvement and was able to contract for safety prior to discharge. She had a plan to get sober, and get a place of her own During the hospitalization, patient had routine laboratory studies which were within normal limits except for few outliers. Additionally there was a general medical evaluation which was also within normal limits and revealed no new acute processes. Discharge Summary: At the time of discharge, psychosis and lethality were denied. She still had some auditory hallucinations, but no commands to harm self or others, and no visual hallucinations. She was more hopeful and had no medication side effects. Mood and anxiety were well managed. Patient endorsed a plan to avoid all drugs of abuse and follow-up with the aftercare recommendations of the treatment team. Patient was evaluated and deemed to be absent credible lethality, and had achieved the maximum benefit from an inpatient hospitalization, so was discharged. Involuntary Hold Information 96 Hour Hold: 96 Hour Involuntary Admission: No Mental Status Exam MSE Comments: Calm, cooperative, alert, attentive. Speech was regular rate and rhythm without pressure. Mood was improved; affect was brighter. Thought process was more organized. Thought content: Fewer hallucinations, no suicidal or homicidal ideation, no other follow-up needed. Insight and judgment are improved and fair. Discharge Data Vitals: Last Vital Signs Temp 98.9 F 01/22/21 12:05 Pulse 101 H 01/22/21 12:05 Resp 16 01/22/21 12:05 BP 99/64 01/22/21 12:05 Pulse Ox 95 01/22/21 12:05 Discharge Plan Discharge Patient Disposition: Home Condition: Stable Prescriptions: Discontinued dicyclomine 20 mg Tablet 20 mg PO QID PRN (Reason: Irritable bowel syndrome) RF: 0 lithium carbonate [Lithobid] 300 mg Tablet Extended Release 300 mg PO DAILY RF: 0 trazodone 100 mg Tablet 100 mg PO BEDTIME RF: 0 buspirone 10 mg Tablet 10 mg PO TID PRN (Reason: Anxiety) RF: 0 gabapentin 100 mg Tablet 100 mg PO TID RF: 0 fluoxetine 20 mg Capsule 60 mg PO DAILY 30 Days Qty: 90 RF: 1 olanzapine 10 mg Tablet 10 mg PO BEDTIME 30 Days Qty: 30 RF: 1 No Action olanzapine 10 mg Tablet 10 mg PO BEDTIME 30 Days Qty: 30 RF: 0 Lithobid 300 mg Tablet Extended Release 300 mg PO DAILY 30 Days Qty: 30 RF: 0 trazodone 100 mg Tablet 100 mg PO BEDTIME 30 Days Qty: 30 RF: 0 dicyclomine 20 mg Tablet 20 mg PO QID PRN (Reason: Irritable bowel syndrome) 30 Days Qty: 120 RF: 0 buspirone 10 mg Tablet 10 mg PO TID PRN (Reason: Anxiety) 30 Days Qty: 90 RF: 0 gabapentin 100 mg Capsule 100 mg PO TID 30 Days Qty: 90 RF: 0 fluoxetine 20 mg Capsule 60 mg PO DAILY 30 Days Qty: 90 RF: 0 Discharge Orders: Discharge Order (Routine); Ordered 01/22/21 Ordered By: Claudio Simpson Referrals: Uma Mott DO [Primary Care Provider] - Discharge Diet: Usual diet Discharge Activity: Resume usual activity Patient Instructions: Generalized Anxiety Disorder (DC), Opioid Safety Discharge Attestations NPU Time Spent in Discharge Care*: greater than 30 min Specific Discharge Activities: Specific discharge activities: educating patient, discussing with rehabilitation case coordinator/social workers/dc planners, documenting/other paperwork and evaluating patient/reviewing data Status at Discharge: Cognitive status at discharge: cognitively intact, Behavioral status at discharge: cooperative, Functional status at discharge: independent ambulation Overall status at discharge: patient is progressing back to baseline Coding Level of Care Code Acute Chg FW DC note Diagnoses Borderline personality disorder F60.3 Bipolar affective, depress, unspec F31.30 Acute psychosis F23 Suicidal ideation R45.851 Methamphetamine use F15.10 Marijuana use F12.90 Anxiety F41.9
[2021-01-22 12:47] VITALS: BP 99/64; PULSE 101; RESP 16; TEMP 37.2; O2SAT 95
== END 2021-01-22 13:30 | disposition home or self-care (01) | DRG 885 ==
LOC: ER 21:43 → NP 22:00
PROVIDERS: Admitting Provider Psychiatry & Neurology Child & Adolescent Psychiatry; Emergency Provider Nurse Practitioner Family; PCP Family Medicine; Visit Provider Psychiatry & Neurology Child & Adolescent Psychiatry
DX: F23 Brief psychotic disorder (principal); F15.951 Other stimulant use, unspecified with stimulant-induced psychotic disorder with hallucinations; R45.851 Suicidal ideations; F12.951 Cannabis use, unspecified with psychotic disorder with hallucinations; F31.5 Bipolar disorder, current episode depressed, severe, with psychotic features; F15.94 Other stimulant use, unspecified with stimulant-induced mood disorder; F60.3 Borderline personality disorder; R45.850 Homicidal ideations; F41.9 Anxiety disorder, unspecified; F17.210 Nicotine dependence, cigarettes, uncomplicated; M79.7 Fibromyalgia; Z72.89 Other problems related to lifestyle; Z81.8 Family history of other mental and behavioral disorders
CPT/HCPCS: 80053; 80178; 80306; 80307; 81001; 81025; 82550; 84443; 85025; 96372; 99285; J3486

== ENCOUNTER 2021-01-26 23:37 | Emergency (ER) | payer MEDICAID, SELFPAY ==
[2021-01-26 23:38] VITALS: BP 158/99; PULSE 86; RESP 18; TEMP 36.1; O2SAT 98; BMI 24.1
--- NOTE | 2021-01-26 23:48 | W.ED.PSYCH ---
HPI - Psych General: Chief Complaint: Psychiatric Symptoms Stated Complaint: PSYCH EVAL Time Seen by Provider: 01/26/21 23:39 Source: patient and EMS Mode of arrival: EMS Limitations: no limitations History of Present Illness: HPI Narrative: 40-year-old female is very well-known to the ER has been admitted to the psychiatric unit here multiple times over the last year states she has not been taking her meds has been having some suicidal homicidal thoughts with no specific plans. She called EMS tonight for help. She denies any worsening improving factors. She is in no distress here and resting comfortably in the room. Associated symptoms: Reports depression, homicidal ideation and suicidal ideation Review of Systems Const: Denies: fever(s), chills, body aches or change in appetite Eyes: Denies: blurry vision or eye discomfort ENMT: Denies: throat pain or dental pain Card: Denies: chest pain Resp: Denies: dyspnea GI: Denies: abdominal pain, nausea, vomiting or diarrhea : Denies: dysuria Musc: Denies: neck pain or back pain Skin/Breast: Denies: rash Neuro: Denies: headache(s) Psych: Reports: depression, suicidal ideation and homicidal ideation Bossman/Lymph: Denies: easy bruising All/Imm: Denies: urticaria PFSH ED PFSH: Medical History Alcohol abuse Alcohol dependence, in remission Anxiety Bipolar affective, depress, unspec Generalized anxiety disorder Other stimulant dependence, in remission Psychiatric care Family History Grandfather No problems noted. Grandmother Stroke Maternal great Heart disease paternal Hypertension maternal Father Heart disease Hypertension Family/Other Breast cancer maternal aunt Denies family history of Colon cancer Ovarian cancer Uterine cancer Thyroid disease Social History Smoking and tobacco status: current every day smoker cigarettes Packs smoked per day: 1.5 Alcohol intake: never Female Reproductive History: Date of last menstrual period: 12/22/17 Physical Exam Const: COMMON NORMALS: no acute distress, patient oriented x3 and healthy appearing HENMT: COMMON NORMALS: normocephalic and atraumatic HEAD & SCALP: normocephalic and atraumatic Eye: COMMON NORMALS: Equal, round and reactive pupils present and EOMs intact bilaterally PUPIL: Yes Equal, round and reactive pupils present Neck/C-Spine: COMMON NORMALS: full ROM and supple Chest: COMMONS NORMALS: normal inspection of the chest and normal palpation of entire chest wall Resp: COMMON NORMALS: normal respiratory effort, No retractions, No use of accessory muscles and clear to auscultation bilaterally AUSCULTATION: clear to auscultation bilaterally Cardio: COMMON NORMALS: regular rate, regular rhythm and No murmurs present (Cardio) RATE: regular rate RHYTHM: regular rhythm GI: COMMON NORMALS: Normal to inspection, nondistended, normoactive bowel sounds present, Soft to palpation, non-tender and no masses PALPATION: Yes Soft to palpation Extremity: COMMON NORMALS: normal to inspection and full ROM Neuro: COMMON NORMALS: patient oriented x3, moves all extremities and no focal motor deficits Psych: COMMON NORMALS: mental status grossly normal and cooperative THOUGHT CONTENT: Yes Suicidality present and Yes Homicidality present Skin: COMMON NORMALS: no rashes or lesions noted and no wounds GENERAL SKIN EXAM: no rashes or lesions noted Course Vital Signs: Vital signs: Vital Signs Temperature 97.0 F L 01/26/21 23:38 Pulse Rate 93 01/27/21 00:22 Respiratory Rate 18 01/27/21 00:22 Blood Pressure 158/99 01/26/21 23:38 Pulse Oximetry 98 01/27/21 00:22 MDM - Psych MDM Narrative: Medical decision making narrative: Brianna presents here with depression and has had some suicidal ideation. I spoke to her at length she has no active plans. I had patient evaluated by Dr. Walter who feels she is stable for discharge and she is not a threat to herself. Her biggest concern is that she was not able to feel her meds I informed her I will write her a new prescription and she is happy about this. Patient given some meds here as well. I informed her if she worsens or has any increasing suicidal thoughts she is return immediately. She understands and agrees to plan. Lab Data: Labs: Lab Results 01/26/21 01/26/21 01/26/21 Range/Units 23:45 23:45 23:55 WBC 13.4 H (4.0-10.0) 10^3/ uL RBC 4.60 (4.1-5.3) 10^6/u L Hgb 13.3 (11.5-15.3) g/dL Hct 40.7 (37.0-47.0) % MCV 88.5 (81-99) fL MCH 28.9 (28.0-34.0) pg MCHC 32.7 (30.0-36.0) g/dL RDW 14.1 (12.1-15.1) % Plt Count 534 H (130-400) 10^3/c mm MPV 9.8 (7.4-10.4) fL Neut % (Auto) 74.7 % Lymph % (Auto) 17.7 % [place] % (Auto) 6.9 % Eos % (Auto) 0.1 % Baso % (Auto) 0.3 % Neut # (Auto) 10.02 H (1.8-7.7) 10^3/u L Lymph # (Auto) 2.4 (0.8-4.8) 10^3/u L [place] # (Auto) 0.9 (0.2-0.9) 10^3/u L Eos # (Auto) 0.0 (0.0-0.8) 10^3/u L Baso # (Auto) 0.0 (0.0-0.1) 10^3/u L Nucleated RBC % (a uto) 0 % Nucleated RBCs # 0.0 /100WBC Sodium 139 (136-145) mmol/L Chloride 105 (98-107) mmol/L Anion Gap 18.0 (5-19) Creatinine 0.6 (0.5-0.9) mg/dL GFR Calculation 110.7 (90-130) mL/min Glucose 108 (65-115) mg/dL Calculated Osmolal ity 285 (285-295) mOsm/k g Calcium 8.5 (8.5-10.5) mg/dL Total Bilirubin 0.2 (0.15-1.2) mg/dL AST 10 (0-32) U/L ALT 13 (0-33) U/L Albumin 4.1 (3.5-5.2) g/dL Globulin 2.4 (1.3-4.6) g/dL HCG, Qual Negative (Negative) Urine Opiates Scre en (Negative) ng/mL Ur Barbiturates Sc reen (Negative) ng/mL Ur Phencyclidine S crn (Negative) ng/mL Ur Amphetamines Sc reen (Negative) ng/mL U Benzodiazepines Scrn (Negative) ng/mL Urine Cocaine Scre en (Negative) ng/mL U Marijuana (THC) Screen (Negative) ng/mL 01/26/21 Range/Units 23:55 WBC (4.0-10.0) 10^3/ uL RBC (4.1-5.3) 10^6/u L Hgb (11.5-15.3) g/dL Hct (37.0-47.0) % MCV (81-99) fL MCH (28.0-34.0) pg MCHC (30.0-36.0) g/dL RDW (12.1-15.1) % Plt Count (130-400) 10^3/c mm MPV (7.4-10.4) fL Neut % (Auto) % Lymph % (Auto) % [place] % (Auto) % Eos % (Auto) % Baso % (Auto) % Neut # (Auto) (1.8-7.7) 10^3/u L Lymph # (Auto) (0.8-4.8) 10^3/u L [place] # (Auto) (0.2-0.9) 10^3/u L Eos # (Auto) (0.0-0.8) 10^3/u L Baso # (Auto) (0.0-0.1) 10^3/u L Nucleated RBC % (a uto) % Nucleated RBCs # /100WBC Sodium (136-145) mmol/L Chloride (98-107) mmol/L Anion Gap (5-19) Creatinine (0.5-0.9) mg/dL GFR Calculation (90-130) mL/min Glucose (65-115) mg/dL Calculated Osmolal ity (285-295) mOsm/k g Calcium (8.5-10.5) mg/dL Total Bilirubin (0.15-1.2) mg/dL AST (0-32) U/L ALT (0-33) U/L Albumin (3.5-5.2) g/dL Globulin (1.3-4.6) g/dL HCG, Qual (Negative) Urine Opiates Scre en Negative (Negative) ng/mL Ur Barbiturates Sc reen Negative (Negative) ng/mL Ur Phencyclidine S crn Negative (Negative) ng/mL Ur Amphetamines Sc reen Negative (Negative) ng/mL U Benzodiazepines Scrn Negative (Negative) ng/mL Urine Cocaine Scre en Negative (Negative) ng/mL U Marijuana (THC) Screen Negative (Negative) ng/mL Discharge Plan Discharge Patient Disposition: Home Clinical Impression: Suicidal ideation Condition: Stable Prescriptions: Continued olanzapine 10 mg Tablet 10 mg PO BEDTIME 30 Days Qty: 30 RF: 0 Lithobid 300 mg Tablet Extended Release 300 mg PO DAILY 30 Days Qty: 30 RF: 0 trazodone 100 mg Tablet 100 mg PO BEDTIME 30 Days Qty: 30 RF: 0 dicyclomine 20 mg Tablet 20 mg PO QID PRN (Reason: Irritable bowel syndrome) 30 Days Qty: 120 RF: 0 buspirone 10 mg Tablet 10 mg PO TID PRN (Reason: Anxiety) 30 Days Qty: 90 RF: 0 gabapentin 100 mg Capsule 100 mg PO TID 30 Days Qty: 90 RF: 0 fluoxetine 20 mg Capsule 60 mg PO DAILY 30 Days Qty: 90 RF: 0 Discharge Orders: Discharge ED (Routine); Ordered 01/27/21 Ordered By: Osmin Cardoso Referrals: Uma Mott DO [Primary Care Provider] - 1-3 days Discharge Diet: Advance as tolerated Discharge Activity: Resume usual activity Patient Instructions: Depression (ED) Coding Level of Care Code ED Dye Colorist Dyer for Ioana Fwd Exam Comprehensive
[2021-01-26 23:58] LABS: Basophils % 0.3 %; Eosinophils % 0.1 %; Hematocrit 40.7 % (37.0-47.0); Hemoglobin 13.3 g/dL (11.5-15.3); Lymphocytes # 2.4 10^3/uL (0.8-4.8); Lymphocytes % 17.7 %; Mean Corpuscular HGB Conc 32.7 g/dL (30.0-36.0); Mean Corpuscular Hemoglobin 28.9 pg (28.0-34.0); Mean Corpuscular Volume 88.5 fL (81-99); Mean Platelet Volume 9.8 fL (7.4-10.4); Monocytes # 0.9 10^3/uL (0.2-0.9); Monocytes % 6.9 %; Neutrophils # 10.02 10^3/uL (1.8-7.7); Neutrophils % 74.7 %; Nucleated Red Blood Cells % 0 %; Platelet Count 534 10^3/cmm (130-400); Red Cell Distribution Width 14.1 % (12.1-15.1); White Blood Count 13.4 10^3/uL (4.0-10.0)
[2021-01-27 00:04] LABS: HCG Qualitative Urine. Negative (Negative)
[2021-01-27] MEDS: LORazepam 2 mg Tablet PO (00:11)
[2021-01-27 00:18] LABS: Alanine Aminotransferase 13 U/L (0-33); Albumin Level 4.1 g/dL (3.5-5.2); Alkaline Phosphatase 112 IU/L (35-105); Aspartate Amino Transferase 10 U/L (0-32); Blood Urea Nitrogen 3 mg/dL (6-20); Calcium 8.5 mg/dL (8.5-10.5); Carbon Dioxide 19 mmol/L (22-29); Chloride 105 mmol/L (98-107); Creatinine Clr Calc Pharmacy 119.0559; Globulin 2.4 g/dL (1.3-4.6); Glomerular Filtration Rate 110.7 mL/min (90-130); Glucose 108 mg/dL (65-115); Osmolality Calculated 285 mOsm/kg (285-295); Salicylate 0.9 mg/dL (3-10); Sodium 139 mmol/L (136-145); Total Bilirubin 0.2 mg/dL (0.15-1.2); Total Protein 6.5 g/dL (6.6-8.7)
[2021-01-27 00:20] LABS: Lithium 0.2 mmol/L (0.6-1.2)
[2021-01-27] MEDS: OLANZapine 10 mg ODT PO (00:21)
[2021-01-27 00:22] VITALS: PULSE 93; PULSE 98; RESP 18; O2SAT 98; O2SAT 99
[2021-01-27 00:23] LABS: Amphetamines Screen Urine Negative (Negative); Barbiturates Screen Urine Negative (Negative); Benzodiazepines Screen Urine Negative (Negative); Cocaine Screen Urine Negative (Negative); Opiate Screen Urine Negative (Negative); PCP Screen Urine Negative (Negative); THC Screen Urine Negative (Negative)
[2021-01-27 00:37] LABS: Acetaminophen < 5.0 ug/mL (10-30); Alcohol Level < 10 mg/dL (0-10)
== END 2021-01-27 00:24 | disposition home or self-care (01) ==
LOC: ER 01-27 00:34
PROVIDERS: Emergency Provider Emergency Medicine; PCP Family Medicine
DX: R45.851 Suicidal ideations (principal); F17.210 Nicotine dependence, cigarettes, uncomplicated
CPT/HCPCS: 80053; 80178; 80306; 80307; 81025; 85025; 99283

== ENCOUNTER 2021-03-02 13:46 | Inpatient (IN) | payer MEDICAID, SELFPAY ==
[2021-03-02 13:48] VITALS: BP 153/95; PULSE 104; RESP 15; TEMP 36.8; O2SAT 95
[2021-03-02] MEDS: LORazepam 2 mg/mL INJ 1 mL IM (14:04)
[2021-03-02] MEDS: ziprasidone 20 mg/mL SDV 10 MG IM (14:08)
--- NOTE | 2021-03-02 14:19 | ED_ITS ---
HPI - Psych General: Chief Complaint: Psychiatric Symptoms Stated Complaint: PSYCH EVAL Time Seen by Provider: 03/02/21 13:47 History of Present Illness: HPI Narrative: 40-year-old female presents to the emergency room [facility]. She is patient accompanied by law enforcement. She had been trying to harm her self by cutting her wrists in her neck. Later she told me she taken several medications last night she thinks it was gabapentin. She is awake and alert she does admitting to use using marijuana and alcohol last night. She was verbally aggressive but did not attempt any physical aggression. She has previously been hospitalized for suicidal ideation in the past. She has a history of bipolar disorder. MD complaint: suicidal ideation Onset (ago): hour(s) Duration: constant History of same: Yes Relieving factors: none Exacerbating factors: none Context: recent alcohol abuse and recent drug abuse Associated psychiatric symptoms: suicidal ideation, homicidal ideation, racing thoughts and visual hallucinations Associated symptoms: Reports visual hallucinations, homicidal ideation and suicidal ideation; Deny auditory hallucinations Treatments prior to arrival: none If self harm: admits thoughts of self harm, has plan and has acted on plan Review of Systems Const: Denies: fever(s), chills, body aches, change in appetite, fatigue or malaise ENMT: Denies: throat pain, ear or mastoid pain, nasal discharge or nasal congestion Card: Denies: chest pain, edema, dyspnea on exertion or orthopnea Resp: Denies: dyspnea, productive cough or non-productive cough GI: Denies: abdominal pain, nausea, vomiting, hematemesis, coffee ground emesis, diarrhea, constipation, bloating, hematochezia or melena : Denies: flank pain, difficulty voiding, dysuria, urinary frequency or urinary urgency Skin/Breast: Denies: rash or pruritus Psych: Reports: visual hallucinations, suicidal ideation and homicidal ideation; Denies: auditory hallucinations ON LICENSE OF [facility] ED PFSH: Medical History Alcohol abuse Alcohol dependence, in remission Anxiety Bipolar affective, depress, unspec Generalized anxiety disorder Other stimulant dependence, in remission Psychiatric care Psychiatric care Family History Grandfather No problems noted. Grandmother Stroke Maternal great Heart disease paternal Hypertension maternal Father Heart disease Hypertension Family/Other Breast cancer maternal aunt Denies family history of Colon cancer Ovarian cancer Uterine cancer Thyroid disease Social History Smoking and tobacco status: current every day smoker cigarettes Packs smoked per day: 1.5 Alcohol intake: never Female Reproductive History: Date of last menstrual period: 12/22/17 Physical Exam Const: COMMON NORMALS: no acute distress GENERAL APPEARANCE: comfortable ORIENTATION/CONSCIOUSNESS: Yes oriented to person, Yes oriented to place and Yes oriented to time HENMT: COMMON NORMALS: normocephalic, atraumatic and hearing grossly normal bilaterally HEAD & SCALP: normocephalic and atraumatic Neck/C-Spine: COMMON NORMALS: no JVD Resp: COMMON NORMALS: normal respiratory effort, No retractions, No use of accessory muscles and clear to auscultation bilaterally AUSCULTATION: clear to auscultation bilaterally Cardio: COMMON NORMALS: no JVD, regular rate, regular rhythm and No murmurs present (Cardio) RATE: regular rate RHYTHM: regular rhythm GI: COMMON NORMALS: Soft to palpation and No hepatosplenomegaly present AUSCULTATION: Yes normoactive bowel sounds PALPATION: Yes Soft to palpation, No Tenderness to palpation present (GI), No Guarding due to palpation present (GI) and Yes No hepatosplenomegaly present Extremity: COMMON NORMALS: normal to inspection, capillary refill normal, no clubbing, cyanosis or edema, no calf tenderness and no pedal edema Neuro: SENSORIUM/ORIENTATION: Yes oriented to person, Yes oriented to place and Yes oriented to time Skin: COMMON NORMALS: no rashes or lesions noted GENERAL SKIN EXAM: no rashes or lesions noted Course Vital Signs: Vital signs: Vital Signs Temperature 98.2 F 03/02/21 13:48 Pulse Rate 104 H 03/02/21 13:48 Respiratory Rate 15 03/02/21 13:48 Blood Pressure 153/95 03/02/21 13:48 Pulse Oximetry 95 03/02/21 13:48 MDM - Psych MDM Narrative: Medical decision making narrative: Discussed and reviewed labs on the chart with Dr. Walter. Patient was verbally aggressive but never physically aggressive or confrontational. She is given Geodon and lorazepam which helped calm her down and relieve her anxiety significantly. Based on her suicidal ideation she was placed on a 96-hour hold orders are written Lab Data: Labs: Lab Results 03/02/21 03/02/21 03/02/21 Range/Units 14:14 14:14 14:14 WBC 13.5 H (4.0-10.0) 10^3/ uL RBC 5.07 (4.1-5.3) 10^6/u L Hgb 14.3 (11.5-15.3) g/dL Hct 46.0 (37.0-47.0) % MCV 90.7 (81-99) fl MCH 28.2 (28.0-34.0) pg MCHC 31.1 (30.0-36.0) g/dL RDW 15.0 (12.1-15.1) % Plt Count 538 H (130-400) 10^3/c mm MPV 9.9 (7.4-10.4) fL Neut % (Auto) 71.9 % Lymph % (Auto) 16.8 % [place] % (Auto) 10.2 % Eos % (Auto) 0.4 % Baso % (Auto) 0.3 % Neut # (Auto) 9.70 H (1.8-7.7) 10^3/u L Lymph # (Auto) 2.3 (0.8-4.8) 10^3/u L [place] # (Auto) 1.4 H (0.2-0.9) 10^3/u L Eos # (Auto) 0.1 (0.0-0.8) 10^3/u L Baso # (Auto) 0.0 (0.0-0.1) 10^3/u L Nucleated RBC % (a uto) 0 % Nucleated RBCs # 0.0 /100WBC Sodium 137 (136-145) mmol/L Potassium 4.5 (3.5-5.1) mmol/L Chloride 105 (98-107) mmol/L Carbon Dioxide 21 L (22-29) mmol/L Anion Gap 15.5 (5-19) BUN 8 (6-20) mg/dL Creatinine 0.6 (0.5-0.9) mg/dL GFR Calculation 110.7 (90-130) mL/min Glucose 105 (65-115) mg/dL Calculated Osmolal ity 283 L (285-295) mOsm/k g Calcium 9.0 (8.5-10.5) mg/dL Total Bilirubin 0.3 (0.15-1.2) mg/dL AST 20 (0-32) U/L ALT 23 (0-33) U/L Alkaline Phosphata se 137 H (35-105) IU/L Total Protein 7.8 (6.6-8.7) g/dL Albumin 4.3 (3.5-5.2) g/dL Globulin 3.5 (1.3-4.6) g/dL HCG, Qual Negative (Negative) Salicylates < 0.3 L (3-10) mg/dL Acetaminophen < 5.0 L (10-30) ug/mL Discharge Plan Discharge Patient Disposition: Admitted As Inpatient Clinical Impression: Suicidal ideation, Acute psychosis, Alcohol abuse, Marijuana use, Methamphetamine use Condition: Stable Prescriptions: No Action cyclobenzaprine 10 mg Tablet 10 mg PO TID PRN (Reason: Muscle Spasm) RF: 0 tizanidine 4 mg Tablet 4 mg PO BID PRN (Reason: Muscle Pain) RF: 0 tramadol 50 mg Tablet 50 mg PO BID PRN (Reason: Pain) RF: 0 gabapentin 100 mg Capsule 100 mg PO TID RF: 0 Cymbalta 60 mg Capsule,Delayed Release(Dr/Ec) 60 mg PO DAILY RF: 0 Rexulti 2 mg Tablet 2 mg PO DAILY RF: 0 olanzapine 10 mg Tablet 10 mg PO BEDTIME 30 Days Qty: 30 RF: 0 lithium carbonate [Lithobid] 300 mg Tablet Extended Release 300 mg PO DAILY 30 Days Qty: 30 RF: 0 trazodone 100 mg Tablet 100 mg PO BEDTIME 30 Days Qty: 30 RF: 0 dicyclomine 20 mg Tablet 20 mg PO QID PRN (Reason: Irritable bowel syndrome) 30 Days Qty: 120 RF: 0 buspirone 10 mg Tablet 10 mg PO TID PRN (Reason: Anxiety) 30 Days Qty: 90 RF: 0 fluoxetine 20 mg Capsule 60 mg PO DAILY 30 Days Qty: 90 RF: 0 Referrals: Uma Mott DO [Primary Care Provider] - Patient Instructions: Opioid Safety Coding Level of Care Code ED Shape Brick Molder for Ioana Alcaraz
[2021-03-02 14:38] LABS: HCG, Serum Qual Negative (Negative)
[2021-03-02 14:48] LABS: Acetaminophen < 5.0 ug/mL (10-30); Alanine Aminotransferase 23 U/L (0-33); Albumin Level 4.3 g/dL (3.5-5.2); Alkaline Phosphatase 137 IU/L (35-105); Anion Gap 15.5 (5-19); Aspartate Amino Transferase 20 U/L (0-32); Blood Urea Nitrogen 8 mg/dL (6-20); Carbon Dioxide 21 mmol/L (22-29); Chloride 105 mmol/L (98-107); Globulin 3.5 g/dL (1.3-4.6); Glomerular Filtration Rate 110.7 mL/min (90-130); Glucose 105 mg/dL (65-115); Osmolality Calculated 283 mOsm/kg (285-295); Potassium 4.5 mmol/L (3.5-5.1); Salicylate < 0.3 mg/dL (3-10); Sodium 137 mmol/L (136-145); Total Bilirubin 0.3 mg/dL (0.15-1.2); Total Protein 7.8 g/dL (6.6-8.7)
[2021-03-02 14:49] LABS: Basophils % 0.3 %; Eosinophils # 0.1 10^3/uL (0.0-0.8); Eosinophils % 0.4 %; Hemoglobin 14.3 g/dL (11.5-15.3); Lymphocytes # 2.3 10^3/uL (0.8-4.8); Lymphocytes % 16.8 %; Mean Corpuscular HGB Conc 31.1 g/dL (30.0-36.0); Mean Corpuscular Hemoglobin 28.2 pg (28.0-34.0); Mean Corpuscular Volume 90.7 fl (81-99); Mean Platelet Volume 9.9 fL (7.4-10.4); Monocytes # 1.4 10^3/uL (0.2-0.9); Monocytes % 10.2 %; Neutrophils % 71.9 %; Nucleated Red Blood Cells % 0 %; Platelet Count 538 10^3/cmm (130-400); Red Blood Count 5.07 10^6/uL (4.1-5.3); White Blood Count 13.5 10^3/uL (4.0-10.0)
[2021-03-02 21:17] VITALS: BP 105/69; PULSE 104; RESP 14; TEMP 36.5; O2SAT 96
[2021-03-02] MEDS: hyDROXYzine 25 mg Capsule 50 MG PO (23:11)
[2021-03-02] MEDS: trazodone 50 mg Tablet PO (23:11)
--- NOTE | 2021-03-02 23:15 | PC.NURSE ---
pt requesting sleep and anxiety meds. vistaril 50mg po for anxiety and trazodone 50mg po for sleep given.
--- NOTE | 2021-03-03 | PC.NURSE ---
pt resting quietly with both eyes closed.
[2021-03-03 06:00] VITALS: BP 113/72; PULSE 84; RESP 17; TEMP 36.8; O2SAT 98
--- NOTE | 2021-03-03 09:16 | PM.NHP ---
Providers/Chief Complaint Admitting Physician: Hong Walter MD Primary Care Provider: Uma Mott DO Chief Complaint: PSYCH EVAL HPI NPU History of Present Illness Brianna Real is a 40 year old female who presented to the emergency department with the following report: Chief Complaint: Psychiatric Symptoms Stated Complaint: PSYCH EVAL Time Seen by Provider: 03/02/21 13:47 History of Present Illness: HPI Narrative: 40-year-old female presents to the emergency room [facility]. She is patient accompanied by law enforcement. She had been trying to harm her self by cutting her wrists in her neck. Later she told me she taken several medications last night she thinks it was gabapentin. She is awake and alert she does admitting to use using marijuana and alcohol last night. She was verbally aggressive but did not attempt any physical aggression. She has previously been hospitalized for suicidal ideation in the past. She has a history of bipolar disorder. complaint: suicidal ideation Onset (ago): hour(s) Duration: constant History of same: Yes Relieving factors: none Exacerbating factors: none Context: recent alcohol abuse and recent drug abuse Associated psychiatric symptoms: suicidal ideation, homicidal ideation, racing thoughts and visual hallucinations Associated symptoms: Reports visual hallucinations, homicidal ideation and suicidal ideation; Deny auditory hallucinations Treatments prior to arrival: none If self harm: admits thoughts of self harm, has plan and has acted on plan. She was admitted to the neuropsychiatric unit for definitive treatment of those issues. The patient presents today reporting that things just got really out of sorts. 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 She reports that she had been staying with two people that she reports are surrogate family members but also had been staying at times with her uncle. She reports that everything had been going fine and denied that she had been struggling with addiction very much, and reports that she started feeling like people were trying to do things to her and so she did not trust them, and so she says that she got angry and upset and started ?flipping out? and that is when she cut herself and was having suicidal thoughts. She reports that she had been drinking some alcohol but denied significant use of other drugs. Unfortunately, secondary to her condition that she was in, a drug screen to confirm her version of the story is not available. We did discuss the fact that generally speaking, when she presents with paranoia to the point where she acts on the paranoia, there has been active drug use and generally methamphetamines. She denied vehemently that that was the case. We reviewed her last hospitalization, and she denied any substantive changes except for the fact that she had not been staying either in her own place or with her uncle primarily, but that there is this other couple that had reportedly been supportive and helpful with maintaining her sobriety and staying on her medication. We did have discussion about how she was going to break this cycle of repeat hospitalizations, drug use, and lack of progress in her overall circumstances, and she talked about treatment and rehab, and things of this nature, which is generally what she does in the beginning, and then as she starts to feel better, she starts to become ambivalent and then disengages from the plan for recovery-oriented treatment. An excerpt from her January 21, 2021, inpatient hospitalization is included below for context. 01/21/2021 [facility] inpatient psychiatric evaluation: History of Present Illness Brianna Real is a 40 year old female who presented to the ED with hallucinations and suicidal and homicidal ideation. She has had 5 admissions for similar reasons in the past 3 months, along with multiple other ED visits for similar issues. The ED note states: 40-year-old female comes in today for concerns of hallucinations and suicidal and homicidal thought. Patient states that she wants to hurt her self due to taking large amounts of meth which has brought on these feelings. Patient also wants to kill the sugar who gave her the meth. Patient is very calm and cooperative. Patient responds appropriate to questioning. Patient is seeking admission to the neuropsychiatric unit. Patient admits to use of cigarette tobacco, marijuana, methamphetamines, and alcohol. Patient reports that she feels like there are spiders in her brain. Patient also admits that she is homeless. Patient was admitted to the neuropsychiatric unit for definitive treatment of these issues. She says she has been anxious and also has delusional complaints. For instance, she says I cannot get my body back, and I have the wrong brain. She feels that everyone is out to get her. She hears voices that make derogatory comments about her and make commands to harm herself and others. She has visual hallucinations, seeing faces on the wall. She also describes depression and suicidal ideation. The patient says she does not use alcohol, but has been smoking meth quite a bit. She also smokes marijuana and smokes 1 or more packs of cigarettes per day. The patient says she sees Dr. Des vogel for medication management and is supposed to be assigned a case aide soon. She says she takes her medications daily. Psychiatric history: As above. Substance use history: As above. Family history: The patient said her mother committed suicide, shot herself in front of her when she was a child. She said she found her dad from an [place] Psychosocial history: She says she lives with her [id number], but they do not always get along with each other. See past records for further psychosocial history. Legal history: No legal difficulties. Medical history: She says she has fibromyalgia. Meds NPU Home Medications Medication Instructions Recorded Confirmed Last Taken Type buspirone 10 mg PO TID PRN 30 Days #90 tab 01/27/21 03/02/21 Unknown Rx dicyclomine 20 mg PO QID PRN 30 Days #120 tab 01/27/21 03/02/21 Unknown Rx fluoxetine 60 mg PO DAILY 30 Days #90 cap 01/27/21 03/02/21 Unknown Rx lithium carbonate [Lithobid] 300 mg PO DAILY 30 Days #30 tab 01/27/21 03/02/21 Unknown Rx olanzapine 10 mg PO BEDTIME 30 Days #30 tab 01/27/21 03/02/21 Unknown Rx trazodone 100 mg PO BEDTIME 30 Days #30 tab 01/27/21 03/02/21 Unknown Rx brexpiprazole [Rexulti] 2 mg PO DAILY 03/02/21 03/02/21 Unknown History cyclobenzaprine 10 mg PO TID PRN 03/02/21 03/02/21 Unknown History duloxetine [Cymbalta] 60 mg PO DAILY 03/02/21 03/02/21 Unknown History gabapentin 100 mg PO TID 03/02/21 03/02/21 Unknown History tizanidine 4 mg PO BID PRN 03/02/21 03/02/21 Unknown History tramadol 50 mg PO BID PRN 03/02/21 03/02/21 Unknown History Allergies Allergy/AdvReac Type Severity Reaction Status Date / Time Penicillins Allergy Intermediate rash Verified 01/20/21 17:50 Sulfa (Sulfonamide Allergy Unknown Verified 01/20/21 17:50 Antibiotics) PFSH NPU PFSH: Medical History Alcohol abuse Alcohol dependence, in remission Anxiety Bipolar affective, depress, unspec Generalized anxiety disorder Other stimulant dependence, in remission Psychiatric care Psychiatric care Family History Grandfather No problems noted. Grandmother Stroke Maternal great Heart disease paternal Hypertension maternal Father Heart disease Hypertension Family/Other Breast cancer maternal aunt Denies family history of Colon cancer Ovarian cancer Uterine cancer Thyroid disease Social History Smoking and tobacco status: current every day smoker cigarettes Packs smoked per day: 1.5 Alcohol intake: never Mental Status Exam MSE Comments: This is an overweight, white female, in hospital scrubs, appearing disheveled, with adequate eye contact. No abnormal movements except for psychomotor retardation. Mostly cooperative with exam in mild distress. Speech was normal rate, slightly decreased volume. Mood described as okay; affect depressed/subdued. Thought process, organized. Thought content: patient denied homicidal ideation but endorsed some suicidal thoughts, there were no delusions noted but she endorsed some paranoia, she denied current auditory or visual hallucinations. Attention and concentration were limited, and memory was somewhat unreliable, but none were formally tested. She is alert and oriented times three. Insight and judgment are impaired, impulse control is impaired. Vitals/I&O/Wt Last Vital Signs Temp 97.7 F 03/02/21 21:17 Pulse 104 H 03/02/21 21:17 Resp 14 03/02/21 21:17 BP 105/69 03/02/21 21:17 Pulse Ox 96 03/02/21 21:17 Data NPU : 03/02/21 14:14 03/02/21 14:14 A&P Assessment and plan (1) Suicidal ideation: Status: Acute (2) Acute psychosis: Status: Acute (3) Polysubstance abuse: Status: Acute (4) Methamphetamine use: Status: Acute (5) Adjustment disorder with mixed disturbance of emotions and conduct: Status: Acute (6) Borderline personality disorder: Status: Acute (7) Generalized anxiety disorder: Status: Acute (8) Alcohol dependence, in remission: Status: Acute (9) Alcohol abuse: Status: Acute (10) Marijuana use: Status: Acute (11) Anxiety: Status: Acute Additional A&P Information This is a 40-year-old, white female, with a long history of psychosis, active addition, poor psychosocial functioning, and significant recidivism with hospitalizations and emergency room visits, common place throughout the year, who presents reporting she is ready and desirous for more intense treatment and maintaining her medicationa. RECOMMENDATION AND PLAN: 1. Continue current medication. 2. Encourage individual, group, and milieu therapy. 3. Continue q-15 minute checks for safety. 4. Encourage sober living treatment after discharge at the highest level of care to which he is willing to commit. Involuntary Hold Information 96 Hour Hold: 96 Hour Involuntary Admission: No 96 Hour Hold Ending Date: 03/08/21 96 Hour Hold Ending Time: 00:01 Attestations NPU Medical Necessity Statement*: Inpatient hospitalization is medically necessary and the clinically appropriate intervention, at this time. We will monitor medications and make changes as indicated. Patient will be in the hospital for over two midnights. Likely length of stay is 3-5 days. Coding Level of Care Code Acute Supervisor [employer] for Ioana Alcaraz Diagnoses Suicidal ideation R45.851 Acute psychosis F23 Polysubstance abuse F19.10 Methamphetamine use F15.10 Adjustment disorder with mixed disturbance of emotions and conduct F43.25 Borderline personality disorder F60.3 Generalized anxiety disorder F41.1 Alcohol dependence, in remission F10.21 Alcohol abuse F10.10 Marijuana use F12.90 Anxiety F41.9
[2021-03-03] MEDS: duloxetine 60 mg Capsule PO (09:54)
[2021-03-03] MEDS: gabapentin 100 mg Capsule PO ×3 (09:54→21:55)
[2021-03-03] MEDS: lithium carbonate ER 300 mg Tablet PO (09:54)
[2021-03-03 13:43] VITALS: BP 113/71; PULSE 106; RESP 20; TEMP 36.6; O2SAT 100
[2021-03-03] MEDS: hyDROXYzine 25 mg Capsule 50 MG PO (15:30)
[2021-03-03] MEDS: BuSPIRONE 10 mg Tablet PO (15:31)
[2021-03-03] MEDS: OLANZapine 5 mg ODT PO (15:31)
[2021-03-03] MEDS: cyclobenzaprine 10 mg Tablet PO (15:31)
[2021-03-03] MEDS: OLANZapine 10 mg TABLET PO (21:55)
[2021-03-03] MEDS: trazodone 100 mg Tablet PO (21:55)
[2021-03-03 22:00] VITALS: RESP 16
--- NOTE | 2021-03-03 22:18 | PC.NURSE ---
pt refused vitals/respirations were recorded/erica/[id number]
[2021-03-04] MEDS: duloxetine 60 mg Capsule PO (08:52)
[2021-03-04] MEDS: BuSPIRONE 10 mg Tablet PO ×2 (08:52→16:51)
[2021-03-04] MEDS: gabapentin 100 mg Capsule PO ×3 (08:52→21:27)
[2021-03-04] MEDS: lithium carbonate ER 300 mg Tablet PO (08:52)
--- NOTE | 2021-03-04 08:53 | PC.NURSE ---
Addendum entered by Rebeca Cuadra, OJHN 03/04/21 12:12: prn med effective no further c/o anxiety currently Original Note: prn Buspar 10 mg given po per pt c/o anxiety. pt very angry about being woken up, stated she didn't want to be in the [facility]
[2021-03-04 12:49] VITALS: BP 111/74; PULSE 110; RESP 17; TEMP 37.1; O2SAT 97
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
[2021-03-04 20:22] VITALS: BP 107/76; PULSE 119; RESP 20; TEMP 36.4; O2SAT 97
[2021-03-04] MEDS: OLANZapine 10 mg TABLET PO (21:26)
[2021-03-04] MEDS: trazodone 100 mg Tablet PO (21:27)
[2021-03-05 06:00] VITALS: BP 129/83; PULSE 88; RESP 18; TEMP 36.8; O2SAT 98
[2021-03-05] MEDS: BuSPIRONE 10 mg Tablet PO (08:45)
[2021-03-05] MEDS: gabapentin 100 mg Capsule PO ×3 (08:45→21:49)
[2021-03-05] MEDS: duloxetine 60 mg Capsule PO (08:45)
[2021-03-05] MEDS: lithium carbonate ER 300 mg Tablet PO (08:45)
[2021-03-05 14:00] VITALS: BP 121/73; PULSE 104; RESP 17; TEMP 36.8; O2SAT 96
[2021-03-05] MEDS: cyclobenzaprine 10 mg Tablet PO (14:13)
[2021-03-05] MEDS: hyDROXYzine 25 mg Capsule 50 MG PO (14:13)
--- NOTE | 2021-03-05 17:58 | PM.NPN ---
Subjective NPU Subjective: Interval history: Patient presents today continuing to have slow improvement. She worked with the treatment team to sign up for multiple possible rehabs and sober living placement. She continue to work with her connection of that the [facility] but with limited success. She reported that over the 2 consider any of the options that allow her to the too far away and ultimately be able to have her car dropped off there midline for her to leave. She reports she is eating okay and sleeping a little better. Mental Status Exam MSE Comments: This is an overweight, white female, in hospital scrubs, with improving grooming and adequate eye contact. No abnormal movements except for mild psychomotor retardation. Cooperative with exam in no acute distress. Speech was normal rate, slightly decreased volume. Mood described as anxious; affect less labile. Thought process, organized. Thought content: patient denied suicidal or homicidal ideation, there were no delusions noted but she endorsed some paranoia, she denied current auditory or visual hallucinations. Attention and concentration were improving, and memory appeared more reliable, but none were formally tested. She is alert and oriented times three. Insight and judgment are limited, impulse control is limited. Vitals/I&O/Wt Last Vital Signs Temp 98.2 F 03/05/21 14:00 Pulse 104 H 03/05/21 14:00 Resp 17 03/05/21 14:00 BP 121/73 03/05/21 14:00 Pulse Ox 96 03/05/21 14:00 Data NPU : 03/02/21 14:14 03/02/21 14:14 A&P Additional A&P Information (1) Suicidal ideation: (2) Acute psychosis: (3) Polysubstance abuse: (4) Methamphetamine use: (5) Adjustment disorder with mixed disturbance of emotions and conduct: (6) Borderline personality disorder: (7) Generalized anxiety disorder: (8) Alcohol dependence, in remission: (9) Alcohol abuse: (10) Marijuana use: (11) Anxiety: This is a 40-year-old, white female, with a long history of psychosis, active addition, poor psychosocial functioning, and significant recidivism with hospitalizations and emergency room visits, common place throughout the year, who presents reporting she is ready and desirous for more intense treatment and maintaining her medicationa. RECOMMENDATION AND PLAN: 1. Continue current medication. 2. Encourage individual, group, and milieu therapy. 3. Continue q-15 minute checks for safety. 4. Encourage sober living treatment after discharge at the highest level of care to which she is willing to commit. 5. We will connect with [facility] program in the morning to discuss discharge planning. Involuntary Hold Information 96 Hour Hold: 96 Hour Involuntary Admission: No 96 Hour Hold Ending Date: 03/08/21 96 Hour Hold Ending Time: 00:01 Attestations NPU Medical Necessity Statement*: Inpatient hospitalization is medically necessary and the clinically appropriate intervention, at this time. We will monitor medications and make changes as indicated. Likely length of stay is 1-3 days. Coding Level of Care Code Acute Grain Loader for Ioana Alcaraz
[2021-03-05] MEDS: trazodone 100 mg Tablet PO (21:49)
[2021-03-05] MEDS: OLANZapine 10 mg TABLET PO (21:49)
[2021-03-05] MEDS: dicyclomine 20 mg Tablet PO (21:49)
--- NOTE | 2021-03-05 21:50 | PC.NURSE ---
pt requested bentyl be given with meds. request granted.
[2021-03-05 22:00] VITALS: BP 107/74; PULSE 88; RESP 16; TEMP 36.7; O2SAT 96
--- NOTE | 2021-03-05 23:00 | PC.NURSE ---
pt resting quietly with both eyes closed
[2021-03-06 06:00] VITALS: BP 107/74; PULSE 88; RESP 16; TEMP 36.7; O2SAT 96
[2021-03-06] MEDS: duloxetine 60 mg Capsule PO (09:03)
[2021-03-06] MEDS: gabapentin 100 mg Capsule PO ×2 (09:03→14:20)
[2021-03-06] MEDS: lithium carbonate ER 300 mg Tablet PO (09:03)
[2021-03-06 13:47] VITALS: BP 117/80; PULSE 116; RESP 18; TEMP 36.6; O2SAT 98
[2021-03-06] MEDS: BuSPIRONE 10 mg Tablet PO (14:34)
--- NOTE | 2021-03-06 15:07 | P.DS_ITS ---
Diagnoses at Discharge Discharge Diagnosis (1) Suicidal ideation: Status: Resolved (2) Acute psychosis: Status: Resolved (3) Polysubstance abuse: Status: Acute (4) Methamphetamine use: Status: Acute (5) Adjustment disorder with mixed disturbance of emotions and conduct: Status: Acute (6) Borderline personality disorder: Status: Acute (7) Generalized anxiety disorder: Status: Acute (8) Alcohol dependence, in remission: Status: Acute (9) Alcohol abuse: Status: Acute (10) Marijuana use: Status: Acute (11) Anxiety: Status: Acute Reason for Visit Reason for Visit: PSYCH EVAL Brief History: History of Present Illness Brianna Real is a 40 year old female who presented to the emergency department with the following report: Chief Complaint: Psychiatric Symptoms Stated Complaint: PSYCH EVAL Time Seen by Provider: 03/02/21 13:47 History of Present Illness: HPI Narrative: 40-year-old female presents to the emergency room [facility]. She is patient accompanied by law enforcement. She had been trying to harm her self by cutting her wrists in her neck. Later she told me she taken several medications last night she thinks it was gabapentin. She is awake and alert she does admitting to use using marijuana and alcohol last night. She was verbally aggressive but did not attempt any physical aggression. She has previously been hospitalized for suicidal ideation in the past. She has a history of bipolar disorder. MD complaint: suicidal ideation Onset (ago): hour(s) Duration: constant History of same: Yes Relieving factors: none Exacerbating factors: none Context: recent alcohol abuse and recent drug abuse Associated psychiatric symptoms: suicidal ideation, homicidal ideation, racing thoughts and visual hallucinations Associated symptoms: Reports visual hallucinations, homicidal ideation and suicidal ideation; Deny auditory hallucinations Treatments prior to arrival: none If self harm: admits thoughts of self harm, has plan and has acted on plan. She was admitted to the neuropsychiatric unit for definitive treatment of those issues. The patient presents today reporting that things just got really out of sorts. She was a limited historian with some confusion, but it is well known to this resume writer and so was able to give some history against the backdrop of her paranoia. She reports that she had been staying with two people that she reports are surrogate family members but also had been staying at times with her uncle. She reports that everything had been going fine and denied that she had been struggling with addiction very much, and reports that she started feeling like people were trying to do things to her and so she did not trust them, and so she says that she got angry and upset and started ?flipping out? and that is when she cut herself and was having suicidal thoughts. She reports that she had been drinking some alcohol but denied significant use of other drugs. Unfortunately, secondary to her condition that she was in, a drug screen to confirm her version of the story is not available. We did discuss the fact that generally speaking, when she presents with paranoia to the point where she acts on the paranoia, there has been active drug use and generally methamphetamines. She denied vehemently that that was the case. We reviewed her last hospitalization, and she denied any substantive changes except for the fact that she had not been staying either in her own place or with her uncle primarily, but that there is this other couple that had reportedly been supportive and helpful with maintaining her sobriety and staying on her medication. We did have discussion about how she was going to break this cycle of repeat hospitalizations, drug use, and lack of progress in her overall circumstances, and she talked about treatment and rehab, and things of this nature, which is generally what she does in the beginning, and then as she starts to feel better, she starts to become ambivalent and then disengages from the plan for recovery-oriented treatment. An excerpt from her January 21, 2021, inpatient hospitalization is included below for context. 01/21/2021 [facility] inpatient psychiatric evaluation: History of Present Illness Brianna Real is a 40 year old female who presented to the ED with hallucinations and suicidal and homicidal ideation. She has had 5 admissions for similar reasons in the past 3 months, along with multiple other ED visits for similar issues. The ED note states: 40-year-old female comes in today for concerns of hallucinations and suicidal and homicidal thought. Patient states that she wants to hurt her self due to taking large amounts of meth which has brought on these feelings. Patient also wants to kill the sugar who gave her the meth. Patient is very calm and cooperative. Patient responds appropriate to questioning. Patient is seeking admission to the neuropsychiatric unit. Patient admits to use of cigarette tobacco, marijuana, methamphetamines, and alcohol. Patient reports that she feels like there are spiders in her brain. Patient also admits that she is homeless. Patient was admitted to the neuropsychiatric unit for definitive treatment of these issues. She says she has been anxious and also has delusional complaints. For instance, she says I cannot get my body back, and I have the wrong brain. She feels that everyone is out to get her. She hears voices that make derogatory comments about her and make commands to harm herself and others. She has visual hallucinations, seeing faces on the wall. She also describes depression and suicidal ideation. The patient says she does not use alcohol, but has been smoking meth quite a bit. She also smokes marijuana and smokes 1 or more packs of cigarettes per day. The patient says she sees Dr. Des vogel for medication management and is supposed to be assigned a case worker soon. She says she takes her medications daily. Psychiatric history: As above. Substance use history: As above. Family history: The patient said her mother committed suicide, shot herself in front of her when she was a child. She said she found her dad from an [place] Psychosocial history: She says she lives with her [id number], but they do not always get along with each other. See past records for further psychosocial history. Legal history: No legal difficulties. Medical history: She says she has fibromyalgia. Hospital Course Hospital Course She quickly acclimated to the individual, group and milieu therapies provided. We worked with her and the [facility] staff from the [facility] program to find possible sober living options for her but none materialize. We restarted medication and ultimately it was decided for her to discharge to home with no working on alternatives for outpatient treatment. She was able to contract for safety prior to discharge. During the hospitalization, patient had routine laboratory studies which were within normal limits except for few outliers. Additionally there was a general medical evaluation which was also within normal limits and revealed no new acute processes. Discharge Summary: At the time of discharge, psychosis and lethality were denied. Mood and anxiety were well managed. Patient endorsed a plan to avoid all drugs of abuse and follow-up with the aftercare recommendations of the treatment team. Patient was evaluated and deemed to be absent credible lethality, and had achieved the maximum benefit from an inpatient hospitalization, so was discharged. Involuntary Hold Information 96 Hour Hold: 96 Hour Involuntary Admission: No 96 Hour Hold Ending Date: 03/08/21 96 Hour Hold Ending Time: 00:01 Mental Status Exam MSE Comments: This is an overweight, white female, in hospital scrubs, with improving grooming and adequate eye contact. No abnormal movements except for mild psychomotor retardation. Cooperative with exam in no acute distress. Speech was normal rate, slightly decreased volume. Mood described as better; affect more euthymic. Thought process, organized. Thought content: patient denied suicidal or homicidal ideation, there were no delusions noted but she reported improvement in her paranoia, she denied current auditory or visual hallucinations. Attention and concentration were improving, and memory appeared more reliable, but none were formally tested. She is alert and oriented times three. Insight and judgment are limited, impulse control is limited. Discharge Data Vitals: Last Vital Signs Temp 97.9 F 03/06/21 13:47 Pulse 116 H 03/06/21 13:47 Resp 18 03/06/21 13:47 BP 117/80 03/06/21 13:47 Pulse Ox 98 03/06/21 13:47 Discharge Plan Discharge Patient Disposition: Home Condition: Stable Prescriptions: Continued cyclobenzaprine 10 mg Tablet 10 mg PO TID PRN (Reason: Muscle Spasm) RF: 0 tizanidine 4 mg Tablet 4 mg PO BID PRN (Reason: Muscle Pain) RF: 0 tramadol 50 mg Tablet 50 mg PO BID PRN (Reason: Pain) RF: 0 gabapentin 100 mg Capsule 100 mg PO TID RF: 0 duloxetine [Cymbalta] 60 mg Capsule,Delayed Release(Dr/Ec) 60 mg PO DAILY@1999 RF: 0 Rexulti 2 mg Tablet 2 mg PO DAILY RF: 0 olanzapine 10 mg Tablet 10 mg PO BEDTIME 30 Days Qty: 30 RF: 0 trazodone 100 mg Tablet 100 mg PO BEDTIME 30 Days Qty: 30 RF: 0 buspirone 10 mg Tablet 10 mg PO TID PRN (Reason: Anxiety) 30 Days Qty: 90 RF: 0 Discontinued fluoxetine 20 mg Capsule 60 mg PO DAILY 30 Days Qty: 90 RF: 0 No Action dicyclomine 20 mg tablet 20 mg PO QID RF: 0 lithium carbonate [Lithobid] 300 mg tablet extended release 300 mg PO DAILY@1999 RF: 0 Discharge Orders: Discharge Order (Routine); Ordered 09/15/21 Ordered By: Hong Walter Referrals: Uma Mott DO [Primary Care Provider] - Discharge Diet: Regular Discharge Activity: Resume usual activity Patient Instructions: Alcohol Abuse, Anxiety (DC), Opioid Safety Discharge Attestations NPU Time Spent in Discharge Care*: less than 30 min Specific Discharge Activities: Specific discharge activities: educating patient, discussing with case management assistant/social workers/dc planners, documenting/other paperwork and evaluating patient/reviewing data Status at Discharge: Cognitive status at discharge: cognitively intact , Behavioral status at discharge: cooperative , Coding Level of Care Code Acute Chg FW DC note Diagnoses Suicidal ideation R45.851 Acute psychosis F23 Polysubstance abuse F19.10 Methamphetamine use F15.10 Adjustment disorder with mixed disturbance of emotions and conduct F43.25 Borderline personality disorder F60.3 Generalized anxiety disorder F41.1 Alcohol dependence, in remission F10.21 Alcohol abuse F10.10 Marijuana use F12.90 Anxiety F41.9
[2021-03-06 15:20] VITALS: BP 117/80; PULSE 116; RESP 18; TEMP 36.6; O2SAT 98
[2021-03-06] MEDS: dicyclomine 20 mg Tablet PO (15:45)
--- NOTE | 2021-03-08 07:55 | PC.RESP ---
SMOKING CESSATION INFORMATION SENT TO PATIENT.
== END 2021-03-06 16:31 | disposition home or self-care (01) | DRG 882 ==
LOC: ER 15:57 → NP 17:00
PROVIDERS: Admitting Provider Psychiatry & Neurology Psychiatry; Emergency Provider Family Medicine; PCP Family Medicine; Visit Provider Psychiatry & Neurology Psychiatry
DX: F43.25 Adjustment disorder with mixed disturbance of emotions and conduct (principal); R45.851 Suicidal ideations; F10.20 Alcohol dependence, uncomplicated; F12.10 Cannabis abuse, uncomplicated; F15.90 Other stimulant use, unspecified, uncomplicated; R45.850 Homicidal ideations; F17.210 Nicotine dependence, cigarettes, uncomplicated; M79.7 Fibromyalgia; E66.3 Overweight; F60.3 Borderline personality disorder; F41.1 Generalized anxiety disorder; Z68.23 Body mass index [BMI] 23.0-23.9, adult; Z59.0 Homelessness; Z81.8 Family history of other mental and behavioral disorders; Z82.3 Family history of stroke; Z82.49 Family history of ischemic heart disease and other diseases of the circulatory system; Z80.3 Family history of malignant neoplasm of breast
CPT/HCPCS: 80053; 80307; 84703; 85025; 96372; 99285; J2060; J3486

== ENCOUNTER 2021-03-09 05:20 | Inpatient (IN) | payer MEDICAID, SELFPAY ==
[2021-03-09] VITALS (10 sets, daily range): BP systolic 108–139; BP diastolic 78–97; PULSE 80–96; RESP 15–18; TEMP 35.9–37.1; O2SAT 96–99; BMI 25.7
--- NOTE | 2021-03-09 05:34 | ECG_ITS ---
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 Measurements Intervals [place] Rate: 87 P: 35 IN: 141 QRS: 82 QRSD: 90 T: 37 QT: 389 QTc: 470 Interpretive Statements SINUS RHYTHM NONSPECIFIC T-WAVE ABNORMALITY Compared to ECG 11/26/2020 11:29:21 T-wave abnormality now present Short IN interval no longer present Electronically Signed On 03-09-2021 16:13:18 CDT by Rei Snyder M.D. [id number]
--- NOTE | 2021-03-09 05:35 | W.ED.ABDPA2 ---
Documented by User: Osmin Cardoso MD 03/09/21 05:38 HPI - Abdominal Pain General: Chief Complaint: Abdominal Pain Stated Complaint: N/V Time Seen by Provider: 03/09/21 05:23 Source: patient Mode of arrival: ambulatory Limitations: no limitations History of Present Illness: HPI narrative: 40-year-old female states that she been having epigastric abdominal pain since yesterday along with nausea and vomiting. States she is also been very anxious due to life stressors. She denies any suicidal homicidal ideations. States she has vomited twice this morning. States her pain is currently a 5 out of 10. Denies any worsening improving factors. Associated Symptoms: Reports nausea and vomiting; Denies chills, dysuria and fever(s) Related Data: Date of Last Menstrual Period: 02/22/18 Review of Systems Const: Denies: fever(s), chills, body aches or change in appetite Eyes: Denies: blurry vision or eye discomfort ENMT: Denies: throat pain or dental pain Card: Denies: chest pain Resp: Denies: dyspnea GI: Reports: abdominal pain, nausea and vomiting : Denies: dysuria Musc: Denies: neck pain or back pain Skin/Breast: Denies: rash Neuro: Denies: headache(s) Psych: Reports: anxiety Bossman/Lymph: Denies: easy bruising All/Imm: Denies: urticaria PFSH ED PFSH: Medical History Alcohol abuse Alcohol dependence, in remission Anxiety Bipolar affective, depress, unspec Generalized anxiety disorder Other stimulant dependence, in remission Psychiatric care Family History Grandfather No problems noted. Grandmother Stroke Maternal great Heart disease paternal Hypertension maternal Father Heart disease Hypertension Family/Other Breast cancer maternal aunt Denies family history of Colon cancer Ovarian cancer Uterine cancer Thyroid disease Social History Smoking and tobacco status: current every day smoker cigarettes Packs smoked per day: 1.5 Alcohol intake: never Female Reproductive History: Date of last menstrual period: 02/22/18 Physical Exam Const: COMMON NORMALS: no acute distress, patient oriented x3 and healthy appearing HENMT: COMMON NORMALS: normocephalic and atraumatic HEAD & SCALP: normocephalic and atraumatic Eye: COMMON NORMALS: Equal, round and reactive pupils present and EOMs intact bilaterally PUPIL: Yes Equal, round and reactive pupils present Neck/C-Spine: COMMON NORMALS: full ROM and supple Chest: COMMONS NORMALS: normal inspection of the chest and normal palpation of entire chest wall Resp: COMMON NORMALS: normal respiratory effort, No retractions, No use of accessory muscles and clear to auscultation bilaterally AUSCULTATION: clear to auscultation bilaterally Cardio: COMMON NORMALS: regular rate, regular rhythm and No murmurs present (Cardio) RATE: regular rate RHYTHM: regular rhythm GI: COMMON NORMALS: Normal to inspection, nondistended, normoactive bowel sounds present, Soft to palpation, non-tender and no masses PALPATION: Yes Soft to palpation Extremity: COMMON NORMALS: normal to inspection and full ROM Neuro: COMMON NORMALS: patient oriented x3, moves all extremities and no focal motor deficits Psych: COMMON NORMALS: mental status grossly normal and cooperative MOOD & AFFECT: Yes anxious Skin: COMMON NORMALS: no rashes or lesions noted and no wounds GENERAL SKIN EXAM: no rashes or lesions noted Course Vital Signs: Vital signs: Vital Signs Temperature 96.7 F L 03/09/21 05:26 Pulse Rate 94 03/09/21 09:10 Respiratory Rate 15 03/09/21 09:10 Blood Pressure 108/78 03/09/21 09:10 Pulse Oximetry 96 03/09/21 09:10 MDM - Abdominal Pain Lab Data: Labs: Lab Results 03/09/21 03/09/21 03/09/21 Range/Units 05:35 05:35 05:35 WBC 14.7 H (4.0-10.0) 10^3/ uL RBC 4.87 (4.1-5.3) 10^6/u L Hgb 13.9 (11.5-15.3) g/dL Hct 43.1 (37.0-47.0) % MCV 88.5 (81-99) fl MCH 28.5 (28.0-34.0) pg MCHC 32.3 (30.0-36.0) g/dL RDW 14.3 (12.1-15.1) % Plt Count 535 H (130-400) 10^3/c mm MPV 9.5 (7.4-10.4) fL Neut % (Auto) 75.1 % Lymph % (Auto) 15.7 % [place] % (Auto) 7.7 % Eos % (Auto) 0.7 % Baso % (Auto) 0.5 % Neut # (Auto) 11.00 H (1.8-7.7) 10^3/u L Lymph # (Auto) 2.3 (0.8-4.8) 10^3/u L [place] # (Auto) 1.1 H (0.2-0.9) 10^3/u L Eos # (Auto) 0.1 (0.0-0.8) 10^3/u L Baso # (Auto) 0.1 (0.0-0.1) 10^3/u L Nucleated RBC % (a uto) 0 % Nucleated RBCs # 0.0 /100WBC Sodium 136 (136-145) mmol/L Potassium 3.9 (3.5-5.1) mmol/L Chloride 103 (98-107) mmol/L Carbon Dioxide 23 (22-29) mmol/L Anion Gap 13.9 (5-19) BUN 7 (6-20) mg/dL Creatinine 0.6 (0.5-0.9) mg/dL GFR Calculation 110.7 (90-130) mL/min Glucose 99 (65-115) mg/dL Calculated Osmolal ity 280 L (285-295) mOsm/k g Calcium 9.9 (8.5-10.5) mg/dL Total Bilirubin 0.3 (0.15-1.2) mg/dL AST 12 (0-32) U/L ALT 18 (0-33) U/L Alkaline Phosphata se 152 H (35-105) IU/L Total Protein 6.8 (6.6-8.7) g/dL Albumin 4.4 (3.5-5.2) g/dL Globulin 2.4 (1.3-4.6) g/dL Lipase 27 (13-60) U/L HCG, Qual (Negative) Urine Color (Yellow) Urine Appearance (CLEAR) Urine pH (5-7) Ur Specific Gravit y (1.005-1.030) Urine Protein (Negative) Urine Glucose (UA) (Normal) Urine Ketones (Negative) Urine Blood (Negative) Urine Nitrate (Negative) Urine Bilirubin (Negative) Urine Urobilinogen (Negative) mg/dL Ur Leukocyte Rosaura ase (Negative) Salicylates < 0.3 L (3-10) mg/dL Urine Opiates Scre en (Negative) ng/mL Acetaminophen < 5.0 L (10-30) ug/mL Ur Barbiturates Sc reen (Negative) ng/mL Ur Phencyclidine S crn (Negative) ng/mL Ur Amphetamines Sc reen (Negative) ng/mL U Benzodiazepines Scrn (Negative) ng/mL [employer] (0.6-1.2) mmol/L Urine Cocaine Scre en (Negative) ng/mL U Marijuana (THC) Screen (Negative) ng/mL 03/09/21 03/09/21 03/09/21 Range/Units 06:01 09:36 09:36 WBC (4.0-10.0) 10^3/ uL RBC (4.1-5.3) 10^6/u L Hgb (11.5-15.3) g/dL Hct (37.0-47.0) % MCV (81-99) fl MCH (28.0-34.0) pg MCHC (30.0-36.0) g/dL RDW (12.1-15.1) % Plt Count (130-400) 10^3/c mm MPV (7.4-10.4) fL Neut % (Auto) % Lymph % (Auto) % [place] % (Auto) % Eos % (Auto) % Baso % (Auto) % Neut # (Auto) (1.8-7.7) 10^3/u L Lymph # (Auto) (0.8-4.8) 10^3/u L [place] # (Auto) (0.2-0.9) 10^3/u L Eos # (Auto) (0.0-0.8) 10^3/u L Baso # (Auto) (0.0-0.1) 10^3/u L Nucleated RBC % (a uto) % Nucleated RBCs # /100WBC Sodium (136-145) mmol/L Potassium (3.5-5.1) mmol/L Chloride (98-107) mmol/L Carbon Dioxide (22-29) mmol/L Anion Gap (5-19) BUN (6-20) mg/dL Creatinine (0.5-0.9) mg/dL GFR Calculation (90-130) mL/min Glucose (65-115) mg/dL Calculated Osmolal ity (285-295) mOsm/k g Calcium (8.5-10.5) mg/dL Total Bilirubin (0.15-1.2) mg/dL AST (0-32) U/L ALT (0-33) U/L Alkaline Phosphata se (35-105) IU/L Total Protein (6.6-8.7) g/dL Albumin (3.5-5.2) g/dL Globulin (1.3-4.6) g/dL Lipase (13-60) U/L HCG, Qual (Negative) Urine Color Yellow (Yellow) Urine Appearance Clear (CLEAR) Urine pH 7 (5-7) Ur Specific Gravit y 1.005 (1.005-1.030) Urine Protein Neg (Negative) Urine Glucose (UA) Norm (Normal) Urine Ketones Negative (Negative) Urine Blood Neg (Negative) Urine Nitrate Negative (Negative) Urine Bilirubin Neg (Negative) Urine Urobilinogen Norm (Negative) mg/dL Ur Leukocyte Rosaura ase Negative (Negative) Salicylates (3-10) mg/dL Urine Opiates Scre en Negative (Negative) ng/mL Acetaminophen (10-30) ug/mL Ur Barbiturates Sc reen Negative (Negative) ng/mL Ur Phencyclidine S crn Negative (Negative) ng/mL Ur Amphetamines Sc reen Positive H (Negative) ng/mL U Benzodiazepines Scrn Negative (Negative) ng/mL [employer] 1.6 H (0.6-1.2) mmol/L Urine Cocaine Scre en Negative (Negative) ng/mL U Marijuana (THC) Screen Positive H (Negative) ng/mL 03/09/21 Range/Units 10:15 WBC (4.0-10.0) 10^3/ uL RBC (4.1-5.3) 10^6/u L Hgb (11.5-15.3) g/dL Hct (37.0-47.0) % MCV (81-99) fl MCH (28.0-34.0) pg MCHC (30.0-36.0) g/dL RDW (12.1-15.1) % Plt Count (130-400) 10^3/c mm MPV (7.4-10.4) fL Neut % (Auto) % Lymph % (Auto) % [place] % (Auto) % Eos % (Auto) % Baso % (Auto) % Neut # (Auto) (1.8-7.7) 10^3/u L Lymph # (Auto) (0.8-4.8) 10^3/u L [place] # (Auto) (0.2-0.9) 10^3/u L Eos # (Auto) (0.0-0.8) 10^3/u L Baso # (Auto) (0.0-0.1) 10^3/u L Nucleated RBC % (a uto) % Nucleated RBCs # /100WBC Sodium (136-145) mmol/L Potassium (3.5-5.1) mmol/L Chloride (98-107) mmol/L Carbon Dioxide (22-29) mmol/L Anion Gap (5-19) BUN (6-20) mg/dL Creatinine (0.5-0.9) mg/dL GFR Calculation (90-130) mL/min Glucose (65-115) mg/dL Calculated Osmolal ity (285-295) mOsm/k g Calcium (8.5-10.5) mg/dL Total Bilirubin (0.15-1.2) mg/dL AST (0-32) U/L ALT (0-33) U/L Alkaline Phosphata se (35-105) IU/L Total Protein (6.6-8.7) g/dL Albumin (3.5-5.2) g/dL Globulin (1.3-4.6) g/dL Lipase (13-60) U/L HCG, Qual Negative (Negative) Urine Color (Yellow) Urine Appearance (CLEAR) Urine pH (5-7) Ur Specific Gravit y (1.005-1.030) Urine Protein (Negative) Urine Glucose (UA) (Normal) Urine Ketones (Negative) Urine Blood (Negative) Urine Nitrate (Negative) Urine Bilirubin (Negative) Urine Urobilinogen (Negative) mg/dL Ur Leukocyte Rosaura ase (Negative) Salicylates (3-10) mg/dL Urine Opiates Scre en (Negative) ng/mL Acetaminophen (10-30) ug/mL Ur Barbiturates Sc reen (Negative) ng/mL Ur Phencyclidine S crn (Negative) ng/mL Ur Amphetamines Sc reen (Negative) ng/mL U Benzodiazepines Scrn (Negative) ng/mL [employer] (0.6-1.2) mmol/L Urine Cocaine Scre en (Negative) ng/mL U Marijuana (THC) Screen (Negative) ng/mL Discharge Plan Discharge Patient Disposition: Placed in Observation Admit Provider: Collins Koch Clinical Impression: Abdominal pain, Nausea & vomiting, Elevated lithium level Sign Out Sign Out Data: Patient Sign Out occurred on 03/09/21 at 05:57. Patient's care was discussed, and care was transferred from to Sebastián Jolly MD. Post-Handoff Eval: Patient care handoff received from Dr. Cardoso pending completion of laboratory studies. Laboratory studies notable for mild leukocytosis which appears chronic for this patient however given abdominal discomfort and nausea and vomiting as well as reexamination CT scan ordered. CT scan negative for acute finding to explain patient's abdominal discomfort. Urinalysis not concerning for urinary tract infection. More concerning is lithium level of 1.6. I did discuss medications with this patient, challenging history, patient does report inconsistent medication use. She sometimes takes 1 or 2 tablets. She thinks she probably took 2 today and maybe 2 yesterday without the intention of self-harm. These are extended release tablets. I discussed the case with poison control who recommended repeat level at noon. Based on extended release formulation as well as symptoms concerning for mild lithium toxicity in the absence of other apparent etiology the patient requires inpatient observation. Hospitalist contacted and agreed to admit the patient. Patient admitted to observation in satisfactory condition. Sebastián Jolly MD Emergency Medicine Coding Level of Care Code ED Upper Marker for Chg Fwd Exam Comprehensive Documented by User: Sebastián Jolly MD 03/09/21 10:56 HPI - Abdominal Pain General: Chief Complaint: Abdominal Pain Stated Complaint: N/V Time Seen by Provider: 03/09/21 05:23 PFSH ED PFSH: Medical History Alcohol abuse Alcohol dependence, in remission Anxiety Bipolar affective, depress, unspec Generalized anxiety disorder Other stimulant dependence, in remission Psychiatric care Family History Grandfather No problems noted. Grandmother Stroke Maternal great Heart disease paternal Hypertension maternal Father Heart disease Hypertension Family/Other Breast cancer maternal aunt Denies family history of Colon cancer Ovarian cancer Uterine cancer Thyroid disease Social History Smoking and tobacco status: current every day smoker cigarettes Packs smoked per day: 1.5 Alcohol intake: never Course Vital Signs: Vital signs: Vital Signs Temperature 96.7 F L 03/09/21 05:26 Pulse Rate 94 03/09/21 09:10 Respiratory Rate 15 03/09/21 09:10 Blood Pressure 108/78 03/09/21 09:10 Pulse Oximetry 96 03/09/21 09:10 MDM - Abdominal Pain Lab Data: Labs: Lab Results 03/09/21 03/09/21 03/09/21 Range/Units 05:35 05:35 05:35 WBC 14.7 H (4.0-10.0) 10^3/ uL RBC 4.87 (4.1-5.3) 10^6/u L Hgb 13.9 (11.5-15.3) g/dL Hct 43.1 (37.0-47.0) % MCV 88.5 (81-99) fl MCH 28.5 (28.0-34.0) pg MCHC 32.3 (30.0-36.0) g/dL RDW 14.3 (12.1-15.1) % Plt Count 535 H (130-400) 10^3/c mm MPV 9.5 (7.4-10.4) fL Neut % (Auto) 75.1 % Lymph % (Auto) 15.7 % [place] % (Auto) 7.7 % Eos % (Auto) 0.7 % Baso % (Auto) 0.5 % Neut # (Auto) 11.00 H (1.8-7.7) 10^3/u L Lymph # (Auto) 2.3 (0.8-4.8) 10^3/u L [place] # (Auto) 1.1 H (0.2-0.9) 10^3/u L Eos # (Auto) 0.1 (0.0-0.8) 10^3/u L Baso # (Auto) 0.1 (0.0-0.1) 10^3/u L Nucleated RBC % (a uto) 0 % Nucleated RBCs # 0.0 /100WBC Sodium 136 (136-145) mmol/L Potassium 3.9 (3.5-5.1) mmol/L Chloride 103 (98-107) mmol/L Carbon Dioxide 23 (22-29) mmol/L Anion Gap 13.9 (5-19) BUN 7 (6-20) mg/dL Creatinine 0.6 (0.5-0.9) mg/dL GFR Calculation 110.7 (90-130) mL/min Glucose 99 (65-115) mg/dL Calculated Osmolal ity 280 L (285-295) mOsm/k g Calcium 9.9 (8.5-10.5) mg/dL Total Bilirubin 0.3 (0.15-1.2) mg/dL AST 12 (0-32) U/L ALT 18 (0-33) U/L Alkaline Phosphata se 152 H (35-105) IU/L Total Protein 6.8 (6.6-8.7) g/dL Albumin 4.4 (3.5-5.2) g/dL Globulin 2.4 (1.3-4.6) g/dL Lipase 27 (13-60) U/L HCG, Qual (Negative) Urine Color (Yellow) Urine Appearance (CLEAR) Urine pH (5-7) Ur Specific Gravit y (1.005-1.030) Urine Protein (Negative) Urine Glucose (UA) (Normal) Urine Ketones (Negative) Urine Blood (Negative) Urine Nitrate (Negative) Urine Bilirubin (Negative) Urine Urobilinogen (Negative) mg/dL Ur Leukocyte Rosaura ase (Negative) Salicylates < 0.3 L (3-10) mg/dL Urine Opiates Scre en (Negative) ng/mL Acetaminophen < 5.0 L (10-30) ug/mL Ur Barbiturates Sc reen (Negative) ng/mL Ur Phencyclidine S crn (Negative) ng/mL Ur Amphetamines Sc reen (Negative) ng/mL U Benzodiazepines Scrn (Negative) ng/mL [employer] (0.6-1.2) mmol/L Urine Cocaine Scre en (Negative) ng/mL U Marijuana (THC) Screen (Negative) ng/mL 03/09/21 03/09/21 03/09/21 Range/Units 06:01 09:36 09:36 WBC (4.0-10.0) 10^3/ uL RBC (4.1-5.3) 10^6/u L Hgb (11.5-15.3) g/dL Hct (37.0-47.0) % MCV (81-99) fl MCH (28.0-34.0) pg MCHC (30.0-36.0) g/dL RDW (12.1-15.1) % Plt Count (130-400) 10^3/c mm MPV (7.4-10.4) fL Neut % (Auto) % Lymph % (Auto) % [place] % (Auto) % Eos % (Auto) % Baso % (Auto) % Neut # (Auto) (1.8-7.7) 10^3/u L Lymph # (Auto) (0.8-4.8) 10^3/u L [place] # (Auto) (0.2-0.9) 10^3/u L Eos # (Auto) (0.0-0.8) 10^3/u L Baso # (Auto) (0.0-0.1) 10^3/u L Nucleated RBC % (a uto) % Nucleated RBCs # /100WBC Sodium (136-145) mmol/L Potassium (3.5-5.1) mmol/L Chloride (98-107) mmol/L Carbon Dioxide (22-29) mmol/L Anion Gap (5-19) BUN (6-20) mg/dL Creatinine (0.5-0.9) mg/dL GFR Calculation (90-130) mL/min Glucose (65-115) mg/dL Calculated Osmolal ity (285-295) mOsm/k g Calcium (8.5-10.5) mg/dL Total Bilirubin (0.15-1.2) mg/dL AST (0-32) U/L ALT (0-33) U/L Alkaline Phosphata se (35-105) IU/L Total Protein (6.6-8.7) g/dL Albumin (3.5-5.2) g/dL Globulin (1.3-4.6) g/dL Lipase (13-60) U/L HCG, Qual (Negative) Urine Color Yellow (Yellow) Urine Appearance Clear (CLEAR) Urine pH 7 (5-7) Ur Specific Gravit y 1.005 (1.005-1.030) Urine Protein Neg (Negative) Urine Glucose (UA) Norm (Normal) Urine Ketones Negative (Negative) Urine Blood Neg (Negative) Urine Nitrate Negative (Negative) Urine Bilirubin Neg (Negative) Urine Urobilinogen Norm (Negative) mg/dL Ur Leukocyte Rosaura ase Negative (Negative) Salicylates (3-10) mg/dL Urine Opiates Scre en Negative (Negative) ng/mL Acetaminophen (10-30) ug/mL Ur Barbiturates Sc reen Negative (Negative) ng/mL Ur Phencyclidine S crn Negative (Negative) ng/mL Ur Amphetamines Sc reen Positive H (Negative) ng/mL U Benzodiazepines Scrn Negative (Negative) ng/mL [employer] 1.6 H (0.6-1.2) mmol/L Urine Cocaine Scre en Negative (Negative) ng/mL U Marijuana (THC) Screen Positive H (Negative) ng/mL 03/09/21 Range/Units 10:15 WBC (4.0-10.0) 10^3/ uL RBC (4.1-5.3) 10^6/u L Hgb (11.5-15.3) g/dL Hct (37.0-47.0) % MCV (81-99) fl MCH (28.0-34.0) pg MCHC (30.0-36.0) g/dL RDW (12.1-15.1) % Plt Count (130-400) 10^3/c mm MPV (7.4-10.4) fL Neut % (Auto) % Lymph % (Auto) % [place] % (Auto) % Eos % (Auto) % Baso % (Auto) % Neut # (Auto) (1.8-7.7) 10^3/u L Lymph # (Auto) (0.8-4.8) 10^3/u L [place] # (Auto) (0.2-0.9) 10^3/u L Eos # (Auto) (0.0-0.8) 10^3/u L Baso # (Auto) (0.0-0.1) 10^3/u L Nucleated RBC % (a uto) % Nucleated RBCs # /100WBC Sodium (136-145) mmol/L Potassium (3.5-5.1) mmol/L Chloride (98-107) mmol/L Carbon Dioxide (22-29) mmol/L Anion Gap (5-19) BUN (6-20) mg/dL Creatinine (0.5-0.9) mg/dL GFR Calculation (90-130) mL/min Glucose (65-115) mg/dL Calculated Osmolal ity (285-295) mOsm/k g Calcium (8.5-10.5) mg/dL Total Bilirubin (0.15-1.2) mg/dL AST (0-32) U/L ALT (0-33) U/L Alkaline Phosphata se (35-105) IU/L Total Protein (6.6-8.7) g/dL Albumin (3.5-5.2) g/dL Globulin (1.3-4.6) g/dL Lipase (13-60) U/L HCG, Qual Negative (Negative) Urine Color (Yellow) Urine Appearance (CLEAR) Urine pH (5-7) Ur Specific Gravit y (1.005-1.030) Urine Protein (Negative) Urine Glucose (UA) (Normal) Urine Ketones (Negative) Urine Blood (Negative) Urine Nitrate (Negative) Urine Bilirubin (Negative) Urine Urobilinogen (Negative) mg/dL Ur Leukocyte Rosaura ase (Negative) Salicylates (3-10) mg/dL Urine Opiates Scre en (Negative) ng/mL Acetaminophen (10-30) ug/mL Ur Barbiturates Sc reen (Negative) ng/mL Ur Phencyclidine S crn (Negative) ng/mL Ur Amphetamines Sc reen (Negative) ng/mL U Benzodiazepines Scrn (Negative) ng/mL [employer] (0.6-1.2) mmol/L Urine Cocaine Scre en (Negative) ng/mL U Marijuana (THC) Screen (Negative) ng/mL EKG Data ^: EKG 1: Attestation: I personally reviewed and interpreted this EKG as follows: EKG interpretation date: 03/09/21 EKG interpretation time: 06:25 Interpretation: Twelve-lead EKG shows a regular sinus rhythm at a rate of 57. SC interval 141, QRS duration 90, QTc 434. Normal axis. Interpretation: Sinus rhythm. Nonspecific ST segment abnormalities. EKG 2: Attestation: I personally reviewed and interpreted this EKG as follows: EKG interpretation date: 03/09/21 EKG interpretation time: 08:40 Interpretation: Twelve-lead EKG shows a regular sinus rhythm at a rate of 57. SC interval 135, QRS duration 97, QTc 435. Normal axis. Interpretation: Sinus rhythm. Nonspecific ST segment abnormalities. QTc similar to prior. Overall similar to prior. Discharge Plan Discharge Patient Disposition: Placed in Observation Admit Provider: Collins Koch Clinical Impression: Abdominal pain, Nausea & vomiting, Elevated lithium level Sign Out Sign Out Data: Patient Sign Out occurred on 03/09/21 at 05:57. Patient's care was discussed, and care was transferred from to Sebastián Jolly MD. Post-Handoff Eval: Patient care handoff received from Dr. Cardoso pending completion of laboratory studies. Laboratory studies notable for mild leukocytosis which appears chronic for this patient however given abdominal discomfort and nausea and vomiting as well as reexamination CT scan ordered. CT scan negative for acute finding to explain patient's abdominal discomfort. Urinalysis not concerning for urinary tract infection. More concerning is lithium level of 1.6. I did discuss medications with this patient, challenging history, patient does report inconsistent medication use. She sometimes takes 1 or 2 tablets. She thinks she probably took 2 today and maybe 2 yesterday without the intention of self-harm. These are extended release tablets. I discussed the case with poison control who recommended repeat level at noon. Based on extended release formulation as well as symptoms concerning for mild lithium toxicity in the absence of other apparent etiology the patient requires inpatient observation. Hospitalist contacted and agreed to admit the patient. Patient admitted to observation in satisfactory condition. Sebastián Jolly MD Emergency Medicine Coding Level of Care Code ED Upper Marker for Chg Fwd Exam Comprehensive
[2021-03-09] MEDS: sodium chloride 0.9% 1,000 ML 999 ML IV ×2 (05:45→08:30)
[2021-03-09 05:55] LABS: Basophils # 0.1 10^3/uL (0.0-0.1); Basophils % 0.5 %; Eosinophils # 0.1 10^3/uL (0.0-0.8); Eosinophils % 0.7 %; Hematocrit 43.1 % (37.0-47.0); Hemoglobin 13.9 g/dL (11.5-15.3); Lymphocytes # 2.3 10^3/uL (0.8-4.8); Lymphocytes % 15.7 %; Mean Corpuscular HGB Conc 32.3 g/dL (30.0-36.0); Mean Corpuscular Hemoglobin 28.5 pg (28.0-34.0); Mean Corpuscular Volume 88.5 fl (81-99); Mean Platelet Volume 9.5 fL (7.4-10.4); Monocytes # 1.1 10^3/uL (0.2-0.9); Monocytes % 7.7 %; Neutrophils % 75.1 %; Nucleated Red Blood Cells % 0 %; Platelet Count 535 10^3/cmm (130-400); Red Blood Count 4.87 10^6/uL (4.1-5.3); Red Cell Distribution Width 14.3 % (12.1-15.1); White Blood Count 14.7 10^3/uL (4.0-10.0)
[2021-03-09] MEDS: LORazepam 2 mg/mL INJ 1 mL 1 MG IVP ×2 (06:06→08:37)
[2021-03-09] MEDS: ondansetron 2 mg/ML SDV 2 mL 4 MG IVP (06:06)
[2021-03-09 06:14] LABS: Alanine Aminotransferase 18 U/L (0-33); Albumin Level 4.4 g/dL (3.5-5.2); Alkaline Phosphatase 152 IU/L (35-105); Anion Gap 13.9 (5-19); Aspartate Amino Transferase 12 U/L (0-32); Blood Urea Nitrogen 7 mg/dL (6-20); Calcium 9.9 mg/dL (8.5-10.5); Carbon Dioxide 23 mmol/L (22-29); Chloride 103 mmol/L (98-107); Globulin 2.4 g/dL (1.3-4.6); Glomerular Filtration Rate 110.7 mL/min (90-130); Glucose 99 mg/dL (65-115); Lipase 27 U/L (13-60); Osmolality Calculated 280 mOsm/kg (285-295); Potassium 3.9 mmol/L (3.5-5.1); Sodium 136 mmol/L (136-145); Total Bilirubin 0.3 mg/dL (0.15-1.2); Total Protein 6.8 g/dL (6.6-8.7)
[2021-03-09 07:05] LABS: Lithium 1.6 mmol/L (0.6-1.2)
--- NOTE | 2021-03-09 07:25 | CTR_ITS ---
PROCEDURE INFORMATION: Exam: CT Abdomen And Pelvis With Contrast Exam date and time: 03/09/2021 7:25 AM Age: 40 years old Clinical indication: Abdominal pain; Localized; Upper TECHNIQUE: Imaging protocol: Computed tomography of the abdomen and pelvis with contrast. Radiation optimization: All CT scans at this facility use at least one of these dose optimization techniques: automated exposure control; mA and/or kV adjustment per patient size (includes targeted exams where dose is matched to clinical indication); or iterative reconstruction. Contrast material: OMNIPAQUE 300; Contrast volume: 95 ml; Contrast route: INTRAVENOUS (IV); COMPARISON: CT abdomen pelvis w con* [id number] 01/07/2017 11:13 PM RADIATION DOSE METRICS: Total DLP (mGy-cm): 867.81 FINDINGS: The examination performed is mildly degraded by motion artifact. Lungs: Interstitial prominence and mild airspace disease. Liver: Fatty infiltration of the liver. Gallbladder and bile ducts: Contracted gallbladder. Pancreas: No pancreatic mass or ductal dilatation. Spleen: Spleen upper limits of normal size. Adrenal glands: Unremarkable adrenals. Kidneys and ureters: Normal renal morphology. Mild right hydronephrosis, without associated urolithiasis. Stomach and bowel: Questionable wall thickening in the nondistended stomach. No significant small bowel dilatation. Diverticula, without pericolonic inflammation. Appendix: No acute appendicitis. Intraperitoneal space: No free fluid. Vasculature: Pelvic vascular calcifications. Normal caliber of the abdominal aorta. Lymph nodes: Subcentimeter lymph nodes. Urinary bladder: Bladder dilatation. Reproductive: Status post hysterectomy. Bones/joints: Mild scoliosis. Soft tissues: Unremarkable. CT/CT abdomen pelvis w con* [id number] IMPRESSION: 1. No acute inflammatory process in the abdomen or pelvis. 2. Additional findings as described above. Radiation Dose CTDIVOL = (mGy): DLP = 867.81 (mGy-cm)
--- NOTE | 2021-03-09 07:44 | PC.NURSE ---
Nurse in room for patient rounding. She appears very paranoid. Male nurse in room with me, patient continuously looking back over at him and squinting her eyes with quick gazes noted. Male nurse leaving room, I sat down with patient, demeanor changed with just the two of us in the room. I asked her simple questions while obtaining her vital signs, she had delayed responses with 1 word answers. I asked her if she could get up and go to the bathroom, she stated that she wanted a coke to drink and then she would try. I spoke with Dr. Jolly, patient okay to have drink. Back to room to give patient her drink, she was very tearful on my arrival, I asked her if she was okay- she stated that she was just feeling anxious again and sad. After some further questions patients states that her ex-boyfriend last week and didnt want to talk about it anymore. She denies any further needs at this time. Dr. Jolly notified.
[2021-03-09 08:06] LABS: Acetaminophen < 5.0 ug/mL (10-30); Salicylate < 0.3 mg/dL (3-10)
--- NOTE | 2021-03-09 08:30 | ECG_ITS ---
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 Measurements Intervals Simon Rate: 87 P: 11 ID: [id number] QRS: 69 QRSD: 97 T: 34 QT: 393 QTc: 475 Interpretive Statements SINUS RHYTHM NONSPECIFIC T-WAVE ABNORMALITY Compared to ECG 03/09/2021 06:21:25 No significant changes Electronically Signed On 03-09-2021 16:14:43 CDT by Rei Snyder M.D. [email or web address]
[2021-03-09] MEDS: iohexol 300 mg/mL 100 mL Btl IV (09:15)
[2021-03-09 10:26] LABS: Add Urine Microscopic? NO; Charge for UA Resulting for Rev
[2021-03-09 10:32] LABS: Bilirubin Urine Neg (Negative); Blood Urine Neg (Negative); Glucose Urine UA Norm (Normal); Ketones Urine Negative (Negative); Leukocyte Esterase Urine Negative (Negative); Nitrate Urine Negative (Negative); Protein Urine Neg (Negative); Specific Gravity, Urine 1.005 (1.005-1.030); Urine Appearance Clear (CLEAR); Urine Color Yellow (Yellow); Urobilinogen Urine Norm (Negative); pH Urine 7 (5-7)
[2021-03-09 10:34] LABS: HCG Qualitative Urine. Negative (Negative)
[2021-03-09 10:38] LABS: Amphetamines Screen Urine Positive (Negative); Barbiturates Screen Urine Negative (Negative); Benzodiazepines Screen Urine Negative (Negative); Cocaine Screen Urine Negative (Negative); Opiate Screen Urine Negative (Negative); PCP Screen Urine Negative (Negative); THC Screen Urine Positive (Negative)
--- NOTE | 2021-03-09 11:19 | PC.NURSE ---
Patient is unable to answer when she had the vaccine or which brand of vaccine she had.
--- NOTE | 2021-03-09 11:30 | ECG_ITS ---
[facility] Test Date: 2021-03-09 Pat Name: Brianna Real Department: Room: 271 Gender: Female Polysomnography Technologist: : 1980 Requested By: Sebastián Jolly Order Number: [id number] Dilma MD: Rei Snyder M.D. Measurements Intervals Strang Rate: 85 P: 42 NE: 123 QRS: 87 QRSD: 90 T: 54 QT: 374 QTc: 446 Interpretive Statements SINUS RHYTHM Compared to ECG 03/09/2021 08:39:30 T-wave abnormality no longer present Electronically Signed On 03-09-2021 16:14:48 CDT by Rei Snyder M.D. [id number]
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
--- NOTE | 2021-03-09 12:06 | PM.HP ---
Providers/Chief Complaint Admitting Physician: Collins Koch Primary Care Provider: Uma Mott DO Chief Complaint: N/V History of Present Illness 40-year-old female with a past medical history significant for generalized anxiety disorder, adjustment disorder, prior alcoholism, borderline personality disorder and polysubstance abuse including methamphetamine who was recently discharged from [facility] on 03/06/2021 not presented to the hospital with abdominal pain. Apparently this was associated with a few episodes of nonbloody emesis. upon arrival laboratory workup showed a WBC of 14.7, hemoglobin of 13.9, hematocrit of 43.1 and a platelet count of 535.Sodium 134, potassium 3.7, chloride 105, bicarb 22, BUN 5 and creatinine of 0.6. Calcium 8.7 LFTs within normal limits. Urinalysis without any evidence of acute infection. Urinary drug screen showed negative salicylates, acetaminophen however was positive for marijuana and amphetamines.[place] level initially was 1.6 however this was repeated and found to be 0.7. poison control was contacted. Initially patient was admitted to the medical floor due to the elevated lithium level however after repeat patient was transferred to U. Shortly after admission patient was found to have psychosis. Was not able to provide any meaningful history. Was not noted to be in any distress. Of note a CT abdomen pelvis was also performed in ER which did not show any evidence of acute abnormality in abdomen or pelvis. Patient denied any suicidal or homicidal ideation. Review of Systems General: Reports: ROS unobtainable due to mental status Medications/Allergies Home Medications Medication Instructions Recorded Confirmed Last Taken Type buspirone 10 mg PO TID PRN 30 Days #90 tab 01/27/21 03/09/21 Unknown Rx dicyclomine 20 mg PO QID PRN 30 Days #120 tab 01/27/21 03/09/21 Unknown Rx lithium carbonate [Lithobid] 300 mg PO DAILY 30 Days #30 tab 01/27/21 03/09/21 Unknown Rx olanzapine 10 mg PO BEDTIME 30 Days #30 tab 01/27/21 03/09/21 Unknown Rx trazodone 100 mg PO BEDTIME 30 Days #30 tab 01/27/21 03/09/21 Unknown Rx Rexulti 2 mg PO DAILY 03/02/21 03/09/21 Unknown History cyclobenzaprine 10 mg PO TID PRN 03/02/21 03/09/21 Unknown History duloxetine [Cymbalta] 60 mg PO DAILY 03/02/21 03/09/21 Unknown History gabapentin 100 mg PO TID 03/02/21 03/09/21 Unknown History tizanidine 4 mg PO BID PRN 03/02/21 03/09/21 Unknown History tramadol 50 mg PO BID PRN 03/02/21 03/09/21 Unknown History Allergies Allergy/AdvReac Type Severity Reaction Status Date / Time Penicillins Allergy Intermediate rash Verified 01/20/21 17:50 Sulfa (Sulfonamide Allergy Unknown Verified 01/20/21 17:50 Antibiotics) PFSH Acute PFSH: Medical History Alcohol abuse Alcohol dependence, in remission Anxiety Bipolar affective, depress, unspec Generalized anxiety disorder Other stimulant dependence, in remission Psychiatric care Family History Grandfather No problems noted. Grandmother Stroke Maternal great Heart disease paternal Hypertension maternal Father Heart disease Hypertension Family/Other Breast cancer maternal aunt Denies family history of Colon cancer Ovarian cancer Uterine cancer Thyroid disease Social History Smoking and tobacco status: current every day smoker cigarettes Packs smoked per day: 1.5 Alcohol intake: never Female Reproductive History: Date of last menstrual period: 02/22/18 Vitals/I&O/Wt Last Vital Signs Temp 98.6 F 03/09/21 11:08 Pulse 81 03/09/21 11:08 Resp 16 03/09/21 11:08 BP 126/88 03/09/21 11:08 Pulse Ox 96 03/09/21 11:08 03/08/21 03/09/21 03/09/21 22:59 06:59 14:59 Intake Total 1000 / 1000 1000 / 1000 Balance 1000 / 1000 1000 / 1000 Weight last 48 hrs Weight 70.307 kg Physical Exam Narrative: EXAM NARRATIVE: General: Alert, awake, pressured speech HEENT : Grossly unremarkable CVS: NSR Chest: non labored respiration Abd; Non-distended Ext no edema Data : 03/09/21 05:35 03/09/21 12:20 A&P Assessment and plan (1) Abdominal pain: Resolved Labs stable No evidence of UTI CT abdomen pelvis -no acute abnormality Regular diet Status: Acute (2) Elevated lithium level: Status: Acute (3) Polysubstance abuse: UDS- positive for amphetamines Status: Acute (4) Adjustment disorder with mixed disturbance of emotions and conduct: Status: Acute (5) Borderline personality disorder: Status: Acute (6) Generalized anxiety disorder: Status: Acute (7) Alcohol dependence, in remission: Status: Acute (8) Marijuana use: Status: Acute (9) Anxiety: Status: Acute Additional A&P Information Repeat lithium levelWas within normal limits. -0.7. No abdominal pain, nausea vomiting. Case was discussed with psychiatry. Patient accepted to U. Transfer orders placed. Attestations Medical Necessity Statement*: Require hospitalization for management of psychiatric condition. Time Spent in Patient Care: Greater than 35 minutes (>than 50% of time spent in counselling and/or direct pt care on unit). 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
[2021-03-09 12:53] LABS: Anion Gap 10.7 (5-19); Blood Urea Nitrogen 5 mg/dL (6-20); Calcium 8.7 mg/dL (8.5-10.5); Carbon Dioxide 22 mmol/L (22-29); Chloride 105 mmol/L (98-107); Glomerular Filtration Rate 110.7 mL/min (90-130); Glucose 84 mg/dL (65-115); Osmolality Calculated 274 mOsm/kg (285-295); Potassium 3.7 mmol/L (3.5-5.1); Sodium 134 mmol/L (136-145)
[2021-03-09 12:54] LABS: Lithium 0.7 mmol/L (0.6-1.2)
--- NOTE | 2021-03-09 14:45 | PC.NURSE ---
Report to Don RN in NPU at this time. Patient to room 152-1
--- NOTE | 2021-03-09 14:45 | PC.NURSE ---
Unable to complete a physical assessment on patient as she will not allow me to touch her.
[2021-03-09] MEDS: ondansetron 4 MG Tablet PO (20:39)
[2021-03-09] MEDS: hyDROXYzine 25 mg Capsule 50 MG PO (20:39)
[2021-03-09] MEDS: OLANZapine 5 mg ODT PO (20:39)
[2021-03-09] MEDS: trazodone 50 mg Tablet PO ×2 (20:39→22:07)
[2021-03-09] MEDS: haloperidol 5 mg Tablet PO (22:07)
[2021-03-09] MEDS: loperamide 2 mg Capsule PO (22:07)
[2021-03-09] MEDS: acetaminophen 325 mg Tablet 650 MG PO (22:13)
--- NOTE | 2021-03-10 01:38 | PC.NURSE ---
Patient became aggressive when another patient entered her room. Patient observed to be aggressive and agitated towards said patient. Redirection not successful. Security called to assist in situation. Redirection successful
--- NOTE | 2021-03-10 02:35 | PC.NURSE ---
behaviors [id number] Pt became upset with everyone really, staring and glaring at staff and pt's with disgust. Pt became mad at another pt and yelled and screamed down the churchill. Pt believes that she is currently her sister and doesn't believe that she is Brianna. Staff has had to get in between Christy and another pt. Pt was shouting that she is trained in [employer] and using hand gestures in the air. Pt shouting you look like you wanna get at me, you better watch yourself ! Staff redirected Pt to her room but she wouldn't stay there for long. Staff continues to monitor pt. Pt is talking about people switching bodies with bodies etc. Pt has asked for an officer to come press charges against another pt in the unit. Staff was able to talk Pt down and calm down the situations. Mood changed several times during this shift, mad, sad,glad, mad. Will continue to monitor this pt.
--- NOTE | 2021-03-10 02:54 | PC.NURSE ---
prn 2039 Administered Zofran 4mg for pt c/o an upset stomach, Zyprexa 5mg for anxiety, Vistaril 50mg for sleep.Will continue to monitor pt.
--- NOTE | 2021-03-10 02:57 | PC.NURSE ---
PRN 2207 Administered 50mg Trazodone for a sleeping aid, Imodium 2mg for pt c/o diarrhea, 5mg Haldol for aggitation and anxiety. Will continue to monitor.
[2021-03-10 05:24] VITALS: BMI 25.7
[2021-03-10 06:00] VITALS: RESP 16
[2021-03-10 08:00] VITALS: RESP 16
[2021-03-10] MEDS: pantoprazole DR 40 mg Tablet PO (08:17)
--- NOTE | 2021-03-10 13:40 | PM.NHP ---
Providers/Chief Complaint Admitting Physician: Collins Koch Primary Care Provider: Uma Mott DO Chief Complaint: N/V HPI NPU History of Present Illness Brianna Real is a 40 year old female who presented to the ED and was admitted to [facility] with the following report: 40-year-old female with a past medical history significant for generalized anxiety disorder, adjustment disorder, prior alcoholism, borderline personality disorder and polysubstance abuse including methamphetamine who was recently discharged from [facility] on 03/06/2021 not presented to the hospital with abdominal pain. Apparently this was associated with a few episodes of nonbloody emesis. upon arrival laboratory workup showed a WBC of 14.7, hemoglobin of 13.9, hematocrit of 43.1 and a platelet count of 535.Sodium 134, potassium 3.7, chloride 105, bicarb 22, BUN 5 and creatinine of 0.6. Calcium 8.7 LFTs within normal limits. Urinalysis without any evidence of acute infection. Urinary drug screen showed negative salicylates, acetaminophen however was positive for marijuana and amphetamines.[place] level initially was 1.6 however this was repeated and found to be 0.7. poison control was contacted. Initially patient was admitted to the medical floor due to the elevated lithium level however after repeat patient was transferred to U. Shortly after admission patient was found to have psychosis. Was not able to provide any meaningful history. Was not noted to be in any distress. Of note a CT abdomen pelvis was also performed in ER which did not show any evidence of acute abnormality in abdomen or pelvis. Patient denied any suicidal or homicidal ideation. She was then transferred to the neuropsychiatric unit for definitive treatment of those issues. She presents today reporting that she is not sure why she was sent to the unit because she does not feel like there were any issues. She denies any problems or changes since he was discharged a few days ago. We did discuss the positive drug screen and the methamphetamine use as well as cannabis use and she endorsed I did not do that much. We discussed the risk benefits and alternatives of considering discharge in the morning after we contact the [facility]RE program. An excerpt of her last hospitalization is included below for context given there were no substantive changes. Per her 03/03/2021 [facility] inpatient psychiatric eval: History of Present Illness Brianna Real is a 40 year old female who presented to the emergency department with the following report: Chief Complaint: Psychiatric Symptoms Stated Complaint: PSYCH EVAL Time Seen by Provider: 03/02/21 13:47 History of Present Illness: HPI Narrative: 40-year-old female presents to the emergency room [facility]. She is patient accompanied by law enforcement. She had been trying to harm her self by cutting her wrists in her neck. Later she told me she taken several medications last night she thinks it was gabapentin. She is awake and alert she does admitting to use using marijuana and alcohol last night. She was verbally aggressive but did not attempt any physical aggression. She has previously been hospitalized for suicidal ideation in the past. She has a history of bipolar disorder. MD complaint: suicidal ideation Onset (ago): hour(s) Duration: constant History of same: Yes Relieving factors: none Exacerbating factors: none Context: recent alcohol abuse and recent drug abuse Associated psychiatric symptoms: suicidal ideation, homicidal ideation, racing thoughts and visual hallucinations Associated symptoms: Reports visual hallucinations, homicidal ideation and suicidal ideation; Deny auditory hallucinations Treatments prior to arrival: none If self harm: admits thoughts of self harm, has plan and has acted on plan. She was admitted to the neuropsychiatric unit for definitive treatment of those issues. The patient presents today reporting that things just got really out of sorts. She was a limited historian with some confusion, but it is well known to this marketing writer and so was able to give some history against the backdrop of her paranoia. She reports that she had been staying with two people that she reports are surrogate family members but also had been staying at times with her uncle. She reports that everything had been going fine and denied that she had been struggling with addiction very much, and reports that she started feeling like people were trying to do things to her and so she did not trust them, and so she says that she got angry and upset and started ?flipping out? and that is when she cut herself and was having suicidal thoughts. She reports that she had been drinking some alcohol but denied significant use of other drugs. Unfortunately, secondary to her condition that she was in, a drug screen to confirm her version of the story is not available. We did discuss the fact that generally speaking, when she presents with paranoia to the point where she acts on the paranoia, there has been active drug use and generally methamphetamines. She denied vehemently that that was the case. We reviewed her last hospitalization, and she denied any substantive changes except for the fact that she had not been staying either in her own place or with her uncle primarily, but that there is this other couple that had reportedly been supportive and helpful with maintaining her sobriety and staying on her medication. We did have discussion about how she was going to break this cycle of repeat hospitalizations, drug use, and lack of progress in her overall circumstances, and she talked about treatment and rehab, and things of this nature, which is generally what she does in the beginning, and then as she starts to feel better, she starts to become ambivalent and then disengages from the plan for recovery-oriented treatment. An excerpt from her January 21, 2021, inpatient hospitalization is included below for context. 01/21/2021 [facility] inpatient psychiatric evaluation: History of Present Illness Brianna Real is a 40 year old female who presented to the ED with hallucinations and suicidal and homicidal ideation. She has had 5 admissions for similar reasons in the past 3 months, along with multiple other ED visits for similar issues. The ED note states: 40-year-old female comes in today for concerns of hallucinations and suicidal and homicidal thought. Patient states that she wants to hurt her self due to taking large amounts of meth which has brought on these feelings. Patient also wants to kill the sugar who gave her the meth. Patient is very calm and cooperative. Patient responds appropriate to questioning. Patient is seeking admission to the neuropsychiatric unit. Patient admits to use of cigarette tobacco, marijuana, methamphetamines, and alcohol. Patient reports that she feels like there are spiders in her brain. Patient also admits that she is homeless. Patient was admitted to the neuropsychiatric unit for definitive treatment of these issues. She says she has been anxious and also has delusional complaints. For instance, she says I cannot get my body back, and I have the wrong brain. She feels that everyone is out to get her. She hears voices that make derogatory comments about her and make commands to harm herself and others. She has visual hallucinations, seeing faces on the wall. She also describes depression and suicidal ideation. The patient says she does not use alcohol, but has been smoking meth quite a bit. She also smokes marijuana and smokes 1 or more packs of cigarettes per day. The patient says she sees Dr. Des vogel for medication management and is supposed to be assigned a telehealth case manager soon. She says she takes her medications daily. Psychiatric history: As above. Substance use history: As above. Family history: The patient said her mother committed suicide, shot herself in front of her when she was a child. She said she found her dad from an AL.. Psychosocial history: She says she lives with her [id number], but they do not always get along with each other. See past records for further psychosocial history. Legal history: No legal difficulties. Medical history: She says she has fibromyalgia. Meds NPU Home Medications Medication Instructions Recorded Confirmed Last Taken Type buspirone 10 mg PO TID PRN 30 Days #90 tab 01/27/21 03/09/21 Unknown Rx dicyclomine 20 mg PO QID PRN 30 Days #120 tab 01/27/21 03/09/21 Unknown Rx lithium carbonate [Lithobid] 300 mg PO DAILY 30 Days #30 tab 01/27/21 03/09/21 Unknown Rx olanzapine 10 mg PO BEDTIME 30 Days #30 tab 01/27/21 03/09/21 Unknown Rx trazodone 100 mg PO BEDTIME 30 Days #30 tab 01/27/21 03/09/21 Unknown Rx Rexulti 2 mg PO DAILY 03/02/21 03/09/21 Unknown History cyclobenzaprine 10 mg PO TID PRN 03/02/21 03/09/21 Unknown History duloxetine [Cymbalta] 60 mg PO DAILY 03/02/21 03/09/21 Unknown History gabapentin 100 mg PO TID 03/02/21 03/09/21 Unknown History tizanidine 4 mg PO BID PRN 03/02/21 03/09/21 Unknown History tramadol 50 mg PO BID PRN 03/02/21 03/09/21 Unknown History Allergies Allergy/AdvReac Type Severity Reaction Status Date / Time Penicillins Allergy Intermediate rash Verified 01/20/21 17:50 Sulfa (Sulfonamide Allergy Unknown Verified 01/20/21 17:50 Antibiotics) PFSH NPU PFSH: Medical History Alcohol abuse Alcohol dependence, in remission Anxiety Bipolar affective, depress, unspec Generalized anxiety disorder Other stimulant dependence, in remission Psychiatric care Family History Grandfather No problems noted. Grandmother Stroke Maternal great Heart disease paternal Hypertension maternal Father Heart disease Hypertension Family/Other Breast cancer maternal aunt Denies family history of Colon cancer Ovarian cancer Uterine cancer Thyroid disease Social History Smoking and tobacco status: current every day smoker cigarettes Packs smoked per day: 1.5 Alcohol intake: never Mental Status Exam MSE Comments: This is an overweight, white female, in hospital scrubs, with improving grooming and adequate eye contact. No abnormal movements except for mild psychomotor retardation. Cooperative with exam in no acute distress. Speech was normal rate, slightly decreased volume. Mood described as okay, I do not know why I am here; affect mostly congruent. Thought process, organized. Thought content: patient denied suicidal or homicidal ideation, there were no delusions noted but she endorsed some paranoia, she denied current auditory or visual hallucinations. Attention and concentration were intact, and memory appeared more reliable, but none were formally tested. She is alert and oriented times three. Insight and judgment are limited, impulse control is limited. Vitals/I&O/Wt Last Vital Signs Temp 98.3 F 03/10/21 14:00 Pulse 96 03/10/21 14:00 Resp 18 03/10/21 14:00 BP 105/66 03/10/21 14:00 Pulse Ox 95 03/10/21 14:00 Weight last 48 hrs Weight 70.307 kg Weight 70.307 kg Weight 70.307 kg Data NPU : 03/09/21 05:35 03/09/21 12:20 A&P Assessment and plan (1) Polysubstance abuse: Status: Acute (2) Methamphetamine use: Status: Acute (3) Adjustment disorder with mixed disturbance of emotions and conduct: Status: Acute (4) Borderline personality disorder: Status: Acute (5) Generalized anxiety disorder: Status: Acute (6) Alcohol dependence, in remission: Status: Acute Additional A&P Information This is a 40-year-old white female with a long history of addiction, psychosis and anxiety, borderline personality disorder and trauma who was recently discharged and was actively using with concerning behavior on the MedSurg unit but likely getting fairly close to baseline. 1. Continue current medication. 2. Continue every 15 minute checks for safety. 3. Encourage individual, group and milieu therapies. 4. Encourage sober living treatment after discharge at the highest level of care to which he is willing to commit. Involuntary Hold Information 96 Hour Hold: 96 Hour Involuntary Admission: No 96 Hour Hold Ending Date: 03/08/21 96 Hour Hold Ending Time: 00:01 Attestations NPU Medical Necessity Statement*: Inpatient hospitalization is medically necessary and the clinically appropriate intervention at this time. We will monitor medications and make changes as indicated. Patient will be in the hospital for over two midnights. Likely length of stay 1-3 days. 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
[2021-03-10 14:00] VITALS: BP 105/66; PULSE 96; RESP 18; TEMP 36.8; O2SAT 95
[2021-03-10 21:12] VITALS: BP 114/79; PULSE 98; RESP 17; TEMP 37.1; O2SAT 97
[2021-03-10] MEDS: trazodone 50 mg Tablet PO (21:18)
[2021-03-10] MEDS: hyDROXYzine 25 mg Capsule 50 MG PO (21:18)
--- NOTE | 2021-03-10 21:20 | PC.NURSE ---
pt requested sleep and anxiety meds. trazodone 50mg po for sleep and vistaril 50mg po for anxiety given.
--- NOTE | 2021-03-10 21:30 | PC.NURSE ---
pt up to desk requesting her buspar. said medication not ordered for hs. pt states she needs sleep and anxiety meds. Trazodone 50mg po for sleep and vistaril 50mg po for anxiety offered and given.
--- NOTE | 2021-03-11 00:38 | PC.NURSE ---
pt resting quietly at this time with both eyes closed.
[2021-03-11 06:00] VITALS: BP 117/75; PULSE 90; RESP 15; TEMP 37.1; O2SAT 98
[2021-03-11 08:00] VITALS: BP 117/75; PULSE 90; RESP 15; TEMP 37.1
[2021-03-11] MEDS: pantoprazole DR 40 mg Tablet PO (08:13)
--- NOTE | 2021-03-11 13:30 | P.DS_ITS ---
Diagnoses at Discharge Discharge Diagnosis (1) Polysubstance abuse: Status: Deleted (2) Methamphetamine use: Status: Acute (3) Adjustment disorder with mixed disturbance of emotions and conduct: Status: Inactive (4) Borderline personality disorder: Status: Acute (5) Generalized anxiety disorder: Status: Acute (6) Alcohol dependence, in remission: Status: Acute Reason for Visit Reason for Visit: N/V Brief History: History of Present Illness Brianna Real is a 40 year old female who presented to the ED and was admitted to [facility] with the following report: 40-year-old female with a past medical history significant for generalized anxiety disorder, adjustment disorder, prior alcoholism, borderline personality disorder and polysubstance abuse including methamphetamine who was recently discharged from [facility] unit on 03/06/2021 not presented to the hospital with abdominal pain. Apparently this was associated with a few episodes of nonbloody emesis. upon arrival laboratory workup showed a WBC of 14.7, hemoglobin of 13.9, hematocrit of 43.1 and a platelet count of 535.Sodium 134, potassium 3.7, chloride 105, bicarb 22, BUN 5 and creatinine of 0.6. Calcium 8. 7 LFTs within normal limits. Urinalysis without any evidence of acute infection. Urinary drug screen showed negative salicylates, acetaminophen however was positive for marijuana and amphetamines.[place] level initially was 1.6 however this was repeated and found to be 0.7. poison control was contacted. Initially patient was admitted to the medical floor due to the elevated lithium level however after repeat patient was transferred to U. Shortly after admission patient was found to have psychosis. Was not able to provide any meaningful history. Was not noted to be in any distress. Of note a CT abdomen pelvis was also performed in ER which did not show any evidence of acute abnormality in abdomen or pelvis. Patient denied any suicidal or homicidal ideation. She was then transferred to the neuropsychiatric unit for definitive treatment of those issues. She presents today reporting that she is not sure why she was sent to the unit because she does not feel like there were any issues. She denies any problems or changes since he was discharged a few days ago. We did discuss the positive drug screen and the methamphetamine use as well as cannabis use and she endorsed I did not do that much. We discussed the risk benefits and alternatives of considering discharge in the morning after we contact the [facility] program. An excerpt of her last hospitalization is included below for context given there were no substantive changes. Per her 03/03/2021 [facility] inpatient psychiatric eval: History of Present Illness Brianna Real is a 40 year old female who presented to the emergency department with the following report: Chief Complaint: Psychiatric Symptoms Stated Complaint: PSYCH EVAL Time Seen by Provider: 03/02/21 13:47 History of Present Illness: HPI Narrative: 40-year-old female presents [facility]. She is patient accompanied by law enforcement. She had been trying to harm her self by cutting her wrists in her neck. Later she told me she taken several medications last night she thinks it was gabapentin. She is awake and alert she does admitting to use using marijuana and alcohol last night. She was verbally aggressive but did not attempt any physical aggression. She has previously been hospitalized for suicidal ideation in the past. She has a history of bipolar disorder. MD complaint: suicidal ideation Onset (ago): hour(s) Duration: constant History of same: Yes Relieving factors: none Exacerbating factors: none Context: recent alcohol abuse and recent drug abuse Associated psychiatric symptoms: suicidal ideation, homicidal ideation, racing thoughts and visual hallucinations Associated symptoms: Reports visual hallucinations, homicidal ideation and suicidal ideation; Deny auditory hallucinations Treatments prior to arrival: none If self harm: admits thoughts of self harm, has plan and has acted on plan. She was admitted to the neuropsychiatric unit for definitive treatment of those issues. The patient presents today reporting that things just got really out of sorts. She was a limited historian with some confusion, but it is well known to this blurb writer and so was able to give some history against the backdrop of her paranoia. She reports that she had been staying with two people that she reports are surrogate family members but also had been staying at times with her uncle. She reports that everything had been going fine and denied that she had been struggling with addiction very much, and reports that she started feeling like people were trying to do things to her and so she did not trust them, and so she says that she got angry and upset and started ?flipping out? and that is when she cut herself and was having suicidal thoughts. She reports that she had been drinking some alcohol but denied significant use of other drugs. Unfortunately, secondary to her condition that she was in, a drug screen to confirm her version of the story is not available. We did discuss the fact that generally speaking, when she presents with paranoia to the point where she acts on the paranoia, there has been active drug use and generally methamphetamines. She denied vehemently that that was the case. We reviewed her last hospitalization, and she denied any substantive changes except for the fact that she had not been staying either in her own place or with her uncle primarily, but that there is this o ther couple that had reportedly been supportive and helpful with maintaining her sobriety and staying on her medication. We did have discussion about how she was going to break this cycle of repeat hospitalizations, drug use, and lack of progress in her overall circumstances, and she talked about treatment and rehab, and things of this nature, which is generally what she does in the beginning, and then as she starts to feel better, she starts to become ambivalent and then disengages from the plan for recovery-oriented treatment. An excerpt from her January 21, 2021, inpatient hospitalization is included below for context. 01/21/2021 [facility] inpatient psychiatric evaluation: History of Present Illness Brianna Real is a 40 year old female who presented to the ED with hallucina tions and suicidal and homicidal ideation. She has had 5 admissions for similar reasons in the past 3 months, along with multiple other ED visits for similar issues. The ED note states: 40-year-old female comes in today for concerns of hallucinations and suicidal and homicidal thought. Patient states that she wants to hurt her self due to taking large amounts of meth which has brought on these feelings. Patient also wants to kill the sugar who gave her the meth. Patient is very calm and cooperative. Patient responds appropriate to questioning. Patient is seeking admission to the neuropsychiatric unit. Patient admits to use of cigarette tobacco, marijuana, methamphetamines, and alcohol. Patient reports that she feels like there are spiders in her brain. Patient also admits that she is homeless. Patient was admitted to the neuropsychiatric unit for definitive treatment of these issues. She says she has been anxious and also has delusional complaints. For instance, she says I cannot get my body back, and I have the wrong brain. She feels that everyone is out to get her. She hears voices that make derogatory comments about her and make commands to harm herself and others. She has visual hallucinations, seeing faces on the wall. She also describes depression and suicidal ideation. The patient says she does not use alcohol, but has been smoking meth quite a bi t. She also smokes marijuana and smokes 1 or more packs of cigarettes per day. The patient says she sees Dr. Des vogel for medication management and is supposed to be assigned a case management assistant soon. She says she takes her medications daily. Psychiatric history: As above. Substance use history: As above. Family history: The patient said her mother committed suicide, shot herself in front of her when she was a child. She said she found her dad from an [place].. Psychosocial history: She says she lives with her [id number], but they do not always get along with each other. See past records for further psychosocial history. Legal history: No legal difficulties. Medical history: She says she has fibromyalgia. Hospital Course Hospital Course She quickly acclimated to the individual, group and milieu therapy. She was initially on the MedSurg unit and they had concerns about her psychotic behavior and speech she was transferred to the neuropsychiatric unit where she was deemed approximately at baseline. We did have some conversations and trying to get her to take responsibility for being kept in the hospital when her drug use can create a mental status presentation which makes people want to intervene. No medication changes were made. She demonstrated limited improvement, but was closer to baseline when she presented. She was able to contract for safety prior to discharge. During the hospitalization, patient had routine laboratory studies which were within normal limits except for few outliers. Additionally there was a general medical evaluation which was also within normal limits and revealed no new acute processes. Discharge Summary: At the time of discharge, lethality was denied and psychosis was resolving. Mood and anxiety were well managed. Patient endorsed a plan to avoid all drugs of abuse and follow-up with the aftercare recommendations of the treatment team. Patient was evaluated and deemed to be absent credible lethality, and had achieved the maximum benefit from an inpatient hospitalization, so was discharged. Involuntary Hold Information 96 Hour Hold: 96 Hour Involuntary Admission: No 96 Hour Hold Ending Date: 03/08/21 96 Hour Hold Ending Time: 00:01 Mental Status Exam MSE Comments: This is an overweight, white female, in hospital scrubs, with improving grooming and adequate eye contact. No abnormal movements except for mild psychomotor retardation. Cooperative with exam in no acute distress. Speech was normal rate, slightly decreased volume. Mood described as better/ready to discharge; affect congruent. Thought process, organized. Thought content: patient denied suicidal or homicidal ideation, there were no delusions noted but she endorsed some paranoia, she denied current auditory or visual hallucinations. Attention and concentration were intact, and memory appeared more reliable, but none were formally tested. She is alert and oriented times three. Insight and judgment are limited, impulse control is limited. Discharge Data Data Completed and Pending: Completed Studies During Hospitalization Category Date Time Status CT abdomen pelvis w con* [id number] Urge nt Cat Scan 03/09/21 07:25 Completed Vitals: Last Vital Signs Temp 98.7 F 03/11/21 08:00 Pulse 90 03/11/21 08:00 Resp 15 03/11/21 08:00 BP 117/75 03/11/21 08:00 Pulse Ox 98 03/11/21 06:00 Discharge Plan Discharge Patient Disposition: Home Condition: Stable Prescriptions: Continued cyclobenzaprine 10 mg Tablet 10 mg PO TID PRN (Reason: Muscle Spasm) RF: 0 tizanidine 4 mg Tablet 4 mg PO BID PRN (Reason: Muscle Pain) RF: 0 tramadol 50 mg Tablet 50 mg PO BID PRN (Reason: Pain) RF: 0 gabapentin 100 mg Capsule 100 mg PO TID RF: 0 duloxetine [Cymbalta] 60 mg Capsule,Delayed Release(Dr/Ec) 60 mg PO DAILY@1999 RF: 0 Rexulti 2 mg Tablet 2 mg PO DAILY RF: 0 olanzapine 10 mg Tablet 10 mg PO BEDTIME 30 Days Qty: 30 RF: 0 trazodone 100 mg Tablet 100 mg PO BEDTIME 30 Days Qty: 30 RF: 0 buspirone 10 mg Tablet 10 mg PO TID PRN (Reason: Anxiety) 30 Days Qty: 90 RF: 0 No Action dicyclomine 20 mg tablet 20 mg PO QID RF: 0 lithium carbonate [Lithobid] 300 mg tablet extended release 300 mg PO DAILY@1999 RF: 0 Discharge Orders: Discharge Order (Routine); Ordered 03/11/21 Ordered By: Hong Walter Referrals: Uma Mott DO [Primary Care Provider] - Discharge Diet: Regular Discharge Activity: Resume usual activity Patient Instructions: Opioid Safety Discharge Attestations NPU Time Spent in Discharge Care*: less than 30 min Specific Discharge Activities: Specific discharge activities: educating patient, discussing with cyanide case hardener/social workers/dc planners, documenting/other paperwork and evaluating patient/reviewing data Status at Discharge: Cognitive status at discharge: cognitively intact , Behavioral status at discharge: cooperative , Coding Level of Care Code Acute [facility] DC note Diagnoses Polysubstance abuse F19.10 Methamphetamine use F15.10 Adjustment disorder with mixed disturbance of emotions and conduct F43.25 Borderline personality disorder F60.3 Generalized anxiety disorder F41.1 Alcohol dependence, in remission F10.21
[2021-03-11 13:42] VITALS: BP 117/75; PULSE 90; RESP 15; TEMP 37.1
--- NOTE | 2021-03-11 14:37 | PC.RESP ---
SMOKING CESSATION INFORMATION SENT TO PATIENT.
== END 2021-03-11 14:08 | disposition home or self-care (01) | DRG 882 ==
LOC: ER 10:49 → NP 03-10 16:03 → MEDSURG 03-10 16:03
PROVIDERS: Emergency Medicine; Admitting Provider Hospitalist; Emergency Provider Emergency Medicine; PCP Family Medicine; Visit Provider Hospitalist
DX: F43.25 Adjustment disorder with mixed disturbance of emotions and conduct (principal); R10.9 Unspecified abdominal pain; F41.1 Generalized anxiety disorder; F60.3 Borderline personality disorder; F15.10 Other stimulant abuse, uncomplicated; F12.90 Cannabis use, unspecified, uncomplicated; F10.21 Alcohol dependence, in remission; F17.210 Nicotine dependence, cigarettes, uncomplicated
CPT/HCPCS: 36415; 74177; 80048; 80053; 80178; 80306; 80307; 81003; 81025; 83690; 85025; 93005; 96361; 96374; 96375; 96376; 97165; 99285; J2060; J2405; J7030; Q0162; Q9967

== ENCOUNTER 2021-03-15 16:43 | Emergency (ER) | payer MEDICAID, SELFPAY ==
[2021-03-15 16:51] VITALS: BP 124/92; PULSE 96; RESP 21; TEMP 36.7; O2SAT 98; BMI 26.6
[2021-03-15 17:14] VITALS: BP 134/98; PULSE 91; O2SAT 97
--- NOTE | 2021-03-15 17:24 | ED_ITS ---
HPI - General Adult General: Chief complaint: General Medical Stated complaint: ANXIETY,DEPRESSION Time Seen by Provider: 03/15/21 17:02 History of Present Illness: HPI narrative: Patient is a 40-year-old female with history of anxiety depression who tells me that she ran out of her buspirone, trazodone, and duloxetine 5 days ago. Since then, patient has had anxiety and depression. Patient denies any suicidal ideation or homicidal ideation. Patient reports that she would like her medicine to be refilled to help her out with her anxiety. Patient reports she is feeling anxious about life and dealing with a lot of stress. Onset: 4 days ago Duration:4 days Location:home Severity:moderate Review of Systems Narrative: Constitutional: No fever, no chills. HEENT: No vision changes CV: No chest pain, no palpitations PULM: no cough, no dyspnea. GI: No abdominal pain, no N/V/D. : No dysuria MSKEL: No muscle pain SKIN: No new rashes, no lesions. NEURO: No headache, no focal weakness. HEME: No visible bruises PSYCH: +Anxious mood, +depression PFSH ED PFSH: Medical History Alcohol abuse Alcohol dependence, in remission Anxiety Bipolar affective, depress, unspec Generalized anxiety disorder Other stimulant dependence, in remission Psychiatric care Family History Grandfather No problems noted. Grandmother Stroke Maternal great Heart disease paternal Hypertension maternal Father Heart disease Hypertension Family/Other Breast cancer maternal aunt Denies family history of Colon cancer Ovarian cancer Uterine cancer Thyroid disease Social History Smoking and tobacco status: current every day smoker cigarettes Packs smoked per day: 1.5 Alcohol intake: never Female Reproductive History: Date of last menstrual period: 02/22/18 Physical Exam Narrative: EXAM NARRATIVE: Head: Atraumatic Eyes: PERRL, conjunctiva without injection ENT: Mucous membrane moist NECK: Supple, ROM intact LUNGS: LCTAB, no crackles/rhonchi CV: RRR ABDOMEN: Soft, nontender in all quadrants EXTREMITY: Normal ROM SKIN: No rash or erythema NEURO: Awake and alert, no focal motor deficits PSYCH: +mildly agitated Course Vital Signs: Vital signs: Vital Signs Temperature 98.1 F 03/15/21 16:51 Pulse Rate 91 03/15/21 18:13 Respiratory Rate 21 H 03/15/21 16:51 Blood Pressure 136/96 03/15/21 18:13 Pulse Oximetry 100 03/15/21 18:13 MDM - General Adult MDM Narrative: Medical decision making narrative: 40-year-old female who presents the emergency room for evaluation of anxiety and depression after she has not been able to take her medicine. On exam patient is hemodynamically stable will appears to be mildly anxious. Patient on multiple occasions reassured me that she is not feeling suicidal or homicidal. She has no active hallucinations. I have refilled patient's medication including her buspirone, duloxetine, and trazodone today. Patient received 1 mg Ativan reports feeling symptomatically improved with her anxiety. Patient tells me that is watched for 2 hours prior to leaving the hospital given the fact the patient needed to go to the homeless intermediate. I have offered patient our services to get patient to the homeless intermediate however, patient elects to drive. I have discussed the concern that she may not be safe to drive given the fact that she just received 1 mg Ativan. After 2 hours of observation, patient verbalized understanding that she is okay to go home. Patient is AAOx3, GCS of 15 and has capacity and fully understanding of the situation. The patient reassures me prior to discharge that she does not have any suicidal homicidal ideation. Patient verbalized that she understands that she can come back to the emergency room if she has any symptoms of suicidal ideation, acute depression, or any disorganization or psychosis. Patient agrees with plan to follow-up with her outpatient provider. Disposition: Discharge. Patient counseled regarding diagnostic impression, treatment plan. Patient given ED strict return precautions to return for continuation, worsening, or development of new symptoms. Instructed to f/u w/ outpatient behavior health specialist regarding symptoms today. Patient verbalized understanding. Discharge Plan Discharge Patient Disposition: Home Clinical Impression: Medication refill Condition: Stable Prescriptions: New trazodone 100 mg tablet 100 mg PO DAILY PRN (Reason: insomnia) 7 Days Qty: 7 RF: 0 duloxetine 60 mg capsule,delayed release(DR/EC) 60 mg PO DAILY PRN (Reason: depression) 7 Days Qty: 7 RF: 0 buspirone 30 mg tablet 30 mg PO TID PRN (Reason: anxiety) 7 Days Qty: 21 RF: 0 No Action cyclobenzaprine 10 mg Tablet 10 mg PO TID PRN (Reason: Muscle Spasm) RF: 0 tizanidine 4 mg Tablet 4 mg PO BID PRN (Reason: Muscle Pain) RF: 0 tramadol 50 mg Tablet 50 mg PO BID PRN (Reason: Pain) RF: 0 gabapentin 100 mg Capsule 100 mg PO TID RF: 0 duloxetine [Cymbalta] 60 mg Capsule,Delayed Release(Dr/Ec) 60 mg PO DAILY RF: 0 Rexulti 2 mg Tablet 2 mg PO DAILY RF: 0 olanzapine 10 mg Tablet 10 mg PO BEDTIME 30 Days Qty: 30 RF: 0 lithium carbonate [Lithobid] 300 mg Tablet Extended Release 300 mg PO DAILY 30 Days Qty: 30 RF: 0 trazodone 100 mg Tablet 100 mg PO BEDTIME 30 Days Qty: 30 RF: 0 dicyclomine 20 mg Tablet 20 mg PO QID PRN (Reason: Irritable bowel syndrome) 30 Days Qty: 120 RF: 0 buspirone 10 mg Tablet 10 mg PO TID PRN (Reason: Anxiety) 30 Days Qty: 90 RF: 0 Discharge Orders: Discharge ED (Routine); Ordered 03/15/21 Ordered By: Lizett Lopez Referrals: Uma Mott DO [Primary Care Provider] - Discharge Diet: Advance as tolerated Discharge Activity: Resume usual activity Patient Instructions: Depression (ED), Anxiety (ED) Activity Restrictions/Additional Instructions: Come back to the emergency room if at any point time if you feel anxious, if you have any hallucinations, if you have any desire to kill yourself or harm other people. You can always get help in the emergency room. Come back if you need anything else. Coding Level of Care Code ED Administrative Support Associate for Ioana Alcaraz
--- NOTE | 2021-03-15 17:26 | XRR_ITS ---
PROCEDURE INFORMATION: Exam: XR Chest Exam date and time: 03/15/2021 5:19 PM Age: 40 years old Clinical indication: Other: Anxiety and depression; Additional info: Covid positive today TECHNIQUE: Imaging protocol: XR of the chest. Views: 1 view. COMPARISON: CR XR chest 1V [id number] 03/16/2020 3:31 AM FINDINGS: Lungs: Lungs are clear bilaterally. Pleural spaces: No pleural effusion. No pneumothorax. Heart/Mediastinum: The cardiac silhouette and mediastinal contours are unremarkable. Bones/joints: Unremarkable for age. IMPRESSION: No acute cardiopulmonary process. Thank you for allowing us to participate in the care of your patient. Dictated and Authenticated by: Madhavi Sheriff MD 03/15/2021 7:41 PM Central Time ([place] & [place]) [facility]
[2021-03-15] MEDS: LORazepam 1 mg Tablet PO (18:08)
[2021-03-15 18:13] VITALS: BP 136/96; PULSE 91; O2SAT 100
== END 2021-03-15 18:17 | disposition home or self-care (01) ==
PROVIDERS: Emergency Provider Emergency Medicine; PCP Family Medicine
DX: Z76.0 Encounter for issue of repeat prescription (principal); F17.210 Nicotine dependence, cigarettes, uncomplicated
CPT/HCPCS: 71045; 99283

== ENCOUNTER 2021-03-15 21:27 | Emergency (ER) | payer MEDICAID, SELFPAY ==
[2021-03-15 21:30] VITALS: BP 129/93; PULSE 97; RESP 20; TEMP 36.8; O2SAT 98; BMI 23.3
[2021-03-15] MEDS: lidocaine 1% INJ 20 mL INJECTION (22:08)
--- NOTE | 2021-03-15 22:53 | ED_ITS ---
HPI - General Adult General: Chief complaint: Psychiatric Symptoms Stated complaint: SI Time Seen by Provider: 03/15/21 21:44 History of Present Illness: HPI narrative: HPI: 40F w/ hx of anxiety and depression presenting after leaving earlier today for concerns of worsening anxiety now passive SI due to overwhelming sadness On arrival, the patient is AAOx3 and cooperative with my evaluation. No focal complaints of chest pain, shortness of breath, palpitations, N/V, focal GI/ complaints. +passive suicidal ideation without any plans. No complaints of hallucinations. Patient requests for multiple coke cola in the ED. Onset: chronic Duration: ongoing Location: home Severity: severe Review of Systems Narrative: Constitutional: No fever, no chills. HEENT: No vision changes CV: No chest pain, no palpitations PULM: No productive cough, no dyspnea. GI: No abdominal pain, no N/V/D. : No dysuria MSKEL: No muscle pain SKIN: No new rashes, no lesions. NEURO: No headache, no focal weakness. HEME: No visible bruises PSYCH: Normal mood PFSH ED PFSH: Medical History Alcohol abuse Alcohol dependence, in remission Anxiety Bipolar affective, depress, unspec Generalized anxiety disorder Other stimulant dependence, in remission Psychiatric care Family History Grandfather No problems noted. Grandmother Stroke Maternal great Heart disease paternal Hypertension maternal Father Heart disease Hypertension Family/Other Breast cancer maternal aunt Denies family history of Colon cancer Ovarian cancer Uterine cancer Thyroid disease Social History Smoking and tobacco status: current every day smoker cigarettes Packs smoked per day: 1.5 Alcohol intake: never Female Reproductive History: Date of last menstrual period: 02/22/18 Physical Exam Narrative: EXAM NARRATIVE: Head: Atraumatic Eyes: PERRL, conjunctiva without injection, eyes tracking ENT: Mucous membrane moist NECK: Supple without lymphadenopathy LUNGS: LCTAB CV: RRR ABDOMEN: Soft, nontender EXTREMITY: Normal ROM SKIN: No rash or erythema NEURO: Awake and alert. No focal weakness PSYCH: Cooperative mood and affect. Procedures Nerve Block Nerve Block 1: Time out performed: Yes Local Anesthetic: lidocaine 1% Amount of anesthesia used (mL): 2 Side: left and right (nare) Nerve Blocks: other (nare) Procedure Successful: Yes Patient Tolerated Procedure: well and no complications Complications: none Additional Comments: Patient was on the telemetry monitor without any dysarrythemia on the monitor Course Vital Signs: Vital signs: Vital Signs Temperature 98.3 F 03/15/21 21:30 Pulse Rate 97 03/15/21 21:30 Respiratory Rate 20 H 03/15/21 21:30 Blood Pressure 129/93 03/15/21 21:30 Pulse Oximetry 98 03/15/21 21:30 MDM - General Adult MDM Narrative: Medical decision making narrative: [40]yo patient w/ hx of anxiety and depression presenting for SI and anxiety. HDS, exam within normal limit Thoughts are linear and organized, and the patient has no AH/VH, or HI. Clinically the patient displays no overt toxidrome; they are well appearing, with low suspicion for toxic ingestion given history and exam. Symptoms unlikely 2/2 anemia, hypothyroidism, infection, or ICH. I performed a sphenopalatine nerve block at the bedside and patient reported significant improvement in anxiety symptoms. Please see procedural note. Patient report significant improvement anxiety and reiterates that she is no longer suicidal. [10:55pm] On reassessment, labs and workup wnl. Patient is hemodynamically stable with no acute medical complaints. Case discussed with psychiatric provider at [facility] psych inpatient who evaluated patient via telepsych and recommended discharge with close follow-up. Disposition: Discharge Discharge Plan Discharge Patient Disposition: Home Clinical Impression: Anxiety, Depression Condition: Stable Prescriptions: No Action cyclobenzaprine 10 mg Tablet 10 mg PO TID PRN (Reason: Muscle Spasm) RF: 0 tizanidine 4 mg Tablet 4 mg PO BID PRN (Reason: Muscle Pain) RF: 0 tramadol 50 mg Tablet 50 mg PO BID PRN (Reason: Pain) RF: 0 gabapentin 100 mg Capsule 100 mg PO TID RF: 0 duloxetine [Cymbalta] 60 mg Capsule,Delayed Release(Dr/Ec) 60 mg PO DAILY RF: 0 Rexulti 2 mg Tablet 2 mg PO DAILY RF: 0 trazodone 100 mg tablet 100 mg PO DAILY PRN (Reason: insomnia) 7 Days Qty: 7 RF: 0 duloxetine 60 mg capsule,delayed release(DR/EC) 60 mg PO DAILY PRN (Reason: depression) 7 Days Qty: 7 RF: 0 buspirone 30 mg tablet 30 mg PO TID PRN (Reason: anxiety) 7 Days Qty: 21 RF: 0 olanzapine 10 mg Tablet 10 mg PO BEDTIME 30 Days Qty: 30 RF: 0 lithium carbonate [Lithobid] 300 mg Tablet Extended Release 300 mg PO DAILY 30 Days Qty: 30 RF: 0 trazodone 100 mg Tablet 100 mg PO BEDTIME 30 Days Qty: 30 RF: 0 dicyclomine 20 mg Tablet 20 mg PO QID PRN (Reason: Irritable bowel syndrome) 30 Days Qty: 120 RF: 0 buspirone 10 mg Tablet 10 mg PO TID PRN (Reason: Anxiety) 30 Days Qty: 90 RF: 0 Discharge Orders: Discharge ED (Routine); Ordered 03/15/21 Ordered By: Lizett Lopez Referrals: Uma Mott DO [Primary Care Provider] - Discharge Diet: Advance as tolerated Discharge Activity: Resume usual activity Activity Restrictions/Additional Instructions: Come back to the emergency room if you have any more anxiety or if you are feeling anxious or have any thoughts of hurting yourself. Coding Level of Care Code ED Metal Handler for Ioana Alcaraz
[2021-03-15 23:03] VITALS: PULSE 88; RESP 18; O2SAT 98
== END 2021-03-15 23:06 | disposition home or self-care (01) ==
PROVIDERS: Emergency Provider Emergency Medicine; PCP Family Medicine
DX: F41.9 Anxiety disorder, unspecified (principal); F32.9 Major depressive disorder, single episode, unspecified; F17.210 Nicotine dependence, cigarettes, uncomplicated
CPT/HCPCS: 99283

== ENCOUNTER 2021-03-18 08:35 | Inpatient (IN) | payer MEDICAID, SELFPAY ==
[2021-03-18 08:54] VITALS: BP 141/93; PULSE 138; RESP 18; TEMP 36.6; O2SAT 98; BMI 27.5
[2021-03-18 09:29] LABS: Basophils # 0.1 10^3/uL (0.0-0.1); Basophils % 0.3 %; Eosinophils % 0.2 %; Hematocrit 46.6 % (37.0-47.0); Hemoglobin 14.7 g/dL (11.5-15.3); Lymphocytes # 2.1 10^3/uL (0.8-4.8); Lymphocytes % 11.2 %; Mean Corpuscular HGB Conc 31.5 g/dL (30.0-36.0); Mean Corpuscular Hemoglobin 28.5 pg (28.0-34.0); Mean Corpuscular Volume 90.3 fl (81-99); Mean Platelet Volume 9.8 fL (7.4-10.4); Monocytes # 1.3 10^3/uL (0.2-0.9); Neutrophils # 14.78 10^3/uL (1.8-7.7); Neutrophils % 80.9 %; Nucleated Red Blood Cells % 0 %; Platelet Count 617 10^3/cmm (130-400); Red Blood Count 5.16 10^6/uL (4.1-5.3); Red Cell Distribution Width 14.2 % (12.1-15.1); White Blood Count 18.3 10^3/uL (4.0-10.0)
[2021-03-18 09:49] LABS: Alanine Aminotransferase 17 U/L (0-33); Albumin Level 4.6 g/dL (3.5-5.2); Alkaline Phosphatase 133 IU/L (35-105); Anion Gap 14.9 (5-19); Aspartate Amino Transferase 13 U/L (0-32); Blood Urea Nitrogen 8 mg/dL (6-20); Calcium 9.3 mg/dL (8.5-10.5); Carbon Dioxide 25 mmol/L (22-29); Chloride 100 mmol/L (98-107); Globulin 3.3 g/dL (1.3-4.6); Glomerular Filtration Rate 110.7 mL/min (90-130); Glucose 86 mg/dL (65-115); Osmolality Calculated 280 mOsm/kg (285-295); Potassium 3.9 mmol/L (3.5-5.1); Sodium 136 mmol/L (136-145); Total Bilirubin 0.2 mg/dL (0.15-1.2); Total Protein 7.9 g/dL (6.6-8.7)
[2021-03-18 09:56] LABS: Acetaminophen < 5.0 ug/mL (10-30); Salicylate < 0.3 mg/dL (3-10)
--- NOTE | 2021-03-18 10:20 | W.ED.PSYCH ---
HPI - Psych General: Chief Complaint: Psychiatric Symptoms Stated Complaint: Depression, Anxiety Time Seen by Provider: 03/18/21 08:43 History of Present Illness: HPI Narrative: 40-year-old female presents emergency room complaining of depression and anxiety. She alludes to auditory and visual hallucinations as well as suicidal ideation. She has had multiple admissions within the last year to our psychiatry department. She has a known history of methamphetamine use which is related to her frequent admissions. She also is noncompliant with her medications and is frequently off of them due to not getting appropriate refills. Patient admits to plan to harm her self by cutting her wrists although she has not advanced her plan at all MD complaint: suicidal ideation and feels depressed Duration: constant History of same: Yes Relieving factors: none Exacerbating factors: none Associated psychiatric symptoms: depression, suicidal ideation, racing thoughts, auditory hallucinations and visual hallucinations Associated symptoms: Reports auditory hallucinations, visual hallucinations, depression, suicidal ideation and racing thoughts; Deny delusions or homicidal ideation Treatments prior to arrival: none If self harm: admits thoughts of self harm and has plan Review of Systems Const: Denies: fever(s), chills, body aches, change in appetite, fatigue or malaise ENMT: Denies: throat pain, ear or mastoid pain, nasal discharge or nasal congestion Card: Denies: chest pain, edema, dyspnea on exertion or orthopnea Resp: Denies: dyspnea, productive cough or non-productive cough GI: Denies: abdominal pain, nausea, vomiting, hematemesis, coffee ground emesis, diarrhea, constipation, bloating, hematochezia or melena : Denies: flank pain, difficulty voiding, dysuria, urinary frequency or urinary urgency Skin/Breast: Denies: rash or pruritus Psych: Reports: depression, visual hallucinations, auditory hallucinations and suicidal ideation; Denies: homicidal ideation [facility] ED PFSH: Medical History Alcohol abuse Alcohol dependence, in remission Anxiety Bipolar affective, depress, unspec Generalized anxiety disorder Other stimulant dependence, in remission Psychiatric care Family History Grandfather No problems noted. Grandmother Stroke Maternal great Heart disease paternal Hypertension maternal Father Heart disease Hypertension Family/Other Breast cancer maternal aunt Denies family history of Colon cancer Ovarian cancer Uterine cancer Thyroid disease Social History Smoking and tobacco status: current every day smoker cigarettes Packs smoked per day: 1.5 Alcohol intake: never Female Reproductive History: Date of last menstrual period: 02/22/18 Physical Exam Const: COMMON NORMALS: no acute distress GENERAL APPEARANCE: cooperative and comfortable ORIENTATION/CONSCIOUSNESS: Yes awake, Yes oriented to person, Yes oriented to place and Yes oriented to time HENMT: COMMON NORMALS: normocephalic, atraumatic and hearing grossly normal bilaterally HEAD & SCALP: normocephalic and atraumatic Neck/C-Spine: COMMON NORMALS: no JVD Resp: COMMON NORMALS: normal respiratory effort, No retractions, No use of accessory muscles and clear to auscultation bilaterally AUSCULTATION: clear to auscultation bilaterally Cardio: COMMON NORMALS: no JVD, regular rate, regular rhythm and No murmurs present (Cardio) RATE: regular rate RHYTHM: regular rhythm GI: COMMON NORMALS: Soft to palpation and No hepatosplenomegaly present AUSCULTATION: Yes normoactive bowel sounds PALPATION: Yes Soft to palpation, No Tenderness to palpation present (GI), No Guarding due to palpation present (GI) and Yes No hepatosplenomegaly present Extremity: COMMON NORMALS: normal to inspection, capillary refill normal, no clubbing, cyanosis or edema, no calf tenderness and no pedal edema Neuro: SENSORIUM/ORIENTATION: Yes oriented to person, Yes oriented to place and Yes oriented to time Psych: THOUGHT CONTENT: No delusions Skin: COMMON NORMALS: no rashes or lesions noted GENERAL SKIN EXAM: no rashes or lesions noted Course Vital Signs: Vital signs: Vital Signs Temperature 98.9 F 03/19/21 06:00 Pulse Rate 83 03/19/21 06:00 Respiratory Rate 17 03/19/21 06:00 Blood Pressure 127/63 03/19/21 06:00 Pulse Oximetry 98 03/19/21 06:00 MDM - Psych MDM Narrative: Medical decision making narrative: Suicidal ideation. History of meth use. Reviewed labs on the chart discussed with Dr. Simpson will admit. Lab Data: Labs: Lab Results 03/18/21 03/18/21 03/18/21 09:15 09:15 11:45 WBC 18.3 10^3/uL H 10 ^3/uL (4.0-10.0) RBC 5.16 10^6/uL 10^6 /uL (4.1-5.3) Hgb 14.7 g/dL g/dL (11.5-15.3) Hct 46.6 % % (37.0-47.0) MCV 90.3 fl fl (81-99) MCH 28.5 pg pg (28.0-34.0) MCHC 31.5 g/dL g/dL (30.0-36.0) RDW 14.2 % % (12.1-15.1) Plt Count 617 10^3/cmm H 10 ^3/cmm (130-400) MPV 9.8 fL fL (7.4-10.4) Neut % (Auto) 80.9 % % Lymph % (Auto) 11.2 % % [place] % (Auto) 7.0 % % Eos % (Auto) 0.2 % % Baso % (Auto) 0.3 % % Neut # (Auto) 14.78 10^3/uL H 1 0^3/uL (1.8-7.7) Lymph # (Auto) 2.1 10^3/uL 10^3/ uL (0.8-4.8) [place] # (Auto) 1.3 10^3/uL H 10^ 3/uL (0.2-0.9) Eos # (Auto) 0.0 10^3/uL 10^3/ uL (0.0-0.8) Baso # (Auto) 0.1 10^3/uL 10^3/ uL (0.0-0.1) Nucleated RBC % (a uto) 0 % % Nucleated RBCs # 0.0 /100WBC /100W BC Sodium 136 mmol/L mmol/L (136-145) Potassium 3.9 mmol/L mmol/L (3.5-5.1) Chloride 100 mmol/L mmol/L (98-107) Carbon Dioxide 25 mmol/L mmol/L (22-29) Anion Gap 14.9 (5-19) BUN 8 mg/dL mg/dL (6-20) Creatinine 0.6 mg/dL mg/dL (0.5-0.9) GFR Calculation 110.7 mL/min mL/m in (90-130) Glucose 86 mg/dL mg/dL (65-115) Calculated Osmolal ity 280 mOsm/kg L mOs m/kg (285-295) Calcium 9.3 mg/dL mg/dL (8.5-10.5) Total Bilirubin 0.2 mg/dL mg/dL (0.15-1.2) AST 13 U/L U/L (0-32) ALT 17 U/L U/L (0-33) Alkaline Phosphata se 133 IU/L H IU/L (35-105) Total Protein 7.9 g/dL g/dL (6.6-8.7) Albumin 4.6 g/dL g/dL (3.5-5.2) Globulin 3.3 g/dL g/dL (1.3-4.6) HCG, Qual Negative (Negative) Urine Color Urine Appearance Urine pH Ur Specific Gravit y Urine Protein Urine Glucose (UA) Urine Ketones Urine Blood Urine Nitrate Urine Bilirubin Urine Urobilinogen Ur Leukocyte Rosaura ase Salicylates < 0.3 mg/dL L mg/ dL (3-10) Urine Opiates Scre en Acetaminophen < 5.0 ug/mL L ug/ mL (10-30) Ur Barbiturates Sc reen Ur Phencyclidine S crn Ur Amphetamines Sc reen U Benzodiazepines Scrn Urine Cocaine Scre en U Marijuana (THC) Screen 03/18/21 03/18/21 11:45 11:54 WBC RBC Hgb Hct MCV MCH MCHC RDW Plt Count MPV Neut % (Auto) Lymph % (Auto) [place] % (Auto) Eos % (Auto) Baso % (Auto) Neut # (Auto) Lymph # (Auto) [place] # (Auto) Eos # (Auto) Baso # (Auto) Nucleated RBC % (a uto) Nucleated RBCs # Sodium Potassium Chloride Carbon Dioxide Anion Gap BUN Creatinine GFR Calculation Glucose Calculated Osmolal ity Calcium Total Bilirubin AST ALT Alkaline Phosphata se Total Protein Albumin Globulin HCG, Qual Urine Color Straw (Yellow) Urine Appearance Clear (CLEAR) Urine pH 6.5 (5-7) Ur Specific Gravit y 1.005 (1.005-1.030) Urine Protein Neg (Negative) Urine Glucose (UA) Norm (Normal) Urine Ketones Negative (Negative) Urine Blood Neg (Negative) Urine Nitrate Negative (Negative) Urine Bilirubin Neg (Negative) Urine Urobilinogen Norm mg/dL mg/dL (Negative) Ur Leukocyte Rosaura ase Negative (Negative) Salicylates Urine Opiates Scre en Negative ng/mL ng /mL (Negative) Acetaminophen Ur Barbiturates Sc reen Negative ng/mL ng /mL (Negative) Ur Phencyclidine S crn Negative ng/mL ng /mL (Negative) Ur Amphetamines Sc reen Negative ng/mL ng /mL (Negative) U Benzodiazepines Scrn Negative ng/mL ng /mL (Negative) Urine Cocaine Scre en Negative ng/mL ng /mL (Negative) U Marijuana (THC) Screen Negative ng/mL ng /mL (Negative) Discharge Plan Discharge Patient Disposition: Admitted As Inpatient Admit Provider: Claudio Simpson Clinical Impression: Suicidal ideation, Polysubstance abuse Condition: Stable Coding Level of Care Code ED [employer] Clerk for Ioana Fwd Exam Comprehensive
[2021-03-18] MEDS: LORazepam 2 mg Tablet PO (11:47)
[2021-03-18 12:15] LABS: HCG Qualitative Urine. Negative (Negative)
[2021-03-18 12:41] LABS: Add Urine Microscopic? NO; Charge for UA Resulting for Rev
[2021-03-18 12:54] LABS: Bilirubin Urine Neg (Negative); Blood Urine Neg (Negative); Glucose Urine UA Norm (Normal); Ketones Urine Negative (Negative); Leukocyte Esterase Urine Negative (Negative); Nitrate Urine Negative (Negative); Protein Urine Neg (Negative); Specific Gravity, Urine 1.005 (1.005-1.030); Urine Appearance Clear (CLEAR); Urine Color Straw (Yellow); Urobilinogen Urine Norm (Negative); pH Urine 6.5 (5-7)
[2021-03-18 13:00] VITALS: BP 136/92; PULSE 97; RESP 20; TEMP 36.6; O2SAT 100
[2021-03-18 13:15] LABS: Amphetamines Screen Urine Negative (Negative); Barbiturates Screen Urine Negative (Negative); Benzodiazepines Screen Urine Negative (Negative); Cocaine Screen Urine Negative (Negative); Opiate Screen Urine Negative (Negative); PCP Screen Urine Negative (Negative); THC Screen Urine Negative (Negative)
[2021-03-18 14:00] VITALS: BP 136/92; PULSE 97; RESP 20; TEMP 36.6; O2SAT 100
--- NOTE | 2021-03-18 17:36 | PC.NURSE ---
MED SEEKING BEHAVIOR pt came to desk, yawned, asked for anxiety medication staff told pt to try to rest in her room & that staff did not feel like given PRN anxiety med at this time would be appropriate. pt verbalized understanding.
[2021-03-18 22:00] VITALS: RESP 16
--- NOTE | 2021-03-18 22:47 | PC.NURSE ---
pt refused vitals/respirations were observed
[2021-03-19 06:00] VITALS: BP 127/63; PULSE 83; RESP 17; TEMP 37.2; O2SAT 98
[2021-03-19] MEDS: dicyclomine 20 mg Tablet PO ×4 (07:42→19:43)
[2021-03-19] MEDS: gabapentin 100 mg Capsule PO ×3 (07:42→19:43)
--- NOTE | 2021-03-19 09:10 | P.HP_ITS ---
Providers/Chief Complaint Admitting Physician: Claudio Simpson MD Primary Care Provider: Uma Mott DO Chief Complaint: Depression, Anxiety HPI NPU History of Present Illness Brianna Real is a 40 year old female with a history of generalized anxiety disorder, adjustment disorder, prior alcoholism, borderline personality disorder and polysubstance abuse including methamphetamine abuse, who was admitted due to suicidal ideation with a plan to cut her wrists. She was recently on the NPU from 03/10?03/11/2021. The ED note from Dr. Alicea states: HPI Narrative: 40-year-old female presents emergency room complaining of depression and anxiety. She alludes to auditory and visual hallucinations as well as suicidal ideation. She has had multiple admissions within the last year to our psychiatry department. She has a known history of methamphetamine use which is related to her frequent admissions. She also is noncompliant with her medications and is frequently off of them due to not getting appropriate refills. Patient admits to plan to harm her self by cutting her wrists although she has not advanced her plan at all MD complaint: suicidal ideation and feels depressed. The patient says she has had bad anxiety as well as significant depression over the last couple of weeks. She has had suicidal thoughts, including the thought of cutting her wrist to kill herself. Anxiety and depression are accompanied by auditory hallucinations, including the commands to hurt her self or kick somebody's ass. She has visual hallucinations/delusions at times, seeing things on the han. She also has a general feeling like people are out to get her, both her friends and people here. She denies any recent drug use., No methamphetamine or marijuana use. She says she has drunk 1 can of beer in the past couple of weeks. She smokes 1 pack of cigarettes per day. Current stressors include living in her car for the past week, because her uncle Ervin's house, where she has been living is too dirty. She also has ideas that someone is harming her mentally there, but is quite vague in discussing the details. This is the patient's sixth psychiatric hospitalization in the past 3 months. She usually comes in for 2 to 4 days and is discharged. She has been following up through the [facility] on a fairly regular basis. She says she ran out of BuSpar and cannot explain exactly why. Psychiatric history: As above. Substance use history: As above. Family history: The patient said her mother committed suicide, shot herself in front of her when she was a child. She said she found her dad from an [place]. Psychosocial history: See past records for further psychosocial history. Legal history: No legal difficulties. Medical history: She says she has fibromyalgia and irritable bowel syndrome. Past notes are presented here for additional context. The admission note from 03/10/2021 states: Brianna Real is a 40 year old female who presented to the ED and was admitted to [facility] with the following report: 40-year-old female with a past medical history significant for generalized anxiety disorder, adjustment disorder, prior alcoholism, borderline personality disorder and polysubstance abuse including methamphetamine who was recently discharged from [facility] unit on 03/06/2021 not presented to the hospital with abdominal pain. Apparently this was associated with a few episodes of nonbloody emesis. upon arrival laboratory workup showed a WBC of 14.7, hemoglobin of 13.9, hematocrit of 43.1 and a platelet count of 535.Sodium 134, potassium 3.7, chloride 105, bicarb 22, BUN 5 and creatinine of 0.6. Calcium 8.7 LFTs within normal limits. Urinalysis without any evidence of acute infection. Urinary drug screen showed negative salicylates, acetaminophen however was positive for marijuana and amphetamines.[place] level initially was 1.6 however this was repeated and found to be 0.7. poison control was contacted. Initially patient was admitted to the medical floor due to the elevated lithium level however after repeat patient was transferred to U. Shortly after admission patient was found to have psychosis. Was not able to provide any meaningful history. Was not noted to be in any distress. Of note a CT abdomen pelvis was also performed in ER which did not show any evidence of acute abnormality in abdomen or pelvis. Patient denied any suicidal or homicidal ideation. She was then transferred to the neuropsychiatric unit for definitive treatment of those issues. She presents today reporting that she is not sure why she was sent to the unit because she does not feel like there were any issues. She denies any problems or changes since he was discharged a few days ago. We did discuss the positive drug screen and the methamphetamine use as well as cannabis use and she endorsed I did not do that much. We discussed the risk benefits and alternatives of considering discharge in the morning after we contact the [facility] program. An excerpt of her last hospitalization is included below for context given there were no substantive changes. Per her 03/03/2021 [facility] inpatient psychiatric eval: History of Present Illness Brianna Real is a 40 year old female who presented to the emergency department with the following report: Chief Complaint: Psychiatric Symptoms Stated Complaint: PSYCH EVAL Time Seen by Provider: 03/02/21 13:47 History of Present Illness: HPI Narrative: 40-year-old female presents to the emergency room [facility]. She is patient accompanied by law enforcement. She had been trying to harm her self by cutting her wrists in her neck. Later she told me she taken several medications last night she thinks it was gabapentin. She is awake and alert she does admitting to use using marijuana and alcohol last night. She was verbally aggressive but did not attempt any physical aggression. She has previously been hospitalized for suicidal ideation in the past. She has a history of bipolar disorder. MD complaint: suicidal ideation Onset (ago): hour(s) Duration: constant History of same: Yes Relieving factors: none Exacerbating factors: none Context: recent alcohol abuse and recent drug abuse Associated psychiatric symptoms: suicidal ideation, homicidal ideation, racing thoughts and visual hallucinations Associated symptoms: Reports visual hallucinations, homicidal ideation and suicidal ideation; Deny auditory hallucinations Treatments prior to arrival: none If self harm: admits thoughts of self harm, has plan and has acted on plan. She was admitted to the neuropsychiatric unit for definitive treatment of those issues. The patient presents today reporting that things just got really out of sorts. She was a limited historian with some confusion, but it is well known to this bond writer and so was able to give some history against the backdrop of her paranoia. She reports that she had been staying with two people that she reports are surrogate family members but also had been staying at times with her uncle. She reports that everything had been going fine and denied that she had been struggling with addiction very much, and reports that she started feeling like people were trying to do things to her and so she did not trust them, and so she says that she got angry and upset and started ?flipping out? and that is when she cut herself and was having suicidal thoughts. She reports that she had been drinking some alcohol but denied significant use of other drugs. Unfortunately, secondary to her condition that she was in, a drug screen to confirm her version of the story is not available. We did discuss the fact that generally speaking, when she presents with paranoia to the point where she acts on the paranoia, there has been active drug use and generally methamphetamines. She denied vehemently that that was the case. We reviewed her last hospitalization, and she denied any substantive changes except for the fact that she had not been staying either in her own place or with her uncle primarily, but that there is this other couple that had reportedly been supportive and helpful with maintaining her sobriety and staying on her medication. We did have discussion about how she was going to break this cycle of repeat hospitalizations, drug use, and lack of progress in her overall circumstances, and she talked about treatment and rehab, and things of this nature, which is generally what she does in the beginning, and then as she starts to feel better, she starts to become ambivalent and then disengages from the plan for recovery-oriented treatment. An excerpt from her January 21, 2021, inpatient hospitalization is included below for context. 01/21/2021 [facility] inpatient psychiatric evaluation: History of Present Illness Brianna Real is a 40 year old female who presented to the ED with h allucinations and suicidal and homicidal ideation. She has had 5 admissions for similar reasons in the past 3 months, along with multiple other ED visits for similar issues. The ED note states: 40-year-old female comes in today for concerns of hallucinations and suicidal and homicidal thought. Patient states that she wants to hurt her self due to taking large amounts of meth which has brought on these feelings. Patient also wants to kill the sugar who gave her the meth. Patient is very calm and cooperative. Patient responds appropriate to questioning. Patient is seeking admission to the neuropsychiatric unit. Patient admits to use of cigarette tobacco, marijuana, methamphetamines, and alcohol. Patient reports that she feels like there are spiders in her brain. Patient also admits that she is homeless. Patient was admitted to the neuropsychiatric unit for definitive treatment of these issues. She says she has been anxious and also has delusional complaints. For instance, she says I cannot get my body back, and I have the wrong brain. She feels that everyone is out to get her. She hears voices that make derogatory comments about her and make commands to harm herself and others. She has visual hallucinations, seeing faces on the wall. She also describes depress ion and suicidal ideation. The patient says she does not use alcohol, but has been smoking meth quite a bit. She also smokes marijuana and smokes 1 or more packs of cigarettes per day. The patient says she sees Dr. 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 She says she takes her medications daily. Meds NPU Home Medications Medication Instructions Recorded Confirmed Last Taken Type buspirone 10 mg PO TID PRN 30 Days #90 tab 01/27/21 03/19/21 03/18/21 Rx olanzapine 10 mg PO BEDTIME 30 Days #30 tab 01/27/21 03/19/21 03/18/21 Rx trazodone 100 mg PO BEDTIME 30 Days #30 tab 01/27/21 03/19/21 03/18/21 Rx Rexulti 2 mg PO DAILY 03/02/21 03/19/21 03/18/21 History cyclobenzaprine 10 mg PO TID PRN 03/02/21 03/19/21 03/18/21 History duloxetine [Cymbalta] 60 mg PO DAILY@199903/02/21 03/19/21 03/18/21 History gabapentin 100 mg PO TID 03/02/21 03/19/21 03/18/21 History tizanidine 4 mg PO BID PRN 03/02/21 03/19/21 03/18/21 History tramadol 50 mg PO BID PRN 03/02/21 03/19/21 03/18/21 History dicyclomine 20 mg PO QID 03/19/21 03/19/21 03/18/21 History lithium carbonate [Lithobid] 300 mg PO DAILY@199903/19/21 03/19/21 03/18/21 History Allergies Allergy/AdvReac Type Severity Reaction Status Date / Time Penicillins Allergy Intermediate rash Verified 01/20/21 17:50 Sulfa (Sulfonamide Allergy Unknown Verified 01/20/21 17:50 Antibiotics) PFS NPU PFS: Medical History Alcohol abuse Alcohol dependence, in remission Anxiety Bipolar affective, depress, unspec Generalized anxiety disorder Other stimulant dependence, in remission Psychiatric care Family History Grandfather No problems noted. Grandmother Stroke Maternal great Heart disease paternal Hypertension maternal Father Heart disease Hypertension Family/Other Breast cancer maternal aunt Denies family history of Colon cancer Ovarian cancer Uterine cancer Thyroid disease Social History Smoking and tobacco status: current every day smoker cigarettes Packs smoked per day: 1.5 Alcohol intake: never Mental Status Exam MSE Comments: I met with the patient in her room with the door open, and she was dressed in hospital scrubs and appropriately groomed. She was calm, c ooperative, interactive, and made good eye contact. No psychomotor agitation or retardation. Speech is at a regular rate and rhythm, normal volume, good articulation, not pressured. Alert, oriented to person, place, time, situation. Attention and concentration were intact to exam. Memory is adequate for the purposes of this interview. Mood is depressed and anxious. Affect is pleasant. Thought process is somewhat rambling and unfocused. Thought content: She has both auditory and visual hallucinations, and including some command hallucinations to hurt herself or fight others. She has some gene ralized paranoia, feeling that people are out to get her, but no specific plans. No suicidal ideation today, but has had some passive suicidal ideation until yesterday. No homicidal ideation. Fund of knowledge is intact to exam. Language is intact to exam. Insight and judgment appear to be fair. Impulse control is fair as well. Vitals/I&O/Wt Last Vital Signs Temp 97.8 F 03/18/21 14:00 Pulse 97 03/18/21 14:00 Resp 16 03/18/21 22:00 BP 136/92 03/18/21 14:00 Pulse Ox 100 03/18/21 14:00 Weight last 48 hrs Weight 76.113 kg Data NPU : 03/18/21 09:15 03/18/21 09:15 A&P Assessment and plan (1) Depression: Status: Acute Qualifiers: Depression Type: major depressive disorder Major depression recurrence: recurrent Active/Remission status: currently active Major depression episode severity: moderate Qualified Code(s): F33.1 - Major depressive disorder, recurrent, moderate (2) Generalized anxiety disorder: Status: Acute (3) Borderline personality disorder: Status: Acute (4) Alcohol dependence, in remission: Status: Acute (5) Other stimulant dependence, in remission: Status: Acute (6) Leukocytosis, unspecified: Status: Acute Additional A&P Information Brianna Real is a 40 year old female with a history of generalized anxiety disorder, adjustment disorder, prior alcoholism, borderline personality disorder and polysubstance abuse including methamphetamine abuse, who was admitted due to suicidal ideation with a plan to cut her wrists. She was recently on the NPU from 03/10?03/11/2021. RECOMMENDATION AND PLAN: 1. Continue current medication. 2. Continue every 15 minute checks for safety. 3. Encourage individual, group and milieu therapies. 4. Encourage sober living treatment after discharge at the highest level of care to which she is willing to commit. Involuntary Hold Information 96 Hour Hold: 96 Hour Involuntary Admission: No 96 Hour Hold Ending Date: 03/22/21 96 Hour Hold Ending Time: 10:49 Attestations NPU Medical Necessity Statement*: Psychiatric hospitalization is medically necessary to prevent access to lethal means, to reevaluate medication, and to coordinate a safe discharge. Patient will be in the hospital for over 2 midnights. Likely length of stay is 2-4 days. Coding Level of Care Code Acute Computer Systems Security Administrator for Ioana Alcaraz Diagnoses Depression F33.1 Depression Type: major depressive disorder Major depression recurrence: recurrent Active/Remission status: currently active Major depression episode severity: moderate Generalized anxiety disorder F41.1 Borderline personality disorder F60.3 Alcohol dependence, in remission F10.21 Other stimulant dependence, in remission F15.21 Leukocytosis, unspecified D72.829
[2021-03-19] MEDS: BuSPIRONE 10 mg Tablet PO (09:26)
--- NOTE | 2021-03-19 09:26 | PC.NURSE ---
Addendum entered by Rebeca Cuadra LPN 03/19/21 11:05: prn med effective pt asleep in bed in room Original Note: PRN BUSPAR 10 MG GIVEN PO PER PT C/O STATED ANXIETY. MED GIVEN BY Erna LI RN
[2021-03-19 14:00] VITALS: BP 96/65; PULSE 102; RESP 18; TEMP 36.6; O2SAT 98
[2021-03-19] MEDS: OLANZapine 10 mg TABLET PO (19:43)
[2021-03-19] MEDS: lithium carbonate ER 300 mg Tablet PO (19:43)
[2021-03-19] MEDS: duloxetine 60 mg Capsule PO (19:43)
[2021-03-19] MEDS: trazodone 100 mg Tablet PO (19:43)
[2021-03-19 20:09] VITALS: BP 116/79; PULSE 95; RESP 18; TEMP 36.3; O2SAT 96
[2021-03-20 06:00] VITALS: BP 116/79; PULSE 95; RESP 17; TEMP 36.3; O2SAT 96
[2021-03-20] MEDS: gabapentin 100 mg Capsule PO ×3 (10:15→20:03)
[2021-03-20] MEDS: dicyclomine 20 mg Tablet PO ×4 (10:15→20:03)
[2021-03-20] MEDS: BuSPIRONE 10 mg Tablet PO (11:29)
[2021-03-20 14:00] VITALS: BP 112/81; PULSE 98; RESP 18; TEMP 36.7; O2SAT 96
--- NOTE | 2021-03-20 14:26 | PM.NPN ---
Subjective NPU Subjective: Interval history: I met with the treatment team to discuss the patient's progress. We all agree that the patient is unable to manage her affairs and make decisions on her own behalf and is in need of a guardian. I met with the patient. She also says that she would like to have a guardian because she cannot make decisions on her own. She says she needs a guardian to help her find a place to live and help her take care of her self. She says that her mood is improving and she is not hearing as many voices. No suicidal ideation. No medication side effects. Mental Status Exam MSE Comments: I met with the patient in her room with the door open, and she was dressed in hospital scrubs and appropriately groomed. She was calm, cooperative, interactive, and made good eye contact. No psychomotor agitation or retardation. Speech is at a regular rate and rhythm, normal volume, good articulation, not pressured. Alert, oriented to person, place, time, situation. Attention and concentration were intact to exam. Memory is adequate for the purposes of this interview. Mood is improving. Affect is pleasant. Thought process is more organized today. Thought content: She has both auditory and visual hallucinations, and including some command hallucinations. Today she has says that there are no commands to hurt herself or fight others. She has some generalized paranoia, feeling that people are out to get her, but no specific plans. No suicidal or homicidal ideation. Fund of knowledge is intact to exam. Language is intact to exam. Insight and judgment appear to be fair within the structured setting. Impulse control is fair within the structured setting as well. Vitals/I&O/Wt Last Vital Signs Temp 98.1 F 03/20/21 14:00 Pulse 98 03/20/21 14:00 Resp 18 03/20/21 14:00 BP 112/81 03/20/21 14:00 Pulse Ox 96 03/20/21 14:00 Data NPU : 03/18/21 09:15 03/18/21 09:15 A&P Assessment and plan (1) Depression: Status: Acute Qualifiers: Active/Remission status: currently active Depression Type: major depressive disorder Major depression episode severity: moderate Major depression recurrence: recurrent Qualified Code(s): F33.1 - Major depressive disorder, recurrent, moderate (2) Suicidal ideation: Status: Acute (3) Borderline personality disorder: Status: Acute (4) Generalized anxiety disorder: Status: Acute (5) Methamphetamine use: Status: Acute (6) Alcohol abuse: Status: Acute (7) Marijuana use: Status: Acute (8) Leukocytosis, unspecified: Status: Acute Additional A&P Information Brianna Real is a 40 year old female with a history of generalized anxiety disorder, adjustment disorder, prior alcoholism, borderline personality disorder and polysubstance abuse including methamphetamine abuse, who was admitted due to suicidal ideation with a plan to cut her wrists. She was recently on the NPU from 03/10?03/11/2021. RECOMMENDATION AND PLAN: 1. Continue current medication. 2. Continue every 15 minute checks for safety. 3. Encourage individual, group and milieu therapies. 4. Encourage sober living treatment after discharge at the highest level of care to which she is willing to commit. 5. Patient is unable to make decisions on her own. We will ask the court to appoint a guardian from the [facility]. Involuntary Hold Information 96 Hour Hold: 96 Hour Involuntary Admission: No 96 Hour Hold Ending Date: 03/22/21 96 Hour Hold Ending Time: 10:49 Attestations NPU Medical Necessity Statement*: Psychiatric hospitalization is medically necessary to prevent access to lethal means, to reevaluate medication, and to coordinate a safe discharge. Likely length of stay is 5-7 days. Coding Level of Care Code Acute College President for Iaona Alcaraz Diagnoses Depression F33.1 Active/Remission status: currently active Depression Type: major depressive disorder Major depression episode severity: moderate Major depression recurrence: recurrent Suicidal ideation R45.851 Borderline personality disorder F60.3 Generalized anxiety disorder F41.1 Methamphetamine use F15.10 Alcohol abuse F10.10 Marijuana use F12.90 Leukocytosis, unspecified D72.829
[2021-03-20] MEDS: trazodone 100 mg Tablet PO (20:02)
[2021-03-20] MEDS: lithium carbonate ER 300 mg Tablet PO (20:02)
[2021-03-20] MEDS: duloxetine 60 mg Capsule PO (20:03)
[2021-03-20] MEDS: hyDROXYzine 25 mg Capsule 50 MG PO (20:03)
[2021-03-20] MEDS: OLANZapine 10 mg TABLET PO (20:03)
[2021-03-20 22:00] VITALS: BP 112/81; PULSE 98; RESP 18; TEMP 36.7; O2SAT 96
[2021-03-21 06:00] VITALS: RESP 17
[2021-03-21] MEDS: dicyclomine 20 mg Tablet PO ×4 (09:26→20:16)
[2021-03-21] MEDS: gabapentin 100 mg Capsule PO ×3 (09:26→20:16)
[2021-03-21] MEDS: BuSPIRONE 10 mg Tablet PO (11:52)
[2021-03-21 14:00] VITALS: BP 126/81; PULSE 79; RESP 16; TEMP 36.7; O2SAT 96
[2021-03-21] MEDS: TRAMadol 50 mg Tablet PO (15:31)
[2021-03-21] MEDS: haloperidol 5 mg Tablet PO (15:32)
--- NOTE | 2021-03-21 17:29 | PM.NPN ---
Subjective NPU Subjective: Interval history: The patient says that her mood is okay. She says that the voices are still there. She says they are not as bad as they were. She has no suicidal or homicidal ideation. No medication side effects. Mental Status Exam MSE Comments: I met with the patient in her room with the door open, and she was dressed in hospital scrubs and appropriately groomed. She was calm, cooperative, interactive, and made good eye contact. No psychomotor agitation or retardation. Speech is at a regular rate and rhythm, normal volume, good articulation, not pressured. Alert, oriented to person, place, time, situation. Attention and concentration were intact to exam. Memory is adequate for the purposes of this interview. Mood is improving. Affect is pleasant. Thought process is more organized today. Thought content: She has both auditory and visual hallucinations, and including some command hallucinations. No suicidal or homicidal ideation. Fund of knowledge is intact to exam. Language is intact to exam. Insight and judgment appear to be fair within the structured setting. Impulse control is fair within the structured setting as well. Vitals/I&O/Wt Last Vital Signs Temp 98.1 F 03/21/21 14:00 Pulse 79 03/21/21 14:00 Resp 16 03/21/21 14:00 BP 126/81 03/21/21 14:00 Pulse Ox 96 03/21/21 14:00 Data NPU : 03/18/21 09:15 03/18/21 09:15 A&P Assessment and plan (1) Leukocytosis, unspecified: Status: Acute (2) Depression: Status: Acute Qualifiers: Active/Remission status: currently active Depression Type: major depressive disorder Major depression episode severity: moderate Major depression recurrence: recurrent Qualified Code(s): F33.1 - Major depressive disorder, recurrent, moderate (3) Methamphetamine use: Status: Acute (4) Borderline personality disorder: Status: Acute (5) Generalized anxiety disorder: Status: Acute (6) Alcohol dependence, in remission: Status: Acute (7) Other stimulant dependence, in remission: Status: Acute Additional A&P Information Brianna Real is a 40 year old female with a history of generalized anxiety disorder, adjustment disorder, prior alcoholism, borderline personality disorder and polysubstance abuse including methamphetamine abuse, who was admitted due to suicidal ideation with a plan to cut her wrists. She was recently on the NPU from 03/10?03/11/2021. RECOMMENDATION AND PLAN: 1. Continue current medication. 2. Continue every 15 minute checks for safety. 3. Encourage individual, group and milieu therapies. 4. Encourage sober living treatment after discharge at the highest level of care to which she is willing to commit. 5. Patient is unable to make decisions on her own. We have asked the court to appoint a guardian from the [facility]. Involuntary Hold Information 96 Hour Hold: 96 Hour Involuntary Admission: No 96 Hour Hold Ending Date: 03/22/21 96 Hour Hold Ending Time: 10:49 Attestations NPU Medical Necessity Statement*: Psychiatric hospitalization is medically necessary to prevent access to lethal means, to reevaluate medication, and to coordinate a safe discharge. Likely length of stay is 5-7 days. Coding Level of Care Code Acute Phlebotomy Lab Assistant for Ioana Cotad Diagnoses Leukocytosis, unspecified D72.829 Depression F33.1 Active/Remission status: currently active Depression Type: major depressive disorder Major depression episode severity: moderate Major depression recurrence: recurrent Methamphetamine use F15.10 Borderline personality disorder F60.3 Generalized anxiety disorder F41.1 Alcohol dependence, in remission F10.21 Other stimulant dependence, in remission F15.21
[2021-03-21] MEDS: hyDROXYzine 25 mg Capsule 50 MG PO (20:15)
[2021-03-21] MEDS: tizanidine 4 mg Tablet PO (20:16)
[2021-03-21] MEDS: duloxetine 60 mg Capsule PO (20:16)
[2021-03-21] MEDS: lithium carbonate ER 300 mg Tablet PO (20:16)
[2021-03-21] MEDS: OLANZapine 10 mg TABLET PO (20:16)
[2021-03-21] MEDS: trazodone 100 mg Tablet PO (20:16)
[2021-03-21 21:12] VITALS: BP 127/89; PULSE 95; RESP 16; TEMP 37.2; O2SAT 97
--- NOTE | 2021-03-22 00:24 | PC.NURSE ---
Prns Visteril 50mg Po given for anxiety, pt responded well and is resting
--- NOTE | 2021-03-22 03:26 | PC.NURSE ---
PRN meds, Zanaflex 4mg PO & Vistaril 50mg PO given for sleep and muscle spasms . Upon reassessment medications were effective.
[2021-03-22 06:00] VITALS: BP 100/64; PULSE 76; RESP 18; TEMP 36.8; O2SAT 96
[2021-03-22] MEDS: dicyclomine 20 mg Tablet PO ×4 (09:21→20:07)
[2021-03-22] MEDS: gabapentin 100 mg Capsule PO ×3 (09:21→20:07)
[2021-03-22] MEDS: BuSPIRONE 10 mg Tablet PO ×2 (09:55→15:14)
[2021-03-22] MEDS: TRAMadol 50 mg Tablet PO ×2 (11:52→20:07)
[2021-03-22 14:00] VITALS: BP 100/64; PULSE 76; RESP 18; TEMP 36.8; O2SAT 96
[2021-03-22] MEDS: cyclobenzaprine 10 mg Tablet PO (14:11)
--- NOTE | 2021-03-22 16:47 | P.PN_ITS ---
Subjective NPU Subjective: Interval history: Today the patient says she feels anxious. She says it is hard being around people, because she starts to get into conflict with them. She says she has some depression but no suicidal ideation. She is still hearing voices and they tell her to hurt people. She does not feel she is going to act on this. She has some visual hallucinations. She slept well last night. No medication side effects. Mental Status Exam MSE Comments: I met with the patient in her room with the door open, and she was dressed in hospital scrubs and appropriately groomed. She was calm, cooperative, interactive, and made good eye contact. No psychomotor agitation or retardation. Speech is at a regular rate and rhythm, normal volume, good articulation, not pressured. Alert, oriented to person, place, time, situation. Attention and concentration were intact to exam. Memory is adequate for the purposes of this interview. Mood is improving. Affect is pleasant. Thought process is more organized today. Thought content: She has both auditory and visual hallucinations, and including some command hallucinations. No suicidal or homicidal ideation. Fund of knowledge is intact to exam. Language is intact to exam. Insight and judgment appear to be fair within the structured setting. Impulse control is fair within the structured setting as well. Vitals/I&O/Wt Last Vital Signs Temp 98.2 F 03/22/21 14:00 Pulse 76 03/22/21 14:00 Resp 18 03/22/21 14:00 BP 100/64 03/22/21 14:00 Pulse Ox 96 03/22/21 14:00 Data NPU : 03/18/21 09:15 03/18/21 09:15 A&P Assessment and plan (1) Suicidal ideation: Status: Acute (2) Leukocytosis, unspecified: Status: Acute (3) Depression: Status: Acute Qualifiers: Active/Remission status: currently active Depression Type: major depressive disorder Major depression episode severity: moderate Major de pression recurrence: recurrent Qualified Code(s): F33.1 - Major depressive disorder, recurrent, moderate (4) Methamphetamine use: Status: Acute (5) Borderline personality disorder: Status: Acute (6) Generalized anxiety disorder: Status: Acute (7) Alcohol dependence, in remission: Status: Acute (8) Other stimulant dependence, in remission: Status: Acute Additional A&P Information Brianna Real is a 40 year old female with a history of generalized anxiety disorder, adjustment disorder, prior alcoholism, borderline personality disorder and polysubstance abuse including methamphetamine abuse, who was admitted due to suicidal ideation with a plan to cut her wrists. She was recently on the NPU from 03/10?03/11/2021. RECOMMENDATION AND PLAN: 1. Continue current medication. 2. Continue every 15 minute checks for safety. 3. Encourage individual, group and milieu therapies. 4. Encourage sober living treatment after discharge at the highest level of care to which she is willing to commit. 5. Patient is unable to make decisions on her own. We have asked the court to appoint a guardian from the [facility]. Involuntary Hold Information 96 Hour Hold: 96 Hour Involuntary Admission: No 96 Hour Hold Ending Date: 03/22/21 96 Hour Hold Ending Time: 10:49 Attestations NPU Medical Necessity Statement*: Psychiatric hospitalization is medically necessary to prevent access to lethal means, to reevaluate medication, and to coordinate a safe discharge. Likely length of stay is 5-7 days. Coding Level of Care Code Acute Derrick Engineer for [facility] Diagnoses Suicidal ideation R45.851 Leukocytosis, unspecified D72.829 Depression F33.1 Active/Remission status: currently active Depression Type: major depressive disorder Major depression episode severity: moderate Major depression recurrence: recurrent Methamphetamine use F15.10 Borderline personality disorder F60.3 Generalized anxiety disorder F41.1 Alcohol dependence, in remission F10.21 Other stimulant dependence, in remission F15.21
[2021-03-22] MEDS: tizanidine 4 mg Tablet PO (17:29)
[2021-03-22] MEDS: OLANZapine 5 mg ODT PO (17:29)
[2021-03-22] MEDS: duloxetine 60 mg Capsule PO (20:06)
[2021-03-22] MEDS: lithium carbonate ER 300 mg Tablet PO (20:07)
[2021-03-22] MEDS: trazodone 100 mg Tablet PO (20:07)
[2021-03-22] MEDS: OLANZapine 10 mg TABLET PO (20:07)
[2021-03-22 20:48] VITALS: BP 110/71; PULSE 86; RESP 16; TEMP 36.6; O2SAT 98
--- NOTE | 2021-03-23 03:43 | PC.NURSE ---
PRN's Patient was given tramadol for pain and patient responded well
[2021-03-23 06:00] VITALS: BP 103/70; PULSE 98; RESP 17; TEMP 36.6; O2SAT 95
[2021-03-23] MEDS: gabapentin 100 mg Capsule PO ×3 (09:08→19:55)
[2021-03-23] MEDS: dicyclomine 20 mg Tablet PO ×4 (09:08→19:55)
[2021-03-23] MEDS: BREXPIPRAZOLE 2 MG 2 EACH PO (09:09)
[2021-03-23] MEDS: TRAMadol 50 mg Tablet PO ×2 (09:54→19:52)
[2021-03-23] MEDS: BuSPIRONE 10 mg Tablet PO ×2 (10:28→21:35)
[2021-03-23] MEDS: OLANZapine 5 mg ODT PO ×2 (10:59→15:11)
[2021-03-23 14:00] VITALS: BP 120/75; PULSE 107; RESP 17; TEMP 36.6; O2SAT 97
--- NOTE | 2021-03-23 17:18 | P.PN_ITS ---
Subjective NPU Subjective: Interval history: Patient talked about having conflict with her roommate. We talked some about how to manage the conflict. She says that the voices are still present but quieter today. Mood is okay. No suicidal or homicidal ideation. No auditory or visual hallucinations. No medication side effects. Mental Status Exam MSE Comments: I met with the patient by the nurses station, and she was dressed in hospital scrubs and appropriately groomed. She was calm, cooperati ve, interactive, and made fair eye contact. No psychomotor agitation or retardation. Speech is at a regular rate and rhythm, normal volume, good articulation, not pressured. Alert, oriented to person, place, time, situation. Attention and concentration were intact to exam. Memory is adequate for the purposes of this interview. Mood is improving. Affect is pleasant. Thought process is more organized today. Thought content: She has both auditory and visual hallucinations, and including some command hallucinations. They are somewhat diminished in intensity. No suicidal or homicidal ideation. Fund of knowledge is intact to exam. Language is intact to exam. Insight and judgment appear to be fair within the structured setting. Impulse control is fair within the structured setting as well. Vitals/I&O/Wt Last Vital Signs Temp 97.9 F 03/23/21 14:00 Pulse 107 H 03/23/21 14:00 Resp 17 03/23/21 14:00 BP 120/75 03/23/21 14:00 Pulse Ox 97 03/23/21 14:00 Data NPU : 03/18/21 09:15 03/18/21 09:15 A&P Assessment and plan (1) Acute psychosis: This diagnosis dropped off the note. We will add it back now since the patient has both auditory command hallucinations and visual hallucinations. Status: Resolved (2) Suicidal ideation: Status: Acute (3) Leukocytosis, unspecified: Status: Acute (4) Methamphetamine use: Status: Acute (5) Borderline personality disorder: Status: Acute (6) Generalized anxiety disorder: Status: Acute (7) Alcohol dependence, in remission: Status: Acute (8) Anxiety: Status: Acute Additional A&P Information Brianna Real is a 40 year old female with a history of generalized anxiety disorder, adjustment disorder, prior alcoholism, borderline personality disorder and polysubstance abuse including methamphetamine abuse, who was admitted due to suicidal ideation with a plan to cut her wrists. She was recently on the NPU from 03/10?03/11/2021. RECOMMENDATION AND PLAN: 1. Continue current medication. 2. Continue every 15 minute checks for safety. 3. Encourage individual, group and milieu therapies. 4. Encourage sober living treatment after discharge at the highest level of care to which she is willing to commit. 5. Patient is unable to make decisions on her own. We have asked the court to appoint a guardian from the [facility]. Involuntary Hold Information 96 Hour Hold: 96 Hour Involuntary Admission: No 96 Hour Hold Ending Date: 03/22/21 96 Hour Hold Ending Time: 10:49 Attestations NPU Medical Necessity Statement*: Psychiatric hospitalization is medically necessary to prevent access to lethal means, to reevaluate medication, and to coordinate a safe discharge. Likely length of stay is 5-7 days. Coding Level of Care Code Acute Geotechnicial Properties Technician for [facility] Diagnoses Acute psychosis F23 Suicidal ideation R45.851 Leukocytosis, unspecified D72.829 Methamphetamine use F15.10 Borderline personality disorder F60.3 Generalized anxiety disorder F41.1 Alcohol dependence, in remission F10.21 Anxiety F41.9
[2021-03-23] MEDS: nicotine 2 mg Gum BUCCAL (19:52)
[2021-03-23] MEDS: lithium carbonate ER 300 mg Tablet PO (19:52)
[2021-03-23] MEDS: hyDROXYzine 25 mg Capsule 50 MG PO (19:52)
[2021-03-23] MEDS: trazodone 100 mg Tablet PO (19:53)
[2021-03-23] MEDS: duloxetine 60 mg Capsule PO (19:53)
[2021-03-23] MEDS: OLANZapine 10 mg TABLET PO (19:55)
[2021-03-23 20:55] VITALS: BP 133/89; PULSE 92; RESP 15; TEMP 37.2; O2SAT 98
[2021-03-24 06:00] VITALS: RESP 18
[2021-03-24] MEDS: dicyclomine 20 mg Tablet PO ×4 (08:52→19:43)
[2021-03-24] MEDS: gabapentin 100 mg Capsule PO ×3 (08:52→19:42)
[2021-03-24] MEDS: BuSPIRONE 10 mg Tablet PO ×2 (11:59→19:42)
--- NOTE | 2021-03-24 12:00 | PC.NURSE ---
Addendum entered by Rebeca Cuadra LPN 03/24/21 15:47: prn med effective pt up to desk smiling and is cheerful in conversation. no further c/o anxiety Original Note: PRN BUSPAR 10 MG GIVEN PO PER PT C/O STATED ANXIETY. NO OUTWARD S/S OF ANXIETY NOTED, PT MED SEEKS A LOT FOR ANXIETY MED WILL CONT TO MONITOR
[2021-03-24] MEDS: TRAMadol 50 mg Tablet PO ×2 (12:34→22:52)
--- NOTE | 2021-03-24 13:27 | PM.NPN ---
Subjective NPU Subjective: Interval history: The patient says she is anxious here because of the amount of people around them. She has had some voices today, hearing different things. We talked about some of the things that lead her to become suicidal, such as when people Ms. treat her or when she feels displaced. She also says that her daughter does not want to have anything to do with her, and this is very upsetting as well. We talked about the plan for her to get a guardian so that her life can become stable and she ends the cycle of repeatedly using drugs, becoming psychotic, and getting readmitted to the hospital. This makes sense to her. She denies suicidal and homicidal ideation. She has a roommate now, and she says she does better when she has another person in the room with her. Mental Status Exam MSE Comments: I met with the patient in her room with the door open. She was dressed in hospital scrubs and appropriately groomed. She was more anxious and restless today. She is cooperative, interactive, and made fair eye contact. No psychomotor agitation or retardation. Speech is at a regular rate and rhythm, normal volume, good articulation, not pressured. Alert, oriented to person, place, time, situation. Attention and concentration were intact to exam. Memory is adequate for the purposes of this interview. Mood is more anxious today. Affect is also anxious. Thought process is fairly well organized. Thought content: She has both auditory and visual hallucinations, and including some command hallucinations. They are somewhat diminished in intensity. No suicidal or homicidal ideation. Fund of knowledge is intact to exam. Language is intact to exam. Insight and judgment appear to be fair within the structured setting. Impulse control is fair within the structured setting as well. Vitals/I&O/Wt Last Vital Signs Temp 98.9 F 03/23/21 20:55 Pulse 92 03/23/21 20:55 Resp 18 03/24/21 06:00 BP 133/89 03/23/21 20:55 Pulse Ox 98 03/23/21 20:55 Weight last 48 hrs Weight 76.113 kg Data NPU : 03/18/21 09:15 03/18/21 09:15 A&P Assessment and plan (1) Acute psychosis: Status: Acute (2) Suicidal ideation: Status: Acute (3) Leukocytosis, unspecified: Status: Acute (4) Borderline personality disorder: Status: Acute (5) Generalized anxiety disorder: Status: Acute (6) Alcohol dependence, in remission: Status: Acute (7) Other stimulant dependence, in remission: Status: Acute (8) Alcohol abuse: Status: Acute (9) Marijuana use: Status: Acute Additional A&P Information Brianna Real is a 40 year old female with a history of generalized anxiety disorder, adjustment disorder, prior alcoholism, borderline personality disorder and polysubstance abuse including methamphetamine abuse, who was admitted due to suicidal ideation with a plan to cut her wrists. She was recently on the NPU from 03/10?03/11/2021. RECOMMENDATION AND PLAN: 1. Continue current medication. 2. Continue every 15 minute checks for safety. 3. Encourage individual, group and milieu therapies. 4. Encourage sober living treatment after discharge at the highest level of care to which she is willing to commit. 5. Patient is unable to make decisions on her own. We have asked the court to appoint a guardian from the [facility]. Involuntary Hold Information 96 Hour Hold: 96 Hour Involuntary Admission: No 96 Hour Hold Ending Date: 03/22/21 96 Hour Hold Ending Time: 10:49 Attestations NPU Medical Necessity Statement*: Psychiatric hospitalization is medically necessary to prevent access to lethal means, to reevaluate medication, and to coordinate a safe discharge. Likely length of stay is 5-7 days. Coding Level of Care Code Acute Electronic Scale Assembler And Tester for [facility] Diagnoses Acute psychosis F23 Suicidal ideation R45.851 Leukocytosis, unspecified D72.829 Borderline personality disorder F60.3 Generalized anxiety disorder F41.1 Alcohol dependence, in remission F10.21 Other stimulant dependence, in remission F15.21 Alcohol abuse F10.10 Marijuana use F12.90
[2021-03-24 14:00] VITALS: BP 120/80; PULSE 115; RESP 20; TEMP 37.1; O2SAT 98
[2021-03-24] MEDS: lithium carbonate ER 300 mg Tablet PO (19:41)
[2021-03-24] MEDS: duloxetine 60 mg Capsule PO (19:41)
[2021-03-24] MEDS: OLANZapine 10 mg TABLET PO (19:42)
[2021-03-24] MEDS: trazodone 100 mg Tablet PO (19:42)
[2021-03-24] MEDS: OLANZapine 5 mg ODT PO (21:15)
[2021-03-24 21:28] VITALS: BP 125/97; PULSE 95; RESP 15; TEMP 36.6; O2SAT 99
[2021-03-25 06:00] VITALS: BP 135/72; PULSE 91; RESP 15; TEMP 36.5; O2SAT 97
[2021-03-25] MEDS: gabapentin 100 mg Capsule PO ×3 (08:40→19:58)
[2021-03-25] MEDS: dicyclomine 20 mg Tablet PO ×4 (08:40→19:57)
[2021-03-25] MEDS: TRAMadol 50 mg Tablet PO ×2 (13:30→21:41)
[2021-03-25 14:00] VITALS: BP 143/92; PULSE 107; RESP 18; TEMP 36.7; O2SAT 97
--- NOTE | 2021-03-25 15:08 | P.PN_ITS ---
Subjective NPU Subjective: Interval history: The patient says she is feeling more anxious today, and she does not know exactly why. She slept well last night. She is continuing to hear the voices, however they are not too loud or prevalent today. No suicidal ideation. No medication side effects. We talked some about the process she is going through right now. [facility] and it has not yet been scheduled. Guardianship is really essential for her wellbeing. Mental Status Exam MSE Comments: I met with the patient in her room with the door open. She was dressed in hospital scrubs and appropriately groomed. She was more anxious and restless again today. She is cooperative, interactive, and made fair eye contact. No psychomotor agitation or retardation. Speech is at a regular rate and rhythm, normal volume, good articulation, not pressured. Alert, oriented to person, place, time, situation. Attention and concentration were intact to exam. Memory is adequate for the purposes of this interview. Mood is more anxious today. Affect is also anxious. Thought process is fairly well organized. Thought content: She has both auditory and visual hallucinations, and including some command hallucinations. They are somewhat diminished in intensity. No suicidal or homicidal ideation. Fund of knowledge is intact to exam. Language is intact to exam. Insight and judgment appear to be fair within the structured setting. Impulse control is fair within the structured setting as well. Vitals/I&O/Wt Last Vital Signs Temp 97.7 F 03/25/21 06:00 Pulse 91 03/25/21 06:00 Resp 15 03/25/21 06:00 BP 135/72 03/25/21 06:00 Pulse Ox 97 03/25/21 06:00 Weight last 48 hrs Weight 76.113 kg Data NPU : 03/18/21 09:15 03/18/21 09:15 A&P Assessment and plan (1) Acute psychosis: Status: Acute (2) Suicidal ideation: Status: Acute (3) Leukocytosis, unspecified: Status: Acute (4) Borderline personality disorder: Status: Acute (5) Generalized anxiety disorder: Status: Acute (6) Alcohol dependence, in remission: Status: Acute (7) Other stimulant dependence, in remission: Status: Acute (8) Alcohol abuse: Status: Acute (9) Marijuana use: Status: Acute Additional A&P Information Brianna Real is a 40 year old female with a history of generalized anxiety disorder, adjustment disorder, prior alcoholism, borderline personality disorder and polysubstance abuse including methamphetamine abuse, who was admitted due to suicidal ideation with a plan to cut her wrists. She was recently on the NPU from 03/10?03/11/2021. RECOMMENDATION AND PLAN: 1. Continue current medication. 2. Continue every 15 minute checks for safety. 3. Encourage individual, group and milieu therapies. 4. Encourage sober living treatment after discharge at the highest level of care to which she is willing to commit. 5. Patient is unable to make decisions on her own. We have asked the court to appoint a guardian from the [facility]. Involuntary Hold Information 96 Hour Hold: 96 Hour Involuntary Admission: No 96 Hour Hold Ending Date: 03/22/21 96 Hour Hold Ending Time: 10:49 Attestations NPU Medical Necessity Statement*: Psychiatric hospitalization is medically necessary to prevent access to lethal means, to reevaluate medication, and to coordinate a safe discharge. It is essential that the patient have a guardian to make decisions for her long-term wellbeing. She continues the cycle of drug use, psychotic relapse, and hospitalization, her life expectancy is expected to be greatly shortened. Likely length of stay is 5-7 days. Coding Level of Care Code Acute Boilermaker Mechanic for [facility] Diagnoses Acute psychosis F23 Suicidal ideation R45.851 Leukocytosis, unspecified D72.829 Borderline personality disorder F60.3 Generalized anxiety disorder F41.1 Alcohol dependence, in remission F10.21 Other stimulant dependence, in remission F15.21 Alcohol abuse F10.10 Marijuana use F12.90
[2021-03-25] MEDS: BuSPIRONE 10 mg Tablet PO ×2 (16:25→21:26)
--- NOTE | 2021-03-25 16:26 | PC.NURSE ---
PRN BUSPAR 10 MG GIVEN PO PER PT C/O STATED ANXIETY PT MED SEEKING FOR ANXIETY MEDS CONSTANTLY
[2021-03-25] MEDS: lithium carbonate ER 300 mg Tablet PO (19:57)
[2021-03-25] MEDS: trazodone 100 mg Tablet PO (19:57)
[2021-03-25] MEDS: OLANZapine 10 mg TABLET PO (19:58)
[2021-03-25] MEDS: duloxetine 60 mg Capsule PO (19:58)
[2021-03-25 22:00] VITALS: BP 98/62; PULSE 78; RESP 18; TEMP 37.2; O2SAT 95
[2021-03-26 06:00] VITALS: BP 118/80; PULSE 80; RESP 15; TEMP 36.4; O2SAT 98
[2021-03-26] MEDS: gabapentin 100 mg Capsule PO ×3 (08:20→20:28)
[2021-03-26] MEDS: dicyclomine 20 mg Tablet PO ×4 (08:20→20:28)
[2021-03-26] MEDS: TRAMadol 50 mg Tablet PO (10:12)
[2021-03-26] MEDS: BuSPIRONE 10 mg Tablet PO ×2 (13:42→21:34)
--- NOTE | 2021-03-26 13:43 | PC.NURSE ---
PRN BUSPAR 10 MG GIVEN PO PER PT C/O STATED ANXIETY. NO OUTWARD S/S OF ANXIETY NOTED, PT CONT TO MED SEEK FOR BUSPAR AND ANXIETY MEDS OFTEN
[2021-03-26 14:00] VITALS: BP 120/80; PULSE 106; RESP 18; TEMP 36.4; O2SAT 96
--- NOTE | 2021-03-26 15:29 | PM.NPN ---
Subjective NPU Subjective: Interval history: The patient says she has some anxiety but otherwise her mood is okay. She has some voices, but says they are not too bad. No visual hallucinations. No suicidal or homicidal ideation. No medication side effects. She says she is going to group and has been enjoying it. Today they learn some coping skills and we looked over them together. We talked about discharge placement, such as a residential care facility. She is looking forward to that. Mental Status Exam MSE Comments: I met with the patient in her room with the door open. She was dressed in hospital scrubs and appropriately groomed. She was somewhat anxious today. She is cooperative, interactive, and made fair eye contact. No psychomotor agitation or retardation. Speech is at a regular rate and rhythm, normal volume, good articulation, not pressured. Alert, oriented to person, place, time, situation. Attention and concentration were intact to exam. Memory is adequate for the purposes of this interview. Mood is more anxious today. Affect is also anxious. Thought process is fairly well organized. Thought content: She has auditory but not visual hallucinations. They are diminished in intensity. No suicidal or homicidal ideation. Fund of knowledge is intact to exam. Language is intact to exam. Insight and judgment appear to be fair within the structured setting. Impulse control is fair within the structured setting as well. Vitals/I&O/Wt Last Vital Signs Temp 97.6 F 03/26/21 06:00 Pulse 80 03/26/21 06:00 Resp 15 03/26/21 06:00 BP 118/80 03/26/21 06:00 Pulse Ox 98 03/26/21 06:00 Data NPU : 03/18/21 09:15 03/18/21 09:15 A&P Assessment and plan (1) Acute psychosis: Status: Acute (2) Leukocytosis, unspecified: We will repeat the CBC since the last WBC was 18+ Status: Acute (3) Methamphetamine use: Status: Acute (4) Borderline personality disorder: Status: Acute (5) Generalized anxiety disorder: Status: Acute (6) Alcohol dependence, in remission: Status: Acute (7) Alcohol abuse: Status: Acute (8) Marijuana use: Status: Acute Additional A&P Information Brianna Real is a 40 year old female with a history of generalized anxiety disorder, adjustment disorder, prior alcoholism, borderline personality disorder and polysubstance abuse including methamphetamine abuse, who was admitted due to suicidal ideation with a plan to cut her wrists. She was recently on the NPU from 03/10?03/11/2021. RECOMMENDATION AND PLAN: 1. Continue current medication. 2. Continue every 15 minute checks for safety. 3. Encourage individual, group and milieu therapies. 4. Encourage sober living treatment after discharge at the highest level of care to which she is willing to commit. 5. Patient is unable to make decisions on her own. We have asked the court to appoint a guardian from the [facility]. Involuntary Hold Information 96 Hour Hold: 96 Hour Involuntary Admission: No 96 Hour Hold Ending Date: 03/22/21 96 Hour Hold Ending Time: 10:49 Attestations NPU Medical Necessity Statement*: Psychiatric hospitalization is medically necessary to prevent access to lethal means, to reevaluate medication, and to coordinate a safe discharge. It is essential that the patient have a guardian to make decisions for her long-term wellbeing. She continues the cycle of drug use, psychotic relapse, and hospitalization, her life expectancy is expected to be greatly shortened. Likely length of stay is 5-7 days. Coding Level of Care Code Acute Orthopaedic Surgeon for [facility] Diagnoses Acute psychosis F23 Leukocytosis, unspecified D72.829 Methamphetamine use F15.10 Borderline personality disorder F60.3 Generalized anxiety disorder F41.1 Alcohol dependence, in remission F10.21 Alcohol abuse F10.10 Marijuana use F12.90
[2021-03-26] MEDS: acetaminophen 325 mg Tablet 650 MG PO (15:46)
[2021-03-26 16:07] LABS: Basophils # 0.1 10^3/uL (0.0-0.1); Basophils % 0.7 %; Eosinophils # 0.2 10^3/uL (0.0-0.8); Hematocrit 41.4 % (37.0-47.0); Lymphocytes # 2.6 10^3/uL (0.8-4.8); Lymphocytes % 25.3 %; Mean Corpuscular HGB Conc 31.4 g/dL (30.0-36.0); Mean Corpuscular Hemoglobin 27.9 pg (28.0-34.0); Mean Corpuscular Volume 88.8 fl (81-99); Mean Platelet Volume 9.9 fL (7.4-10.4); Monocytes # 1.1 10^3/uL (0.2-0.9); Monocytes % 10.1 %; Neutrophils # 6.44 10^3/uL (1.8-7.7); Neutrophils % 61.6 %; Nucleated Red Blood Cells % 0 %; Platelet Count 422 10^3/cmm (130-400); Red Blood Count 4.66 10^6/uL (4.1-5.3); Red Cell Distribution Width 13.9 % (12.1-15.1); White Blood Count 10.4 10^3/uL (4.0-10.0)
[2021-03-26 16:57] LABS: Alanine Aminotransferase 244 U/L (0-33); Albumin Level 3.9 g/dL (3.5-5.2); Alkaline Phosphatase 155 IU/L (35-105); Anion Gap 17.2 (5-19); Aspartate Amino Transferase 109 U/L (0-32); Blood Urea Nitrogen 10 mg/dL (6-20); Calcium 9.4 mg/dL (8.5-10.5); Carbon Dioxide 22 mmol/L (22-29); Chloride 99 mmol/L (98-107); Creatinine Clr Calc Pharmacy 152.6345; Globulin 3.1 g/dL (1.3-4.6); Glomerular Filtration Rate 136.6 mL/min (90-130); Glucose 107 mg/dL (65-115); Osmolality Calculated 278 mOsm/kg (285-295); Potassium 4.2 mmol/L (3.5-5.1); Sodium 134 mmol/L (136-145); Total Bilirubin 0.2 mg/dL (0.15-1.2)
[2021-03-26] MEDS: lithium carbonate ER 300 mg Tablet PO (20:27)
[2021-03-26] MEDS: OLANZapine 10 mg TABLET PO (20:28)
[2021-03-26] MEDS: duloxetine 60 mg Capsule PO (20:28)
[2021-03-26] MEDS: trazodone 100 mg Tablet PO (20:28)
[2021-03-26 22:00] VITALS: BP 127/81; PULSE 106; RESP 18; TEMP 36.3; O2SAT 98
[2021-03-27 06:00] VITALS: BP 112/80; PULSE 95; RESP 17; TEMP 36.3; O2SAT 95
[2021-03-27] MEDS: BuSPIRONE 10 mg Tablet PO ×2 (09:00→16:38)
[2021-03-27] MEDS: cyclobenzaprine 10 mg Tablet PO ×2 (09:00→16:38)
[2021-03-27] MEDS: gabapentin 100 mg Capsule PO ×3 (09:00→20:55)
[2021-03-27] MEDS: dicyclomine 20 mg Tablet PO ×4 (09:00→20:55)
[2021-03-27] MEDS: TRAMadol 50 mg Tablet PO ×2 (12:58→20:59)
[2021-03-27] MEDS: acetaminophen 325 mg Tablet 650 MG PO ×2 (12:59→16:32)
[2021-03-27 14:00] VITALS: BP 122/87; PULSE 103; RESP 17; TEMP 36.8; O2SAT 96
--- NOTE | 2021-03-27 15:10 | P.PN_ITS ---
Subjective NPU Subjective: Interval history: The patient says her mood is good today. She is hearing voices some, but says they are not too bothersome. No visual hallucinations. No suicidal or homicidal ideation. No medication side effects. We talked some more about discharge placement, such as a residential care facility. She continues to look forward to that. Mental Status Exam MSE Comments: I met with the patient in her room with the door open. She is cooperative, interactive, and made fair eye contact. No psychomotor agitation or retardation. Speech is at a regular rate and rhythm, normal volume, good articulation, not pressured. Alert, oriented to person, place, time, situation. Attention and concentration were intact to exam. Memory is adequate for the purposes of this interview. Mood is better than yesterday. Affect is also brighter. Thought process is fairly well organized. Thought content: She has auditory but not visual hallucinations. They are diminished in intensity. No suicidal or homicidal ideation. Fund of knowledge is intact to exam. Language is intact to exam. Insight and judgment appear to be fair within the structured setting. Impulse control is fair within the structured setting as well. Vitals/I&O/Wt Last Vital Signs Temp 98.3 F 03/27/21 20:24 Pulse 68 03/27/21 20:24 Resp 18 03/28/21 06:00 BP 107/72 03/27/21 20:24 Pulse Ox 97 03/27/21 20:24 Data NPU : 03/26/21 15:53 03/26/21 15:53 A&P Assessment and plan (1) Acute psychosis: Status: Acute (2) Suicidal ideation: Status: Acute (3) Leukocytosis, unspecified: Status: Acute (4) Methamphetamine use: Status: Acute (5) Borderline personality disorder: Status: Acute (6) Generalized anxiety disorder: Status: Acute (7) Alcohol dependence, in remission: Status: Acute (8) Marijuana use: Status: Acute (9) Other stimulant dependence, in remission: Status: Acute Additional A&P Information Brianna Real is a 40 year old female with a history of generalized anxiety disorder, adjustment disorder, prior alcoholism, borderline personality disorder and polysubstance abuse including methamphetamine abuse, who was admitted due to suicidal ideation with a plan to cut her wrists. She was recently on the NPU from 03/10?03/11/2021. RECOMMENDATION AND PLAN: 1. Continue current medication. 2. Pt has had leukocytosis but her white count is now coming down. If it continues to normalize, then no further action is required. WBC = 13.4 on 01/26/21; 13.5 on 03/02/21; 14.7 on 03/09/21; 18.3 on 03/18/21; and 10.5 on 03/26/21. 2. Continue every 15 minute checks for safety. 3. Encourage individual, group and milieu therapies. 4. Encourage sober living treatment after discharge at the highest level of care to which she is willing to commit. 5. Patient is unable to make decisions on her own. We have asked the court to appoint a guardian from the [facility]. Involuntary Hold Information 96 Hour Hold: 96 Hour Involuntary Admission: No 96 Hour Hold Ending Date: 03/22/21 96 Hour Hold Ending Time: 10:49 Attestations NPU Medical Necessity Statement*: Psychiatric hospitalization is medically necessary to prevent access to lethal means, to reevaluate medication, and to coordinate a safe discharge. It is essential that the patient have a guardian to make decisions for her long-term wellbeing. She continues the cycle of drug use, psychotic relapse, and hospitalization, her life expectancy is expected to be greatly shortened. Likely length of stay is 4-6 days. Coding Level of Care Code Acute Math Specialist for [facility] Diagnoses Acute psychosis F23 Suicidal ideation R45.851 Leukocytosis, unspecified D72.829 Methamphetamine use F15.10 Borderline personality disorder F60.3 Generalized anxiety disorder F41.1 Alcohol dependence, in remission F10.21 Marijuana use F12.90 Other stimulant dependence, in remission F15.21
[2021-03-27 20:24] VITALS: BP 107/72; PULSE 68; RESP 17; TEMP 36.8; O2SAT 97
[2021-03-27] MEDS: lithium carbonate ER 300 mg Tablet PO (20:51)
[2021-03-27] MEDS: hyDROXYzine 25 mg Capsule 50 MG PO (20:53)
[2021-03-27] MEDS: tizanidine 4 mg Tablet PO (20:54)
[2021-03-27] MEDS: duloxetine 60 mg Capsule PO (20:55)
[2021-03-27] MEDS: trazodone 100 mg Tablet PO (20:55)
[2021-03-27] MEDS: OLANZapine 10 mg TABLET PO (20:55)
--- NOTE | 2021-03-28 04:20 | PC.NURSE ---
Patient given Trazpdone 50mg PO, Visteril 50 mg PO at patient request for sleep and anxiety. Buspar 10mg PO, for anxiety , flexeril 10mg PO for muscle tightness and Zyprexa 5mg PO for anxiety / agitation. meds were effective
[2021-03-28 06:00] VITALS: RESP 18
[2021-03-28] MEDS: duloxetine 60 mg Capsule PO (10:34)
[2021-03-28] MEDS: BuSPIRONE 10 mg Tablet PO ×3 (10:34→21:13)
[2021-03-28] MEDS: dicyclomine 20 mg Tablet PO ×4 (10:34→20:54)
[2021-03-28] MEDS: cyclobenzaprine 10 mg Tablet PO ×3 (10:34→21:01)
[2021-03-28] MEDS: TRAMadol 50 mg Tablet PO ×2 (10:34→18:38)
[2021-03-28] MEDS: gabapentin 100 mg Capsule PO ×3 (10:35→20:54)
[2021-03-28 14:00] VITALS: BP 123/81; PULSE 94; RESP 17; TEMP 36.8; O2SAT 96
[2021-03-28] MEDS: OLANZapine 5 mg ODT PO (15:53)
--- NOTE | 2021-03-28 18:26 | PM.NPN ---
Subjective NPU Subjective: Interval history: Patient presents today demonstrating a lack of understanding of the guardianship process. She is open to guardianship occurring but she is not feeling very patient and wanting to wait till it occurs. We discussed making sure that things were in place so that this cycle of repeated hospitalizations hopefully will be avoided. Mental Status Exam MSE Comments: This is an overweight, white female, in hospital scrubs, with improving grooming and adequate eye contact. No abnormal movements except for mild psychomotor retardation. Cooperative with exam in no acute distress. Speech was normal rate, slightly decreased volume. Mood described as ready to discharge, good eye wait for guardianship somewhere else?; affect calm. Thought process, organized. Thought content: patient denied suicidal or homicidal ideation, there were no delusions noted but she endorsed some paranoia, she denied current auditory or visual hallucinations. Attention and concentration were intact, and memory appeared more reliable, but none were formally tested. She is alert and oriented times three. Insight and judgment are limited, impulse control is limited. Vitals/I&O/Wt Last Vital Signs Temp 97.9 F 03/28/21 20:27 Pulse 98 03/28/21 20:27 Resp 16 03/28/21 20:27 BP 124/80 03/28/21 20:27 Pulse Ox 97 03/28/21 20:27 Data NPU : 03/26/21 15:53 03/26/21 15:53 A&P Additional A&P Information (1) Acute psychosis: (2) Suicidal ideation: (3) Leukocytosis, unspecified: (4) Methamphetamine use: (5) Borderline personality disorder: (6) Generalized anxiety disorder: (7) Alcohol dependence, in remission: (8) Marijuana use: (9) Other stimulant dependence, in remission: Brianna Real is a 40 year old female with a history of generalized anxiety disorder, adjustment disorder, prior alcoholism, borderline personality disorder and polysubstance abuse including methamphetamine abuse, who was admitted due to suicidal ideation with a plan to cut her wrists. She was recently on the NPU from 03/10?03/11/2021. RECOMMENDATION AND PLAN: 1. Continue current medication. 2. Pt has had leukocytosis but her white count is now coming down. If it continues to normalize, then no further action is required. WBC = 13.4 on 01/26/21; 13.5 on 03/02/21; 14.7 on 03/09/21; 18.3 on 03/18/21; and 10.5 on 03/26/21. 2. Continue every 15 minute checks for safety. 3. Encourage individual, group and milieu therapies. 4. Encourage sober living treatment after discharge at the highest level of care to which she is willing to commit. 5. Patient is unable to make decisions on her own. We have asked the court to appoint a guardian from the [facility]. Involuntary Hold Information 96 Hour Hold: 96 Hour Involuntary Admission: No 96 Hour Hold Ending Date: 03/22/21 96 Hour Hold Ending Time: 10:49 Attestations NPU Medical Necessity Statement*: Psychiatric hospitalization is medically necessary to prevent access to lethal means, to reevaluate medication, and to coordinate a safe discharge. It is essential that the patient have a guardian to make decisions for her long-term wellbeing. She continues the cycle of drug use, psychotic relapse, and hospitalization, her life expectancy is expected to be greatly shortened. Likely length of stay is 4-6 days. Coding Level of Care Code Acute Admittance Attendant for Ioana Alcaraz
[2021-03-28 20:27] VITALS: BP 124/80; PULSE 98; RESP 16; TEMP 36.6; O2SAT 97
[2021-03-28] MEDS: trazodone 100 mg Tablet PO (20:54)
[2021-03-28] MEDS: lithium carbonate ER 300 mg Tablet PO (20:54)
[2021-03-28] MEDS: OLANZapine 10 mg TABLET PO (20:54)
[2021-03-29 06:00] VITALS: PULSE 69; RESP 18; TEMP 36.7; O2SAT 96
[2021-03-29] MEDS: BuSPIRONE 10 mg Tablet PO ×3 (09:20→21:14)
[2021-03-29] MEDS: gabapentin 100 mg Capsule PO ×3 (09:20→21:11)
[2021-03-29] MEDS: cyclobenzaprine 10 mg Tablet PO ×3 (09:20→21:14)
[2021-03-29] MEDS: dicyclomine 20 mg Tablet PO ×4 (09:20→21:14)
[2021-03-29] MEDS: duloxetine 60 mg Capsule PO (09:20)
[2021-03-29] MEDS: OLANZapine 5 mg ODT PO ×2 (10:44→19:19)
[2021-03-29] MEDS: TRAMadol 50 mg Tablet PO ×2 (12:07→21:12)
[2021-03-29 14:00] VITALS: BP 129/81; PULSE 112; RESP 20; TEMP 37.2; O2SAT 96
--- NOTE | 2021-03-29 14:07 | PM.NPN ---
Subjective NPU Subjective: Interval history: Patient presents today reporting that she thinks that she is doing a little better today. She understands she cannot leave until we agree that is appropriate and she has her guardianship hearing. We discussed the fact that we did locate a place for her to go after she had guardianship so she is somewhat happy about that though she would like to process the more quickly. Mental Status Exam MSE Comments: This is an overweight, white female, in hospital scrubs, with improving grooming and adequate eye contact. No abnormal movements except for mild psychomotor retardation. Cooperative with exam in no acute distress. Speech was normal rate, slightly decreased volume. Mood described as OK; affect calm. Thought process, organized. Thought content: patient denied suicidal or homicidal ideation, there were no delusions noted but she endorsed some paranoia, she denied current auditory or visual hallucinations. Attention and concentration were intact, and memory appeared more reliable, but none were formally tested. She is alert and oriented times three. Insight and judgment are limited, impulse control is limited. Vitals/I&O/Wt Last Vital Signs Temp 98.1 F 03/29/21 06:00 Pulse 69 03/29/21 06:00 Resp 18 03/29/21 06:00 BP 124/80 03/28/21 20:27 Pulse Ox 96 03/29/21 06:00 Data NPU : 03/26/21 15:53 03/26/21 15:53 A&P Additional A&P Information (1) Acute psychosis: (2) Suicidal ideation: (3) Leukocytosis, unspecified: (4) Methamphetamine use: (5) Borderline personality disorder: (6) Generalized anxiety disorder: (7) Alcohol dependence, in remission: (8) Marijuana use: (9) Other stimulant dependence, in remission: Brianna Real is a 40 year old female with a history of generalized anxiety disorder, adjustment disorder, prior alcoholism, borderline personality disorder and polysubstance abuse including methamphetamine abuse, who was admitted due to suicidal ideation with a plan to cut her wrists. She was recently on the NPU from 03/10?03/11/2021. RECOMMENDATION AND PLAN: 1. Continue current medication. 2. Continue every 15 minute checks for safety. 3. Encourage individual, group and milieu therapies. 4. Encourage sober living treatment after discharge at the highest level of care to which she is willing to commit. 5. Patient is unable to make decisions on her own. We have asked the court to appoint a guardian from the county. Involuntary Hold Information 96 Hour Hold: 96 Hour Involuntary Admission: No 96 Hour Hold Ending Date: 03/22/21 96 Hour Hold Ending Time: 10:49 Attestations NPU Medical Necessity Statement*: Psychiatric hospitalization is medically necessary to prevent access to lethal means, to reevaluate medication, and to coordinate a safe discharge. It is essential that the patient have a guardian to make decisions for her long-term wellbeing. She continues the cycle of drug use, psychotic relapse, and hospitalization, her life expectancy is expected to be greatly shortened. Likely length of stay is 4-6 days. Coding Level of Care Code Acute Administrative Fellow for Ioana Alcaraz
[2021-03-29] MEDS: nicotine 2 mg Gum BUCCAL (19:19)
[2021-03-29] MEDS: lithium carbonate ER 300 mg Tablet PO (21:12)
[2021-03-29] MEDS: OLANZapine 10 mg TABLET PO (21:14)
[2021-03-29] MEDS: hyDROXYzine 25 mg Capsule 50 MG PO (21:14)
[2021-03-29] MEDS: trazodone 100 mg Tablet PO (21:14)
[2021-03-29 22:00] VITALS: BP 126/86; PULSE 83; RESP 18; TEMP 36.7; O2SAT 99
--- NOTE | 2021-03-29 23:51 | PC.NURSE ---
Patient received buspar 10mg PO and vistaril 50mg PO for anxiety, and flexaril 10mg PO for muscle spams. Medications effective.
[2021-03-30 06:00] VITALS: RESP 15
--- NOTE | 2021-03-30 09:51 | PM.NPN ---
Subjective NPU Subjective: Interval history: Patient presents today reporting that she feels like she is getting better each day. She is positive as she identifies that she has a place to go now but is waiting on the guardianship process. She denies any problems with the medication and reports that she is eating and sleeping well. Mental Status Exam MSE Comments: This is an overweight, white female, in hospital scrubs, with improving grooming and adequate eye contact. No abnormal movements except for mild psychomotor retardation. Cooperative with exam in no acute distress. Speech was normal rate, slightly decreased volume. Mood described as OK; affect calm. Thought process, organized. Thought content: patient denied suicidal or homicidal ideation, there were no delusions noted but she endorsed some paranoia, she denied current auditory or visual hallucinations. Attention and concentration were intact, and memory appeared more reliable, but none were formally tested. She is alert and oriented times three. Insight and judgment are limited, impulse control is limited. Vitals/I&O/Wt Last Vital Signs Temp 98.0 F 03/29/21 22:00 Pulse 83 03/29/21 22:00 Resp 15 03/30/21 06:00 BP 126/86 03/29/21 22:00 Pulse Ox 99 03/29/21 22:00 Data NPU : 03/26/21 15:53 03/26/21 15:53 A&P Additional A&P Information (1) Acute psychosis: (2) Suicidal ideation: (3) Leukocytosis, unspecified: (4) Methamphetamine use: (5) Borderline personality disorder: (6) Generalized anxiety disorder: (7) Alcohol dependence, in remission: (8) Marijuana use: (9) Other stimulant dependence, in remission: Brianna Real is a 40 year old female with a history of generalized anxiety disorder, adjustment disorder, prior alcoholism, borderline personality disorder and polysubstance abuse including methamphetamine abuse, who was admitted due to suicidal ideation with a plan to cut her wrists. She was recently on the NPU from 03/10?03/11/2021. RECOMMENDATION AND PLAN: 1. Continue current medication. 2. Continue every 15 minute checks for safety. 3. Encourage individual, group and milieu therapies. 4. Encourage sober living treatment after discharge at the highest level of care to which she is willing to commit. 5. Patient is unable to make effective decisions on her own. We have asked the court to appoint a guardian from the [facility]. 6. She now has a place to go and is awaiting guardianship for that option. Involuntary Hold Information 96 Hour Hold: 96 Hour Involuntary Admission: No 96 Hour Hold Ending Date: 03/22/21 96 Hour Hold Ending Time: 10:49 Attestations NPU Medical Necessity Statement*: Psychiatric hospitalization is medically necessary to prevent access to lethal means, to reevaluate medication, and to coordinate a safe discharge. It is essential that the patient have a guardian to make decisions for her long-term wellbeing. She continues the cycle of drug use, psychotic relapse, and hospitalization, her life expectancy is expected to be greatly shortened. Likely length of stay is 4-6 days. She now has a appropriate discharge location and is awaiting the hearing. Coding Level of Care Code Acute Database Software Technician for Ioana Alcaraz
[2021-03-30] MEDS: duloxetine 60 mg Capsule PO (10:36)
[2021-03-30] MEDS: gabapentin 100 mg Capsule PO ×3 (10:36→20:12)
[2021-03-30] MEDS: dicyclomine 20 mg Tablet PO ×4 (10:36→20:12)
[2021-03-30] MEDS: BuSPIRONE 10 mg Tablet PO ×2 (12:12→20:12)
[2021-03-30] MEDS: TRAMadol 50 mg Tablet PO (12:12)
[2021-03-30 14:00] VITALS: BP 137/90; PULSE 108; RESP 18; TEMP 37.7; O2SAT 95
[2021-03-30] MEDS: acetaminophen 325 mg Tablet 650 MG PO (14:27)
[2021-03-30] MEDS: OLANZapine 5 mg ODT PO (14:29)
[2021-03-30] MEDS: lithium carbonate ER 300 mg Tablet PO (20:12)
[2021-03-30] MEDS: trazodone 100 mg Tablet PO (20:12)
[2021-03-30] MEDS: OLANZapine 10 mg TABLET PO (20:13)
[2021-03-30 20:58] VITALS: BP 129/86; PULSE 112; RESP 18; TEMP 36.9; O2SAT 96
[2021-03-30] MEDS: hyDROXYzine 25 mg Capsule 50 MG PO (21:19)
--- NOTE | 2021-03-31 03:12 | PC.NURSE ---
PRN tylenol, buspar, vistaril, zyprexa, and ultram given for pain and anxiety. Patient tolerated medication well. Will continue to monitor.
[2021-03-31 06:00] VITALS: RESP 15
[2021-03-31] MEDS: duloxetine 60 mg Capsule PO (10:09)
[2021-03-31] MEDS: gabapentin 100 mg Capsule PO ×3 (10:10→21:48)
[2021-03-31] MEDS: dicyclomine 20 mg Tablet PO ×4 (10:10→21:48)
--- NOTE | 2021-03-31 10:36 | P.PN_ITS ---
Subjective NPU Subjective: Interval history: Patient presents today continuing to be happy that she has a place to go awaiting the actual guardianship hearing and determination. She reports that she is fine and tolerating the medication and denying any need for changes or additional interventions. She reports he is eating and sleeping well and certainly doing better minus any drugs of abuse. Mental Status Exam MSE Comments: This is an overweight, white female, in hospital scrubs, with improving grooming and adequate eye contact. No abnormal movements except for mild psychomotor retardation. Cooperative with exam in no acute distress. Speech was normal rate, slightly decreased volume. Mood described as a little better; affect calm. Thought process, organized. Thought content: patient denied suicidal or homicidal ideation, there were no delusions noted but she endorsed some paranoia, she denied current auditory or visual hallucinations. Attention and concentration were intact, and memory appeared more reliable, but none were formally tested. She is alert and oriented times three. Insight and judgment are limited, impulse control is limited. Vitals/I&O/Wt Last Vital Signs Temp 98.4 F 03/30/21 20:58 Pulse 112 H 03/30/21 20:58 Resp 15 03/31/21 06:00 BP 129/86 03/30/21 20:58 Pulse Ox 96 03/30/21 20:58 Weight last 48 hrs Weight 76.113 kg Data NPU : 03/26/21 15:53 03/26/21 15:53 A&P Additional A&P Information (1) Acute psychosis: (2) Suicidal ideation: (3) Leukocytosis, unspecified: (4) Methamphetamine use: (5) Borderline personality disorder: (6) Generalized anxiety disorder: (7) Alcohol dependence, in remission: (8) Marijuana use: (9) Other stimulant dependence, in remission: Brianna Real is a 40 year old female with a history of generalized anxiety disorder, adjustment disorder, prior alcoholism, borderline personality disorder and polysubstance abuse including methamphetamine abuse, who was admitted due to suicidal ideation with a plan to cut her wrists. She was recently on the NPU from 03/10?03/11/2021. RECOMMENDATION AND PLAN: 1. Continue current medication. 2. Continue every 15 minute checks for safety. 3. Encourage individual, group and milieu therapies. 4. Encourage sober living treatment after discharge at the highest level of care to which she is willing to commit. 5. Patient is unable to make effective decisions on her own. We have asked the court to appoint a guardian from the [facility]. 6. She now has a place to go and is awaiting guardianship for that option. Involuntary Hold Information 96 Hour Hold: 96 Hour Involuntary Admission: No 96 Hour Hold Ending Date: 03/22/21 96 Hour Hold Ending Time: 10:49 Attestations NPU Medical Necessity Statement*: Psychiatric hospitalization is medically necessary to prevent access to lethal means, to reevaluate medication, and to coordinate a safe discharge. It is essential that the patient have a guardian to make decisions for her long-term wellbeing. She continues the cycle of drug use, psychotic relapse, and hospitalization, her life expectancy is expected to be greatly shortened. Likely length of stay is 4-6 days. She now has a appropriate discharge location and is awaiting the hearing. Coding Level of Care Code Acute Customer Support Consultant for Ioana Alcaraz
[2021-03-31] MEDS: acetaminophen 325 mg Tablet 650 MG PO (12:02)
[2021-03-31] MEDS: TRAMadol 50 mg Tablet PO (12:03)
[2021-03-31] MEDS: BuSPIRONE 10 mg Tablet PO ×2 (12:04→21:48)
[2021-03-31] MEDS: OLANZapine 5 mg ODT PO (13:45)
[2021-03-31 14:00] VITALS: BP 124/80; PULSE 108; RESP 20; TEMP 37.1; O2SAT 96
[2021-03-31 21:25] VITALS: BP 96/60; PULSE 81; RESP 18; TEMP 36.5; O2SAT 98
[2021-03-31] MEDS: OLANZapine 10 mg TABLET PO (21:48)
[2021-03-31] MEDS: lithium carbonate ER 300 mg Tablet PO (21:48)
[2021-03-31] MEDS: trazodone 100 mg Tablet PO (21:48)
--- NOTE | 2021-03-31 21:50 | PC.NURSE ---
pt requested to get buspar with HS meds.
[2021-03-31] MEDS: hyDROXYzine 25 mg Capsule 50 MG PO (23:18)
--- NOTE | 2021-03-31 23:20 | PC.NURSE ---
pt stated noted being able to rest, requested vistaril. vistaril 50mg po given.
--- NOTE | 2021-04-01 02:35 | PC.NURSE ---
pt resting quietly with both eyes closed.
[2021-04-01 06:00] VITALS: PULSE 95; RESP 18; O2SAT 99
[2021-04-01] MEDS: dicyclomine 20 mg Tablet PO ×4 (08:38→21:48)
[2021-04-01] MEDS: gabapentin 100 mg Capsule PO ×3 (08:38→21:48)
[2021-04-01] MEDS: duloxetine 60 mg Capsule PO (08:38)
[2021-04-01] MEDS: acetaminophen 325 mg Tablet 650 MG PO (11:49)
[2021-04-01] MEDS: nicotine 2 mg Gum BUCCAL ×2 (13:21→17:31)
[2021-04-01] MEDS: hyDROXYzine 25 mg Capsule 50 MG PO ×2 (13:21→21:48)
[2021-04-01 14:00] VITALS: BP 122/86; PULSE 96; RESP 18; TEMP 36.2; O2SAT 97
--- NOTE | 2021-04-01 15:22 | NPU.GN ---
[facility] Topic:Depression Bingo General Mood of Group: Patient refused to go to group she was to sleepy.
[2021-04-01] MEDS: BuSPIRONE 10 mg Tablet PO (17:20)
--- NOTE | 2021-04-01 17:20 | PC.NURSE ---
Addendum entered by Rebeca Cuadra LPN 04/01/21 18:41: LATE ENTRY PRN MED EFFECTIVE NO FURTHER C/O ANXIETY, PT UP IN DAY ROOM COLORING PICTURES Original Note: PRN BUSPAR 10 MG GIVEN PO PER PT C/O STATED ANXIETY. NO OUTWARD S/S OF ANXIETY NOTED. PT CALM AND PLEASANT
[2021-04-01 21:08] VITALS: BP 140/90; PULSE 112; RESP 19; TEMP 36.6; O2SAT 98
--- NOTE | 2021-04-01 21:12 | PM.NPN ---
Subjective NPU Subjective: Interval history: Therapy today reporting that she is feeling okay. She continues to have no changes but continued stability. She is awaiting her guardianship hearing with reasonable patient's but is obviously getting bored. She feels excited about the fact that once she gets the hearing everything else is already lined up. Mental Status Exam MSE Comments: This is an overweight, white female, in hospital scrubs, with improving grooming and adequate eye contact. No abnormal movements except for mild psychomotor retardation. Cooperative with exam in no acute distress. Speech was normal rate, slightly decreased volume. Mood described as okay; affect calm. Thought process, organized. Thought content: patient denied suicidal or homicidal ideation, there were no delusions noted but she endorsed some paranoia, she denied current auditory or visual hallucinations. Attention and concentration were intact, and memory appeared more reliable, but none were formally tested. She is alert and oriented times three. Insight and judgment are limited, impulse control is limited. Vitals/I&O/Wt Last Vital Signs Temp 97.8 F 04/01/21 21:08 Pulse 112 H 04/01/21 21:08 Resp 19 H 04/01/21 21:08 BP 140/90 04/01/21 21:08 Pulse Ox 98 04/01/21 21:08 Weight last 48 hrs Weight 76.113 kg Data NPU : 03/26/21 15:53 03/26/21 15:53 A&P Additional A&P Information (1) Acute psychosis: (2) Suicidal ideation: (3) Leukocytosis, unspecified: (4) Methamphetamine use: (5) Borderline personality disorder: (6) Generalized anxiety disorder: (7) Alcohol dependence, in remission: (8) Marijuana use: (9) Other stimulant dependence, in remission: Brianna Real is a 40 year old female with a history of generalized anxiety disorder, adjustment disorder, prior alcoholism, borderline personality disorder and polysubstance abuse including methamphetamine abuse, who was admitted due to suicidal ideation with a plan to cut her wrists. She was recently on the NPU from 03/10?03/11/2021. RECOMMENDATION AND PLAN: 1. Continue current medication. 2. Continue every 15 minute checks for safety. 3. Encourage individual, group and milieu therapies. 4. Encourage sober living treatment after discharge at the highest level of care to which she is willing to commit. 5. Patient is unable to make effective decisions on her own. We have asked the court to appoint a guardian from the [facility]. 6. She now has a place to go and is awaiting guardianship for that option. Involuntary Hold Information 96 Hour Hold: 96 Hour Involuntary Admission: No 96 Hour Hold Ending Date: 03/22/21 96 Hour Hold Ending Time: 10:49 Attestations NPU Medical Necessity Statement*: Psychiatric hospitalization is medically necessary to prevent access to lethal means, to reevaluate medication, and to coordinate a safe discharge. It is essential that the patient have a guardian to make decisions for her long-term wellbeing. She continues the cycle of drug use, psychotic relapse, and hospitalization, her life expectancy is expected to be greatly shortened. Likely length of stay is 3-5 days. She now has a appropriate discharge location and is awaiting the hearing. Coding Level of Care Code Acute Dragline Operator Helper for Ioana Alcaraz
[2021-04-01] MEDS: lithium carbonate ER 300 mg Tablet PO (21:48)
[2021-04-01] MEDS: trazodone 100 mg Tablet PO (21:48)
[2021-04-01] MEDS: OLANZapine 10 mg TABLET PO (21:48)
[2021-04-02 06:00] VITALS: BP 111/70; PULSE 96; RESP 17; TEMP 37.1; O2SAT 99
[2021-04-02] MEDS: dicyclomine 20 mg Tablet PO ×4 (08:20→21:51)
[2021-04-02] MEDS: gabapentin 100 mg Capsule PO ×3 (08:20→21:51)
[2021-04-02] MEDS: duloxetine 60 mg Capsule PO (08:20)
--- NOTE | 2021-04-02 11:01 | NPU.GN ---
[facility] Topic:Sail Boat/ Mechanisms General Mood of Group: Brianna did not attend group today.
[2021-04-02] MEDS: acetaminophen 325 mg Tablet 650 MG PO (12:12)
--- NOTE | 2021-04-02 12:41 | PM.NPN ---
Subjective NPU Subjective: Interval history: Patient presents today unchanged from yesterday with no new information on the hearing or possible date. She continues to be pleasant and appropriate. It is very clear that each day that she is here the clearly really have wanted her to have some sobriety gets realized. We discussed how well she is functioning and is being a product of her sobriety and taking her medications and she understands the truthfulness of that. Mental Status Exam MSE Comments: This is an overweight, white female, in hospital scrubs, with improving grooming and adequate eye contact. No abnormal movements except for mild psychomotor retardation. Cooperative with exam in no acute distress. Speech was normal rate, slightly decreased volume. Mood described as same; affect calm. Thought process, organized. Thought content: patient denied suicidal or homicidal ideation, there were no delusions noted but she endorsed some paranoia, she denied current auditory or visual hallucinations. Attention and concentration were intact, and memory appeared more reliable, but none were formally tested. She is alert and oriented times three. Insight and judgment are limited, impulse control is limited. Vitals/I&O/Wt Last Vital Signs Temp 98.7 F 04/02/21 06:00 Pulse 96 04/02/21 06:00 Resp 17 04/02/21 06:00 BP 111/70 04/02/21 06:00 Pulse Ox 99 04/02/21 06:00 Data NPU : 03/26/21 15:53 03/26/21 15:53 A&P Additional A&P Information (1) Acute psychosis: (2) Suicidal ideation: (3) Leukocytosis, unspecified: (4) Methamphetamine use: (5) Borderline personality disorder: (6) Generalized anxiety disorder: (7) Alcohol dependence, in remission: (8) Marijuana use: (9) Other stimulant dependence, in remission: Brianna Real is a 40 year old female with a history of generalized anxiety disorder, adjustment disorder, prior alcoholism, borderline personality disorder and polysubstance abuse including methamphetamine abuse, who was admitted due to suicidal ideation with a plan to cut her wrists. She was recently on the NPU from 03/10?03/11/2021. RECOMMENDATION AND PLAN: 1. Continue current medication. 2. Continue every 15 minute checks for safety. 3. Encourage individual, group and milieu therapies. 4. Encourage sober living treatment after discharge at the highest level of care to which she is willing to commit. 5. Patient is unable to make effective decisions on her own. We have asked the court to appoint a guardian from the [facility]. 6. She now has a place to go and is awaiting guardianship for that option. Involuntary Hold Information 96 Hour Hold: 96 Hour Involuntary Admission: No 96 Hour Hold Ending Date: 03/22/21 96 Hour Hold Ending Time: 10:49 Attestations NPU Medical Necessity Statement*: Psychiatric hospitalization is medically necessary to prevent access to lethal means, to reevaluate medication, and to coordinate a safe discharge. It is essential that the patient have a guardian to make decisions for her long-term wellbeing. She continues the cycle of drug use, psychotic relapse, and hospitalization, her life expectancy is expected to be greatly shortened. Likely length of stay is 3-5 days. She now has a appropriate discharge location and is awaiting the hearing. Coding Level of Care Code Acute Boat Rental Clerk for Ioana Alcaraz
[2021-04-02] MEDS: BuSPIRONE 10 mg Tablet PO ×2 (13:44→21:51)
--- NOTE | 2021-04-02 13:44 | PC.NURSE ---
PRN BUSPAR 10 MG GIVEN PO PER REQUEST. PT CONTINUES TO MED SEEK FOR ANXIETY MED, NO OUTWARD S/S OF ANXIETY NOTED
[2021-04-02 14:00] VITALS: BP 112/75; PULSE 76; RESP 17; TEMP 36.3; O2SAT 99
[2021-04-02] MEDS: trazodone 100 mg Tablet PO (21:51)
[2021-04-02] MEDS: lithium carbonate ER 300 mg Tablet PO (21:51)
[2021-04-02] MEDS: OLANZapine 10 mg TABLET PO (21:51)
[2021-04-02 22:00] VITALS: BP 102/90; PULSE 68; RESP 15; TEMP 36.5; O2SAT 97
[2021-04-03 06:00] VITALS: BP 110/78; PULSE 98; RESP 16; TEMP 36.7; O2SAT 97
[2021-04-03] MEDS: BuSPIRONE 10 mg Tablet PO ×2 (11:13→16:26)
[2021-04-03] MEDS: dicyclomine 20 mg Tablet PO ×4 (11:13→21:38)
[2021-04-03] MEDS: tizanidine 4 mg Tablet PO (11:13)
[2021-04-03] MEDS: cyclobenzaprine 10 mg Tablet PO ×2 (11:13→16:26)
[2021-04-03] MEDS: duloxetine 60 mg Capsule PO (11:13)
[2021-04-03] MEDS: gabapentin 100 mg Capsule PO ×3 (11:13→21:38)
[2021-04-03] MEDS: acetaminophen 325 mg Tablet 650 MG PO (13:30)
--- NOTE | 2021-04-03 13:33 | NPU.GN ---
[facility] Topic:Anxiety Bingo General Mood of Group: Brianna did not attend group today.
[2021-04-03 14:00] VITALS: BP 106/73; PULSE 110; RESP 20; TEMP 36.3; O2SAT 97
[2021-04-03] MEDS: OLANZapine 5 mg ODT PO (14:50)
--- NOTE | 2021-04-03 16:58 | PM.NPN ---
Subjective NPU Subjective: Interval history: Christy presents today continuing to be patient as she understands this process. She obviously wishes it could go more quickly but we explained there are no other avenues to do this. He reports he is eating and sleeping okay and that the medication is effective. Mental Status Exam MSE Comments: This is an overweight, white female, in hospital scrubs, with improving grooming and adequate eye contact. No abnormal movements except for mild psychomotor retardation. Cooperative with exam in no acute distress. Speech was normal rate, slightly decreased volume. Mood described as fine; affect calm. Thought process, organized. Thought content: patient denied suicidal or homicidal ideation, there were no delusions noted but she endorsed some paranoia, she denied current auditory or visual hallucinations. Attention and concentration were intact, and memory appeared more reliable, but none were formally tested. She is alert and oriented times three. Insight and judgment are limited, impulse control is limited. Vitals/I&O/Wt Last Vital Signs Temp 98.6 F 04/03/21 20:00 Pulse 76 04/03/21 20:00 Resp 17 04/03/21 20:00 BP 103/68 04/03/21 20:00 Pulse Ox 96 04/03/21 20:00 Data NPU : 03/26/21 15:53 03/26/21 15:53 A&P Additional A&P Information (1) Acute psychosis: (2) Suicidal ideation: (3) Leukocytosis, unspecified: (4) Methamphetamine use: (5) Borderline personality disorder: (6) Generalized anxiety disorder: (7) Alcohol dependence, in remission: (8) Marijuana use: (9) Other stimulant dependence, in remission: Brianna Real is a 40 year old female with a history of generalized anxiety disorder, adjustment disorder, prior alcoholism, borderline personality disorder and polysubstance abuse including methamphetamine abuse, who was admitted due to suicidal ideation with a plan to cut her wrists. She was recently on the NPU from 03/10?03/11/2021. RECOMMENDATION AND PLAN: 1. Continue current medication. 2. Continue every 15 minute checks for safety. 3. Encourage individual, group and milieu therapies. 4. Encourage sober living treatment after discharge at the highest level of care to which she is willing to commit. 5. Patient is unable to make effective decisions on her own. We have asked the court to appoint a guardian from the [facility]. 6. She now has a place to go and is awaiting guardianship for that option. Involuntary Hold Information 96 Hour Hold: 96 Hour Involuntary Admission: No 96 Hour Hold Ending Date: 03/22/21 96 Hour Hold Ending Time: 10:49 Attestations NPU Medical Necessity Statement*: Psychiatric hospitalization is medically necessary to prevent access to lethal means, to reevaluate medication, and to coordinate a safe discharge. It is essential that the patient have a guardian to make decisions for her long-term wellbeing. She continues the cycle of drug use, psychotic relapse, and hospitalization, her life expectancy is expected to be greatly shortened. Likely length of stay is 3-5 days. She now has a appropriate discharge location and is awaiting the hearing. Coding Level of Care Code Acute Valuation Consultant for Ioana Alcaraz
[2021-04-03 20:00] VITALS: BP 103/68; PULSE 76; RESP 17; TEMP 37; O2SAT 96
[2021-04-03] MEDS: OLANZapine 10 mg TABLET PO (21:38)
[2021-04-03] MEDS: lithium carbonate ER 300 mg Tablet PO (21:38)
[2021-04-03] MEDS: trazodone 100 mg Tablet PO (21:38)
--- NOTE | 2021-04-04 04:20 | PC.NURSE ---
No PRN meds this shift.
[2021-04-04 06:00] VITALS: BP 103/68; PULSE 94; RESP 18; TEMP 36.6; O2SAT 98
[2021-04-04] MEDS: dicyclomine 20 mg Tablet PO ×4 (08:24→20:51)
[2021-04-04] MEDS: gabapentin 100 mg Capsule PO ×3 (08:25→20:51)
[2021-04-04] MEDS: duloxetine 60 mg Capsule PO (08:25)
--- NOTE | 2021-04-04 12:09 | NPU.GN ---
[facility] Unit Group Topic:Anger General Mood of Group: Brianna did not attend group today.
[2021-04-04 13:36] VITALS: BP 122/87; PULSE 104; RESP 20; TEMP 36.2; O2SAT 91
[2021-04-04] MEDS: BuSPIRONE 10 mg Tablet PO ×2 (14:25→22:26)
--- NOTE | 2021-04-04 14:26 | PC.NURSE ---
PRN BUSPAR BUSPAR 10 MG GIVEN PO PER PT C/O STATED ANXIETY
[2021-04-04] MEDS: OLANZapine 10 mg TABLET PO (20:51)
[2021-04-04] MEDS: hyDROXYzine 25 mg Capsule 50 MG PO (20:51)
[2021-04-04] MEDS: lithium carbonate ER 300 mg Tablet PO (20:51)
[2021-04-04] MEDS: trazodone 100 mg Tablet PO (20:52)
[2021-04-04 21:23] VITALS: RESP 18
[2021-04-04] MEDS: tizanidine 4 mg Tablet PO (22:26)
[2021-04-05 06:00] VITALS: BP 102/68; PULSE 79; RESP 16; TEMP 36.4; O2SAT 95
--- NOTE | 2021-04-05 06:44 | P.PN_ITS ---
Subjective NPU Subjective: Interval history: Patient presents today continuing to be stable and minus any significant concerns reported. She acknowledges some boredom is feeling positive about the direction of this hospitalization and looking forward to going to the [facility] once guardianship has been decided. Patient S prescribed, eating and sleeping well and denied any major issues. Mental Status Exam MSE Comments: his is an overweight, white female, in hospital scrubs, with improving grooming and adequate eye contact. No abnormal movements except for mild psychomotor retardation. Cooperative with exam in no acute distress. Speech was normal rate, slightly decreased volume. Mood described as okay; affect calm/congruent. Thought process, organized. Thought content: patient denied talia cidal or homicidal ideation, there were no delusions noted but she endorsed some paranoia, she denied current auditory or visual hallucinations. Attention and concentration were intact, and memory appeared more reliable, but none were formally tested. She is alert and oriented times three. Insight and judgment are limited, and improving, impulse control is limited. Vitals/I&O/Wt Last Vital Signs Temp 97.6 F 04/05/21 06:00 Pulse 79 04/05/21 06:00 Resp 16 04/05/21 06:00 BP 102/68 04/05/21 06:00 Pulse Ox 95 04/05/21 06:00 Data NPU : 03/26/21 15:53 03/26/21 15:53 A&P Additional A&P Information (1) Acute psychosis: (2) Suicidal ideation: (3) Leukocytosis, unspecified: (4) Methamphetamine use: (5) Borderline personality disorder: (6) Generalized anxiety disorder: (7) Alcohol dependence, in remission: (8) Marijuana use: (9) Other stimulant dependence, in remission: Brianna Real is a 40 year old female with a history of generalized anxiety disorder, adjustment disorder, prior alcoholism, borderline personality disorder and polysubstance abuse including methamphetamine abuse, who was admitted due to suicidal ideation with a plan to cut her wrists. She was recently on the NPU from 03/10?03/11/2021. RECOMMENDATION AND PLAN: 1. Continue current medication. 2. Continue every 15 minute checks for safety. 3. Encourage individual, group and milieu therapies. 4. Encourage sober living treatment after discharge at the highest level of care to which she is willing to commit. 5. Patient is unable to make effective decisions on her own. We have asked the court to appoint a guardian from the [facility]. 6. She now has a place to go and is awaiting guardianship for that option. Involuntary Hold Information 96 Hour Hold: 96 Hour Involuntary Admission: No 96 Hour Hold Ending Date: 03/22/21 96 Hour Hold Ending Time: 10:49 Attestations NPU Medical Necessity Statement*: Psychiatric hospitalization is medically necessary to prevent access to lethal means, to reevaluate medication, and to coordinate a safe discharge. It is essential that the patient have a guardian to make decisions for her long-term wellbeing. She continues the cycle of drug use, psychotic relapse, and hospitalization, her life expectancy is expected to be greatly shortened. Likely length of stay is 3-5 days. She now has a appropriate discharge location and is awaiting the hearing. Coding Level of Care Code Acute Block Machine Operator for Ioana Alcaraz
[2021-04-05] MEDS: cyclobenzaprine 10 mg Tablet PO ×2 (10:40→17:06)
[2021-04-05] MEDS: tizanidine 4 mg Tablet PO (10:40)
[2021-04-05] MEDS: gabapentin 100 mg Capsule PO ×3 (10:41→21:47)
[2021-04-05] MEDS: duloxetine 60 mg Capsule PO (10:41)
[2021-04-05] MEDS: BuSPIRONE 10 mg Tablet PO ×2 (10:41→16:09)
[2021-04-05] MEDS: dicyclomine 20 mg Tablet PO ×4 (10:41→21:47)
[2021-04-05] MEDS: nicotine 2 mg Gum BUCCAL ×2 (11:54→18:01)
[2021-04-05 13:37] VITALS: BP 128/85; PULSE 107; RESP 17; TEMP 36.3; O2SAT 95
[2021-04-05] MEDS: OLANZapine 5 mg ODT PO (15:36)
--- NOTE | 2021-04-05 15:36 | PC.NURSE ---
prn administered zyprexa zydis 5mg for anxiety. Another pt was pushing her buttons, redirected pt to her room easily.
[2021-04-05 20:40] VITALS: BP 111/77; PULSE 87; RESP 18; TEMP 36.4; O2SAT 99
[2021-04-05] MEDS: OLANZapine 10 mg TABLET PO (21:47)
[2021-04-05] MEDS: lithium carbonate ER 300 mg Tablet PO (21:47)
[2021-04-05] MEDS: trazodone 100 mg Tablet PO (21:47)
[2021-04-06 06:00] VITALS: RESP 18
[2021-04-06] MEDS: BuSPIRONE 10 mg Tablet PO ×3 (08:52→22:16)
[2021-04-06] MEDS: dicyclomine 20 mg Tablet PO ×4 (08:52→20:39)
[2021-04-06] MEDS: tizanidine 4 mg Tablet PO ×2 (08:52→17:14)
[2021-04-06] MEDS: cyclobenzaprine 10 mg Tablet PO ×3 (08:52→22:18)
[2021-04-06] MEDS: gabapentin 100 mg Capsule PO ×3 (08:53→20:39)
[2021-04-06] MEDS: duloxetine 60 mg Capsule PO (08:53)
--- NOTE | 2021-04-06 10:17 | PM.NPN ---
Subjective NPU Subjective: Interval history: Patient presents today with no significant changes. She continues to be cooperative and supportive of the process. She continues to be optimistic that the timeline is shoulder and not longer. But she endorses doing better and feeling glad that she is sober and looking forward to her next phase of recovery. Mental Status Exam MSE Comments: This is an overweight, white female, in hospital scrubs, with improving grooming and adequate eye contact. No abnormal movements except for mild psychomotor retardation. Cooperative with exam in no acute distress. Speech was normal rate, slightly decreased volume. Mood described as fine; affect calm/congruent. Thought process, organized. Thought content: patient denied suicidal or homicidal ideation, there were no delusions noted but she endorsed some paranoia, she denied current auditory or visual hallucinations. Attention and concentration were intact, and memory appeared more reliable, but none were formally tested. She is alert and oriented times three. Insight and judgment are limited, and improving, impulse control is limited. Vitals/I&O/Wt Last Vital Signs Temp 97.5 F L 04/05/21 20:40 Pulse 87 04/05/21 20:40 Resp 18 04/06/21 06:00 BP 111/77 04/05/21 20:40 Pulse Ox 99 04/05/21 20:40 Data NPU : 03/26/21 15:53 03/26/21 15:53 A&P Additional A&P Information (1) Acute psychosis: (2) Suicidal ideation: (3) Leukocytosis, unspecified: (4) Methamphetamine use: (5) Borderline personality disorder: (6) Generalized anxiety disorder: (7) Alcohol dependence, in remission: (8) Marijuana use: (9) Other stimulant dependence, in remission: Brianna Real is a 40 year old female with a history of generalized anxiety disorder, adjustment disorder, prior alcoholism, borderline personality disorder and polysubstance abuse including methamphetamine abuse, who was admitted due to suicidal ideation with a plan to cut her wrists. She was recently on the NPU from 03/10?03/11/2021. RECOMMENDATION AND PLAN: 1. Continue current medication. 2. Continue every 15 minute checks for safety. 3. Encourage individual, group and milieu therapies. 4. Encourage sober living treatment after discharge at the highest level of care to which she is willing to commit. 5. Patient is unable to make effective decisions on her own. We have asked the court to appoint a guardian from the [facility]. 6. She now has a place to go and is awaiting guardianship for that option. Involuntary Hold Information 96 Hour Hold: 96 Hour Involuntary Admission: No 96 Hour Hold Ending Date: 03/22/21 96 Hour Hold Ending Time: 10:49 Attestations NPU Medical Necessity Statement*: Psychiatric hospitalization is medically necessary to prevent access to lethal means, to reevaluate medication, and to coordinate a safe discharge. It is essential that the patient have a guardian to make decisions for her long-term wellbeing. She continues the cycle of drug use, psychotic relapse, and hospitalization, her life expectancy is expected to be greatly shortened. Likely length of stay is 3-5 days. She now has a appropriate discharge location and is awaiting the hearing. Coding Level of Care Code Acute Multifocal Button Inspector for Ioana Alcaraz
[2021-04-06] MEDS: nicotine 2 mg Gum BUCCAL ×2 (11:13→19:53)
[2021-04-06] MEDS: hyDROXYzine 25 mg Capsule 50 MG PO ×2 (13:01→22:16)
[2021-04-06 14:00] VITALS: BP 124/86; PULSE 97; RESP 20; TEMP 36; O2SAT 97
[2021-04-06] MEDS: acetaminophen 325 mg Tablet 650 MG PO (18:48)
[2021-04-06 20:36] VITALS: BP 127/81; PULSE 93; RESP 20; TEMP 36.8; O2SAT 93
[2021-04-06] MEDS: OLANZapine 10 mg TABLET PO (20:39)
[2021-04-06] MEDS: lithium carbonate ER 300 mg Tablet PO (20:39)
[2021-04-06] MEDS: trazodone 100 mg Tablet PO (20:39)
[2021-04-06] MEDS: ibuprofen 600 mg Tablet PO (22:16)
[2021-04-07 06:00] VITALS: BP 94/59; PULSE 85; RESP 16; TEMP 36.9; O2SAT 98; BMI 27.5
[2021-04-07] MEDS: gabapentin 100 mg Capsule PO ×3 (08:54→20:59)
[2021-04-07] MEDS: duloxetine 60 mg Capsule PO (08:54)
[2021-04-07] MEDS: dicyclomine 20 mg Tablet PO ×4 (08:54→20:59)
--- NOTE | 2021-04-07 09:10 | P.PN_ITS ---
Subjective NPU Subjective: Interval history: Patient presents today continuing to do well despite the circumstances of just having to wait. She is reading books and finding reasonable ways to pass the time. She is optimistic and hopeful that we will get some kind of response this week. She denies any new or pressing issues. Mental Status Exam MSE Comments: This is an overweight, white female, in hospital scrubs, with improving grooming and adequate eye contact. No abnormal movements except for mild psychomotor retardation. Cooperative with exam in no acute distress. Speech was normal rate, slightly decreased volume. Mood described as pretty good considering; affect calm/congruent. Thought process, organized. Thought content: patient denied suicidal or homicidal ideation, there were no delusions noted but she endorsed some paranoia, she denied current auditory or visual hallucinations. Attention and concentration were intact, and memory appeared more reliable, but none were formally tested. She is alert and oriented times three. Insight and judgment are limited, and improving, impulse control is limited. Vitals/I&O/Wt Last Vital Signs Temp 98.4 F 04/07/21 06:00 Pulse 85 04/07/21 06:00 Resp 16 04/07/21 06:00 BP 94/59 04/07/21 06:00 Pulse Ox 98 04/07/21 06:00 Weight last 48 hrs Weight 76.113 kg Data NPU : 03/26/21 15:53 03/26/21 15:53 A&P Additional A&P Information (1) Acute psychosis: (2) Suicidal ideation: (3) Leukocytosis, unspecified: (4) Methamphetamine use: (5) Borderline personality disorder: (6) Generalized anxiety disorder: (7) Alcohol dependence, in remission: (8) Marijuana use: (9) Other stimulant dependence, in remission: Brianna Real is a 40 year old female with a history of generalized anxiety disorder, adjustment disorder, prior alcoholism, borderline personality disorder and polysubstance abuse including methamphetamine abuse, who was admitted due to suicidal ideation with a plan to cut her wrists. She was recently on the NPU from 03/10?03/11/2021. RECOMMENDATION AND PLAN: 1. Continue current medication. 2. Continue every 15 minute checks for safety. 3. Encourage individual, group and milieu therapies. 4. Encourage sober living treatment after discharge at the highest level of care to which she is willing to commit. 5. Patient is unable to make effective decisions on her own. We have asked the court to appoint a guardian from the [facility]. 6. She now has a place to go and is awaiting guardianship for that option. Involuntary Hold Information 96 Hour Hold: 96 Hour Involuntary Admission: No 96 Hour Hold Ending Date: 03/22/21 96 Hour Hold Ending Time: 10:49 Attestations NPU Medical Necessity Statement*: Psychiatric hospitalization is medically necessary to prevent access to lethal means, to reevaluate medication, and to coordinate a safe discharge. It is essential that the patient have a guardian to make decisions for her long-term wellbeing. She continues the cycle of drug use, psychotic relapse, and hospitalization, her life expectancy is expected to be greatly shortened. Likely length of stay is 3-5 days. She now has a approp [facility] discharge location and is awaiting the hearing. Coding Level of Care Code Acute Contact Lens Molder for Ioana Alcaraz
[2021-04-07] MEDS: OLANZapine 5 mg ODT PO (13:37)
[2021-04-07 14:00] VITALS: BP 125/84; PULSE 102; RESP 18; TEMP 36.7; O2SAT 97
[2021-04-07] MEDS: BuSPIRONE 10 mg Tablet PO ×2 (15:04→20:59)
[2021-04-07] MEDS: cyclobenzaprine 10 mg Tablet PO (15:04)
[2021-04-07] MEDS: acetaminophen 325 mg Tablet 650 MG PO (18:48)
[2021-04-07 20:55] VITALS: BP 128/82; PULSE 94; RESP 17; TEMP 36.7; O2SAT 98
[2021-04-07] MEDS: lithium carbonate ER 300 mg Tablet PO (20:59)
[2021-04-07] MEDS: nicotine 2 mg Gum BUCCAL (20:59)
[2021-04-07] MEDS: OLANZapine 10 mg TABLET PO (20:59)
[2021-04-07] MEDS: trazodone 100 mg Tablet PO (20:59)
--- NOTE | 2021-04-07 21:00 | PC.NURSE ---
pt requested buspar with HS meds. buspar 10mg po given.
[2021-04-07 22:00] VITALS: BP 133/82; PULSE 98; RESP 16; TEMP 37.1; O2SAT 97
[2021-04-07] MEDS: hyDROXYzine 25 mg Capsule 50 MG PO (22:56)
--- NOTE | 2021-04-07 23:00 | PC.NURSE ---
pt came to desk requested vistaril for anxiety. vistaril 50mg po given.
--- NOTE | 2021-04-07 23:54 | PC.NURSE ---
pt resting quietly with both eyes closed
[2021-04-08 06:00] VITALS: BP 98/70; PULSE 65; RESP 17; TEMP 36.8; O2SAT 99
[2021-04-08] MEDS: duloxetine 60 mg Capsule PO (08:10)
[2021-04-08] MEDS: dicyclomine 20 mg Tablet PO ×4 (08:10→20:19)
[2021-04-08] MEDS: gabapentin 100 mg Capsule PO ×3 (08:10→20:18)
[2021-04-08] MEDS: acetaminophen 325 mg Tablet 650 MG PO ×2 (10:17→22:19)
--- NOTE | 2021-04-08 11:18 | NPU.GN ---
[facility] Unit Group Topic:René Kingsley General Mood of Group: Brianna did not attend group therapy today. Brianna seemed to be in a bad mood this morning. But when this rfp writer mentioned licking her pictures that Brianna colored on her door. Brianna's attitude had changed for the positive. Positive affirmation cheered her up.
[2021-04-08] MEDS: nicotine 2 mg Gum BUCCAL ×2 (12:18→20:59)
[2021-04-08 14:00] VITALS: BP 133/90; PULSE 103; RESP 20; TEMP 36.3; O2SAT 95
[2021-04-08] MEDS: BuSPIRONE 10 mg Tablet PO ×2 (16:06→21:09)
--- NOTE | 2021-04-08 16:06 | PC.NURSE ---
Addendum entered by Rebeca Cuadra LPN 04/08/21 17:29: PRN MED EFFECTIVE NO FURTHER C/O ANXIETY Original Note: PRN BUSPAR 10 MG GIVEN PO PER REQUEST
--- NOTE | 2021-04-08 16:36 | PM.NPN ---
Subjective NPU Subjective: Interval history: Patient presents today reporting that he is feeling good and excited about the hearing tomorrow. She continues to be on board with guardianship and can identify how it will be helpful in her continued sobriety, recovery and progress. We discussed making calls today to see what is the latest time they will receive a new patient. We discussed that the hearing is in the afternoon and so it is still up in the air whether discharge can occur tomorrow or will have to be Thursday. Mental Status Exam MSE Comments: This is an overweight, white female, in hospital scrubs, with improving grooming and adequate eye contact. No abnormal movements except for mild psychomotor retardation. Cooperative with exam in no acute distress. Speech was normal rate, slightly decreased volume. Mood described as pretty good considering; affect calm/congruent. Thought process, organized. Thought content: patient denied suicidal or homicidal ideation, there were no delusions noted but she endorsed some paranoia, she denied current auditory or visual hallucinations. Attention and concentration were intact, and memory appeared more reliable, but none were formally tested. She is alert and oriented times three. Insight and judgment are limited, and improving, impulse control is limited. Vitals/I&O/Wt Last Vital Signs Temp 97.3 F L 04/08/21 14:00 Pulse 103 H 04/08/21 14:00 Resp 20 H 04/08/21 14:00 BP 133/90 04/08/21 14:00 Pulse Ox 95 04/08/21 14:00 Weight last 48 hrs Weight 76.113 kg Data NPU : 03/26/21 15:53 03/26/21 15:53 A&P Additional A&P Information (1) Acute psychosis: (2) Suicidal ideation: (3) Leukocytosis, unspecified: (4) Methamphetamine use: (5) Borderline personality disorder: (6) Generalized anxiety disorder: (7) Alcohol dependence, in remission: (8) Marijuana use: (9) Other stimulant dependence, in remission: Brianna Real is a 40 year old female with a history of generalized anxiety disorder, adjustment disorder, prior alcoholism, borderline personality disorder and polysubstance abuse including methamphetamine abuse, who was admitted due to suicidal ideation with a plan to cut her wrists. She was recently on the NPU from 03/10?03/11/2021. RECOMMENDATION AND PLAN: 1. Continue current medication. 2. Continue every 15 minute checks for safety. 3. Encourage individual, group and milieu therapies. 4. Encourage sober living treatment after discharge at the highest level of care to which she is willing to commit. 5. Patient is unable to make effective decisions on her own. We have asked the court to appoint a guardian from the [facility]. 6. Hearing tomorrow and depending on [facility] time of arrival considerations she will be discharged in the next 48 hours. Involuntary Hold Information 96 Hour Hold: 96 Hour Involuntary Admission: No 96 Hour Hold Ending Date: 03/22/21 96 Hour Hold Ending Time: 10:49 Attestations NPU Medical Necessity Statement*: Psychiatric hospitalization is medically necessary to prevent access to lethal means, to reevaluate medication, and to coordinate a safe discharge. It is essential that the patient have a guardian to make decisions for her long-term wellbeing. She continues the cycle of drug use, psychotic relapse, and hospitalization, her life expectancy is expected to be greatly shortened. Likely length of stay is 1-2 days. . Coding Level of Care Code Acute Meteorologist In Charge for Ioana Alcaraz
[2021-04-08] MEDS: OLANZapine 10 mg TABLET PO (20:18)
[2021-04-08] MEDS: lithium carbonate ER 300 mg Tablet PO (20:18)
[2021-04-08] MEDS: trazodone 100 mg Tablet PO (20:18)
[2021-04-08] MEDS: hyDROXYzine 25 mg Capsule 50 MG PO (20:18)
[2021-04-08 22:00] VITALS: BP 140/90; PULSE 62; RESP 16; TEMP 36.7; O2SAT 97
[2021-04-08] MEDS: cyclobenzaprine 10 mg Tablet PO (22:19)
--- NOTE | 2021-04-08 22:44 | PC.NURSE ---
AT 2017, PT REQUESTED VISTARIL FOR ANXIETY, VISTARIL 50MG PO GIVEN. AT 2017, PT REQUESTED BUSPAR, BUSPAR 10MG PO GIVEN. AT 2218, PT REQUESTED TYLENOL AND A MUSCLE RELAXER . STATES HER MUSCLES ARE SORE. TYLENOL 650MG AND FLEXERIL 10MG PO GIVEN FOR MUSCLE SORENESS.
[2021-04-09 06:00] VITALS: BP 93/65; PULSE 80; RESP 16; TEMP 36.8; O2SAT 97
[2021-04-09] MEDS: duloxetine 60 mg Capsule PO (08:29)
[2021-04-09] MEDS: gabapentin 100 mg Capsule PO ×3 (08:29→20:57)
[2021-04-09] MEDS: dicyclomine 20 mg Tablet PO ×4 (08:29→20:57)
[2021-04-09] MEDS: nicotine 2 mg Gum BUCCAL ×3 (11:12→22:18)
--- NOTE | 2021-04-09 12:05 | NPU.GN ---
[facility] Unit Group Topic:Lc General Mood of Group: Brianna did not attend group at first. Brianna did end up attending group therapy, she was sitting in group listening and talking. But did not participate with group activity.
--- NOTE | 2021-04-09 13:15 | PC.NURSE ---
off unit for Guardianship hearing at court house
--- NOTE | 2021-04-09 13:45 | PC.NURSE ---
return to unit from court
[2021-04-09] MEDS: BuSPIRONE 10 mg Tablet PO ×2 (13:49→20:57)
--- NOTE | 2021-04-09 13:49 | PC.NURSE ---
PATIENT RETURNED FROM COURT, MILDLY SHAKY AND TEARY EYED. ASKED FOR CHOCOLATE MILK AND A BUSPAR. I FEEL LIKE I MIGHT FALL APART.
[2021-04-09 14:00] VITALS: BP 135/89; PULSE 111; RESP 18; TEMP 36.3; O2SAT 96
[2021-04-09 15:05] VITALS: BP 93/65; PULSE 80; RESP 16; TEMP 36.8; O2SAT 97
--- NOTE | 2021-04-09 16:22 | PC.NURSE ---
PATIENT DISCHARGE TEACHING WAS DONE AND PAPERWORK, WAITING FOR RIDE. TRANSPORTATION SERVICE CONTACTED BY [employer] EXAMINER AND INFORMED PATIENT DID NOT HAVE A RIDE FOR THE NEXT 2-3 HOURS. PATIENT WOULD NOT ARRIVE BEFORE CLOSING TIME AT THE [facility]. PATIENT DISCHARGE FOR 04/02/2021 CANCELLED AND DELAYED UNTIL 04/10/2021 DUE TO TRANSPORTATION ISSUES.
--- NOTE | 2021-04-09 18:09 | P.PN_ITS ---
Subjective NPU Subjective: Interval history: Patient presents today very excited about her hearing she was granted a guardian and plans were in place for her to go to [facility]. Unfortunately for what ever reason the arrange ride contacted us around the time there was full to be there saying that they had not gotten a [employer] company driver and would be there for a period of time that would put her at risk of getting up to her new residence after there acceptance time of 8 PM. The discharge had essentially been executed but she was very reasonable and excepting the situation as it is. We discussed plan to not discharged into the morning in the ride was promised to be there in the morning. Mental Status Exam MSE Comments: This is an overweight, white female, in hospital scrubs, with improving grooming and adequate eye contact. No abnormal movements. Cooperative with exam in no acute distress. Speech was normal rate, slightly decreased volume. Mood described as I will be fine; affect calm/congruent. Thought process, organized. Thought content: patient denied suicidal or homicidal ideation, there were no delusions noted or reported, she denied current auditory or visual hallucinations. Attention and concentration were intact, and memory appeared more reliable, but none were formally tested. She is alert and oriented times three. Insight and judgment are limited, and improving, impulse control is limited, but improving. Vitals/I&O/Wt Last Vital Signs Temp 97.6 F 04/09/21 20:40 Pulse 99 04/09/21 20:40 Resp 18 04/09/21 20:40 BP 135/93 04/09/21 20:40 Pulse Ox 97 04/09/21 20:40 Data NPU : 03/26/21 15:53 03/26/21 15:53 A&P Additional A&P Information (1) Acute psychosis: (2) Suicidal ideation: (3) Leukocytosis, unspecified: (4) Methamphetamine use: (5) Borderline personality disorder: (6) Generalized anxiety disorder: (7) Alcohol dependence, in remission: (8) Marijuana use: (9) Other stimulant dependence, in remission: Brianna Real is a 40 year old female with a history of generalized anxiety disorder, adjustment disorder, prior alcoholism, borderline personality disorder and polysubstance abuse including methamphetamine abuse, who was admitted due to suicidal ideation with a plan to cut her wrists. She was recently on the NPU from 03/10?03/11/2021. RECOMMENDATION AND PLAN: 1. Continue current medication. 2. Continue every 15 minute checks for safety. 3. Encourage individual, group and milieu therapies. 4. Encourage sober living treatment after discharge at the highest level of care to which she is willing to commit. 5. Patient is unable to make effective decisions on her own. 6. Hearing was attended and she was given a guardian. Ride fell through so she will be leaving in the morning.. Involuntary Hold Information 96 Hour Hold: 96 Hour Involuntary Admission: No 96 Hour Hold Ending Date: 03/22/21 96 Hour Hold Ending Time: 10:49 Attestations NPU Medical Necessity Statement*: Psychiatric hospitalization is medically necessary to prevent access to lethal means, to reevaluate medication, and to coordinate a safe discharge. It is essential that the patient have a guardian to make decisions for her long-term wellbeing. She continues the cycle of drug use, psychotic relapse, and hospitalization, her life expectancy is expected to be greatly shortened. Discharge in the morning. Coding Level of Care Code Acute Scrap Shear Operator for Ioana Alcaraz
[2021-04-09] MEDS: OLANZapine 5 mg ODT PO (18:25)
--- NOTE | 2021-04-09 18:26 | PC.NURSE ---
ANXIETY. PATIENT REPORTS INCREASED ANXIETY AND REQUESTING PRN DOSE OF ZYPREXA. 5MG GIVEN.
[2021-04-09 20:40] VITALS: BP 135/93; PULSE 99; RESP 18; TEMP 36.4; O2SAT 97
[2021-04-09] MEDS: hyDROXYzine 25 mg Capsule 50 MG PO (20:56)
[2021-04-09] MEDS: trazodone 100 mg Tablet PO (20:57)
[2021-04-09] MEDS: lithium carbonate ER 300 mg Tablet PO (20:57)
[2021-04-09] MEDS: cyclobenzaprine 10 mg Tablet PO (20:57)
[2021-04-09] MEDS: OLANZapine 10 mg TABLET PO (20:57)
[2021-04-09] MEDS: acetaminophen 325 mg Tablet 650 MG PO (22:18)
[2021-04-10 06:00] VITALS: BP 92/62; PULSE 99; RESP 16; TEMP 36.1; O2SAT 95
--- NOTE | 2021-04-10 08:05 | P.DS_ITS ---
Diagnoses at Discharge Discharge Diagnosis (1) Acute psychosis: Status: Acute (2) Suicidal ideation: Status: Acute (3) Leukocytosis, unspecified: Status: Acute (4) Methamphetamine use: Status: Acute (5) Borderline personality disorder: Status: Acute (6) Generalized anxiety disorder: Status: Acute (7) Alcohol dependence, in remission: Status: Acute (8) Marijuana use: Status: Acute (9) Other stimulant dependence, in remission: Status: Acute Reason for Visit Reason for Visit: Depression, Anxiety Brief History: History of Present Illness Brianna Real is a 40 year old female with a history of generalized anxiety disorder, adjustment disorder, prior alcoholism, borderline personality disorder and polysubstance abuse including methamphetamine abuse, who was admitted due to suicidal ideation with a plan to cut her wrists. She was recently on the NPU from 03/10?03/11/2021. The ED note from Dr. Alicea states: HPI Narrative: 40-year-old female presents emergency room complaining of depression and anxiety. She alludes to auditory and visual hallucinations as well as suicidal ideation. She has had multiple admissions within the last year to our psychiatry department. She has a known history of methamphetamine use which is related to her frequent admissions. She also is noncompliant with her medications and is frequently off of them due to not getting appropriate refills. Patient admits to plan to harm her self by cutting her wrists although she has not advanced her plan at all MD complaint: suicidal ideation and feels depressed. The patient says she has had bad anxiety as well as significant depression over the last couple of weeks. She has had suicidal thoughts, including the thought of cutting her wrist to kill herself. Anxiety and depression are accompanied by auditory hallucinations, including the commands to hurt her self or kick somebody's ass. She has visual hallucinations/delusions at times, seeing things on the han. She also has a general feeling like people are out to get her, both her friends and people here. She denies any recent drug use., No methamphetamine or marijuana use. She says she has drunk 1 can of beer in the past couple of weeks. She smokes 1 pack of cigarettes per day. Current stressors include living in her car for the past week, because her uncle Ervin's house, where she has been living is too dirty. She also has ideas that someone is harming her mentally there, but is quite vague in discussing the details. This is the patient's sixth psychiatric hospitalization in the past 3 months. She usually comes in for 2 to 4 days and is discharged. She has been following up through the [facility] on a fairly regular basis. She says she ran out of Notegraphypar and cannot explain exactly why. Psychiatric history: As above. Substance use history: As above. Family history: The patient said her mother committed suicide, shot herself in front of her when she was a child. She said she found her dad from an [place]. Psychosocial history: See past records for further psychosocial history. Legal history: No legal difficulties. Medical history: She says she has fibromyalgia and irritable bowel syndrome. Past notes are presented here for additional context. The admission note from 03/10/2021 states: Brianna Real is a 40 year old female who presented to the ED and was admitted to [facility] with the following report: 40-year-old female with a past medical history significant for generalized anxiety disorder, adjustment disorder, prior alcoholism, borderline personality disorder and polysubstance abuse including methamphetamine who was recently discharged from [facility] on 03/06/2021 not presented to the hospital with abdominal pain. Apparently this was associated with a few episodes of nonbloody emesis. upon arrival laboratory workup showed a WBC of 14.7, hemoglobin of 13.9, hematocrit of 43.1 and a platelet count of 535.Sodium 134, potassium 3.7, chloride 105, bicarb 22, BUN 5 and creatinine of 0.6. Calcium 8.7 LFTs within normal limits. Urinalysis without any evidence of acute infection. Urinary drug screen showed negative salicylates, acetaminophen however was positive for marijuana and amphetamines.[place] level initially was 1.6 however this was repeated and found to be 0.7. poison control was contacted. Initially patient was admitted to the medical floor due to the elevated lithium level however after repeat patient was transferred to U. Shortly after admission patient was found to have psychosis. Was not able to provide any meaningful history. Was not noted to be in any distress. Of note a CT abdomen pelvis was also performed in ER which did not show any evidence of acute abnormality in abdomen or pelvis. Patient denied any suicidal or homicidal ideation. She was then transferred to the neuropsychiatric unit for definitive treatment of those issues. She presents today reporting that she is not sure why she was sent to the unit because she does not feel like there were any issues. She denies any problems or changes since he was discharged a few days ago. We did discuss the positive drug screen and the methamphetamine use as well as cannabis use and she endorsed I did not do that much. We discussed the risk benefits and alternatives of considering discharge in the morning after we contact the [facility] program. An excerpt of her last hospitalization is included below for context given there were no substantive changes. Per her 03/03/2021 [facility] inpatient psychiatric eval: History of Present Illness Brianna Real is a 40 year old female who presented to the emergency department with the following report: Chief Complaint: Psychiatric Symptoms Stated Complaint: PSYCH EVAL Time Seen by Provider: 03/02/21 13:47 History of Present Illness: HPI Narrative: 40-year-old female presents to the emergency room [facility]. She is patient accompanied by law enforcement. She had been trying to harm her self by cutting her wrists in her neck. Later she told me she taken several medications last night she thinks it was gabapentin. She is awake and alert she does admitting to use using marijuana and alcohol last night. She was verbally aggressive but did not attempt any physical aggres mello. She has previously been hospitalized for suicidal ideation in the past. She has a history of bipolar disorder. MD complaint: suicidal ideation Onset (ago): hour(s) Duration: constant History of same: Yes Relieving factors: none Exacerbating factors: none Context: recent alcohol abuse and recent drug abuse Associated psychiatric symptoms: suicidal ideation, homicidal ideation, racing thoughts and visual hallucinations Associated symptoms: Reports visual hallucinations, homicidal ideation and suicidal ideation; Deny auditory hallucinations Treatments prior to arrival: none If self harm: admits thoughts of self harm, has plan and has acted on plan. She was admitted to the neuropsychiatric unit for definitive treatment of those issues. The patient presents today reporting that things just got really out of sorts. 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 She reports that she had been staying with two people that she reports are surrogate family members but also had been staying at times with her uncle. She reports that everything had been going fine and denied that she had been struggling with addiction very much, and reports that she started feeling like people were trying to do things to her and so she did not trust them, and so she says that she got angry and upset and started ?flipping out? and that is when she cut herself and was having suicidal thoughts. She reports that she had been drinking some alcohol but denied significant use of other drugs. Unfortunately, secondary to her condition that she was in, a drug screen to confirm her version of the story is not available. We did discuss the fact that generally speaking, when she presents with paranoia to the point where she acts on the paranoia, there has been active drug use and generally methamphetamines. She denied vehemently that that was the case. We reviewed her last hospitalization, and she denied any substantive changes except for the fact that she had not been staying either in her own place or with her uncle primarily, but that there is this other couple that had reportedly been supportive and helpful with maintaining her sobriety and staying on her medication. We did have discussion about how she was going to break this cycle of repeat hospitalizations, drug use, and lack of progress in her overall circumstances, and she talked about treatment and rehab, and things of this nature, which is generally what she does in the beginning, and then as she starts to feel better, she starts to become ambivalent and then disengages from the plan for recovery-oriented treatment. An excerpt from her January 21, 2021, inpatient hospitalization is included below for context. 01/21/2021 [facility] inpatient psychiatric evaluation: History of Present Illness Brianna Real is a 40 year old female who presented to the ED with hallucinations and suicidal and homicidal ideation. She has had 5 admissions for similar reasons in the past 3 months, along with multiple other ED visits for similar issues. The ED note states: 40-year-old female comes in today for concerns of hallucinations and suicidal and homicidal thought. Patient states that she wants to hurt her self due to taking large amounts of meth which has brought on these feelings. Patient also wants to kill the sugar who gave her the meth. Patient is very calm and cooperative. Patient responds appropriate to questioning. Patient is seeking admission to the neuropsychiatric unit. Patient admits to use of cigarette tobacco, marijuana, methamphetamines, and alcohol. Patient reports that she feels like there are spiders in her brain. Patient also admits that she is homeless. Patient was admitted to the neuropsychiatric unit for definitive treatment of these issues. She says she has been anxious and also has delusional complaints. For instance, she says I cannot get my body back, and I have the wrong brain. She feels that everyone is out to get her. She hears voices that make derogatory comments about her and make commands to harm herself and others. She has visual hallucinations, seeing faces on the wall. She also describes depression and suicidal ideation. The patient says she does not use alcohol, but has been smoking meth quite a bit. She also smokes marijuana and smokes 1 or more packs of cigarettes per day. The patient says she sees Dr. Des vogel for medication management and is supposed to be assigned a continuous pillowcase cutter soon. She says she takes her medications daily. Hospital Course Hospital Course She quickly acclimated to the individual, group and milieu therapy provided. Callie dorsey was stabilized on her medication. Given the 6 previous hospitalizations in a short period of time and her overall history with determination that guardianship was in her best interest was established. Supportive living arrangements were obtained. We waited her guardianship hearing. She had significant improvement and was quite stable as she awaited guardianship. The combination of her sobriety and maintaining her medication regiment led to said improvement. She was able to contract for safety prior to discharge to [facility]. During the hospitalization, patient had routine laboratory studies which were within normal limits except for few outliers. Additionally there was a general medical evaluation which was also within normal limits and revealed no new acute processes. Discharge Summary: At the time of discharge, lethality and psychosis were denied. Mood and anxiety were well managed. Patient endorsed a plan to avoid all drugs of abuse and follow-up with the aftercare recommendations of the treatment team. Patient was evaluated and deemed to be absent credible lethality, and had achieved the maximum benefit from an inpatient hospitalization, so was discharged. Involuntary Hold Information 96 Hour Hold: 96 Hour Involuntary Admission: No 96 Hour Hold Ending Date: 03/22/21 96 Hour Hold Ending Time: 10:49 Mental Status Exam MSE Comments: This is an overweight, white female, in hospital scrubs, with improving grooming and adequate eye contact. No abnormal movements. Cooperative with exam in no acute distress. Speech was normal rate, slightly decreased volume. Mood described as good; affect calm/congruent. Thought process, organized. Thought content: patient denied suicidal or homicidal ideation, there were no delusions noted or reported, she denied current auditory or visual hallucinations. Attention and concentration were intact, and memory appeared more reliable, but none were formally tested. She is alert and oriented times three. Insight and judgment are limited, and improving, impulse control is limited, but improving. Discharge Data Vitals: Last Vital Signs Temp 98.2 F 04/09/21 06:00 Pulse 80 04/09/21 06:00 Resp 16 04/09/21 06:00 BP 93/65 04/09/21 06:00 Pulse Ox 97 04/09/21 06:00 Discharge Plan Discharge Patient Disposition: Home Condition: Stable Prescriptions: Continued tramadol 50 mg Tablet 50 mg PO BID PRN (Reason: Pain) RF: 0 cyclobenzaprine 10 mg Tablet 10 mg PO TID PRN (Reason: Muscle Spasm) 30 Days Qty: 90 RF: 1 tizanidine 4 mg Tablet 4 mg PO BID PRN (Reason: Muscle Pain) 30 Days Qty: 60 RF: 0 olanzapine 10 mg Tablet 10 mg PO BEDTIME 30 Days Qty: 30 RF: 1 trazodone 100 mg Tablet 100 mg PO BEDTIME 30 Days Qty: 30 RF: 1 dicyclomine 20 mg tablet 20 mg PO QID 30 Days Qty: 120 RF: 1 buspirone 10 mg Tablet 10 mg PO TID PRN (Reason: Anxiety) 30 Days Qty: 90 RF: 1 gabapentin 100 mg Capsule 100 mg PO TID 30 Days Qty: 90 RF: 1 Cymbalta 60 mg Capsule,Delayed Release(Dr/Ec) 60 mg PO DAILY@1999 30 Days Qty: 30 RF: 1 Rexulti 2 mg Tablet 2 mg PO DAILY 30 Days Qty: 30 RF: 1 Changed Lithobid 300 mg tablet extended release 300 mg PO DAILY@1999 30 Days Qty: 30 RF: 1 Discharge Orders: Discharge Order (Routine); Ordered 04/09/21 Ordered By: Hogn Walter Referrals: [facility] [Outside] - 04/09/21 11:15 am (Luz Queen medication follow-up) Discharge Diet: Regular Discharge Activity: Resume usual activity Patient Instructions: Opioid Safety Discharge Attestations NPU Time Spent in Discharge Care*: less than 30 min Specific Discharge Activities: Specific discharge activities: educating patient, discussing with caseworker intake/social workers/dc planners, documenting/other paperwork and evaluating patient/reviewing data Status at Discharge: Cognitive status at discharge: cognitively intact , Behavioral status at discharge: cooperative , Coding Level of Care Code Acute Chg FW DC note Diagnoses Acute psychosis F23 Suicidal ideation R45.851 Leukocytosis, unspecified D72.829 Methamphetamine use F15.10 Borderline personality disorder F60.3 Generalized anxiety disorder F41.1 Alcohol dependence, in remission F10.21 Marijuana use F12.90 Other stimulant dependence, in remission F15.21
[2021-04-10] MEDS: duloxetine 60 mg Capsule PO (09:30)
[2021-04-10] MEDS: dicyclomine 20 mg Tablet PO ×2 (09:30→11:51)
[2021-04-10] MEDS: gabapentin 100 mg Capsule PO (09:30)
[2021-04-10] MEDS: tizanidine 4 mg Tablet PO (10:45)
[2021-04-10] MEDS: cyclobenzaprine 10 mg Tablet PO (10:45)
[2021-04-10] MEDS: BuSPIRONE 10 mg Tablet PO (10:45)
[2021-04-10 11:35] VITALS: BP 92/62; PULSE 99; RESP 16; TEMP 36.1; O2SAT 95
--- NOTE | 2021-04-10 12:21 | NPU.GN ---
[facility] Topic:Coping Skills Bingo/ Cross word puzzle General Mood of Group: Brianna did not attend and participate in group therapy this morning. Brianna wanted to sleep.
== END 2021-04-10 12:18 | disposition home or self-care (01) | DRG 885 ==
LOC: ER 08:43 → NP 17:36
PROVIDERS: Admitting Provider Psychiatry & Neurology Child & Adolescent Psychiatry; Emergency Provider Family Medicine; PCP Family Medicine; Visit Provider Psychiatry & Neurology Psychiatry
DX: F23 Brief psychotic disorder (principal); R45.851 Suicidal ideations; F31.9 Bipolar disorder, unspecified; F41.1 Generalized anxiety disorder; F15.10 Other stimulant abuse, uncomplicated; Z91.14 Patient's other noncompliance with medication regimen; F10.21 Alcohol dependence, in remission; F17.210 Nicotine dependence, cigarettes, uncomplicated; F60.3 Borderline personality disorder; F12.90 Cannabis use, unspecified, uncomplicated; F43.20 Adjustment disorder, unspecified
CPT/HCPCS: 36415; 80053; 80306; 80307; 81003; 81025; 85025; 97150; 97165; 99285